=== PATIENT | male | born 1935 | race Caucasian/White ===

== ENCOUNTER 2018-01-29 12:19 | Inpatient (IN) | END 2018-02-05 19:30 | DRG 190 ==

== ENCOUNTER 2018-03-23 13:36 | Inpatient (IN) | END 2018-03-30 18:40 | DRG 190 ==

== ENCOUNTER 2018-07-13 13:35 | Inpatient (IN) | payer MEDICARE, OTHER ==
[~2018-07-13] VITALS: Ht 162.6 cm; Wt 64.9 kg
[~2018-07-13 13:35] MED LIST: ACET-2047 PO; ATOR10TA65 PO; BALS3OIN TP; BENZ-5 PO; BENZ1LOZ52 MM; BISA10SU18 RC; CARSR60 PO; DEME300T8 PO; DOCU-159 PO; ENOX40DI2 SC; FURO-110 PO; IPRA3AMP29 INHALATION; LEVA0.634 INHALATION; LOSA50TA14 PO; LUBI24CA7 PO; MAGN400O19 PO; MONT10TA24 PO; MUCO4 NEB; OLOP2.5D BOTH EYES; PANT40TA3 PO; PHEN-538 PO; POLY15DR25 BOTH EYES; POLY17PO6 PO; PRED20TA PO; SIME80TA60 PO; TAMS0.4C2 PO
[2018-07-13] MEDS ORDERED: CEFEPIME 2GM/50 ML (PMX) 50 ML IVPB STA (13:37)
[2018-07-13] MEDS ORDERED: ACETAMINOPHEN 325 MG TAB PO STA (13:37)
[2018-07-13] MEDS ORDERED: ALBUTEROL 0.083% (NEB) 2.5 MG/3 ML AMP HHN STA (13:39)
[2018-07-13] MEDS ORDERED: VANCOMYCIN 1 GM (PMX) 250 ML IVPB ONE (14:00)
[2018-07-13] MEDS ORDERED: IPRATROPIUM (NEB) 0.5 MG/2.5 ML AMP HHN ONE (14:00)
[2018-07-13] MEDS ORDERED: SODIUM CHLORIDE 0.9% 1L BAG IV* STA (14:03)
[2018-07-13] MEDS ORDERED: OSELTAMIVIR PHOSPHATE (6 MG/ML PO SYG) PO ONE (14:30)
[2018-07-13] MEDS ORDERED: ALTEPLASE (CATHFLO) 2 MG INJ CATHETER PRN (14:30)
[2018-07-13] MEDS ORDERED: ACETAMINOPHEN 650 MG SUPP PR ONE (14:30)
[2018-07-13] MEDS ORDERED: ATOR10TA65 PO (14:37)
[2018-07-13] MEDS ORDERED: POLY15DR25 BOTH EYES (14:37)
[2018-07-13] MEDS ORDERED: MAGN400O19 PO (14:42)
[2018-07-13] MEDS ORDERED: LUBI24CA7 PO (14:42)
[2018-07-13] MEDS ORDERED: MENT113G4 TP (14:42)
[2018-07-13] MEDS ORDERED: LOSA50TA14 PO (14:44)
[2018-07-13] MEDS ORDERED: LEVA0.634 INHALATION (14:45)
[2018-07-13] MEDS ORDERED: GUAI-173 PO (14:46)
[2018-07-13] MEDS ORDERED: ATRO INHALATION (14:46)
[2018-07-13] MEDS ORDERED: FURO-110 PO (14:47)
[2018-07-13] MEDS ORDERED: BISA10SU55 RC (14:47)
[2018-07-13] MEDS ORDERED: DOCU-159 PO (14:48)
[2018-07-13] MEDS ORDERED: DILT30TA30 PO (14:50)
[2018-07-13] MEDS ORDERED: DEME300T8 PO (14:51)
[2018-07-13] MEDS ORDERED: CEPASTAT MT (14:53)
[2018-07-13] MEDS ORDERED: POLY17PO6 PO (14:54)
[2018-07-13] MEDS ORDERED: MONT10TA24 PO (14:55)
[2018-07-13] MEDS ORDERED: MULTI PO (14:55)
[2018-07-13] MEDS ORDERED: ACET-2047 PO (14:56)
[2018-07-13] MEDS ORDERED: TAMS0.4C2 PO (14:56)
[2018-07-13] MEDS ORDERED: SIME80TA60 PO (14:57)
[2018-07-13] MEDS ORDERED: PROT946L PO (14:58)
[2018-07-13] MEDS ORDERED: PRED20TA PO (14:58)
[2018-07-13] MEDS ORDERED: POTA20TA15 PO (14:59)
[2018-07-13] MEDS ORDERED: PANT40TA3 PO (14:59)
[2018-07-13] MEDS ORDERED: ACETAMINOPHEN 325 MG TAB PO PRN ×2 (15:00→15:30)
[2018-07-13] MEDS ORDERED: HYDR-4011 PO (15:00)
[2018-07-13] MEDS ORDERED: OLOP2.5D BOTH EYES (15:00)
[2018-07-13] MEDS ORDERED: ONDANSETRON 4 MG INJ IV PRN ×2 (15:00→15:30)
--- NOTE | 2018-07-13 15:06 | HP ---
Date/Time of Note Date/Time of Note DATE: 07/13/18 TIME: 15:06 Assessment/Plan VTE Prophylaxis Pharmacological prophylaxis: LMWH Lines/Catheters IV [facility]from [facility]): Saline Lock Assessment/Plan Hospital Course 83-year-old male with comorbidities including essential hypertension, pulmonary hypertension, dyslipidemia, COPD, and BPH who was brought in from a [facility] because of dyspnea and hypoxia with positive influenza A swab and possible underlying pulmonary infiltrates with evidence of sepsis with febrile illness, tachycardia, and tachypnea, present on admission, who will be admitted to inpatient setting for further treatment and evaluation. 1. Sepsis with febrile illness, tachycardia, and tachypnea, present on admissi on secondary to underlying influenza A and possible healthcare associated pneumonia. -Pancultures sent. -Continue IV fluids. -Continue empiric antimicrobials. 2. Bronchitis secondary to influenza A. -Continue neuraminidase inhibitors. -Droplet precautions. 3. Suspect healthcare associated pneumonia. -Continue vancomycin and cefepime. -Continue inhaled bronchodilators. 4. COPD. -Continue inhaled bronchodilators (MADDIE). -Start tapering dose of steroids. 5. Acute respiratory failure. -Hypoxic and hypercapnic. -NIPPV as indicated. -Continue inhaled bronchodilators. -Pulmonology consult. 6. Essential hypertension. -Resume antihypertensives. 7. Pulmonary hypertension. -Continue supplemental oxygen. 8. Benign prostatic hypertrophy. -Continue tamsulosin. Plan: The patient will be admitted to inpatient telemetry floor. The patient will be started on a low cholesterol diet. The patient will be started on DVT prophylaxis and gastrointestinal prophylaxis (patient on steroids). The patient will remain a full code. Activities will be with assist. The rest of the patient's management will be based on the clinical course, inputs from consultants, and the results of diagnostic studies. Based on the patient's clinical presentation, he most probably requires at least 2 midnights' stay for further management and evaluation of his clinical presentation. The patient was seen in collaboration with Dr. Bravo. Result Diagram: 07/13/18 1349 07/13/18 1349 Results 24hrs Laboratory Tests Test 07/13/18 13:45 07/13/18 13:49 Blood Gas Specimen Source Blood arterial Arterial Blood Date Drawn 07/13/2018 2:04:34 PM Arterial Blood pH (Temp corrected) 7.302 L Arterial Blood pCO2 (Temp correct) 69.3 H Arterial Blood pO2 (Temp corrected) 87.1 Arterial Blood HCO3 33.5 H Arterial Blood Base Excess 5.0 H Arterial Blood Oxygen Saturation 95.4 Elmer Test ACCEPTAB Arterial Blood Gas Puncture Site Right Radial Arterial Blood Carboxyhemoglobin 0.1 Arterial Blood Methemoglobin 0.5 Blood Gas A-a O2 Differential 264.5 H Oxyhemoglobin Percent 94.8 Blood Gas Temperature 37.0 Blood Gas Respiration Rate 14.0 Blood Gas Actual Respiration Rate 30 Blood Gas Modality MASK - BIPAP FiO2 60.0 Blood Gas Pressure Support 10 Blood Gas IPAP/EPAP Ratio 15/5 Blood Gas Notified Whom M.D. Blood Gas Notified Time 07/13/2018 2:15:11 PM White Blood Count 9.5 # Red Blood Count 4.66 L Hemoglobin 12.9 L Hematocrit 41.6 L Mean Corpuscular Volume 89.3 Mean Corpuscular Hemoglobin 27.7 L Mean Corpuscular Hemoglobin Concent 31.0 L Red Cell Distribution Width 15.0 H Platelet Count 170 Mean Platelet Volume 10.0 Immature Granulocytes % 1.100 H Neutrophils % 89.9 H Lymphocytes % 5.7 L Monocytes % 3.2 Eosinophils % 0.0 Basophils % 0.1 Nucleated Red Blood Cells % 0.0 Immature Granulocytes # 0.100 H Neutrophils # 8.5 H Lymphocytes # 0.5 L Monocytes # 0.3 Eosinophils # 0.0 Basophils # 0.0 Nucleated Red Blood Cells # 0.0 Prothrombin Time 12.2 Prothrombin Time Ratio 1.0 INR International Normalized Ratio 0.89 Activated Partial Thromboplast Time 27.1 Sodium Level 138 Potassium Level 5.4 H Chloride Level 94 L Carbon Dioxide Level 35 H Anion Gap 9 Blood Urea Nitrogen 40 H Creatinine 0.98 Est Glomerular Filtrat Rate mL/min Glucose Level 93 Lactic Acid Level 1.5 Calcium Level 9.9 Total Bilirubin 0.2 Direct Bilirubin 0.00 Indirect Bilirubin 0.2 Aspartate Amino Transf (AST/SGOT) 38 Alanine Aminotransferase (ALT/SGPT) 21 Alkaline Phosphatase 100 Troponin I 0.051 Total Protein 6.2 Albumin 3.3 Globulin 2.90 Albumin/Globulin Ratio 1.13 HPI/ROS Admit Date/Time Admit Date/Time Hx of Present Illness This is an 83-year-old male with past medical history of hypertension, hyperlipidemia, pulmonary hypertension, COPD, and benign prostatic hypertrophy, who is a shelter resident. The patient was brought to the emergency room from the [facility] because of dyspnea and hypoxia. The patient was complaining of minimal chest pain and back pain. The patient was noticed to be hypoxic with a room air oxygen saturation the 80s. In the emergency room, the patient was noticed to be febrile with a temperature of 100.4 rectally. The patient was also noticed to be tachycardic. The patient did not have any leukocytosis. The patient was noticed to have hypoxic and hypercapnic respiratory failure. The patient was started on noninvasive positive pressure ventilation. The patient's influenza A swab was positive. The patient's chest x-ray was showing patchy bibasilar infiltrates/atelectasis with very small bilateral pleural effusions. The patient was treated with a single dose of Tamiflu, inhaled bronchodilators, along with cefepime and vancomycin in the emergency room. ROS Subjective hx not possible: pt critical status PMH/Family/Social Past Medical History 1. Hypertension. 2. Hyperlipidemia. 3. Pulmonary hypertension. 4. COPD. 5. BPH. 6. A. fib (as per SNF documentation). Medications Current Medications Vancomycin HCl 250 ml @ 125 mls/hr ONCE ONCE IVPB Last administered on 07/13/18at 14:57; Admin Dose 125 MLS/HR; Start 07/13/18 at 14:00; Stop 07/13/18 at 15:59 Alteplase, Recombinant (Cathflo (Activase)) 2 mg MAY REPEAT X1 PRN CATHETER IF CATHETER REMAINS OCCULUDED Last administered on 07/13/18at 14:28; Admin Dose 2 MG; Start 07/13/18 at 14:30 Ondansetron HCl (Zofran Inj) 4 mg ER BRIDGE PRN IV NAUSEA/VOMITING; Start 07/13/18 at 15:00; Stop 07/14/18 at 14:59 Acetaminophen (Tylenol Tab) 650 mg ER BRIDGE PRN PO .MILD PAIN 1-3 OR TEMP; Start 07/13/18 at 15:00; Stop 07/14/18 at 14:59 Coded Allergies: No Known Allergy (Unverified , 07/13/18) Past Surgical History Past Surgical Hx: no surgical history Family History Significant Family History: no pertinent family hx Social History The patient is a shelter resident. Alcohol Use: none Smoking Status: Former smoker Drug Use: none Exam/Review of Systems Vital Signs Vitals Vital Signs Date Temp Pulse Resp B/P (MAP) Pulse Ox O2 O2 Flow FiO2 Time Delivery Rate 07/13/18 100.4 128 35 108/49 99 BIPAP 14:45 (68) 07/13/18 60 14:15 Exam Exam General: Adequately build 83 year-old male lying in bed in mild to moderate respiratory distress. HEENT: Normocephalic, atraumatic. Eyes: Anicteric sclerae, conjunctivae clear. ENT: Nasal septum midline, oral mucosa moist. Neck supple. Respiratory: Bilaterally diminished breath sounds. Use of accessory muscles of respiration. Cardiovascular: S1, S2 heard. Regular rate and rhythm. Abdomen: Nontender, and distended. Genitourinary: Deferred. Extremities: No cyanosis, no edema. Peripheral pulses palpable. Neurologic: The patient is awake and alert. Moves all 4 extremities. Follows commands. Skin: Ecchymosis on the dorsal aspect of the right hand. Additional Comments CXR IMPRESSION: There are patchy bibasilar infiltrates or atelectasis with very small bilateral pleural effusions. BERTA OVALLE NP Jul 13, 2018 15:06
[2018-07-13] MEDS ORDERED: NACL 0.9% 3 ML SYG IV SCH (15:30)
[2018-07-13] MEDS ORDERED: VANCOMYCIN IV PER PHARMACY XX SCH (15:30)
[2018-07-13] MEDS ORDERED: ALBUTEROL/IPRATROPIUM (NEB) 3 ML AMP HHN PRN (15:30)
--- NOTE | 2018-07-13 16:17 | ERD ---
ER Documentation Chief Complaint Chief Complaint FROM SNF WITH C/C SOB HPI Patient is a 83-year-old male with previous COPD who presents with shortness of breath. Please note the history and physical exam is limited secondary to the patient's shortness of breath at this time. The patient was brought in by ambulance. The patient had chest pain and back pain and oxygen saturation was 80s on room air. The patient was given a breathing treatment by paramedics. He came from a facility. The patient was diagnosed with pneumonia on chest x-ray at the facility. ROS All systems reviewed and are negative except as per history of present illness. Medications Home Meds Reported Medications Hydrocodone/Acetaminophen ([place] 5-325 Tablet) 1 Each Tablet, 1 EACH PO Q6 PRN for MODERATE PAIN LEVEL 4-6, TAB 07/13/18 Olopatadine* (Pataday*) 0.2% - 2.5 Ml Drops, 1 DROP BOTH EYES BID, EA 07/13/18 Pantoprazole* (Protonix*) 40 Mg Tablet.dr, 40 MG PO DAILY, TAB 07/13/18 Potassium Chloride* (K-Dur*) 20 Meq Tab.prt.sr, 40 MEQ PO DAILY, TAB.SA 07/13/18 Prednisone* (Prednisone*) 20 Mg Tab, 20 MG PO DAILY, TAB 07/13/18 Protein Supplement (Promod) 946 Ml Liquid, 946 ML PO BID 07/13/18 Simethicone* (Mylicon*) 80 Mg Tab, 80 MG PO TID PRN for DISTENSION/GAS/BLOATING, TAB 07/13/18 Tamsulosin Hcl* (Tamsulosin Hcl*) 0.4 Mg Cap.er.24h, 0.4 MG PO HS, CAP 07/13/18 Acetaminophen* (Acetaminophen*) 650 Mg Tablet, 650 MG PO Q6H PRN for MILD PAIN LEVEL 1-3, #30 TAB AND FEVER 07/13/18 Multivitamins* (Theragran*) 1 Tab Tab, 1 TAB PO DAILY, TAB 07/13/18 Montelukast Sodium* (Montelukast Sodium*) 10 Mg Tablet, 10 MG PO QHS, #30 TAB 07/13/18 Polyethylene Glycol* (Miralax*) 17 Gm Powd.pack, 17 GM PO TID PRN for CONSTIPATION, #60 PACKET 07/13/18 Throat Lozenges* (Cepastat*) 9 Josselin Lozenge, 1 LOZENGE MT EVERY 1 HOUR PRN, LOZENGE 07/13/18 Demeclocycline Hcl* (Demeclocycline Hcl*) 300 Mg Tablet, 150 MG PO TID, #60 TAB 07/13/18 Diltiazem Hcl* (Cardizem*) 30 Mg Tablet, 30 MG PO Q8 PRN for BLOOD PRESSURE SUPPORT, #90 TAB HOLD FOR SBP <110 OR HR <60 07/13/18 Docusate Sodium* (Docusate Sodium*) 100 Mg Capsule, 100 MG PO BID, #60 CAP 07/13/18 Bisacodyl (Dulcolax) 10 Mg Supp.rect, 10 MG RC PRN PRN for CONSTIPATION, SUPP.RECT 07/13/18 Furosemide* (Lasix*) 20 Mg Tablet, 20 MG PO DAILY, TAB 07/13/18 Guaifenesin* (Tussin*) 100 Mg/5 Ml Syrup, 200 MG PO Q4 PRN for COUGH, ML 07/13/18 Ipratropium [place]* (Atrovent HFA*) 12.9 Gm Aer.w.adap, 2 PUFF INHALATION Q6 for SHORTNESS OF BREATH, #1 INHALER FOR THE NEBULIZER 07/13/18 Levalbuterol Hcl* (Levalbuterol Hcl*) 0.63 Mg/3 Ml Vial.neb, 0.63 MG INHALATION Q6H PRN for WHEEZING AND SOB, VIAL 07/13/18 Losartan Potassium* (Losartan Potassium*) 50 Mg Tablet, 50 MG PO DAILY, TAB HOLD FOR SBP <110 OR HR <60 07/13/18 Lubiprostone* (Amitiza*) 24 Mcg Capsule, 24 MCG PO BID, #60 CAP 07/13/18 Magnesium Hydroxide* (Milk Of Magnesia*) 400 Mg/5 Ml Oral.susp, 30 ML PO DAILY P RN for CONSTIPATION, ML 07/13/18 Menthol (BENGAY) 113 Gm Gel..gram., 113 GM TP TID APPLY TO POSTERIOR RIGHT SHOULDER 07/13/18 Atorvastatin Calcium (Atorvastatin Calcium) 10 Mg Tablet, 10 MG PO QHS, #30 TAB 07/13/18 Polyvinyl Alcohol (Tears Again) 15 Ml Drops, 1 DRP BOTH EYES Q2HWA, BOTTLE 07/13/18 Discontinued Reported Medications Magnesium Hydroxide* (Milk Of Magnesia*) 400 Mg/5 Ml Oral.susp, 30 ML PO DAILY, ML 05/27/18 Montelukast Sodium* (Montelukast Sodium*) 10 Mg Tablet, 10 MG PO QHS, #30 TAB 05/27/18 Olopatadine* (Pataday*) 0.2% - 2.5 Ml Drops, 1 DROP BOTH EYES TID, EA 05/27/18 Pantoprazole* (Protonix*) 40 Mg Tablet.dr, 40 MG PO DAILY, TAB 05/27/18 Phenazopyridine Hcl* (Pyridium*) 200 Mg Tab, 200 MG PO TID, TAB 05/27/18 Benzocaine/Menthol* (Cepacol* Sore Throat Lozenges) 1 Each Lozenge, 1 EACH MM q 2h PRN for SORE THROAT, LOZENGE 05/27/18 Polyethylene Glycol* (Miralax*) 17 Gm Powd.pack, 17 GM PO TID, #60 PACKET 05/27/18 Prednisone* (Prednisone*) 20 Mg Tab, 20 MG PO DAILY, TAB 05/27/18 Simethicone* (Mylicon*) 80 Mg Tab, 80 MG PO TID PRN for DISTENSION/GAS/BLOATING, TAB 05/27/18 Tamsulosin Hcl* (Tamsulosin Hcl*) 0.4 Mg Cap.er.24h, 0.4 MG PO HS, CAP 05/27/18 Lubiprostone* (Amitiza*) 24 Mcg Capsule, 24 MCG PO BID, #60 CAP 05/27/18 Losartan Potassium* (Losartan Potassium*) 50 Mg Tablet, 50 MG PO DAILY, TAB 05/27/18 Levalbuterol Hcl* (Levalbuterol Hcl*) 0.63 Mg/3 Ml Vial.neb, 0.63 MG INHALATION Q6H PRN for WHEEZING AND SOB, VIAL 05/27/18 Ipratropium-Albuterol (Ipratropium-Albuterol) 0.5-3 Mg/3 Ml Ampul.neb, 3 ML INHALATION Q6, #30 VIAL 05/27/18 Furosemide* (Lasix*) 20 Mg Tablet, 20 MG PO DAILY, TAB 05/27/18 Enoxaparin Sodium* (Enoxaparin Sodium*) 40 Mg/0.4 Ml Syringe, 40 MG SC DAILY, SYR 05/27/18 Docusate Sodium* (Docusate Sodium*) 100 Mg Capsule, 100 MG PO BID, #60 CAP 05/27/18 Acetylcysteine* (Mucomyst*) 4 Ml Soln, 2 ML NEB BID, EA 05/27/18 Acetaminophen* (Acetaminophen*) 650 Mg Tablet, 650 MG PO Q6H PRN for PAIN AND OR ELEVATED TEMP, #30 TAB 05/27/18 Polyvinyl Alcohol (Tears Again) 15 Ml Drops, 1 DRP BOTH EYES EVERY 2 HOURS PRN for DRY EYES, BOTTLE 05/27/18 Atorvastatin Calcium (Atorvastatin Calcium) 10 Mg Tablet, 10 MG PO QHS, #30 TAB 05/27/18 Balsam Germania/[place] Oil (CIRCUDERM EMOLLIENT) 3 Gm Oint.pack, 3 GM TP Q12 05/27/18 Benzonatate* (Benzonatate*) 100 Mg Capsule, 100 MG PO TID PRN for COUGH, CAP 05/27/18 Bisacodyl (Laxative Suppository) 10 Mg Supp.rect, 10 MG RC DAILY PRN for CONSTIPATION, SUPP.RECT 05/27/18 Demeclocycline Hcl* (Demeclocycline Hcl*) 300 Mg Tablet, 150 MG PO TID, #60 TAB 05/27/18 Diltiazem Hcl* (Cardizem SR*) 60 Mg Capsr, 60 MG PO Q8, #60 CAP 05/27/18 Allergies Allergies: Coded Allergies: No Known Allergy (Unverified , 07/13/18) PMhx/Soc History of Surgery: Yes Anesthesia Reaction: No Hx Neurological Disorder: No Hx Respiratory Disorders: Yes (copd) Hx Cardiac Disorders: Yes (htn, a-fib ) Hx Psychiatric Problems: No Hx Miscellaneous Medical Probl: Yes (dysphagia, uti , gerd ) Hx Alcohol Use: Yes Hx Substance Use: No Hx Tobacco Use: Yes (QUIT 12 YEARS AGO) Smoking Status: Former smoker FmHx Unable to obtain Physical Exam Vitals Vital Signs Date Temp Pulse Resp B/P (MAP) Pulse Ox O2 O2 Flow FiO2 Time Delivery Rate 07/13/18 100.4 128 35 108/49 99 BIPAP 14:45 (68) 07/13/18 100.4 14:17 07/13/18 130 95 60 14:15 07/13/18 130 33 99/51 (67) 100 BIPAP 13:59 07/13/18 98.3 129 26 102/73 88 13:41 (83) Physical Exam Const: Moderate distress Head: Atraumatic Eyes: Normal Conjunctiva ENT: Normal External Ears, Nose and Mouth. Neck: Full range of motion. No meningismus. Resp: Tachypnea with accessory muscle use Cardio: Tachycardia with regular rhythm Abd: Soft, non tender, non distended. Normal bowel sounds Skin: No petechiae or rashes Back: No midline or flank tenderness Ext: No cyanosis, or edema Neur: Awake and moves all 4 extremities Result Diagram: 07/13/18 1349 07/13/18 1349 Results 24 hrs Laboratory Tests Test 07/13/18 13:45 07/13/18 13:49 Blood Gas Specimen Source Blood arterial Arterial Blood Date Drawn 07/13/2018 2:04:34 PM Arterial Blood pH (Temp corrected) 7.302 Arterial Blood pCO2 (Temp correct) 69.3 mmhg Arterial Blood pO2 (Temp corrected) 87.1 mmHG Arterial Blood HCO3 33.5 mmol/L Arterial Blood Base Excess 5.0 mmol/L Arterial Blood Oxygen Saturation 95.4 mmHG Elmer Test ACCEPTAB Arterial Blood Gas Puncture Site Right Radial Arterial Blood Carboxyhemoglobin 0.1 % Arterial Blood Methemoglobin 0.5 % Blood Gas A-a O2 Differential 264.5 mmHg Oxyhemoglobin Percent 94.8 % Blood Gas Temperature 37.0 C Blood Gas Respiration Rate 14.0 Blood Gas Actual Respiration Rate 30 Blood Gas Modality MASK - BIPAP FiO2 60.0 % Blood Gas Pressure Support 10 Blood Gas IPAP/EPAP Ratio 15/5 Blood Gas Notified Whom Vilma Blood Gas Notified Time 07/13/2018 2:15:11 PM White Blood Count 9.5 10^3/ul Red Blood Count 4.66 10^6/ul Hemoglobin 12.9 g/dl Hematocrit 41.6 % Mean Corpuscular Volume 89.3 fl Mean Corpuscular Hemoglobin 27.7 pg Mean Corpuscular Hemoglobin Concent 31.0 g/dl Red Cell Distribution Width 15.0 % Platelet Count 170 10^3/UL Mean Platelet Volume 10.0 fl Immature Granulocytes % 1.100 % Neutrophils % 89.9 % Lymphocytes % 5.7 % Monocytes % 3.2 % Eosinophils % 0.0 % Basophils % 0.1 % Nucleated Red Blood Cells % 0.0 /100WBC Immature Granulocytes # 0.100 10^3/ul Neutrophils # 8.5 10^3/ul Lymphocytes # 0.5 10^3/ul Monocytes # 0.3 10^3/ul Eosinophils # 0.0 10^3/ul Basophils # 0.0 10^3/ul Nucleated Red Blood Cells # 0.0 10^3/ul Prothrombin Time 12.2 Sec Prothrombin Time Ratio 1.0 INR International Normalized Ratio 0.89 Activated Partial Thromboplast Time 27.1 Sec Sodium Level 138 mmol/L Potassium Level 5.4 mmol/L Chloride Level 94 mmol/L Carbon Dioxide Level 35 mmol/L Anion Gap 9 Blood Urea Nitrogen 40 mg/dl Creatinine 0.98 mg/dl Est Glomerular Filtrat Rate mL/min mL/min Glucose Level 93 mg/dl Hemoglobin A1c 5.7 % Lactic Acid Level 1.5 mmol/L Calcium Level 9.9 mg/dl Total Bilirubin 0.2 mg/dl Direct Bilirubin 0.00 mg/dl Indirect Bilirubin 0.2 mg/dl Aspartate Amino Transf (AST/SGOT) 38 IU/L Alanine Aminotransferase (ALT/SGPT) 21 IU/L Alkaline Phosphatase 100 IU/L Troponin I 0.051 ng/ml Total Protein 6.2 g/dl Albumin 3.3 g/dl Globulin 2.90 g/dl Albumin/Globulin Ratio 1.13 Current Medications Medications Dose Sig/Katya Start Time Status Last (Trade) Ordered Route PRN Stop Time Admin Dose Reason Admin 650 mg ONCE STAT 07/13/18 DC Acetaminophen PO 13:37 (Tylenol 07/13/18 13:39 Tab) Cefepime HCl 50 ml @ ONCE STAT 07/13/18 DC 07/13/18 100 mls/hr IVPB 13:37 14:16 07/13/18 14:06 Vancomycin 250 ml @ ONCE ONCE 07/13/18 DC 07/13/18 HCl 125 mls/hr IVPB 14:00 14:57 07/13/18 15:59 Albuterol 5 mg ONCE STAT 07/13/18 DC 07/13/18 (Proventil HHN 13:39 14:44 0.083% (Neb)) 07/13/18 13:40 Ipratropium 0.5 mg ONCE ONCE 07/13/18 DC 07/13/18 Reed[place] HHN 14:00 14:44 (Atrovent 07/13/18 14:01 0.02% (Neb)) Sodium 2,450 ml BOLUS OVER 2 07/13/18 DC 07/13/18 Chloride HOURS STAT 14:03 14:16 (NS) IV* 07/13/18 14:04 Alteplase, 2 mg MAY REPEAT 07/13/18 07/13/18 Recombinant X1 PRN 14:30 14:28 (Cathflo CATHETER IF (Activase)) CATHETER REMAINS OCCULUDED 650 mg ONCE ONCE 07/13/18 DC 07/13/18 Acetaminophen DC 14:30 14:17 (Tylenol 07/13/18 14:31 Supp) Oseltamivir 75 mg ONCE ONCE 07/13/18 DC 07/13/18 Phosphate PO 14:30 14:51 (Tamiflu 07/13/18 14:31 Susp) Ondansetron 4 mg ER BRIDGE 07/13/18 DC HCl (Zofran PRN IV 15:00 Inj) NAUSEA/VOMITI 07/13/18 15:36 NG 650 mg ER BRIDGE 07/13/18 DC Acetaminophen PRN PO 15:00 (Tylenol .MILD PAIN 07/13/18 15:36 Tab) 1-3 OR TEMP IV Flush 3 ml PER 07/13/18 (NS 3 ml) PROTOCOL IV 15:30 Ondansetron 4 mg Q6H PRN 07/13/18 HCl (Zofran IV 15:30 Inj) NAUSEA/VOMITI NG 650 mg Q6H PRN 07/13/18 Acetaminophen PO .PAIN 1-3 15:30 (Tylenol OR TEMP Tab) 1 tab Q6H PRN 07/13/18 Acetaminophen PO .MOD PAIN 15:30 / 4-6 Hydrocodone Bitart ([place] (5/325)) Oseltamivir 75 mg BID PO 07/13/18 Phosphate 21:00 (Tamiflu) Cefepime HCl 50 ml @ Q12 IVPB 07/13/18 100 mls/hr 21:00 Vancomycin VANCOMYCIN PER 07/13/18 HCl (Vanco PER PHARMACY PROTOCOL XX 15:30 Iv Per Pharmacy) Albuterol/ 3 ml Q4HWA RESP 07/13/18 Ipratropium THERAPY HHN 17:00 (Duoneb) Albuterol/ 3 ml Q2H RESP 07/13/18 Ipratropium THERAPY PRN 15:30 (Duoneb) HHN SHORTNESS OF BREATH 60 mg Q8 IV 07/13/18 Methylprednis 22:00 olone Sodium Succinate (Solu-Medrol) 10 mg QHS PO 07/13/18 Atorvastatin 21:00 Calcium (Lipitor) Furosemide 20 mg DAILY PO 07/14/18 (Lasix) 09:00 Losartan 50 mg DAILY PO 07/14/18 Potassium 09:00 (Cozaar) 24 mcg BID PO 07/13/18 Lubiprostone 21:00 (Amitiza) Montelukast 10 mg QHS PO 07/13/18 Sodium 21:00 (Singulair) Olopatadine 1 drop BID BOTH 07/13/18 UNV HCl EYES 21:00 (Pataday) 40 mg DAILY PO 07/14/18 Pantoprazole 09:00 (Protonix Tab) Tamsulosin 0.4 mg HS PO 07/13/18 HCl 21:00 (Flomax) Olopatadine 1 drop BID BOTH 07/13/18 HCl EYES 21:00 (Pataday) Procedures/MDM Chest x-ray read by radiology. EKG read by me: Rate/Rhythm: Sinus tachycardia at a rate of 122 Intervals: Normal Impression: Tachycardia without ischemia Sepsis Documentation: Patient's infectious symptoms have not stabilized and the patient is at risk of rapid decompensation. The patient will be admitted for careful hydration, antibiotic therapy, and infectious source control. SEVERE SEPSIS CRITERIA: Infectious source: Pneumonia and influenza End organ damage indicated by: Respiratory failure SEPSIS MANAGEMENT Time of recognition of sepsis: 1348. Time of recognition of severe sepsis: 1348. Time of recognition of septic shock: No septic shock at this time. 3 HOUR BUNDLE Blood cultures x 2 before broad-spectrum antibiotics: Yes 30 ml/kg NS bolus completed Initial lactate 1.5 Repeat lactate pending SEPTIC SHOCK ASSESSMENT: No lactic acid > 4.0 No persistent hypotension (SBP < 90 or 40 mmHg drop, MAP < 65) despite 30 mL/kg IV fluid bolus VOLUME REASSESSMENT FOR SEPTIC SHOCK: No septic shock PERSISTENT HYPOTENSION TREATMENT: Comfort care no Central line, patient has a PICC line in the right upper extremity upon arrival Vasopressor started not required I considered further perfusion assessment with CVP measurement, SCVO2, bedside ultrasound volume assessment, passive leg raise, trial of further fluid bolus. And proceeded with 30 ml/kg fluid bolus of NSS, broad spectrum antibiotics, and admission. The patient has a PICC line in the right upper extremity but at this point does not require pressors. Patient was positive for influenza and Tamiflu first dose was given. CRITICAL CARE Critical care time 35 minutes Emergent fluid management while maintaining close respiratory support. Provision of immediate and broad-spectrum antibiotic therapy. Simultaneous assessment for possible sources in order to direct targeted therapy. Consideration for invasive and chemical support to prevent cardiopulmonary collapse. Critical care time is independent of procedures performed. Departure Diagnosis: Primary Impression: Severe sepsis Additional Impressions: Influenza Pneumonia Pneumonia type: due to unspecified organism Laterality: bilateral Lung location: lower lobe of lung Qualified Codes: J18.1 - Lobar pneumonia, unspecified organism Condition: Serious JAG UP MD Jul 13, 2018 16:17
[2018-07-13] MEDS ORDERED: NA POLYST SULFON 15 GM/60 ML BTL PO ONE (18:00)
[2018-07-13] MEDS: ALBUTEROL/IPRATROPIUM (NEB) 3 ML AMP HHN SCH ×2 (18:12→20:45)
[2018-07-13 19:27] VITALS: PULSE 103
[2018-07-13 19:28] VITALS: PULSE 108
[2018-07-13 20:00] VITALS: BP 94/51; PULSE 107; PULSE 112; RESP 17; Ht 162.6 cm; Wt 64.9 kg
[2018-07-13] MEDS ORDERED: OLOPATADINE 0.2% (ONCE A DAY) OPHTH DROP 2.5 ML BOTH EYES SCH (21:00)
[2018-07-13] MEDS: LUBIPROSTONE 24 MCG CAP PO SCH (21:00)
[2018-07-13] MEDS: TAMSULOSIN (SR) 0.4 MG CAP PO SCH (22:08)
[2018-07-13] MEDS: ATORVASTATIN 10 MG TAB PO SCH (22:08)
[2018-07-13] MEDS: MONTELUKAST 10 MG TAB PO SCH (22:08)
[2018-07-13] MEDS: FAMOTIDINE 20 MG TAB PO SCH (22:08)
[2018-07-13] MEDS: METHYLPREDNISOLONE 125 MG INJ IV SCH (22:09)
[2018-07-13] MEDS: CEFEPIME 1GM/50 ML (PMX) 50 ML IVPB SCH (22:09)
[2018-07-13 22:45] VITALS: PULSE 100
[2018-07-13] MEDS: OSELTAMIVIR 75 MG CAP PO SCH (23:45)
[2018-07-13] MEDS: OLOPATADINE 0.2% (ONCE A DAY) OPHTH DROP 2.5 ML BOTH EYES SCH (23:53)
[2018-07-14] VITALS (22 sets, daily range): BP systolic 112–125; BP diastolic 56–74; PULSE 87–167; RESP 18–20
[2018-07-14] MEDS: VANCOMYCIN 750 MG (PMX) 250 ML IVPB SCH ×2 (03:23→15:06)
[2018-07-14] MEDS: METHYLPREDNISOLONE 125 MG INJ IV SCH ×3 (05:51→21:24)
[2018-07-14] MEDS: CEFEPIME 1GM/50 ML (PMX) 50 ML IVPB SCH ×2 (08:30→21:23)
[2018-07-14] MEDS: LUBIPROSTONE 24 MCG CAP PO SCH ×2 (08:33→21:23)
[2018-07-14] MEDS: OSELTAMIVIR 75 MG CAP PO SCH ×2 (08:34→21:23)
[2018-07-14] MEDS: LOSARTAN 50 MG TAB PO SCH (08:34)
[2018-07-14] MEDS: FAMOTIDINE 20 MG TAB PO SCH (08:35)
[2018-07-14] MEDS: FUROSEMIDE 20 MG TAB PO SCH (08:35)
[2018-07-14] MEDS: ENOXAPARIN 40 MG/0.4 ML SYG SC SCH (08:47)
[2018-07-14] MEDS ORDERED: PANTOPRAZOLE (EC) 40 MG TAB PO SCH (09:00)
[2018-07-14] MEDS: OLOPATADINE 0.2% (ONCE A DAY) OPHTH DROP 2.5 ML BOTH EYES SCH ×2 (09:00→21:23)
[2018-07-14] MEDS: ALBUTEROL/IPRATROPIUM (NEB) 3 ML AMP HHN SCH ×3 (10:23→19:33)
--- NOTE | 2018-07-14 11:51 | PN ---
Date/Time of Note Date/Time of Note DATE: 07/14/18 TIME: 11:47 Assessment/Plan VTE Prophylaxis Risk score (from Ns)>0 risk: 5 SCD applied (from Ns): Yes SCD contraindicated: low risk/ambulating Pharmacological prophylaxis: heparin Lines/Catheters IV Catheter Type (from Nrs): PICC Line Central line still needed: Yes Urinary Cath still in place: No Assessment/Plan Hospital Course Assessment plan 1. Sepsis, probably severe, stable continue supplemental oxygen 2. Acute influenza A, stable finish Tamiflu 3. Acute hypoxic respiratory failure, mod stable continue oxygen 4. Concern for healthcare associated pneumonia, stable finish antibiotics 5. Chronic COPD 6. Past tobacco 7. Possible bronchitis, steroids as indicated 8. Chronic hypertension 9. Chronic pulmonary hypertension 10. Chronic VICTOR HUGO? On home BiPAP? 11. Pulmonary nodule right 6 mm noted back in March. Serial imaging every 6 months 12. BPH 13. Sinus tach secondary to /2/ S: Follows commands. Has back/shoulder pain cough with white expectoration no hemoptysis. Constipated? O: Vital signs stable except sinus tachycardia, hypoxia requiring supplemental oxygen on BiPAP presently Physical exam No pallor or JVD appreciated Regular no murmur gallop Faint diminished mild tachypnea Distended? positive bs, no rigidity rebound guarding No edema Result Diagram: 07/14/18 0542 07/14/18 0542 Results 24hrs Laboratory Tests Test 07/13/18 13:45 07/13/18 13:49 07/13/18 16:29 07/13/18 19:51 Blood Gas Blood arterial Specimen Source Arterial Blood 07/13/2018 2:04:3 Date Drawn 4 PM Arterial Blood pH 7.302 L (Temp corrected) Arterial Blood 69.3 H pCO2 (Temp correct) Arterial Blood 87.1 pO2 (Temp corrected) Arterial Blood 33.5 H HCO3 Arterial Blood 5.0 H Base Excess Arterial Blood 95.4 Oxygen Saturation Elmer Test ACCEPTAB Arterial Blood Right Radial Gas Puncture Site Arterial 0.1 Blood Carboxyhemo globin Arterial Blood 0.5 Methemoglobin Blood Gas A-a O2 264.5 H Differential Oxyhemoglobin 94.8 Percent Blood Gas 37.0 Temperature Blood Gas 14.0 Respiration Rate Blood Gas Actual 30 Respiration Rate Blood Gas MASK - BIPAP Modality FiO2 60.0 Blood Gas 10 Pressure Support Blood Gas 15/5 IPAP/EPAP Ratio Blood Gas M.DKim Notified Whom Blood Gas 07/13/2018 2:15:1 Notified Time 1 PM White Blood Count 9.5 # Red Blood Count 4.66 L Hemoglobin 12.9 L Hematocrit 41.6 L Mean Corpuscular 89.3 Volume Mean Corpuscular 27.7 L Hemoglobin Mean Corpuscular 31.0 L Hemoglobin Concen t Red Cell 15.0 H Distribution Width Platelet Count 170 Mean Platelet 10.0 Volume Immature 1.100 H Granulocytes % Neutrophils % 89.9 H Lymphocytes % 5.7 L Monocytes % 3.2 Eosinophils % 0.0 Basophils % 0.1 Nucleated Red 0.0 Blood Cells % Immature 0.100 H Granulocytes # Neutrophils # 8.5 H Lymphocytes # 0.5 L Monocytes # 0.3 Eosinophils # 0.0 Basophils # 0.0 Nucleated Red 0.0 Blood Cells # Prothrombin Time 12.2 Prothrombin Time 1.0 Ratio INR International 0.89 Normalized Ratio Activated 27.1 Partial Thrombopl ast Time Sodium Level 138 Potassium Level 5.4 H Chloride Level 94 L Carbon Dioxide 35 H Level Anion Gap 9 Blood Urea 40 H Nitrogen Creatinine 0.98 Est Glomerular Filtrat Rate mL/min Glucose Level 93 Hemoglobin A1c 5.7 Lactic Acid Level 1.5 1.6 1.3 Calcium Level 9.9 Total Bilirubin 0.2 Direct Bilirubin 0.00 Indirect 0.2 Bilirubin Aspartate Amino 38 Transf (AST/SGOT) Alanine 21 Aminotransferase (ALT/SGPT) Alkaline 100 Phosphatase Troponin I 0.051 Total Protein 6.2 Albumin 3.3 Globulin 2.90 Albumin/Globulin 1.13 Ratio Thyroid 0.602 Stimulating Hormone (TSH) Free Thyroxine 1.64 Test 07/14/18 00:00 07/14/18 05:42 Urine Color STRAW Urine Clarity CLEAR Urine pH 5.0 Urine Specific 1.011 [place] Urine Ketones NEGATIVE Urine Nitrite NEGATIVE Urine Bilirubin NEGATIVE Urine NEGATIVE Urobilinogen Urine Leukocyte NEGATIVE Esterase Urine Hemoglobin NEGATIVE Urine Glucose NEGATIVE Urine Total NEGATIVE Protein White Blood Count 5.4 # Red Blood Count 4.11 L Hemoglobin 11.4 L Hematocrit 37.1 L Mean Corpuscular 90.3 Volume Mean Corpuscular 27.7 L Hemoglobin Mean Corpuscular 30.7 L Hemoglobin Concen t Red Cell 15.2 H Distribution Width Platelet Count 147 Mean Platelet 10.6 H Volume Immature 0.400 Granulocytes % Neutrophils % 93.1 H Lymphocytes % 3.9 L Monocytes % 2.6 Eosinophils % 0.0 Basophils % 0.0 Nucleated Red 0.0 Blood Cells % Immature 0.020 Granulocytes # Neutrophils # 5.0 Lymphocytes # 0.2 L Monocytes # 0.1 L Eosinophils # 0.0 Basophils # 0.0 Nucleated Red 0.0 Blood Cells # Sodium Level 140 Potassium Level 3.9 Chloride Level 98 Carbon Dioxide 34 H Level Anion Gap 8 Blood Urea 34 H Nitrogen Creatinine 0.67 Est Glomerular Filtrat Rate mL/min Glucose Level 128 Calcium Level 8.7 Phosphorus Level 4.5 Magnesium Level 2.0 Total Bilirubin 0.1 L Direct Bilirubin 0.00 Indirect 0.1 Bilirubin Aspartate Amino 30 Transf (AST/SGOT) Alanine 26 Aminotransferase (ALT/SGPT) Alkaline 76 Phosphatase Total Protein 5.4 L Albumin 2.8 L Globulin 2.60 Albumin/Globulin 1.07 Ratio Triglycerides 97 Level Cholesterol Level 124 LDL Cholesterol, 65 Calculated HDL Cholesterol 40 Cholesterol/HDL 3.1 Ratio Exam/Review of Systems Exam Vitals Vital Signs Date Temp Pulse Resp B/P (MAP) Pulse Ox O2 O2 Flow FiO2 Time Delivery Rate 07/14/18 89 98 40 11:35 07/14/18 98.0 20 121/65 11:31 (83) 07/14/18 6.0 10:10 07/14/18 BIPAP 04:00 Intake and Output 07/13/18 07/13/18 07/14/18 1515:00 23:00 07:00 IntakeIntake Total 350 ml 470 ml OutputOutput Total 750 ml BalanceBalance 350 ml -280 ml Results Results 24hrs Laboratory Tests Test 07/13/18 13:45 07/13/18 13:49 07/13/18 16:29 07/13/18 19:51 Blood Gas Blood arterial Specimen Source Arterial Blood 07/13/2018 2:04:3 Date Drawn 4 PM Arterial Blood pH 7.302 L (Temp corrected) Arterial Blood 69.3 H pCO2 (Temp correct) Arterial Blood 87.1 pO2 (Temp corrected) Arterial Blood 33.5 H HCO3 Arterial Blood 5.0 H Base Excess Arterial Blood 95.4 Oxygen Saturation Elmer Test ACCEPTAB Arterial Blood Right Radial Gas Puncture Site Arterial 0.1 Blood Carboxyhemo globin Arterial Blood 0.5 Methemoglobin Blood Gas A-a O2 264.5 H Differential Oxyhemoglobin 94.8 Percent Blood Gas 37.0 Temperature Blood Gas 14.0 Respiration Rate Blood Gas Actual 30 Respiration Rate Blood Gas MASK - BIPAP Modality FiO2 60.0 Blood Gas 10 Pressure Support Blood Gas 15/5 IPAP/EPAP Ratio Blood Gas M.D. Notified Whom Blood Gas 07/13/2018 2:15:1 Notified Time 1 PM White Blood Count 9.5 # Red Blood Count 4.66 L Hemoglobin 12.9 L Hematocrit 41.6 L Mean Corpuscular 89.3 Volume Mean Corpuscular 27.7 L Hemoglobin Mean Corpuscular 31.0 L Hemoglobin Concen t Red Cell 15.0 H Distribution Width Platelet Count 170 Mean Platelet 10.0 Volume Immature 1.100 H Granulocytes % Neutrophils % 89.9 H Lymphocytes % 5.7 L Monocytes % 3.2 Eosinophils % 0.0 Basophils % 0.1 Nucleated Red 0.0 Blood Cells % Immature 0.100 H Granulocytes # Neutrophils # 8.5 H Lymphocytes # 0.5 L Monocytes # 0.3 Eosinophils # 0.0 Basophils # 0.0 Nucleated Red 0.0 Blood Cells # Prothrombin Time 12.2 Prothrombin Time 1.0 Ratio INR International 0.89 Normalized Ratio Activated 27.1 Partial Thrombopl ast Time Sodium Level 138 Potassium Level 5.4 H Chloride Level 94 L Carbon Dioxide 35 H Level Anion Gap 9 Blood Urea 40 H Nitrogen Creatinine 0.98 Est Glomerular Filtrat Rate mL/min Glucose Level 93 Hemoglobin A1c 5.7 Lactic Acid Level 1.5 1.6 1.3 Calcium Level 9.9 Total Bilirubin 0.2 Direct Bilirubin 0.00 Indirect 0.2 Bilirubin Aspartate Amino 38 Transf (AST/SGOT) Alanine 21 Aminotransferase (ALT/SGPT) Alkaline 100 Phosphatase Troponin I 0.051 Total Protein 6.2 Albumin 3.3 Globulin 2.90 Albumin/Globulin 1.13 Ratio Thyroid 0.602 Stimulating Hormone (TSH) Free Thyroxine 1.64 Test 07/14/18 00:00 07/14/18 05:42 Urine Color STRAW Urine Clarity CLEAR Urine pH 5.0 Urine Specific 1.011 [place] Urine Ketones NEGATIVE Urine Nitrite NEGATIVE Urine Bilirubin NEGATIVE Urine NEGATIVE Urobilinogen Urine Leukocyte NEGATIVE Esterase Urine Hemoglobin NEGATIVE Urine Glucose NEGATIVE Urine Total NEGATIVE Protein White Blood Count 5.4 # Red Blood Count 4.11 L Hemoglobin 11.4 L Hematocrit 37.1 L Mean Corpuscular 90.3 Volume Mean Corpuscular 27.7 L Hemoglobin Mean Corpuscular 30.7 L Hemoglobin Concen t Red Cell 15.2 H Distribution Width Platelet Count 147 Mean Platelet 10.6 H Volume Immature 0.400 Granulocytes % Neutrophils % 93.1 H Lymphocytes % 3.9 L Monocytes % 2.6 Eosinophils % 0.0 Basophils % 0.0 Nucleated Red 0.0 Blood Cells % Immature 0.020 Granulocytes # Neutrophils # 5.0 Lymphocytes # 0.2 L Monocytes # 0.1 L Eosinophils # 0.0 Basophils # 0.0 Nucleated Red 0.0 Blood Cells # Sodium Level 140 Potassium Level 3.9 Chloride Level 98 Carbon Dioxide 34 H Level Anion Gap 8 Blood Urea 34 H Nitrogen Creatinine 0.67 Est Glomerular Filtrat Rate mL/min Glucose Level 128 Calcium Level 8.7 Phosphorus Level 4.5 Magnesium Level 2.0 Total Bilirubin 0.1 L Direct Bilirubin 0.00 Indirect 0.1 Bilirubin Aspartate Amino 30 Transf (AST/SGOT) Alanine 26 Aminotransferase (ALT/SGPT) Alkaline 76 Phosphatase Total Protein 5.4 L Albumin 2.8 L Globulin 2.60 Albumin/Globulin 1.07 Ratio Triglycerides 97 Level Cholesterol Level 124 LDL Cholesterol, 65 Calculated HDL Cholesterol 40 Cholesterol/HDL 3.1 Ratio Medications Medication Current Medications Alteplase, Recombinant (Cathflo (Activase)) 2 mg MAY REPEAT X1 PRN CATHETER IF CATHETER REMAINS OCCULUDED Last administered on 07/13/18at 14:28; Admin Dose 2 M G; Start 07/13/18 at 14:30 IV Flush (NS 3 ml) 3 ml PER PROTOCOL IV ; Start 07/13/18 at 15:30 Ondansetron HCl (Zofran Inj) 4 mg Q6H PRN IV NAUSEA/VOMITING; Start 07/13/18 at 15:30 Acetaminophen (Tylenol Tab) 650 mg Q6H PRN PO .PAIN 1-3 OR TEMP; Start 07/13/18 at 15:30 Acetaminophen/ Hydrocodone Bitart ([place] (5/325)) 1 tab Q6H PRN PO .MOD PAIN 4- 6; Start 07/13/18 at 15:30 Oseltamivir Phosphate (Tamiflu) 75 mg BID PO Last administered on 07/14/18at 08:34; Admin Dose 75 MG; Start 07/13/18 at 21:00 Cefepime HCl 50 ml @ 100 mls/hr Q12 IVPB Last administered on 07/14/18 08:30; Admin Dose 100 MLS/HR; Start 07/13/18 at 21:00 Vancomycin HCl (Vanco Iv Per Pharmacy) VANCOMYCIN PER PHARMACY PER PROTOCOL XX ; Start 07/13/18 at 15:30 Albuterol/ Ipratropium (Duoneb) 3 ml Q4HWA RESP THERAPY HHN Last administered on 07/14/18 10:23; Admin Dose 3 ML; Start 07/13/18 at 17:00 Albuterol/ Ipratropium (Duoneb) 3 ml Q2H RESP THERAPY PRN HHN SHORTNESS OF BREATH; Start 07/13/18 at 15:30 Methylprednisolone Sodium Succinate (Solu-Medrol) 60 mg Q8 IV Last administered on 07/14/18 05:51; Admin Dose 60 MG; Start 07/13/18 at 22:00 Atorvastatin Calcium (Lipitor) 10 mg QHS PO Last administered on 07/13/18 22:08; Admin Dose 10 MG; Start 07/13/18 at 21:00 Furosemide (Lasix) 20 mg DAILY PO Last administered on 07/14/18 08:35; Admin Dose 20 MG; Start 07/14/18 at 09:00 Losartan Potassium (Cozaar) 50 mg DAILY PO Last administered on 07/14/18 08:34; Admin Dose 50 MG; Start 07/14/18 at 09:00 Lubiprostone (Amitiza) 24 mcg BID PO Last administered on 07/14/18 08:33; Admin Dose 24 MCG; Start 07/13/18 at 21:00 Montelukast Sodium (Singulair) 10 mg QHS PO Last administered on 07/13/18 22:08; Admin Dose 10 MG; Start 07/13/18 at 21:00 Pantoprazole (Protonix Tab) 40 mg DAILY PO Last administered on 07/14/18 08:35; Admin Dose 40 MG; Start 07/14/18 at 09:00 Tamsulosin HCl (Flomax) 0.4 mg HS PO Last administered on 07/13/18 22:08; Admin Dose 0.4 MG; Start 07/13/18 at 21:00 Olopatadine HCl (Pataday) 1 drop BID BOTH EYES Last administered on 3/25/19at 09:00; Admin Dose 1 DROP; Start 07/13/18 at 21:00 Enoxaparin Sodium (Lovenox) 40 mg DAILY SC Last administered on 07/14/18at 08:47; Admin Dose 40 MG; Start 07/14/18 at 09:00 Famotidine (Pepcid) 20 mg BID PO Last administered on 07/14/18at 08:35; Admin Dose 20 MG; Start 07/13/18 at 21:00 Vancomycin/Sodium Chloride 250 ml @ 125 mls/hr Q12H IVPB Last administered on 07/14/18at 03:23; Admin Dose 125 MLS/HR; Start 07/14/18 at 03:00 Senna/Docusate Sodium (Senokot-S) 2 tab HS PO ; Start 07/14/18 at 21:00 Lactobacillus Acidophilus/ Rhamnosus (Culturelle) 1 cap BID PO ; Start 07/14/18 at 21:00 KAMILLE FRASER MD Jul 14, 2018 11:51
[2018-07-14] MEDS ORDERED: BISACODYL (EC) 5 MG TAB PO PRN (12:00)
[2018-07-14] MEDS ORDERED: BISACODYL 10 MG SUPP PR PRN (12:00)
[2018-07-14] MEDS: SENNA/DOCUSATE NA (8.6MG/50MG) TAB PO SCH (12:33)
--- NOTE | 2018-07-14 13:25 | CONS ---
DATE OF ADMISSION: 07/13/2018 DATE OF CONSULTATION: 07/14/2018 REASON FOR CONSULTATION: Shortness of breath. Thank you, Dr. Flynn, for this consultation. HISTORY OF PRESENT ILLNESS: This is an 83-year-old gentleman with history of hypertension, COPD, hyp erlipidemia, came in from assisted facility for increasing respiratory distress and positive i nfluenza A swab. Chest x-ray showed right lower lobe infiltrate. In addition, he had increased work of breathing with worsening hypoxemia. PAST MEDICAL HISTORY: COPD, chronic hypercapnia, BPH. MEDICATIONS: Per chart. ALLERGIES: NONE. SOCIAL HISTORY: He is an ex-smoker, no alcohol, no history of drug use. FAMILY HISTORY: Noncontributory. SYSTEMS REVIEW: A 12-point review of systems was negative other than that mentioned above. PHYSICAL EXAMINATION: GENERAL: Well-nourished, well-developed gentleman, comfortable at rest, no acute distress, on bileve l ventilation. VITAL SIGNS: Currently afebrile, pulse is 110, blood pressure 118/60, O2 saturation 96% on FIO2 of 4 0%. NECK: Supple. No JVD or lymphadenopathy. CARDIAC: S1, S2, no added sounds or murmurs. CHEST: Diminished air entry bilaterally. ABDOMEN: Soft, nontender. No guarding or rebound. EXTREMITIES: No cyanosis, clubbing, or edema. NEUROLOGIC: Generalized weakness. No focal deficits. LABORATORIES: White count 5.4, hemoglobin 11.4, platelets within normal limits. Chemistry within no rmal limits. Lactic acid 1.3. Arterial blood gas pH 7.3, pCO2 of 69, pO2 of 87 with an INR 0.89. U rinalysis unremarkable. Chest x-ray as stated right lower lobe infiltrate versus atelectasis. Influ elizabeth was positive for influenza A. IMPRESSION AND PLAN: Likely acute hypoxemic respiratory failure with acute influenza infection. The patient will require antibiotics, bronchodilators, continue Tamiflu, supplemental O2, nocturnal stephanie nvasive positive pressure ventilation and possible outpatient PFTs and sleep study. Dictated By: ALEXI ALLISON MD SV/NTS Conf#: [id number] DID#: [id number] CC: JAMES THOMAS MD;*EndCC*
[2018-07-14] MEDS ORDERED: SENNA/DOCUSATE NA (8.6MG/50MG) TAB PO SCH (21:00)
[2018-07-14] MEDS: LACTOBACILLUS RHAMNOSUS CAP PO SCH (21:23)
[2018-07-14] MEDS: ATORVASTATIN 10 MG TAB PO SCH (21:23)
[2018-07-14] MEDS: MONTELUKAST 10 MG TAB PO SCH (21:23)
[2018-07-14] MEDS: TAMSULOSIN (SR) 0.4 MG CAP PO SCH (21:23)
[2018-07-15] VITALS (33 sets, daily range): BP systolic 95–124; BP diastolic 46–74; PULSE 71–182; RESP 17–33
[2018-07-15] MEDS: ALBUTEROL/IPRATROPIUM (NEB) 3 ML AMP HHN SCH ×4 (02:40→19:45)
[2018-07-15] MEDS: VANCOMYCIN 750 MG (PMX) 250 ML IVPB SCH ×2 (03:49→16:14)
[2018-07-15] MEDS: METHYLPREDNISOLONE 125 MG INJ IV SCH ×3 (05:09→21:21)
[2018-07-15] MEDS: OLOPATADINE 0.2% (ONCE A DAY) OPHTH DROP 2.5 ML BOTH EYES SCH ×2 (08:51→21:00)
[2018-07-15] MEDS: FAMOTIDINE 20 MG TAB PO SCH (08:53)
[2018-07-15] MEDS: LUBIPROSTONE 24 MCG CAP PO SCH ×2 (08:53→21:21)
[2018-07-15] MEDS: OSELTAMIVIR 75 MG CAP PO SCH ×2 (08:53→21:22)
[2018-07-15] MEDS: LACTOBACILLUS RHAMNOSUS CAP PO SCH ×2 (08:53→21:22)
[2018-07-15] MEDS: LOSARTAN 50 MG TAB PO SCH (08:53)
[2018-07-15] MEDS: SENNA/DOCUSATE NA (8.6MG/50MG) TAB PO SCH (08:54)
[2018-07-15] MEDS: FUROSEMIDE 20 MG TAB PO SCH (08:54)
[2018-07-15] MEDS: CEFEPIME 1GM/50 ML (PMX) 50 ML IVPB SCH ×2 (09:01→21:21)
[2018-07-15] MEDS: ENOXAPARIN 40 MG/0.4 ML SYG SC SCH (09:07)
--- NOTE | 2018-07-15 11:16 | CONS ---
Consult Date/Type/Reason Admit Date/Time Jul 13, 2018 at 14:44 Initial Consult Date Type of Consult Pulmonary Date/Time of Note DATE: 07/15/18 TIME: 11:14 Subjective Remains BiPAP dependent with increased work of breathing. Objective Vital Signs Date Temp Pulse Resp B/P (MAP) Pulse Ox O2 O2 Flow FiO2 Time Delivery Rate 07/15/18 118 16 99 09:00 07/15/18 40 08:07 07/15/18 98.6 106/56 07:38 (73) 07/14/18 6.0 10:10 07/14/18 BIPAP 04:00 Intake and Output 07/14/18 07/14/18 07/15/18 1515:00 23:00 07:00 IntakeIntake Total 50 ml 700 ml 250 ml BalanceBalance 50 ml 700 ml 250 ml Exam PHYSICAL EXAMINATION: GENERAL: Well-nourished, well-developed gentleman, comfortable at rest, no acute distress, on bilevel ventilation. VITAL SIGNS: NECK: Supple. No JVD or lymphadenopathy. CARDIAC: S1, S2, no added sounds or murmurs. CHEST: Diminished air entry bilaterally. ABDOMEN: Soft, nontender. No guarding or rebound. EXTREMITIES: No cyanosis, clubbing, or edema. NEUROLOGIC: Generalized weakness. No focal deficits. Vent Setting Fraction of Inspired Oxygen pe: 35 Results/Medications Result Diagram: 07/15/18 0500 07/15/18 0500 Results 24 hrs Laboratory Tests Test 07/14/18 16:09 07/15/18 02:45 07/15/18 05:00 07/15/18 05:01 Blood Gas Blood arterial Specimen Source Arterial Blood 07/14/2018 5:15:0 Date Drawn 0 PM Arterial Blood pH 7.341 L (Temp corrected) Arterial Blood 63.6 H pCO2 (Temp correct) Arterial Blood 70.3 L pO2 (Temp corrected) Arterial Blood 33.6 H HCO3 Arterial Blood 6.1 H Base Excess Arterial Blood 92.8 L Oxygen Saturation Elmer Test ACCEPTAB Arterial Blood Right Radial Gas Puncture Site Arterial 0 Blood Carboxyhemo globin Arterial Blood 0.4 Methemoglobin Blood Gas A-a O2 141.8 H Differential Oxyhemoglobin 92.4 L Percent Blood Gas 37.0 Temperature Blood Gas 14.0 Respiration Rate Blood Gas Actual 16 Respiration Rate Blood Gas BIPAP - S/T Modality FiO2 40.0 Blood Gas 10 Pressure Support Blood Gas 15/5 IPAP/EPAP Ratio Blood Gas AB Notified Whom Blood Gas 07/14/2018 5:35:0 Notified Time 0 PM Vancomycin Level 13.5 Trough White Blood Count 7.1 # Red Blood Count 3.82 L Hemoglobin 10.5 L Hematocrit 34.1 L Mean Corpuscular 89.3 Volume Mean Corpuscular 27.5 L Hemoglobin Mean Corpuscular 30.8 L Hemoglobin Concen t Red Cell 14.9 H Distribution Width Platelet Count 152 Mean Platelet 11.0 H Volume Immature 0.700 H Granulocytes % Neutrophils % 92.3 H Lymphocytes % 3.2 L Monocytes % 3.8 Eosinophils % 0.0 Basophils % 0.0 Nucleated Red 0.0 Blood Cells % Immature 0.050 H Granulocytes # Neutrophils # 6.5 Lymphocytes # 0.2 L Monocytes # 0.3 Eosinophils # 0.0 Basophils # 0.0 Nucleated Red 0.0 Blood Cells # Sodium Level 141 Potassium Level 3.3 L Chloride Level 96 L Carbon Dioxide 38 H Level Anion Gap 7 Blood Urea 34 H Nitrogen Creatinine 0.61 Est Glomerular Filtrat Rate mL/min Glucose Level 140 Calcium Level 8.6 Total Bilirubin 0.1 L Direct Bilirubin 0.00 Indirect 0.1 Bilirubin Aspartate Amino 29 Transf (AST/SGOT) Alanine 31 Aminotransferase (ALT/SGPT) Alkaline 84 Phosphatase Total Protein 5.3 L Albumin 2.7 L Globulin 2.60 Albumin/Globulin 1.03 Ratio Thyroid 0.128 L Stimulating Hormone (TSH) Phosphorus Level 3.1 Magnesium Level 2.0 Test 07/15/18 07:00 Blood Gas Blood arterial Specimen Source Arterial Blood 07/15/2018 8:00:4 Date Drawn 2 AM Arterial Blood pH 7.378 (Temp corrected) Arterial Blood 64.9 H pCO2 (Temp correct) Arterial Blood 63.0 L pO2 (Temp corrected) Arterial Blood 37.4 H HCO3 Arterial Blood 10.1 H Base Excess Arterial Blood 90.6 L Oxygen Saturation Elmer Test ACCEPTAB Arterial Blood Right Radial Gas Puncture Site Arterial 0.3 Blood Carboxyhemo globin Arterial Blood 0.3 Methemoglobin Blood Gas A-a O2 147.6 H Differential Oxyhemoglobin 90.1 L Percent Blood Gas 37.0 Temperature Blood Gas 14.0 Respiration Rate Blood Gas Actual 17 Respiration Rate Blood Gas MASK - BIPAP Modality FiO2 40.0 Blood Gas 10 Pressure Support Blood Gas TM Notified Whom Blood Gas 07/15/2018 8:09:3 Notified Time 8 AM Medications Current Medications Alteplase, Recombinant (Cathflo (Activase)) 2 mg MAY REPEAT X1 PRN CATHETER IF CATHETER REMAINS OCCULUDED Last administered on 07/13/18 14:28; Admin Dose 2 MG; Start 07/13/18 at 14:30 IV Flush (NS 3 ml) 3 ml PER PROTOCOL IV ; Start 07/13/18 at 15:30 Ondansetron HCl (Zofran Inj) 4 mg Q6H PRN IV NAUSEA/VOMITING; Start 07/13/18 at 15:30 Acetaminophen (Tylenol Tab) 650 mg Q6H PRN PO .PAIN 1-3 OR TEMP; Start 07/13/18 at 15:30 Acetaminophen/ Hydrocodone Bitart ([place] (5/325)) 1 tab Q6H PRN PO .MOD PAIN 4- 6; Start 07/13/18 at 15:30 Oseltamivir Phosphate (Tamiflu) 75 mg BID PO Last administered on 07/15/18 08:53; Admin Dose 75 MG; Start 07/13/18 at 21:00 Cefepime HCl 50 ml @ 100 mls/hr Q12 IVPB Last administered on 07/15/18 09:01; Admin Dose 100 MLS/HR; Start 07/13/18 at 21:00 Vancomycin HCl (Vanco Iv Per Pharmacy) VANCOMYCIN PER PHARMACY PER PROTOCOL XX ; Start 07/13/18 at 15:30 Albuterol/ Ipratropium (Duoneb) 3 ml Q2H RESP THERAPY PRN HHN SHORTNESS OF BREATH; Start 07/13/18 at 15:30 Methylprednisolone Sodium Succinate (Solu-Medrol) 60 mg Q8 IV Last administered on 07/15/18 05:09; Admin Dose 60 MG; Start 07/13/18 at 22:00 Atorvastatin Calcium (Lipitor) 10 mg QHS PO Last administered on 07/14/18 21:23; Admin Dose 10 MG; Start 07/13/18 at 21:00 Furosemide (Lasix) 20 mg DAILY PO Last administered on 07/15/18 08:54; Admin Dose 20 MG; Start 07/14/18 at 09:00 Losartan Potassium (Cozaar) 50 mg DAILY PO Last administered on 07/15/18 08:53; Admin Dose 50 MG; Start 07/14/18 at 09:00 Lubiprostone (Amitiza) 24 mcg BID PO Last administered on 07/15/18 08:53; Admin Dose 24 MCG; Start 07/13/18 at 21:00 Montelukast Sodium (Singulair) 10 mg QHS PO Last administered on 07/14/18 21:23; Admin Dose 10 MG; Start 07/13/18 at 21:00 Tamsulosin HCl (Flomax) 0.4 mg HS PO Last administered on 07/14/18 21:23; A dmin Dose 0.4 MG; Start 07/13/18 at 21:00 Olopatadine HCl (Pataday) 1 drop BID BOTH EYES Last administered on 07/15/18 08:51; Admin Dose 1 DROP; Start 07/13/18 at 21:00 Enoxaparin Sodium (Lovenox) 40 mg DAILY SC Last administered on 07/15/18 09:07; Admin Dose 40 MG; Start 07/14/18 at 09:00 Vancomycin/Sodium Chloride 250 ml @ 125 mls/hr Q12H IVPB Last administered on 07/15/18 03:49; Admin Dose 125 MLS/HR; Start 07/14/18 at 03:00 Lactobacillus Acidophilus/ Rhamnosus (Culturelle) 1 cap BID PO Last administered on 07/15/18 08:53; Admin Dose 1 CAP; Start 07/14/18 at 21:00 Senna/Docusate Sodium (Senokot-S) 2 tab AM PO Last administered on 07/15/18 08:54; Admin Dose 2 TAB; Start 07/14/18 at 12:00 Bisacodyl (Dulcolax) 10 mg DAILY PRN PO CONSTIPATION; Start 07/14/18 at 12:00 Bisacodyl (Dulcolax Supp) 10 mg DAILY PRN [place] CONSTIPATION; Start 07/14/18 at 12:00 Albuterol/ Ipratropium (Duoneb) 3 ml Q6H RESP THERAPY HHN Last administered on 07/15/18 08:58; Admin Dose 3 ML; Start 07/14/18 at 14:00 Famotidine (Pepcid) 20 mg DAILY PO Last administered on 3/26/19at 08:53; Admin Dose 20 MG; Start 07/15/18 at 09:00 Assessment/Plan Hospital Course (Demo Recall) Assessment 1. Acute hypoxemic and hypercapnic respiratory failure. Likely secondary to influenza infection. 2. Hypokalemia Plan 1. Continue noninvasive positive pressure ventilation 2. Transfer to ICU for further monitoring 3. Continue Tamiflu and antibacterials 4. Aspiration precautions Prognosis is guarded critical care time 40 minute Family discussion re goals of care. ALEXI ALLISON MD, [facility] Jul 15, 2018 11:16
[2018-07-15] MEDS ORDERED: BISACODYL (EC) 5 MG TAB PO ONE (11:30)
[2018-07-15] MEDS: TAMSULOSIN (SR) 0.4 MG CAP PO SCH (21:22)
[2018-07-15] MEDS: MONTELUKAST 10 MG TAB PO SCH (21:22)
[2018-07-15] MEDS: ATORVASTATIN 10 MG TAB PO SCH (21:22)
[2018-07-16] VITALS (29 sets, daily range): BP systolic 90–138; BP diastolic 48–111; PULSE 77–117; RESP 14–31
[2018-07-16] MEDS: HYDROCODONE/APAP (5/325) TAB PO PRN ×3 (00:48→21:41)
[2018-07-16] MEDS: ALBUTEROL/IPRATROPIUM (NEB) 3 ML AMP HHN SCH ×4 (01:18→20:07)
[2018-07-16] MEDS: VANCOMYCIN 750 MG (PMX) 250 ML IVPB SCH ×2 (02:36→15:16)
[2018-07-16] MEDS: METHYLPREDNISOLONE 125 MG INJ IV SCH ×3 (05:48→21:40)
[2018-07-16] MEDS: OLOPATADINE 0.2% (ONCE A DAY) OPHTH DROP 2.5 ML BOTH EYES SCH ×2 (09:00→21:00)
[2018-07-16] MEDS: LACTOBACILLUS RHAMNOSUS CAP PO SCH ×2 (09:00→22:20)
[2018-07-16] MEDS: POTASSIUM CHLORIDE 100 ML IVPB SCH ×2 (10:38→12:56)
[2018-07-16] MEDS: CEFEPIME 1GM/50 ML (PMX) 50 ML IVPB SCH ×2 (10:39→21:40)
[2018-07-16] MEDS: LUBIPROSTONE 24 MCG CAP PO SCH ×2 (10:40→21:41)
[2018-07-16] MEDS: FUROSEMIDE 20 MG TAB PO SCH (10:40)
[2018-07-16] MEDS: LOSARTAN 50 MG TAB PO SCH (10:40)
[2018-07-16] MEDS: SENNA/DOCUSATE NA (8.6MG/50MG) TAB PO SCH (10:40)
[2018-07-16] MEDS: FAMOTIDINE 20 MG TAB PO SCH (10:40)
[2018-07-16] MEDS: OSELTAMIVIR 75 MG CAP PO SCH (10:40)
[2018-07-16] MEDS: ENOXAPARIN 40 MG/0.4 ML SYG SC SCH (11:14)
--- NOTE | 2018-07-16 11:17 | CONS ---
Consult Date/Type/Reason Admit Date/Time Jul 13, 2018 at 14:44 Initial Consult Date Type of Consult Pulmonary Date/Time of Note DATE: 07/16/18 TIME: 11:16 Subjective Still remains mostly dependent on bilevel ventilation. Awake alert refused chest x-ray this morning. Objective Vital Signs Date Temp Pulse Resp B/P (MAP) Pulse Ox O2 O2 Flow FiO2 Time Delivery Rate 07/16/18 102 14 120/83 95 BIPAP 09:00 (95) 07/16/18 97.6 08:00 07/16/18 50 05:47 07/14/18 6.0 10:10 Intake and Output 07/15/18 07/15/18 07/16/18 1515:00 23:00 07:00 IntakeIntake Total 300 ml 650 ml 300 ml OutputOutput Total 340 ml 500 ml 435 ml BalanceBalance -40 ml 150 ml -135 ml Exam PHYSICAL EXAMINATION: GENERAL: Well-nourished, well-developed gentleman, comfortable at rest, no acute distress, on bilevel ventilation. VITAL SIGNS: NECK: Supple. No JVD or lymphadenopathy. CARDIAC: S1, S2, no added sounds or murmurs. CHEST: Diminished air entry bilaterally. ABDOMEN: Soft, nontender. No guarding or rebound. EXTREMITIES: No cyanosis, clubbing, or edema. NEUROLOGIC: Generalized weakness. No focal deficits. Vent Setting Fraction of Inspired Oxygen pe: 35 Results/Medications Result Diagram: 07/16/18 0505 07/16/18 0505 Results 24 hrs Laboratory Tests Test 07/16/18 05:05 White Blood Count 6.9 Red Blood Count 3.68 L Hemoglobin 10.1 L Hematocrit 32.8 L Mean Corpuscular Volume 89.1 Mean Corpuscular Hemoglobin 27.4 L Mean Corpuscular Hemoglobin Concent 30.8 L Red Cell Distribution Width 14.6 H Platelet Count 156 Mean Platelet Volume 10.5 H Immature Granulocytes % 0.700 H Neutrophils % 92.6 H Lymphocytes % 3.9 L Monocytes % 2.7 Eosinophils % 0.0 Basophils % 0.1 Nucleated Red Blood Cells % 0.0 Immature Granulocytes # 0.050 H Neutrophils # 6.4 Lymphocytes # 0.3 L Monocytes # 0.2 L Eosinophils # 0.0 Basophils # 0.0 Nucleated Red Blood Cells # 0.0 Sodium Level 140 Potassium Level 3.1 L Chloride Level 96 L Carbon Dioxide Level 38 H Anion Gap 6 Blood Urea Nitrogen 31 H Creatinine 0.61 Est Glomerular Filtrat Rate mL/min Glucose Level 139 Calcium Level 8.5 Magnesium Level 2.1 Troponin I 0.097 Medications Current Medications Alteplase, Recombinant (Cathflo (Activase)) 2 mg MAY REPEAT X1 PRN CATHETER IF C ATHETER REMAINS OCCULUDED Last administered on 07/13/18at 14:28; Admin Dose 2 MG; Start 07/13/18 at 14:30 IV Flush (NS 3 ml) 3 ml PER PROTOCOL IV ; Start 07/13/18 at 15:30 Ondansetron HCl (Zofran Inj) 4 mg Q6H PRN IV NAUSEA/VOMITING; Start 07/13/18 at 15:30 Acetaminophen (Tylenol Tab) 650 mg Q6H PRN PO .PAIN 1-3 OR TEMP; Start 07/13/18 at 15:30 Acetaminophen/ Hydrocodone Bitart ([place] (5/325)) 1 tab Q6H PRN PO .MOD PAIN 4- 6 Last administered on 07/16/18at 00:48; Admin Dose 1 TAB; Start 07/13/18 at 15:30 Oseltamivir Phosphate (Tamiflu) 75 mg BID PO Last administered on 07/16/18at 10:40; Admin Dose 75 MG; Start 07/13/18 at 21:00 Cefepime HCl 50 ml @ 100 mls/hr Q12 IVPB Last administered on 07/16/18at 10:39; Admin Dose 100 MLS/HR; Start 07/13/18 at 21:00 Vancomycin HCl (Vanco Iv Per Pharmacy) VANCOMYCIN PER PHARMACY PER PROTOCOL XX ; Start 07/13/18 at 15:30 Albuterol/ Ipratropium (Duoneb) 3 ml Q2H RESP THERAPY PRN HHN SHORTNESS OF BREATH; Start 07/13/18 at 15:30 Methylprednisolone Sodium Succinate (Solu-Medrol) 60 mg Q8 IV Last administered on 07/16/18at 05:48; Admin Dose 60 MG; Start 07/13/18 at 22:00 Atorvastatin Calcium (Lipitor) 10 mg QHS PO Last administered on 07/15/18at 21:2 2; Admin Dose 10 MG; Start 07/13/18 at 21:00 Furosemide (Lasix) 20 mg DAILY PO Last administered on 07/16/18 10:40; Admin Dose 20 MG; Start 07/14/18 at 09:00 Losartan Potassium (Cozaar) 50 mg DAILY PO Last administered on 07/16/18 10:40; Admin Dose 50 MG; Start 07/14/18 at 09:00 Lubiprostone (Amitiza) 24 mcg BID PO Last administered on 07/16/18 10:40; Admin Dose 24 MCG; Start 07/13/18 at 21:00 Montelukast Sodium (Singulair) 10 mg QHS PO Last administered on 07/15/18 21:22; Admin Dose 10 MG; Start 07/13/18 at 21:00 Tamsulosin HCl (Flomax) 0.4 mg HS PO Last administered on 07/15/18 21:22; Admin Dose 0.4 MG; Start 07/13/18 at 21:00 Olopatadine HCl (Pataday) 1 drop BID BOTH EYES Last administered on 07/15/18 08:51; Admin Dose 1 DROP; Start 07/13/18 at 21:00 Enoxaparin Sodium (Lovenox) 40 mg DAILY SC Last administered on 07/16/18 11:14; Admin Dose 40 MG; Start 07/14/18 at 09:00 Vancomycin/Sodium Chloride 250 ml @ 125 mls/hr Q12H IVPB Last administered on 07/16/18 02:36; Admin Dose 125 MLS/HR; Start 07/14/18 at 03:00 Lactobacillus Acidophilus/ Rhamnosus (Culturelle) 1 cap BID PO Last administered on 07/15/18 21:22; Admin Dose 1 CAP; Start 07/14/18 at 21:00 Senna/Docusate Sodium (Senokot-S) 2 tab AM PO Last administered on 07/16/18 10:40; Admin Dose 2 TAB; Start 07/14/18 at 12:00 Bisacodyl (Dulcolax) 10 mg DAILY PRN PO CONSTIPATION; Start 07/14/18 at 12:00 Bisacodyl (Dulcolax Supp) 10 mg DAILY PRN [place] CONSTIPATION; Start 07/14/18 at 12:00 Albuterol/ Ipratropium (Duoneb) 3 ml Q6H RESP THERAPY HHN Last administered on 3/27/19at 01:18; Admin Dose 3 ML; Start 07/14/18 at 14:00 Famotidine (Pepcid) 20 mg DAILY PO Last administered on 07/16/18at 10:40; Admin Dose 20 MG; Start 07/15/18 at 09:00 Potassium Chloride 100 ml @ 50 mls/hr Q2H IVPB Last administered on 07/16/18at 10:38; Admin Dose 50 MLS/HR; Start 07/16/18 at 10:00; Stop 07/16/18 at 13:59 Potassium Chloride 50 ml @ 50 mls/hr K PROTOCOL PRN IVPB PENDING LAB VALUE; Start 07/16/18 at 09:30 Assessment/Plan Hospital Course (Demo Recall) Assessment 1. Acute hypoxemic and hypercapnic respiratory failure. Likely secondary to influenza infection. 2. Hypokalemia 3. Possible COPD exacerbation in addition. Plan 1. Continue noninvasive positive pressure ventilation, trial of high flow O2. 2. Transfer to ICU for further monitoring 3. Continue Tamiflu and antibacterials 4. Aspiration precautions 5. Steroid taper. Prognosis is guarded critical care time 40 minute Family discussion re goals of care. ALEXI ALLISON MD, [facility] Jul 16, 2018 11:17
--- NOTE | 2018-07-16 13:53 | PN ---
Date/Time of Note Date/Time of Note DATE: 07/16/18 TIME: 13:51 Assessment/Plan VTE Prophylaxis Risk score (from Ns)>0 risk: 8 SCD applied (from [facility] [place]): No SCD contraindicated: low risk/ambulating Pharmacological prophylaxis: LMWH Lines/Catheters IV C[facility]ter Type (from [facility]): PICC Line Central line still needed: Yes Urinary Cath still in place: Yes Reason Cath still needed: other (indicate) Assessment/Plan Hospital Course Assessment plan 1. Sepsis, severe, mod stable continue supplemental oxygen 2. Acute influenza A, stable finish Tamiflu 3. Acute hypoxic respiratory failure, mod stable continue oxygen 4. Concern for healthcare associated pneumonia, stable finish antibiotics 5. Chronic COPD 6. Past tobacco 7. Possible bronchitis, steroids as indicated 8. Chronic hypertension 9. Chronic pulmonary hypertension 10. Chronic VICTOR HUGO? On home BiPAP? 11. Pulmonary nodule right 6 mm noted back in March. Serial imaging every 6 months 12. BPH 13. Sinus tach secondary to 14. Chest abdominal pain, watch for ACS. Treat bowel issues. S: 06/17 follows commands. Has back/shoulder pain cough with white expectoration no hemoptysis. Constipated? 07/16 chest abdominal discomfort. No known aggravating or relieving factors. Minimal cough. O: Tachycardic, hypoxia Physical exam No pallor or JVD appreciated Regular no m/r/g Faint diminished mild tachypnea Distended? positive bs, no rigidity rebound guarding No edema Result Diagram: 07/16/18 0505 07/16/18 0505 Results 24hrs Laboratory Tests Test 07/16/18 05:05 White Blood Count 6.9 Red Blood Count 3.68 L Hemoglobin 10.1 L Hematocrit 32.8 L Mean Corpuscular Volume 89.1 Mean Corpuscular Hemoglobin 27.4 L Mean Corpuscular Hemoglobin Concent 30.8 L Red Cell Distribution Width 14.6 H Platelet Count 156 Mean Platelet Volume 10.5 H Immature Granulocytes % 0.700 H Neutrophils % 92.6 H Lymphocytes % 3.9 L Monocytes % 2.7 Eosinophils % 0.0 Basophils % 0.1 Nucleated Red Blood Cells % 0.0 Immature Granulocytes # 0.050 H Neutrophils # 6.4 Lymphocytes # 0.3 L Monocytes # 0.2 L Eosinophils # 0.0 Basophils # 0.0 Nucleated Red Blood Cells # 0.0 Sodium Level 140 Potassium Level 3.1 L Chloride Level 96 L Carbon Dioxide Level 38 H Anion Gap 6 Blood Urea Nitrogen 31 H Creatinine 0.61 Est Glomerular Filtrat Rate mL/min Glucose Level 139 Calcium Level 8.5 Magnesium Level 2.1 Troponin I 0.097 Exam/Review of Systems Exam Vitals Vital Signs Date Temp Pulse Resp B/P (MAP) Pulse Ox O2 O2 Flow FiO2 Time Delivery Rate 07/16/18 107 25 125/111 100 High Flow 13:00 (116) 07/16/18 98.4 12:00 07/16/18 50 05:47 07/14/18 6.0 10:10 Intake and Output 07/15/18 07/15/18 07/16/18 1515:00 23:00 07:00 IntakeIntake Total 300 ml 650 ml 300 ml OutputOutput Total 340 ml 500 ml 435 ml BalanceBalance -40 ml 150 ml -135 ml Results Results 24hrs Laboratory Tests Test 07/16/18 05:05 White Blood Count 6.9 Red Blood Count 3.68 L Hemoglobin 10.1 L Hematocrit 32.8 L Mean Corpuscular Volume 89.1 Mean Corpuscular Hemoglobin 27.4 L Mean Corpuscular Hemoglobin Concent 30.8 L Red Cell Distribution Width 14.6 H Platelet Count 156 Mean Platelet Volume 10.5 H Immature Granulocytes % 0.700 H Neutrophils % 92.6 H Lymphocytes % 3.9 L Monocytes % 2.7 Eosinophils % 0.0 Basophils % 0.1 Nucleated Red Blood Cells % 0.0 Immature Granulocytes # 0.050 H Neutrophils # 6.4 Lymphocytes # 0.3 L Monocytes # 0.2 L Eosinophils # 0.0 Basophils # 0.0 Nucleated Red Blood Cells # 0.0 Sodium Level 140 Potassium Level 3.1 L Chloride Level 96 L Carbon Dioxide Level 38 H Anion Gap 6 Blood Urea Nitrogen 31 H Creatinine 0.61 Est Glomerular Filtrat Rate mL/min Glucose Level 139 Calcium Level 8.5 Magnesium Level 2.1 Troponin I 0.097 Medications Medication Current Medications Alteplase, Recombinant (Cathflo (Activase)) 2 mg MAY REPEAT X1 PRN CATHETER IF CATHETER REMAINS OCCULUDED Last administered on 07/13/18at 14:28; Admin Dose 2 MG; Start 07/13/18 at 14:30 IV Flush (NS 3 ml) 3 ml PER PROTOCOL IV ; Start 07/13/18 at 15:30 Ondansetron HCl (Zofran Inj) 4 mg Q6H PRN IV NAUSEA/VOMITING; Start 07/13/18 at 15:30 Acetaminophen (Tylenol Tab) 650 mg Q6H PRN PO .PAIN 1-3 OR TEMP; Start 07/13/18 at 15:30 Acetaminophen/ Hydrocodone Bitart ([place] (5/325)) 1 tab Q6H PRN PO .MOD PAIN 4- 6 Last administered on 07/16/18 12:56; Admin Dose 1 TAB; Start 07/13/18 at 15:30 Oseltamivir Phosphate (Tamiflu) 75 mg BID PO Last administered on 07/16/18 10:40; Admin Dose 75 MG; Start 07/13/18 at 21:00 Cefepime HCl 50 ml @ 100 mls/hr Q12 IVPB Last administered on 07/16/18 10:39; Admin Dose 100 MLS/HR; Start 07/13/18 at 21:00 Vancomycin HCl (Vanco Iv Per Pharmacy) VANCOMYCIN PER PHARMACY PER PROTOCOL XX ; Start 07/13/18 at 15:30 Albuterol/ Ipratropium (Duoneb) 3 ml Q2H RESP THERAPY PRN HHN SHORTNESS OF BREATH; Start 07/13/18 at 15:30 Methylprednisolone Sodium Succinate (Solu-Medrol) 60 mg Q8 IV Last administered on 07/16/18 05:48; Admin Dose 60 MG; Start 07/13/18 at 22:00 Atorvastatin Calcium (Lipitor) 10 mg QHS PO Last administered on 07/15/18 21:22; Admin Dose 10 MG; Start 07/13/18 at 21:00 Furosemide (Lasix) 20 mg DAILY PO Last administered on 07/16/18 10:40; Admin Dose 20 MG; Start 07/14/18 at 09:00 Losartan Potassium (Cozaar) 50 mg DAILY PO Last administered on 07/16/18 10:40; Admin Dose 50 MG; Start 07/14/18 at 09:00 Lubiprostone (Amitiza) 24 mcg BID PO Last administered on 07/16/18 10:40; Admin Dose 24 MCG; Start 07/13/18 at 21:00 Montelukast Sodium (Singulair) 10 mg QHS PO Last administered on 07/15/18 21:22; Admin Dose 10 MG; Start 07/13/18 at 21:00 Tamsulosin HCl (Flomax) 0.4 mg HS PO Last administered on 07/15/18 21:22; Admin Dose 0.4 MG; Start 07/13/18 at 21:00 Olopatadine HCl (Pataday) 1 drop BID BOTH EYES Last administered on 07/15/18 08:51; Admin Dose 1 DROP; Start 07/13/18 at 21:00 Enoxaparin Sodium (Lovenox) 40 mg DAILY SC Last administered on 07/16/18 11:14; Admin Dose 40 MG; Start 07/14/18 at 09:00 Vancomycin/Sodium Chloride 250 ml @ 125 mls/hr Q12H IVPB Last administered on 07/16/18 02:36; Admin Dose 125 MLS/HR; Start 07/14/18 at 03:00 Lactobacillus Acidophilus/ Rhamnosus (Culturelle) 1 cap BID PO Last administered on 07/15/18 21:22; Admin Dose 1 CAP; Start 07/14/18 at 21:00 Senna/Docusate Sodium (Senokot-S) 2 tab AM PO Last administered on 07/16/18 10:40; Admin Dose 2 TAB; Start 07/14/18 at 12:00 Bisacodyl (Dulcolax Supp) 10 mg DAILY PRN [place] CONSTIPATION; Start 07/14/18 at 1 2:00 Albuterol/ Ipratropium (Duoneb) 3 ml Q6H RESP THERAPY HHN Last administered on 07/16/18 01:18; Admin Dose 3 ML; Start 07/14/18 at 14:00 Famotidine (Pepcid) 20 mg DAILY PO Last administered on 07/16/18 10:40; Admin Dose 20 MG; Start 07/15/18 at 09:00 Potassium Chloride 100 ml @ 50 mls/hr Q2H IVPB Last administered on 07/16/18 12:56; Admin Dose 50 MLS/HR; Start 07/16/18 at 10:00; Stop 07/16/18 at 13:59 Potassium Chloride 50 ml @ 50 mls/hr K PROTOCOL PRN IVPB PENDING LAB VALUE; Start 07/16/18 at 09:30 Bisacodyl (Dulcolax) 10 mg DAILY PO ; Start 07/17/18 at 09:00; Status UNV Magnesium Hydroxide (Milk Of Mag) 30 ml BID PO ; Start 07/16/18 at 13:30; Status UNV KAMILLE FRASER MD Jul 16, 2018 13:53
--- NOTE | 2018-07-16 14:33 | CONS ---
Consultation Date/Type/Reason Admit Date/Time Jul 13, 2018 at 14:44 Date/Time of Note DATE: 07/16/18 TIME: 14:33 Hx of Present Illness This is a very ill 83-year-old gentleman who is in the intensive care unit [facility] who was brought in with sepsis syndrome tachycardia tachypnea diagnosed with influenza A . Patient diagnosed with sepsis syndrome on top of healthcare acquired pneumonia according to medical records he has a history of chronic obstructive pulmonary disease also. Other comorbid medical problems include history of hypertension essential and pulmonary dyslipidemia COPD BPH patient is a resident of the nursing home unit at this time unknown reasons. There are no family members at the bedside at this time. Patient is still requiring high flow O2 80% he is a full code. Past Medical History Home Meds Reported Medications Hydrocodone/Acetaminophen ([place] 5-325 Tablet) 1 Each Tablet, 1 EACH PO Q6 PRN for MODERATE PAIN LEVEL 4-6, TAB 07/13/18 Olopatadine* (Pataday*) 0.2% - 2.5 Ml Drops, 1 DROP BOTH EYES BID, EA 07/13/18 Pantoprazole* (Protonix*) 40 Mg Tablet.dr, 40 MG PO DAILY, TAB 07/13/18 Potassium Chloride* (K-Dur*) 20 Meq Tab.prt.sr, 40 MEQ PO DAILY, TAB.SA 07/13/18 Prednisone* (Prednisone*) 20 Mg Tab, 20 MG PO DAILY, TAB 07/13/18 Protein Supplement (Promod) 946 Ml Liquid, 946 ML PO BID 07/13/18 Simethicone* (Mylicon*) 80 Mg Tab, 80 MG PO TID PRN for DISTENSION/GAS/BLOATING, TAB 07/13/18 Tamsulosin Hcl* (Tamsulosin Hcl*) 0.4 Mg Cap.er.24h, 0.4 MG PO HS, CAP 07/13/18 Acetaminophen* (Acetaminophen*) 650 Mg Tablet, 650 MG PO Q6H PRN for MILD PAIN LEVEL 1-3, #30 TAB AND FEVER 07/13/18 Multivitamins* (Theragran*) 1 Tab Tab, 1 TAB PO DAILY, TAB 07/13/18 Montelukast Sodium* (Montelukast Sodium*) 10 Mg Tablet, 10 MG PO QHS, #30 TAB 07/13/18 Polyethylene Glycol* (Miralax*) 17 Gm Powd.pack, 17 GM PO TID PRN for CONSTIPATION, #60 PACKET 07/13/18 Throat Lozenges* (Cepastat*) 9 Josselin Lozenge, 1 LOZENGE MT EVERY 1 HOUR PRN, LOZENGE 07/13/18 Demeclocycline Hcl* (Demeclocycline Hcl*) 300 Mg Tablet, 150 MG PO TID, #60 TAB 07/13/18 Diltiazem Hcl* (Cardizem*) 30 Mg Tablet, 30 MG PO Q8 PRN for BLOOD PRESSURE SUPPORT, #90 TAB HOLD FOR SBP <110 OR HR <60 07/13/18 Docusate Sodium* (Docusate Sodium*) 100 Mg Capsule, 100 MG PO BID, #60 CAP 07/13/18 Bisacodyl (Dulcolax) 10 Mg Supp.rect, 10 MG RC PRN PRN for CONSTIPATION, SUPP.RECT 07/13/18 Furosemide* (Lasix*) 20 Mg Tablet, 20 MG PO DAILY, TAB 07/13/18 Guaifenesin* (Tussin*) 100 Mg/5 Ml Syrup, 200 MG PO Q4 PRN for COUGH, ML 07/13/18 Ipratropium [place]* (Atrovent HFA*) 12.9 Gm Aer.w.adap, 2 PUFF INHALATION Q6 for SHORTNESS OF BREATH, #1 INHALER FOR THE NEBULIZER 07/13/18 Levalbuterol Hcl* (Levalbuterol Hcl*) 0.63 Mg/3 Ml Vial.neb, 0.63 MG INHALATION Q6H PRN for WHEEZING AND SOB, VIAL 07/13/18 Losartan Potassium* (Losartan Potassium*) 50 Mg Tablet, 50 MG PO DAILY, TAB HOLD FOR SBP <110 OR HR <60 07/13/18 Lubiprostone* (Amitiza*) 24 Mcg Capsule, 24 MCG PO BID, #60 CAP 07/13/18 Magnesium Hydroxide* (Milk Of Magnesia*) 400 Mg/5 Ml Oral.susp, 30 ML PO DAILY PRN for CONSTIPATION, ML 07/13/18 Menthol (BENGAY) 113 Gm Gel..gram., 113 GM TP TID APPLY TO POSTERIOR RIGHT SHOULDER 07/13/18 Atorvastatin Calcium (Atorvastatin Calcium) 10 Mg Tablet, 10 MG PO QHS, #30 TAB 07/13/18 Polyvinyl Alcohol (Tears Again) 15 Ml Drops, 1 DRP BOTH EYES Q2HWA, BOTTLE 07/13/18 Discontinued Reported Medications Magnesium Hydroxide* (Milk Of Magnesia*) 400 Mg/5 Ml Oral.susp, 30 ML PO DAILY, ML 05/27/18 Montelukast Sodium* (Montelukast Sodium*) 10 Mg Tablet, 10 MG PO QHS, #30 TAB 05/27/18 Olopatadine* (Pataday*) 0.2% - 2.5 Ml Drops, 1 DROP BOTH EYES TID, EA 05/27/18 Pantoprazole* (Protonix*) 40 Mg Tablet.dr, 40 MG PO DAILY, TAB 05/27/18 Phenazopyridine Hcl* (Pyridium*) 200 Mg Tab, 200 MG PO TID, TAB 05/27/18 Benzocaine/Menthol* (Cepacol* Sore Throat Lozenges) 1 Each Lozenge, 1 EACH MM q2h PRN for SORE THROAT, LOZENGE 05/27/18 Polyethylene Glycol* (Miralax*) 17 Gm Powd.pack, 17 GM PO TID, #60 PACKET 05/27/18 Prednisone* (Prednisone*) 20 Mg Tab, 20 MG PO DAILY, TAB 05/27/18 Simethicone* (Mylicon*) 80 Mg Tab, 80 MG PO TID PRN for DISTENSION/GAS/BLOATING, TAB 05/27/18 Tamsulosin Hcl* (Tamsulosin Hcl*) 0.4 Mg Cap.er.24h, 0.4 MG PO HS, CAP 05/27/18 Lubiprostone* (Amitiza*) 24 Mcg Capsule, 24 MCG PO BID, #60 CAP 05/27/18 Losartan Potassium* (Losartan Potassium*) 50 Mg Tablet, 50 MG PO DAILY, TAB 05/27/18 Levalbuterol Hcl* (Levalbuterol Hcl*) 0.63 Mg/3 Ml Vial.neb, 0.63 MG INHALATION Q6H PRN for WHEEZING AND SOB, VIAL 05/27/18 Ipratropium-Albuterol (Ipratropium-Albuterol) 0.5-3 Mg/3 Ml Ampul.neb, 3 ML INHALATION Q6, #30 VIAL 05/27/18 Furosemide* (Lasix*) 20 Mg Tablet, 20 MG PO DAILY, TAB 05/27/18 Enoxaparin Sodium* (Enoxaparin Sodium*) 40 Mg/0.4 Ml Syringe, 40 MG SC DAILY, SYR 05/27/18 Docusate Sodium* (Docusate Sodium*) 100 Mg Capsule, 100 MG PO BID, #60 CAP 05/27/18 Acetylcysteine* (Mucomyst*) 4 Ml Soln, 2 ML NEB BID, EA 05/27/18 Acetaminophen* (Acetaminophen*) 650 Mg Tablet, 650 MG PO Q6H PRN for PAIN AND OR ELEVATED TEMP, #30 TAB 05/27/18 Polyvinyl Alcohol (Tears Again) 15 Ml Drops, 1 DRP BOTH EYES EVERY 2 HOURS PRN for DRY EYES, BOTTLE 05/27/18 Atorvastatin Calcium (Atorvastatin Calcium) 10 Mg Tablet, 10 MG PO QHS, #30 TAB 05/27/18 Balsam Germania/[place] Oil (CIRCUDERM EMOLLIENT) 3 Gm Oint.pack, 3 GM TP Q12 05/27/18 Benzonatate* (Benzonatate*) 100 Mg Capsule, 100 MG PO TID PRN for COUGH, CAP 05/27/18 Bisacodyl (Laxative Suppository) 10 Mg Supp.rect, 10 MG RC DAILY PRN for CONSTIPATION, SUPP.RECT 05/27/18 Demeclocycline Hcl* (Demeclocycline Hcl*) 300 Mg Tablet, 150 MG PO TID, #60 TAB 05/27/18 Diltiazem Hcl* (Cardizem SR*) 60 Mg Capsr, 60 MG PO Q8, #60 CAP 05/27/18 Medications Current Medications Alteplase, Recombinant (Cathflo (Activase)) 2 mg MAY REPEAT X1 PRN CATHETER IF CATHETER REMAINS OCCULUDED Last administered on 07/13/18at 14:28; Admin Dose 2 MG; Start 07/13/18 at 14:30 IV Flush (NS 3 ml) 3 ml PER PROTOCOL IV ; Start 07/13/18 at 15:30 Ondansetron HCl (Zofran Inj) 4 mg Q6H PRN IV NAUSEA/VOMITING; Start 07/13/18 at 15:30 Acetaminophen (Tylenol Tab) 650 mg Q6H PRN PO .PAIN 1-3 OR TEMP; Start 07/13/18 at 15:30 Acetaminophen/ Hydrocodone Bitart ([place] (5/325)) 1 tab Q6H PRN PO .MOD PAIN 4- 6 Last administered on 07/16/18 12:56; Admin Dose 1 TAB; Start 07/13/18 at 15:30 Oseltamivir Phosphate (Tamiflu) 75 mg BID PO Last administered on 07/16/18 10:40; Admin Dose 75 MG; Start 07/13/18 at 21:00 Cefepime HCl 50 ml @ 100 mls/hr Q12 IVPB Last administered on 07/16/18 10:39; Admin Dose 100 MLS/HR; Start 07/13/18 at 21:00 Vancomycin HCl (Vanco Iv Per Pharmacy) VANCOMYCIN PER PHARMACY PER PROTOCOL XX ; Start 07/13/18 at 15:30 Albuterol/ Ipratropium (Duoneb) 3 ml Q2H RESP THERAPY PRN HHN SHORTNESS OF BREATH; Start 07/13/18 at 15:30 Methylprednisolone Sodium Succinate (Solu-Medrol) 60 mg Q8 IV Last administered on 07/16/18 05:48; Admin Dose 60 MG; Start 07/13/18 at 22:00 Atorvastatin Calcium (Lipitor) 10 mg QHS PO Last administered on 07/15/18 21:22; Admin Dose 10 MG; Start 07/13/18 at 21:00 Furosemide (Lasix) 20 mg DAILY PO Last administered on 07/16/18 10:40; Admin Dose 20 MG; Start 07/14/18 at 09:00 Losartan Potassium (Cozaar) 50 mg DAILY PO Last administered on 07/16/18 10:40; Admin Dose 50 MG; Start 07/14/18 at 09:00 Lubiprostone (Amitiza) 24 mcg BID PO Last administered on 07/16/18 10:40; Admin Dose 24 MCG; Start 07/13/18 at 21:00 Montelukast Sodium (Singulair) 10 mg QHS PO Last administered on 07/15/18 21:22; Admin Dose 10 MG; Start 07/13/18 at 21:00 Tamsulosin HCl (Flomax) 0.4 mg HS PO Last administered on 07/15/18 21:22; Admin Dose 0.4 MG; Start 07/13/18 at 21:00 Olopatadine HCl (Pataday) 1 drop BID BOTH EYES Last administered on 07/15/18 08:51; Admin Dose 1 DROP; Start 07/13/18 at 21:00 Enoxaparin Sodium (Lovenox) 40 mg DAILY SC Last administered on 07/16/18at 11:14; Admin Dose 40 MG; Start 07/14/18 at 09:00 Vancomycin/Sodium Chloride 250 ml @ 125 mls/hr Q12H IVPB Last administered on 07/16/18at 02:36; Admin Dose 125 MLS/HR; Start 07/14/18 at 03:00 Lactobacillus Acidophilus/ Rhamnosus (Culturelle) 1 cap BID PO Last administered on 07/15/18 21:22; Admin Dose 1 CAP; Start 07/14/18 at 21:00 Senna/Docusate Sodium (Senokot-S) 2 tab AM PO Last administered on 07/16/18 10:40; Admin Dose 2 TAB; Start 07/14/18 at 12:00 Bisacodyl (Dulcolax Supp) 10 mg DAILY PRN [place] CONSTIPATION; Start 07/14/18 at 12:00 Albuterol/ Ipratropium (Duoneb) 3 ml Q6H RESP THERAPY HHN Last administered on 07/16/18at 01:18; Admin Dose 3 ML; Start 07/14/18 at 14:00 Famotidine (Pepcid) 20 mg DAILY PO Last administered on 07/16/18at 10:40; Admin Dose 20 MG; Start 07/15/18 at 09:00 Potassium Chloride 50 ml @ 50 mls/hr K PROTOCOL PRN IVPB PENDING LAB VALUE; Start 07/16/18 at 09:30 Bisacodyl (Dulcolax) 10 mg DAILY PO ; Start 07/17/18 at 09:00 Magnesium Hydroxide (Milk Of Mag) 30 ml BID PO ; Start 07/16/18 at 13:30 Allergies: Coded Allergies: No Known Allergy (Unverified , 07/13/18) Past Surgical History Past Surgical Hx: no surgical history Social History Alcohol Use: none Smoking Status: Former smoker Drug Use: none Exam/Review of Systems Exam Vitals Vital Signs Date Temp Pulse Resp B/P (MAP) Pulse Ox O2 O2 Flow FiO2 Time Delivery Rate 07/16/18 107 25 125/111 100 High Flow 13:00 (116) 07/16/18 98.4 12:00 07/16/18 50 05:47 07/14/18 6.0 10:10 Intake and Output 07/15/18 07/15/18 07/16/18 1515:00 23:00 07:00 IntakeIntake Total 300 ml 650 ml 300 ml OutputOutput Total 340 ml 500 ml 435 ml BalanceBalance -40 ml 150 ml -135 ml Results Result Diagram: 07/16/18 0505 07/16/18 0505 Results 24hrs Laboratory Tests Test 07/16/18 05:05 White Blood Count 6.9 Red Blood Count 3.68 L Hemoglobin 10.1 L Hematocrit 32.8 L Mean Corpuscular Volume 89.1 Mean Corpuscular Hemoglobin 27.4 L Mean Corpuscular Hemoglobin Concent 30.8 L Red Cell Distribution Width 14.6 H Platelet Count 156 Mean Platelet Volume 10.5 H Immature Granulocytes % 0.700 H Neutrophils % 92.6 H Lymphocytes % 3.9 L Monocytes % 2.7 Eosinophils % 0.0 Basophils % 0.1 Nucleated Red Blood Cells % 0.0 Immature Granulocytes # 0.050 H Neutrophils # 6.4 Lymphocytes # 0.3 L Monocytes # 0.2 L Eosinophils # 0.0 Basophils # 0.0 Nucleated Red Blood Cells # 0.0 Sodium Level 140 Potassium Level 3.1 L Chloride Level 96 L Carbon Dioxide Level 38 H Anion Gap 6 Blood Urea Nitrogen 31 H Creatinine 0.61 Est Glomerular Filtrat Rate mL/min Glucose Level 139 Calcium Level 8.5 Magnesium Level 2.1 Troponin I 0.097 Medications Medication Current Medications Alteplase, Recombinant (Cathflo (Activase)) 2 mg MAY REPEAT X1 PRN CATHETER IF CATHETER REMAINS OCCULUDED Last administered on 07/13/18at 14:28; Admin Dose 2 MG; Start 07/13/18 at 14:30 IV Flush (NS 3 ml) 3 ml PER PROTOCOL IV ; Start 07/13/18 at 15:30 Ondansetron HCl (Zofran Inj) 4 mg Q6H PRN IV NAUSEA/VOMITING; Start 07/13/18 at 15:30 Acetaminophen (Tylenol Tab) 650 mg Q6H PRN PO .PAIN 1-3 OR TEMP; Start 07/13/18 at 15:30 Acetaminophen/ Hydrocodone Bitart ([place] (5/325)) 1 tab Q6H PRN PO .MOD PAIN 4- 6 Last administered on 07/16/18 12:56; Admin Dose 1 TAB; Start 07/13/18 at 1 5:30 Oseltamivir Phosphate (Tamiflu) 75 mg BID PO Last administered on 07/16/18 10:40; Admin Dose 75 MG; Start 07/13/18 at 21:00 Cefepime HCl 50 ml @ 100 mls/hr Q12 IVPB Last administered on 07/16/18 10:39; Admin Dose 100 MLS/HR; Start 07/13/18 at 21:00 Vancomycin HCl (Vanco Iv Per Pharmacy) VANCOMYCIN PER PHARMACY PER PROTOCOL XX ; Start 07/13/18 at 15:30 Albuterol/ Ipratropium (Duoneb) 3 ml Q2H RESP THERAPY PRN HHN SHORTNESS OF BREATH; Start 07/13/18 at 15:30 Methylprednisolone Sodium Succinate (Solu-Medrol) 60 mg Q8 IV Last administered on 07/16/18 05:48; Admin Dose 60 MG; Start 07/13/18 at 22:00 Atorvastatin Calcium (Lipitor) 10 mg QHS PO Last administered on 07/15/18 21:22; Admin Dose 10 MG; Start 07/13/18 at 21:00 Furosemide (Lasix) 20 mg DAILY PO Last administered on 07/16/18 10:40; Admin Dose 20 MG; Start 07/14/18 at 09:00 Losartan Potassium (Cozaar) 50 mg DAILY PO Last administered on 07/16/18 10:40; Admin Dose 50 MG; Start 07/14/18 at 09:00 Lubiprostone (Amitiza) 24 mcg BID PO Last administered on 07/16/18 10:40; Admin Dose 24 MCG; Start 07/13/18 at 21:00 Montelukast Sodium (Singulair) 10 mg QHS PO Last administered on 07/15/18 21:22; Admin Dose 10 MG; Start 07/13/18 at 21:00 Tamsulosin HCl (Flomax) 0.4 mg HS PO Last administered on 07/15/18 21:22; A dmin Dose 0.4 MG; Start 07/13/18 at 21:00 Olopatadine HCl (Pataday) 1 drop BID BOTH EYES Last administered on 07/15/18 08:51; Admin Dose 1 DROP; Start 07/13/18 at 21:00 Enoxaparin Sodium (Lovenox) 40 mg DAILY SC Last administered on 07/16/18at 11:14; Admin Dose 40 MG; Start 07/14/18 at 09:00 Vancomycin/Sodium Chloride 250 ml @ 125 mls/hr Q12H IVPB Last administered on 07/16/18 02:36; Admin Dose 125 MLS/HR; Start 07/14/18 at 03:00 Lactobacillus Acidophilus/ Rhamnosus (Culturelle) 1 cap BID PO Last administered on 07/15/18 21:22; Admin Dose 1 CAP; Start 07/14/18 at 21:00 Senna/Docusate Sodium (Senokot-S) 2 tab AM PO Last administered on 07/16/18 10:40; Admin Dose 2 TAB; Start 07/14/18 at 12:00 Bisacodyl (Dulcolax Supp) 10 mg DAILY PRN [place] CONSTIPATION; Start 07/14/18 at 12:00 Albuterol/ Ipratropium (Duoneb) 3 ml Q6H RESP THERAPY HHN Last administered on 07/16/18at 01:18; Admin Dose 3 ML; Start 07/14/18 at 14:00 Famotidine (Pepcid) 20 mg DAILY PO Last administered on 07/16/18at 10:40; Admin Dose 20 MG; Start 07/15/18 at 09:00 Potassium Chloride 50 ml @ 50 mls/hr K PROTOCOL PRN IVPB PENDING LAB VALUE; Start 07/16/18 at 09:30 Bisacodyl (Dulcolax) 10 mg DAILY PO ; Start 07/17/18 at 09:00 Magnesium Hydroxide (Milk Of Mag) 30 ml BID PO ; Start 07/16/18 at 13:30 EMILY MCDANIEL Jul 16, 2018 14:33
--- NOTE | 2018-07-16 14:41 | CONS ---
Assessment/Plan Assessment/Plan Assessment/Plan (Daily) Influenza A pneumonitis Healthcare associated pneumonitis COPD Altered mental status Incomplete database patient resident of intermediate facility Fluid and electrolyte abnormalities Renal insufficiency Respiratory failure on 80% FiO2 high flow Patient has a guarded prognosis is still requiring high FiO2, there is some cognitive impairment and major comorbid medical problems primarily COPD in the setting of pneumonia. He is 83 years old and a full code although he does not appear to be in major respiratory distress at this time will introduce myself to family members and discuss current condition. I will not discuss level of care or changing his code Consultation Date/Type/Reason Admit Date/Time Jul 13, 2018 at 14:44 Date/Time of Note DATE: 07/16/18 TIME: 14:37 Past Medical History Medical History: coronary artery disease, high cholesterol, hypertension, renal disease Home Meds Reported Medications Hydrocodone/Acetaminophen ([place] 5-325 Tablet) 1 Each Tablet, 1 EACH PO Q6 PRN for MODERATE PAIN LEVEL 4-6, TAB 07/13/18 Olopatadine* (Pataday*) 0.2% - 2.5 Ml Drops, 1 DROP BOTH EYES BID, EA 07/13/18 Pantoprazole* (Protonix*) 40 Mg Tablet.dr, 40 MG PO DAILY, TAB 07/13/18 Potassium Chloride* (K-Dur*) 20 Meq Tab.prt.sr, 40 MEQ PO DAILY, TAB.SA 07/13/18 Prednisone* (Prednisone*) 20 Mg Tab, 20 MG PO DAILY, TAB 07/13/18 Protein Supplement (Promod) 946 Ml Liquid, 946 ML PO BID 07/13/18 Simethicone* (Mylicon*) 80 Mg Tab, 80 MG PO TID PRN for DISTENSION/GAS/BLOATING, TAB 07/13/18 Tamsulosin Hcl* (Tamsulosin Hcl*) 0.4 Mg Cap.er.24h, 0.4 MG PO HS, CAP 07/13/18 Acetaminophen* (Acetaminophen*) 650 Mg Tablet, 650 MG PO Q6H PRN for MILD PAIN LEVEL 1-3, #30 TAB AND FEVER 07/13/18 Multivitamins* (Theragran*) 1 Tab Tab, 1 TAB PO DAILY, TAB 07/13/18 Montelukast Sodium* (Montelukast Sodium*) 10 Mg Tablet, 10 MG PO QHS, #30 TAB 3/24/19 Polyethylene Glycol* (Miralax*) 17 Gm Powd.pack, 17 GM PO TID PRN for CONSTIPATION, #60 PACKET 07/13/18 Throat Lozenges* (Cepastat*) 9 Josselin Lozenge, 1 LOZENGE MT EVERY 1 HOUR PRN, LOZENGE 07/13/18 Demeclocycline Hcl* (Demeclocycline Hcl*) 300 Mg Tablet, 150 MG PO TID, #60 TAB 07/13/18 Diltiazem Hcl* (Cardizem*) 30 Mg Tablet, 30 MG PO Q8 PRN for BLOOD PRESSURE SUPPORT, #90 TAB HOLD FOR SBP <110 OR HR <60 07/13/18 Docusate Sodium* (Docusate Sodium*) 100 Mg Capsule, 100 MG PO BID, #60 CAP 07/13/18 Bisacodyl (Dulcolax) 10 Mg Supp.rect, 10 MG RC PRN PRN for CONSTIPATION, SUPP.RECT 07/13/18 Furosemide* (Lasix*) 20 Mg Tablet, 20 MG PO DAILY, TAB 07/13/18 Guaifenesin* (Tussin*) 100 Mg/5 Ml Syrup, 200 MG PO Q4 PRN for COUGH, ML 07/13/18 Ipratropium [place]* (Atrovent HFA*) 12.9 Gm Aer.w.adap, 2 PUFF INHALATION Q6 for SHORTNESS OF BREATH, #1 INHALER FOR THE NEBULIZER 07/13/18 Levalbuterol Hcl* (Levalbuterol Hcl*) 0.63 Mg/3 Ml Vial.neb, 0.63 MG INHALATION Q6H PRN for WHEEZING AND SOB, VIAL 07/13/18 Losartan Potassium* (Losartan Potassium*) 50 Mg Tablet, 50 MG PO DAILY, TAB HOLD FOR SBP <110 OR HR <60 07/13/18 Lubiprostone* (Amitiza*) 24 Mcg Capsule, 24 MCG PO BID, #60 CAP 07/13/18 Magnesium Hydroxide* (Milk Of Magnesia*) 400 Mg/5 Ml Oral.susp, 30 ML PO DAILY PRN for CONSTIPATION, ML 07/13/18 Menthol (BENGAY) 113 Gm Gel..gram., 113 GM TP TID APPLY TO POSTERIOR RIGHT SHOULDER 07/13/18 Atorvastatin Calcium (Atorvastatin Calcium) 10 Mg Tablet, 10 MG PO QHS, #30 TAB 07/13/18 Polyvinyl Alcohol (Tears Again) 15 Ml Drops, 1 DRP BOTH EYES Q2HWA, BOTTLE 07/13/18 Discontinued Reported Medications Magnesium Hydroxide* (Milk Of Magnesia*) 400 Mg/5 Ml Oral.susp, 30 ML PO DAILY, ML 05/27/18 Montelukast Sodium* (Montelukast Sodium*) 10 Mg Tablet, 10 MG PO QHS, #30 TAB 05/27/18 Olopatadine* (Pataday*) 0.2% - 2.5 Ml Drops, 1 DROP BOTH EYES TID, EA 05/27/18 Pantoprazole* (Protonix*) 40 Mg Tablet.dr, 40 MG PO DAILY, TAB 05/27/18 Phenazopyridine Hcl* (Pyridium*) 200 Mg Tab, 200 MG PO TID, TAB 05/27/18 Benzocaine/Menthol* (Cepacol* Sore Throat Lozenges) 1 Each Lozenge, 1 EACH MM q2h PRN for SORE THROAT, LOZENGE 05/27/18 Polyethylene Glycol* (Miralax*) 17 Gm Powd.pack, 17 GM PO TID, #60 PACKET 05/27/18 Prednisone* (Prednisone*) 20 Mg Tab, 20 MG PO DAILY, TAB 05/27/18 Simethicone* (Mylicon*) 80 Mg Tab, 80 MG PO TID PRN for DISTENSION/GAS/BLOATING, TAB 05/27/18 Tamsulosin Hcl* (Tamsulosin Hcl*) 0.4 Mg Cap.er.24h, 0.4 MG PO HS, CAP 05/27/18 Lubiprostone* (Amitiza*) 24 Mcg Capsule, 24 MCG PO BID, #60 CAP 05/27/18 Losartan Potassium* (Losartan Potassium*) 50 Mg Tablet, 50 MG PO DAILY, TAB 05/27/18 Levalbuterol Hcl* (Levalbuterol Hcl*) 0.63 Mg/3 Ml Vial.neb, 0.63 MG INHALATION Q6H PRN for WHEEZING AND SOB, VIAL 05/27/18 Ipratropium-Albuterol (Ipratropium-Albuterol) 0.5-3 Mg/3 Ml Ampul.neb, 3 ML I NHALATION Q6, #30 VIAL 05/27/18 Furosemide* (Lasix*) 20 Mg Tablet, 20 MG PO DAILY, TAB 05/27/18 Enoxaparin Sodium* (Enoxaparin Sodium*) 40 Mg/0.4 Ml Syringe, 40 MG SC DAILY, SYR 05/27/18 Docusate Sodium* (Docusate Sodium*) 100 Mg Capsule, 100 MG PO BID, #60 CAP 05/27/18 Acetylcysteine* (Mucomyst*) 4 Ml Soln, 2 ML NEB BID, EA 05/27/18 Acetaminophen* (Acetaminophen*) 650 Mg Tablet, 650 MG PO Q6H PRN for PAIN AND OR ELEVATED TEMP, #30 TAB 05/27/18 Polyvinyl Alcohol (Tears Again) 15 Ml Drops, 1 DRP BOTH EYES EVERY 2 HOURS PRN for DRY EYES, BOTTLE 05/27/18 Atorvastatin Calcium (Atorvastatin Calcium) 10 Mg Tablet, 10 MG PO QHS, #30 TAB 05/27/18 Balsam Germania/Edison Oil (CIRCUDERM EMOLLIENT) 3 Gm Oint.pack, 3 GM TP Q12 05/27/18 Benzonatate* (Benzonatate*) 100 Mg Capsule, 100 MG PO TID PRN for COUGH, CAP 05/27/18 Bisacodyl (Laxative Suppository) 10 Mg Supp.rect, 10 MG RC DAILY PRN for CONSTIPATION, SUPP.RECT 05/27/18 Demeclocycline Hcl* (Demeclocycline Hcl*) 300 Mg Tablet, 150 MG PO TID, #60 TAB 05/27/18 Diltiazem Hcl* (Cardizem SR*) 60 Mg Capsr, 60 MG PO Q8, #60 CAP 05/27/18 Medications Current Medications Alteplase, Recombinant (Cathflo (Activase)) 2 mg MAY REPEAT X1 PRN CATHETER IF CATHETER REMAINS OCCULUDED Last administered on 07/13/18at 14:28; Admin Dose 2 MG; Start 07/13/18 at 14:30 IV Flush (NS 3 ml) 3 ml PER PROTOCOL IV ; Start 07/13/18 at 15:30 Ondansetron HCl (Zofran Inj) 4 mg Q6H PRN IV NAUSEA/VOMITING; Start 07/13/18 at 15:30 Acetaminophen (Tylenol Tab) 650 mg Q6H PRN PO .PAIN 1-3 OR TEMP; Start 07/13/18 at 15:30 Acetaminophen/ Hydrocodone Bitart ([place] (5/325)) 1 tab Q6H PRN PO .MOD PAIN 4- 6 Last administered on 07/16/18 12:56; Admin Dose 1 TAB; Start 07/13/18 at 15:30 Oseltamivir Phosphate (Tamiflu) 75 mg BID PO Last administered on 07/16/18 10:40; Admin Dose 75 MG; Start 07/13/18 at 21:00 Cefepime HCl 50 ml @ 100 mls/hr Q12 IVPB Last administered on 07/16/18 10:39; Admin Dose 100 MLS/HR; Start 07/13/18 at 21:00 Vancomycin HCl (Vanco Iv Per Pharmacy) VANCOMYCIN PER PHARMACY PER PROTOCOL XX ; Start 07/13/18 at 15:30 Albuterol/ Ipratropium (Duoneb) 3 ml Q2H RESP THERAPY PRN HHN SHORTNESS OF BREATH; Start 07/13/18 at 15:30 Methylprednisolone Sodium Succinate (Solu-Medrol) 60 mg Q8 IV Last administered on 07/16/18 05:48; Admin Dose 60 MG; Start 07/13/18 at 22:00 Atorvastatin Calcium (Lipitor) 10 mg QHS PO Last administered on 07/15/18 21:22; Admin Dose 10 MG; Start 07/13/18 at 21:00 Furosemide (Lasix) 20 mg DAILY PO Last administered on 07/16/18 10:40; Admin Dose 20 MG; Start 07/14/18 at 09:00 Losartan Potassium (Cozaar) 50 mg DAILY PO Last administered on 07/16/18 10:40; Admin Dose 50 MG; Start 07/14/18 at 09:00 Lubiprostone (Amitiza) 24 mcg BID PO Last administered on 07/16/18 10:40; Admin Dose 24 MCG; Start 07/13/18 at 21:00 Montelukast Sodium (Singulair) 10 mg QHS PO Last administered on 07/15/18 21:22; Admin Dose 10 MG; Start 07/13/18 at 21:00 Tamsulosin HCl (Flomax) 0.4 mg HS PO Last administered on 07/15/18 21:22; Admin Dose 0.4 MG; Start 07/13/18 at 21:00 Olopatadine HCl (Pataday) 1 drop BID BOTH EYES Last administered on 07/15/18 08:51; Admin Dose 1 DROP; Start 07/13/18 at 21:00 Enoxaparin Sodium (Lovenox) 40 mg DAILY SC Last administered on 07/16/18 11:14; Admin Dose 40 MG; Start 07/14/18 at 09:00 Vancomycin/Sodium Chloride 250 ml @ 125 mls/hr Q12H IVPB Last administered on 07/16/18 02:36; Admin Dose 125 MLS/HR; Start 07/14/18 at 03:00 Lactobacillus Acidophilus/ Rhamnosus (Culturelle) 1 cap BID PO Last administer ed on 07/15/18 21:22; Admin Dose 1 CAP; Start 07/14/18 at 21:00 Senna/Docusate Sodium (Senokot-S) 2 tab AM PO Last administered on 07/16/18 10:40; Admin Dose 2 TAB; Start 07/14/18 at 12:00 Bisacodyl (Dulcolax Supp) 10 mg DAILY PRN IN CONSTIPATION; Start 07/14/18 at 12:00 Albuterol/ Ipratropium (Duoneb) 3 ml Q6H RESP THERAPY HHN Last administered on 07/16/18 01:18; Admin Dose 3 ML; Start 07/14/18 at 14:00 Famotidine (Pepcid) 20 mg DAILY PO Last administered on 07/16/18 10:40; Admin Dose 20 MG; Start 07/15/18 at 09:00 Potassium Chloride 50 ml @ 50 mls/hr K PROTOCOL PRN IVPB PENDING LAB VALUE; Start 07/16/18 at 09:30 Bisacodyl (Dulcolax) 10 mg DAILY PO ; Start 07/17/18 at 09:00 Magnesium Hydroxide (Milk Of Mag) 30 ml BID PO ; Start 07/16/18 at 13:30 Allergies: Coded Allergies: No Known Allergy (Unverified , 07/13/18) Past Surgical History Past Surgical Hx: no surgical history Social History Alcohol Use: none Smoking Status: Former smoker Drug Use: none Exam/Review of Systems Exam Vitals Vital Signs Date Temp Pulse Resp B/P (MAP) Pulse Ox O2 O2 Flow FiO2 Time Delivery Rate 07/16/18 107 25 125/111 100 High Flow 13:00 (116) 07/16/18 98.4 12:00 07/16/18 50 05:47 07/14/18 6.0 10:10 Intake and Output 07/15/18 07/15/18 07/16/18 1515:00 23:00 07:00 IntakeIntake Total 300 ml 650 ml 300 ml OutputOutput Total 340 ml 500 ml 435 ml BalanceBalance -40 ml 150 ml -135 ml Constitutional: non-verbal, frail Psych: anxiety Eyes: nl conjunctiva, EOMI, nl lids, nl sclera, PERRL; No icteric, No fundi, disc, No other ENMT: nl external ears & nose, nl lips & teeth, nl nasal mucosa & septum; No mucosa pink and moist, No intubated, No tympanic membranes, No other Neck: supple, non-tender; No jvd, No bruits, No masses, No thyromegaly, No nuchal rigidity, No other Respiratory: congested cough, crackles/rales, diminished breath sounds, intercostal retraction, labored breathing Cardiovascular: regular rate and rhythm, nl pulses; No bruits, No diastolic murmur, No edema, No gallop, No irregular rhythm, No jugular venous distention (JVD), No murmurs/extra sounds, No rub, No systolic murmur, No S3, No S4, No other Neurological: lethargic, other (Oriented x0 cannot assess cranial nerves opens his eyes to simple commands moving all extremities non-purposefully) Results Result Diagram: 07/16/18 0505 07/16/18 0505 Results 24hrs Laboratory Tests Test 07/16/18 05:05 White Blood Count 6.9 Red Blood Count 3.68 L Hemoglobin 10.1 L Hematocrit 32.8 L Mean Corpuscular Volume 89.1 Mean Corpuscular Hemoglobin 27.4 L Mean Corpuscular Hemoglobin Concent 30.8 L Red Cell Distribution Width 14.6 H Platelet Count 156 Mean Platelet Volume 10.5 H Immature Granulocytes % 0.700 H Neutrophils % 92.6 H Lymphocytes % 3.9 L Monocytes % 2.7 Eosinophils % 0.0 Basophils % 0.1 Nucleated Red Blood Cells % 0.0 Immature Granulocytes # 0.050 H Neutrophils # 6.4 Lymphocytes # 0.3 L Monocytes # 0.2 L Eosinophils # 0.0 Basophils # 0.0 Nucleated Red Blood Cells # 0.0 Sodium Level 140 Potassium Level 3.1 L Chloride Level 96 L Carbon Dioxide Level 38 H Anion Gap 6 Blood Urea Nitrogen 31 H Creatinine 0.61 Est Glomerular Filtrat Rate mL/min Glucose Level 139 Calcium Level 8.5 Magnesium Level 2.1 Troponin I 0.097 Medications Medication Current Medications Alteplase, Recombinant (Cathflo (Activase)) 2 mg MAY REPEAT X1 PRN CATHETER IF CATHETER REMAINS OCCULUDED Last administered on 07/13/18at 14:28; Admin Dose 2 MG; Start 07/13/18 at 14:30 IV Flush (NS 3 ml) 3 ml PER PROTOCOL IV ; Start 07/13/18 at 15:30 Ondansetron HCl (Zofran Inj) 4 mg Q6H PRN IV NAUSEA/VOMITING; Start 07/13/18 at 15:30 Acetaminophen (Tylenol Tab) 650 mg Q6H PRN PO .PAIN 1-3 OR TEMP; Start 07/13/18 at 15:30 Acetaminophen/ Hydrocodone Bitart ([place] (5/325)) 1 tab Q6H PRN PO .MOD PAIN 4- 6 Last administered on 07/16/18at 12:56; Admin Dose 1 TAB; Start 07/13/18 at 15:30 Oseltamivir Phosphate (Tamiflu) 75 mg BID PO Last administered on 07/16/18at 10:40; Admin Dose 75 MG; Start 07/13/18 at 21:00 Cefepime HCl 50 ml @ 100 mls/hr Q12 IVPB Last administered on 07/16/18at 10:39; Admin Dose 100 MLS/HR; Start 07/13/18 at 21:00 Vancomycin HCl (Vanco Iv Per Pharmacy) VANCOMYCIN PER PHARMACY PER PROTOCOL XX ; Start 07/13/18 at 15:30 Albuterol/ Ipratropium (Duoneb) 3 ml Q2H RESP THERAPY PRN HHN SHORTNESS OF BREATH; Start 07/13/18 at 15:30 Methylprednisolone Sodium Succinate (Solu-Medrol) 60 mg Q8 IV Last administered on 07/16/18at 05:48; Admin Dose 60 MG; Start 07/13/18 at 22:00 Atorvastatin Calcium (Lipitor) 10 mg QHS PO Last administered on 07/15/18 21:22; Admin Dose 10 MG; Start 07/13/18 at 21:00 Furosemide (Lasix) 20 mg DAILY PO Last administered on 07/16/18 10:40; Admin Dose 20 MG; Start 07/14/18 at 09:00 Losartan Potassium (Cozaar) 50 mg DAILY PO Last administered on 07/16/18 10:40; Admin Dose 50 MG; Start 07/14/18 at 09:00 Lubiprostone (Amitiza) 24 mcg BID PO Last administered on 07/16/18 10:40; Admin Dose 24 MCG; Start 07/13/18 at 21:00 Montelukast Sodium (Singulair) 10 mg QHS PO Last administered on 07/15/18 21: 22; Admin Dose 10 MG; Start 07/13/18 at 21:00 Tamsulosin HCl (Flomax) 0.4 mg HS PO Last administered on 07/15/18 21:22; Admin Dose 0.4 MG; Start 07/13/18 at 21:00 Olopatadine HCl (Pataday) 1 drop BID BOTH EYES Last administered on 07/15/18 08:51; Admin Dose 1 DROP; Start 07/13/18 at 21:00 Enoxaparin Sodium (Lovenox) 40 mg DAILY SC Last administered on 07/16/18 11:14; Admin Dose 40 MG; Start 07/14/18 at 09:00 Vancomycin/Sodium Chloride 250 ml @ 125 mls/hr Q12H IVPB Last administered on 07/16/18 02:36; Admin Dose 125 MLS/HR; Start 07/14/18 at 03:00 Lactobacillus Acidophilus/ Rhamnosus (Culturelle) 1 cap BID PO Last administered on 07/15/18 21:22; Admin Dose 1 CAP; Start 07/14/18 at 21:00 Senna/Docusate Sodium (Senokot-S) 2 tab AM PO Last administered on 07/16/18 10:40; Admin Dose 2 TAB; Start 07/14/18 at 12:00 Bisacodyl (Dulcolax Supp) 10 mg DAILY PRN IN CONSTIPATION; Start 07/14/18 at 12:00 Albuterol/ Ipratropium (Duoneb) 3 ml Q6H RESP THERAPY HHN Last administered on 07/16/18at 01:18; Admin Dose 3 ML; Start 07/14/18 at 14:00 Famotidine (Pepcid) 20 mg DAILY PO Last administered on 07/16/18at 10:40; Admin Dose 20 MG; Start 07/15/18 at 09:00 Potassium Chloride 50 ml @ 50 mls/hr K PROTOCOL PRN IVPB PENDING LAB VALUE; Start 07/16/18 at 09:30 Bisacodyl (Dulcolax) 10 mg DAILY PO ; Start 07/17/18 at 09:00 Magnesium Hydroxide (Milk Of Mag) 30 ml BID PO ; Start 07/16/18 at 13:30 EMILY MCDANIEL Jul 16, 2018 14:41
[2018-07-16] MEDS: MAGNESIUM HYDROXIDE 30ML CUP PO SCH ×2 (14:48→21:40)
[2018-07-16] MEDS: TAMSULOSIN (SR) 0.4 MG CAP PO SCH (21:41)
[2018-07-16] MEDS: MONTELUKAST 10 MG TAB PO SCH (21:41)
[2018-07-16] MEDS: ATORVASTATIN 10 MG TAB PO SCH (21:41)
[2018-07-16] MEDS: OSELTAMIVIR PO SCH (22:20)
[2018-07-16] MEDS: OSELTAMIVIR 30 MG CAP PO SCH (22:21)
[2018-07-17] VITALS (25 sets, daily range): BP systolic 95–137; BP diastolic 55–81; PULSE 88–116; RESP 17–29
[2018-07-17] MEDS: ALBUTEROL/IPRATROPIUM (NEB) 3 ML AMP HHN SCH ×4 (01:48→20:08)
[2018-07-17] MEDS: VANCOMYCIN 750 MG (PMX) 250 ML IVPB SCH ×2 (03:22→16:55)
[2018-07-17] MEDS: METHYLPREDNISOLONE 125 MG INJ IV SCH ×3 (06:05→22:16)
[2018-07-17] MEDS: CEFEPIME 1GM/50 ML (PMX) 50 ML IVPB SCH ×2 (09:03→21:02)
[2018-07-17] MEDS: LUBIPROSTONE 24 MCG CAP PO SCH ×2 (09:04→21:02)
[2018-07-17] MEDS: LACTOBACILLUS RHAMNOSUS CAP PO SCH ×2 (09:05→21:03)
[2018-07-17] MEDS: FUROSEMIDE 20 MG TAB PO SCH (09:05)
[2018-07-17] MEDS: FAMOTIDINE 20 MG TAB PO SCH (09:05)
[2018-07-17] MEDS: LOSARTAN 50 MG TAB PO SCH (09:05)
[2018-07-17] MEDS: OSELTAMIVIR 30 MG CAP PO SCH ×2 (09:05→21:02)
[2018-07-17] MEDS: OSELTAMIVIR PO SCH (09:06)
[2018-07-17] MEDS: BISACODYL (EC) 5 MG TAB PO SCH (09:10)
[2018-07-17] MEDS: SENNA/DOCUSATE NA (8.6MG/50MG) TAB PO SCH (09:10)
[2018-07-17] MEDS: MAGNESIUM HYDROXIDE 30ML CUP PO SCH ×2 (09:10→21:02)
[2018-07-17] MEDS: ENOXAPARIN 40 MG/0.4 ML SYG SC SCH (09:19)
[2018-07-17] MEDS: POTASSIUM CHLORIDE 50 ML IVPB PRN ×3 (09:26→13:11)
--- NOTE | 2018-07-17 10:09 | CONS ---
Consult Date/Type/Reason Admit Date/Time Jul 13, 2018 at 14:44 Initial Consult Date Type of Consult Pulmonary Date/Time of Note DATE: 07/17/18 TIME: 10:08 Subjective Patient slowly improving. FiO2 requirements decreasing. Still requiring high flow O2. Objective Vital Signs Date Temp Pulse Resp B/P (MAP) Pulse Ox O2 O2 Flow FiO2 Time Delivery Rate 07/17/18 102 08:00 07/17/18 23 124/81 99 High Flow 06:00 (95) 07/17/18 60 04:55 07/17/18 98.9 04:00 07/14/18 6.0 10:10 Intake and Output 07/16/18 07/16/18 07/17/18 1515:00 23:00 07:00 IntakeIntake Total 500 ml 320 ml 50 ml OutputOutput Total 400 ml 645 ml 500 ml BalanceBalance 100 ml -325 ml -450 ml Exam PHYSICAL EXAMINATION: GENERAL: Well-nourished, well-developed gentleman, comfortable at rest, no acute distress, on bilevel ventilation. VITAL SIGNS: NECK: Supple. No JVD or lymphadenopathy. CARDIAC: S1, S2, no added sounds or murmurs. CHEST: Diminished air entry bilaterally. ABDOMEN: Soft, nontender. No guarding or rebound. EXTREMITIES: No cyanosis, clubbing, or edema. NEUROLOGIC: Generalized weakness. No focal deficits. Vent Setting Fraction of Inspired Oxygen pe: 60 Results/Medications Result Diagram: 07/17/18 0458 07/17/18 0458 Results 24 hrs Laboratory Tests Test 07/17/18 04:58 07/17/18 07:00 White Blood Count 5.8 Red Blood Count 3.75 L Hemoglobin 10.3 L Hematocrit 33.4 L Mean Corpuscular Volume 89.1 Mean Corpuscular Hemoglobin 27.5 L Mean Corpuscular Hemoglobin Concent 30.8 L Red Cell Distribution Width 14.3 Platelet Count 156 Mean Platelet Volume 10.8 H Immature Granulocytes % 0.700 H Neutrophils % 90.7 H Lymphocytes % 4.2 L Monocytes % 4.2 Eosinophils % 0.0 Basophils % 0.2 Nucleated Red Blood Cells % 0.0 Immature Granulocytes # 0.040 H Neutrophils # 5.2 Lymphocytes # 0.2 L Monocytes # 0.2 L Eosinophils # 0.0 Basophils # 0.0 Nucleated Red Blood Cells # 0.0 Sodium Level 140 Potassium Level 3.2 L Chloride Level 92 L Carbon Dioxide Level 40 H Anion Gap 8 Blood Urea Nitrogen 29 H Creatinine 0.58 L Est Glomerular Filtrat Rate mL/min Glucose Level 127 Calcium Level 8.2 L Phosphorus Level 3.3 Magnesium Level 2.0 Blood Gas Specimen Source Blood arterial Arterial Blood Date Drawn 07/17/2018 7:05:47 AM Arterial Blood pH (Temp corrected) 7.423 Arterial Blood pCO2 (Temp correct) 65.4 H Arterial Blood pO2 (Temp corrected) 95.1 H Arterial Blood HCO3 41.8 *H Arterial Blood Base Excess 14.6 H Arterial Blood Oxygen Saturation 97.0 Elmer Test ACCEPTAB Arterial Blood Gas Puncture Site Right Radial Arterial Blood Carboxyhemoglobin 0.2 Arterial Blood Methemoglobin 0.3 Blood Gas A-a O2 Differential 260.8 H Oxyhemoglobin Percent 96.5 Blood Gas Temperature 37.0 Blood Gas Modality HFNC FiO2 60.0 Blood Gas Critical Value Read Back MNGO RN Blood Gas Notified Whom TM Blood Gas Notified Time 07/17/2018 7:41:18 AM Medications Current Medications Alteplase, Recombinant (Cathflo (Activase)) 2 mg MAY REPEAT X1 PRN CATHETER IF CATHETER REMAINS OCCULUDED Last administered on 07/13/18at 14:28; Admin Dose 2 MG; Start 07/13/18 at 14:30 IV Flush (NS 3 ml) 3 ml PER PROTOCOL IV ; Start 07/13/18 at 15:30 Ondansetron HCl (Zofran Inj) 4 mg Q6H PRN IV NAUSEA/VOMITING; Start 07/13/18 at 15:30 Acetaminophen (Tylenol Tab) 650 mg Q6H PRN PO .PAIN 1-3 OR TEMP; Start 07/13/18 at 15:30 Acetaminophen/ Hydrocodone Bitart ([place] (5/325)) 1 tab Q6H PRN PO .MOD PAIN 4- 6 Last administered on 07/16/18at 21:41; Admin Dose 1 TAB; Start 07/13/18 at 15:30 Cefepime HCl 50 ml @ 100 mls/hr Q12 IVPB Last administered on 07/17/18at 09:03; Admin Dose 100 MLS/HR; Start 07/13/18 at 21:00 Vancomycin HCl (Vanco Iv Per Pharmacy) VANCOMYCIN PER PHARMACY PER PROTOCOL XX ; Start 07/13/18 at 15:30 Albuterol/ Ipratropium (Duoneb) 3 ml Q2H RESP THERAPY PRN HHN SHORTNESS OF BREATH; Start 07/13/18 at 15:30 Methylprednisolone Sodium Succinate (Solu-Medrol) 60 mg Q8 IV Last administered on 07/17/18 06:05; Admin Dose 60 MG; Start 07/13/18 at 22:00 Atorvastatin Calcium (Lipitor) 10 mg QHS PO Last administered on 07/16/18 21:41; Admin Dose 10 MG; Start 07/13/18 at 21:00 Furosemide (Lasix) 20 mg DAILY PO Last administered on 07/17/18 09:05; Admin Dose 20 MG; Start 07/14/18 at 09:00 Losartan Potassium (Cozaar) 50 mg DAILY PO Last administered on 07/17/18 09:05; Admin Dose 50 MG; Start 07/14/18 at 09:00 Lubiprostone (Amitiza) 24 mcg BID PO Last administered on 07/17/18 09:04; Admin Dose 24 MCG; Start 07/13/18 at 21:00 Montelukast Sodium (Singulair) 10 mg QHS PO Last administered on 07/16/18 21:41; Admin Dose 10 MG; Start 07/13/18 at 21:00 Tamsulosin HCl (Flomax) 0.4 mg HS PO Last administered on 07/16/18 21:41; Admin Dose 0.4 MG; Start 07/13/18 at 21:00 Olopatadine HCl (Pataday) 1 drop BID BOTH EYES Last administered on 07/15/18 08:51; Admin Dose 1 DROP; Start 07/13/18 at 21:00 Enoxaparin Sodium (Lovenox) 40 mg DAILY SC Last administered on 07/17/18 09: 19; Admin Dose 40 MG; Start 07/14/18 at 09:00 Vancomycin/Sodium Chloride 250 ml @ 125 mls/hr Q12H IVPB Last administered on 07/17/18 03:22; Admin Dose 125 MLS/HR; Start 07/14/18 at 03:00 Lactobacillus Acidophilus/ Rhamnosus (Culturelle) 1 cap BID PO Last administered on 07/17/18 09:05; Admin Dose 1 CAP; Start 07/14/18 at 21:00 Senna/Docusate Sodium (Senokot-S) 2 tab AM PO Last administered on 07/17/18 09:10; Admin Dose 2 TAB; Start 07/14/18 at 12:00 Bisacodyl (Dulcolax Supp) 10 mg DAILY PRN [place] CONSTIPATION; Start 07/14/18 at 12:00 Albuterol/ Ipratropium (Duoneb) 3 ml Q6H RESP THERAPY HHN Last administered on 07/17/18 01:48; Admin Dose 3 ML; Start 07/14/18 at 14:00 Famotidine (Pepcid) 20 mg DAILY PO Last administered on 07/17/18 09:05; Admin Dose 20 MG; Start 07/15/18 at 09:00 Potassium Chloride 50 ml @ 50 mls/hr K PROTOCOL PRN IVPB PENDING LAB VALUE Last administered on 07/17/18 09:26; Admin Dose 50 MLS/HR; Start 07/16/18 at 09:30 Bisacodyl (Dulcolax) 10 mg DAILY PO Last administered on 07/17/18 09:10; Admin Dose 10 MG; Start 07/17/18 at 09:00 Magnesium Hydroxide (Milk Of Mag) 30 ml BID PO Last administered on 07/17/18 09:10; Admin Dose 30 ML; Start 07/16/18 at 13:30 Oseltamivir Phosphate (Tamiflu) 30 mg BID PO Last administered on 07/17/18 09:05; Admin Dose 30 MG; Start 07/16/18 at 22:00 Non-Formulary Medication 1 ea BID PO Last administered on 07/17/18 09:06; Admin Dose 1 EA; Start 07/16/18 at 22:00 Assessment/Plan Hospital Course (Demo Recall) Assessment 1. Acute hypoxemic and hypercapnic respiratory failure. Likely secondary to influenza infection. 2. Hypokalemia 3. Possible COPD exacerbation in addition. Plan 1. Continue noninvasive positive pressure ventilation, trial of high flow O2, if tolerated. 2. Transfer to ICU for further monitoring 3. Continue Tamiflu and antibacterials 4. Aspiration precautions 5. Steroid taper. Prognosis is guarded critical care time 40 minute Agree with Key evaluation. Stable for transfer today if bed available. ALEXI ALLISON MD, [facility] Jul 17, 2018 10:09
[2018-07-17] MEDS: OLOPATADINE 0.2% (ONCE A DAY) OPHTH DROP 2.5 ML BOTH EYES SCH ×2 (13:11→21:15)
--- NOTE | 2018-07-17 14:05 | PN ---
Date/Time of Note Date/Time of Note DATE: 07/17/18 TIME: 14:03 Assessment/Plan VTE Prophylaxis Risk score (from Ns)>0 risk: 6 SCD applied (from Ns): Yes SCD contraindicated: low risk/ambulating Pharmacological prophylaxis: LMWH Lines/Catheters IV Catheter Type (from Nrsg): PICC Line Central line still needed: Yes Urinary Cath still in place: No Assessment/Plan Hospital Course Assessment plan 1. Sepsis, severe, mod stable cont supplemental oxygen 2. Acute influenza A, stable finish Tamiflu 3. Acute hypoxic respiratory failure, mod stable continue oxygen transfer to telemetry versus directly to [facility] soon. 4. Concern for healthcare associated pneumonia, stable finish antibiotics 5. Chronic COPD 6. Past tobacco 7. Possible bronchitis, steroids as indicated 8. Chronic hypertension 9. Chronic pulmonary hypertension 10. Chronic VICTOR HUGO? On home BiPAP? 11. Pulmonary nodule right 6 mm noted back in March. Serial imaging every 6 months 12. BPH 13. Sinus tach secondary to 14. Chest abdominal pain, watch for ACS. Treat bowel issues. S: 06/17 follows commands. Has back/shoulder pain cough with white expectoration no hemoptysis. Constipated? 07/16 chest abdominal discomfort. No known aggravating or relieving factors. Minimal cough. 07/17: Events noted ongoing requirement for supplemental oxygen O: Tachycardic, hypoxia Physical exam No pallor/ JVD appreciated Regular no m/r/g Faint dimin mild tachypnea positive bs, no rigidity rebound guarding No edema Result Diagram: 07/17/18 0458 07/17/18 0458 Results 24hrs Laboratory Tests Test 07/17/18 04:58 07/17/18 07:00 White Blood Count 5.8 Red Blood Count 3.75 L Hemoglobin 10.3 L Hematocrit 33.4 L Mean Corpuscular Volume 89.1 Mean Corpuscular Hemoglobin 27.5 L Mean Corpuscular Hemoglobin Concent 30.8 L Red Cell Distribution Width 14.3 Platelet Count 156 Mean Platelet Volume 10.8 H Immature Granulocytes % 0.700 H Neutrophils % 90.7 H Lymphocytes % 4.2 L Monocytes % 4.2 Eosinophils % 0.0 Basophils % 0.2 Nucleated Red Blood Cells % 0.0 Immature Granulocytes # 0.040 H Neutrophils # 5.2 Lymphocytes # 0.2 L Monocytes # 0.2 L Eosinophils # 0.0 Basophils # 0.0 Nucleated Red Blood Cells # 0.0 Sodium Level 140 Potassium Level 3.2 L Chloride Level 92 L Carbon Dioxide Level 40 H Anion Gap 8 Blood Urea Nitrogen 29 H Creatinine 0.58 L Est Glomerular Filtrat Rate mL/min Glucose Level 127 Calcium Level 8.2 L Phosphorus Level 3.3 Magnesium Level 2.0 Blood Gas Specimen Source Blood arterial Arterial Blood Date Drawn 07/17/2018 7:05:47 AM Arterial Blood pH (Temp corrected) 7.423 Arterial Blood pCO2 (Temp correct) 65.4 H Arterial Blood pO2 (Temp corrected) 95.1 H Arterial Blood HCO3 41.8 *H Arterial Blood Base Excess 14.6 H Arterial Blood Oxygen Saturation 97.0 Elmer Test ACCEPTAB Arterial Blood Gas Puncture Site Right Radial Arterial Blood Carboxyhemoglobin 0.2 Arterial Blood Methemoglobin 0.3 Blood Gas A-a O2 Differential 260.8 H Oxyhemoglobin Percent 96.5 Blood Gas Temperature 37.0 Blood Gas Modality HFNC FiO2 60.0 Blood Gas Critical Value Read Back MNGO RN Blood Gas Notified Whom TM Blood Gas Notified Time 07/17/2018 7:41:18 AM Exam/Review of Systems Exam Vitals Vital Signs Date Temp Pulse Resp B/P (MAP) Pulse Ox O2 O2 Flow FiO2 Time Delivery Rate 07/17/18 103 12:00 07/17/18 20 119/55 100 High Flow 11:00 (76) 07/17/18 60 10:10 07/17/18 98.4 08:00 07/14/18 6.0 10:10 Intake and Output 07/16/18 07/16/18 07/17/18 1515:00 23:00 07:00 IntakeIntake Total 500 ml 320 ml 50 ml OutputOutput Total 400 ml 645 ml 575 ml BalanceBalance 100 ml -325 ml -525 ml Results Results 24hrs Laboratory Tests Test 07/17/18 04:58 07/17/18 07:00 White Blood Count 5.8 Red Blood Count 3.75 L Hemoglobin 10.3 L Hematocrit 33.4 L Mean Corpuscular Volume 89.1 Mean Corpuscular Hemoglobin 27.5 L Mean Corpuscular Hemoglobin Concent 30.8 L Red Cell Distribution Width 14.3 Platelet Count 156 Mean Platelet Volume 10.8 H Immature Granulocytes % 0.700 H Neutrophils % 90.7 H Lymphocytes % 4.2 L Monocytes % 4.2 Eosinophils % 0.0 Basophils % 0.2 Nucleated Red Blood Cells % 0.0 Immature Granulocytes # 0.040 H Neutrophils # 5.2 Lymphocytes # 0.2 L Monocytes # 0.2 L Eosinophils # 0.0 Basophils # 0.0 Nucleated Red Blood Cells # 0.0 Sodium Level 140 Potassium Level 3.2 L Chloride Level 92 L Carbon Dioxide Level 40 H Anion Gap 8 Blood Urea Nitrogen 29 H Creatinine 0.58 L Est Glomerular Filtrat Rate mL/min Glucose Level 127 Calcium Level 8.2 L Phosphorus Level 3.3 Magnesium Level 2.0 Blood Gas Specimen Source Blood arterial Arterial Blood Date Drawn 07/17/2018 7:05:47 AM Arterial Blood pH (Temp corrected) 7.423 Arterial Blood pCO2 (Temp correct) 65.4 H Arterial Blood pO2 (Temp corrected) 95.1 H Arterial Blood HCO3 41.8 *H Arterial Blood Base Excess 14.6 H Arterial Blood Oxygen Saturation 97.0 Elmer Test ACCEPTAB Arterial Blood Gas Puncture Site Right Radial Arterial Blood Carboxyhemoglobin 0.2 Arterial Blood Methemoglobin 0.3 Blood Gas A-a O2 Differential 260.8 H Oxyhemoglobin Percent 96.5 Blood Gas Temperature 37.0 Blood Gas Modality HFNC FiO2 60.0 Blood Gas Critical Value Read Back MNGO RN Blood Gas Notified Whom TM Blood Gas Notified Time 07/17/2018 7:41:18 AM Medications Medication Current Medications Alteplase, Recombinant (Cathflo (Activase)) 2 mg MAY REPEAT X1 PRN CATHETER IF CATHETER REMAINS OCCULUDED Last administered on 07/13/18at 14:28; Admin Dose 2 MG; Start 07/13/18 at 14:30 IV Flush (NS 3 ml) 3 ml PER PROTOCOL IV ; Start 07/13/18 at 15:30 Ondansetron HCl (Zofran Inj) 4 mg Q6H PRN IV NAUSEA/VOMITING; Start 07/13/18 at 15:30 Acetaminophen (Tylenol Tab) 650 mg Q6H PRN PO .PAIN 1-3 OR TEMP; Start 07/13/18 at 15:30 Acetaminophen/ Hydrocodone Bitart ([place] (5/325)) 1 tab Q6H PRN PO .MOD PAIN 4- 6 Last administered on 07/16/18at 21:41; Admin Dose 1 TAB; Start 07/13/18 at 1 5:30 Cefepime HCl 50 ml @ 100 mls/hr Q12 IVPB Last administered on 07/17/18 09:03; Admin Dose 100 MLS/HR; Start 07/13/18 at 21:00 Vancomycin HCl (Vanco Iv Per Pharmacy) VANCOMYCIN PER PHARMACY PER PROTOCOL XX ; Start 07/13/18 at 15:30 Albuterol/ Ipratropium (Duoneb) 3 ml Q2H RESP THERAPY PRN HHN SHORTNESS OF BREATH; Start 07/13/18 at 15:30 Methylprednisolone Sodium Succinate (Solu-Medrol) 60 mg Q8 IV Last administered on 07/17/18 13:11; Admin Dose 60 MG; Start 07/13/18 at 22:00 Atorvastatin Calcium (Lipitor) 10 mg QHS PO Last administered on 07/16/18 21:41; Admin Dose 10 MG; Start 07/13/18 at 21:00 Furosemide (Lasix) 20 mg DAILY PO Last administered on 07/17/18 09:05; Admin Dose 20 MG; Start 07/14/18 at 09:00 Losartan Potassium (Cozaar) 50 mg DAILY PO Last administered on 07/17/18 09:05; Admin Dose 50 MG; Start 07/14/18 at 09:00 Lubiprostone (Amitiza) 24 mcg BID PO Last administered on 07/17/18 09:04; Admin Dose 24 MCG; Start 07/13/18 at 21:00 Montelukast Sodium (Singulair) 10 mg QHS PO Last administered on 07/16/18 21:41; Admin Dose 10 MG; Start 07/13/18 at 21:00 Tamsulosin HCl (Flomax) 0.4 mg HS PO Last administered on 07/16/18 21:41; Admin Dose 0.4 MG; Start 07/13/18 at 21:00 Olopatadine HCl (Pataday) 1 drop BID BOTH EYES Last administered on 07/17/18 13:11; Admin Dose 1 DROP; Start 07/13/18 at 21:00 Enoxaparin Sodium (Lovenox) 40 mg DAILY SC Last administered on 07/17/18 09:19; Admin Dose 40 MG; Start 07/14/18 at 09:00 Vancomycin/Sodium Chloride 250 ml @ 125 mls/hr Q12H IVPB Last administered on 07/17/18 03:22; Admin Dose 125 MLS/HR; Start 07/14/18 at 03:00 Lactobacillus Acidophilus/ Rhamnosus (Culturelle) 1 cap BID PO Last administered on 07/17/18 09:05; Admin Dose 1 CAP; Start 07/14/18 at 21:00 Senna/Docusate Sodium (Senokot-S) 2 tab AM PO Last administered on 07/17/18 09:10; Admin Dose 2 TAB; Start 07/14/18 at 12:00 Bisacodyl (Dulcolax Supp) 10 mg DAILY PRN AR CONSTIPATION; Start 07/14/18 at 12:00 Albuterol/ Ipratropium (Duoneb) 3 ml Q6H RESP THERAPY HHN Last administered on 07/17/18 10:10; Admin Dose 3 ML; Start 07/14/18 at 14:00 Famotidine (Pepcid) 20 mg DAILY PO Last administered on 07/17/18 09:05; Admin Dose 20 MG; Start 07/15/18 at 09:00 Potassium Chloride 50 ml @ 50 mls/hr K PROTOCOL PRN IVPB PENDING LAB VALUE Last administered on 07/17/18 13:11; Admin Dose 50 MLS/HR; Start 07/16/18 at 09:30 Bisacodyl (Dulcolax) 10 mg DAILY PO Last administered on 07/17/18 09:10; Admin Dose 10 MG; Start 07/17/18 at 09:00 Magnesium Hydroxide (Milk Of Mag) 30 ml BID PO Last administered on 07/17/18 09:10; Admin Dose 30 ML; Start 07/16/18 at 13:30 Oseltamivir Phosphate (Tamiflu) 30 mg BID PO Last administered on 07/17/18 09:05; Admin Dose 30 MG; Start 07/16/18 at 22:00 Non-Formulary Medication 1 ea BID PO Last administered on 07/17/18 09:06; Admin Dose 1 EA; Start 07/16/18 at 22:00 KAMILLE FRASER MD Jul 17, 2018 14:05
--- NOTE | 2018-07-17 16:35 | DS ---
Date/Time of Note Date/Time of Note DATE: 07/17/18 TIME: 16:34 Discharge Summary Admission/Discharge Info Admit Date/Time Jul 13, 2018 at 14:44 Discharge Date/Time Patient Condition: Fair Procedures KUB Air is identified within the small bowel and throughout the colon. There is moderate amount of retained stool throughout the colon. There is no bowel obstruction. No suspicious calcific density is identified within the limitations of this exam. Bibasilar opacities may represent atelectasis or airspace disease. Degenerative changes are seen in the spine. IMPRESSION: 1. Nonobstructive bowel gas pattern. 2. Moderate amount of retained stool throughout the colon. Hx of Present Illness dyspnea Hospital Course Hospitalist Coverage/ Course/ Assessment plan 1. Sepsis, severe, mod stable cont supplemental oxygen: DC to [facility] 2. Acute influenza A, stable finish Tamiflu 3. Acute hypoxic respiratory failure, mod stable continue oxygen; transfer to [facility] soon. 4. Concern for healthcare associated pneumonia, stable finish antibiotics 5. Chronic COPD 6. Past tobacco 7. Possible bronchitis, steroids as indicated 8. Chronic hypertension 9. Chronic pulmonary hypertension 10. Chronic VICTOR HUGO? On home BiPAP? 11. Pulmonary nodule right 6 mm noted back in March. Serial imaging every 6 months 12. BPH 13. Sinus tach secondary to 14. Chest abdominal pain, watch for ACS. Treat bowel issues. 15. Constipation; no BM all week S: 06/17 follows commands. Has back/shoulder pain cough with white expectoration no hemoptysis. Constipated? 07/16 chest abdominal discomfort. No known aggravating or relieving factors. Minimal cough. 07/17: Events noted ongoing requirement for supplemental oxygen O: Tachycardic, hypoxia Physical exam No pallor/ JVD appreciated Regular no m/r/g Faint dimin mild tachypnea positive bs, no rigidity rebound guarding No edema Home Meds Reported Medications Hydrocodone/Acetaminophen ([place] 5-325 Tablet) 1 Each Tablet, 1 EACH PO Q6 PRN for MODERATE PAIN LEVEL 4-6, TAB 07/13/18 Olopatadine* (Pataday*) 0.2% - 2.5 Ml Drops, 1 DROP BOTH EYES BID, EA 07/13/18 Pantoprazole* (Protonix*) 40 Mg Tablet.dr, 40 MG PO DAILY, TAB 07/13/18 Potassium Chloride* (K-Dur*) 20 Meq Tab.prt.sr, 40 MEQ PO DAILY, TAB.SA 07/13/18 Prednisone* (Prednisone*) 20 Mg Tab, 20 MG PO DAILY, TAB 07/13/18 Protein Supplement (Promod) 946 Ml Liquid, 946 ML PO BID 07/13/18 Simethicone* (Mylicon*) 80 Mg Tab, 80 MG PO TID PRN for DISTENSION/GAS/BLOATING, TAB 07/13/18 Tamsulosin Hcl* (Tamsulosin Hcl*) 0.4 Mg Cap.er.24h, 0.4 MG PO HS, CAP 07/13/18 Acetaminophen* (Acetaminophen*) 650 Mg Tablet, 650 MG PO Q6H PRN for MILD PAIN LEVEL 1-3, #30 TAB AND FEVER 07/13/18 Multivitamins* (Theragran*) 1 Tab Tab, 1 TAB PO DAILY, TAB 07/13/18 Montelukast Sodium* (Montelukast Sodium*) 10 Mg Tablet, 10 MG PO QHS, #30 TAB 07/13/18 Polyethylene Glycol* (Miralax*) 17 Gm Powd.pack, 17 GM PO TID PRN for CONSTIPATION, #60 PACKET 07/13/18 Throat Lozenges* (Cepastat*) 9 Josselin Lozenge, 1 LOZENGE MT EVERY 1 HOUR PRN, LOZENGE 07/13/18 Demeclocycline Hcl* (Demeclocycline Hcl*) 300 Mg Tablet, 150 MG PO TID, #60 TAB 07/13/18 Diltiazem Hcl* (Cardizem*) 30 Mg Tablet, 30 MG PO Q8 PRN for BLOOD PRESSURE SUPPORT, #90 TAB HOLD FOR SBP <110 OR HR <60 07/13/18 Docusate Sodium* (Docusate Sodium*) 100 Mg Capsule, 100 MG PO BID, #60 CAP 07/13/18 Bisacodyl (Dulcolax) 10 Mg Supp.rect, 10 MG RC PRN PRN for CONSTIPATION, SUPP.RECT 07/13/18 Furosemide* (Lasix*) 20 Mg Tablet, 20 MG PO DAILY, TAB 07/13/18 Guaifenesin* (Tussin*) 100 Mg/5 Ml Syrup, 200 MG PO Q4 PRN for COUGH, ML 07/13/18 Ipratropium [place]* (Atrovent HFA*) 12.9 Gm Aer.w.adap, 2 PUFF INHALATION Q6 for SHORTNESS OF BREATH, #1 INHALER FOR THE NEBULIZER 07/13/18 Levalbuterol Hcl* (Levalbuterol Hcl*) 0.63 Mg/3 Ml Vial.neb, 0.63 MG INHALATION Q6H PRN for WHEEZING AND SOB, VIAL 07/13/18 Losartan Potassium* (Losartan Potassium*) 50 Mg Tablet, 50 MG PO DAILY, TAB HOLD FOR SBP <110 OR HR <60 07/13/18 Lubiprostone* (Amitiza*) 24 Mcg Capsule, 24 MCG PO BID, #60 CAP 07/13/18 Magnesium Hydroxide* (Milk Of Magnesia*) 400 Mg/5 Ml Oral.susp, 30 ML PO DAILY PRN for CONSTIPATION, ML 07/13/18 Menthol (BENGAY) 113 Gm Gel..gram., 113 GM TP TID APPLY TO POSTERIOR RIGHT SHOULDER 07/13/18 Atorvastatin Calcium (Atorvastatin Calcium) 10 Mg Tablet, 10 MG PO QHS, #30 TAB 07/13/18 Polyvinyl Alcohol (Tears Again) 15 Ml Drops, 1 DRP BOTH EYES Q2HWA, BOTTLE 07/13/18 Discontinued Reported Medications Magnesium Hydroxide* (Milk Of Magnesia*) 400 Mg/5 Ml Oral.susp, 30 ML PO DAILY, ML 05/27/18 Montelukast Sodium* (Montelukast Sodium*) 10 Mg Tablet, 10 MG PO QHS, #30 TAB 05/27/18 Olopatadine* (Pataday*) 0.2% - 2.5 Ml Drops, 1 DROP BOTH EYES TID, EA 05/27/18 Pantoprazole* (Protonix*) 40 Mg Tablet.dr, 40 MG PO DAILY, TAB 05/27/18 Phenazopyridine Hcl* (Pyridium*) 200 Mg Tab, 200 MG PO TID, TAB 05/27/18 Benzocaine/Menthol* (Cepacol* Sore Throat Lozenges) 1 Each Lozenge, 1 EACH MM q2h PRN for SORE THROAT, LOZENGE 05/27/18 Polyethylene Glycol* (Miralax*) 17 Gm Powd.pack, 17 GM PO TID, #60 PACKET 05/27/18 Prednisone* (Prednisone*) 20 Mg Tab, 20 MG PO DAILY, TAB 05/27/18 Simethicone* (Mylicon*) 80 Mg Tab, 80 MG PO TID PRN for DISTENSION/GAS/BLOATING, TAB 05/27/18 Tamsulosin Hcl* (Tamsulosin Hcl*) 0.4 Mg Cap.er.24h, 0.4 MG PO HS, CAP 05/27/18 Lubiprostone* (Amitiza*) 24 Mcg Capsule, 24 MCG PO BID, #60 CAP 05/27/18 Losartan Potassium* (Losartan Potassium*) 50 Mg Tablet, 50 MG PO DAILY, TAB 05/27/18 Levalbuterol Hcl* (Levalbuterol Hcl*) 0.63 Mg/3 Ml Vial.neb, 0.63 MG INHALATION Q6H PRN for WHEEZING AND SOB, VIAL 05/27/18 Ipratropium-Albuterol (Ipratropium-Albuterol) 0.5-3 Mg/3 Ml Ampul.neb, 3 ML INHALATION Q6, #30 VIAL 05/27/18 Furosemide* (Lasix*) 20 Mg Tablet, 20 MG PO DAILY, TAB 05/27/18 Enoxaparin Sodium* (Enoxaparin Sodium*) 40 Mg/0.4 Ml Syringe, 40 MG SC DAILY, SYR 05/27/18 Docusate Sodium* (Docusate Sodium*) 100 Mg Capsule, 100 MG PO BID, #60 CAP 05/27/18 Acetylcysteine* (Mucomyst*) 4 Ml Soln, 2 ML NEB BID, EA 05/27/18 Acetaminophen* (Acetaminophen*) 650 Mg Tablet, 650 MG PO Q6H PRN for PAIN AND OR ELEVATED TEMP, #30 TAB 05/27/18 Polyvinyl Alcohol (Tears Again) 15 Ml Drops, 1 DRP BOTH EYES EVERY 2 HOURS PRN for DRY EYES, BOTTLE 05/27/18 Atorvastatin Calcium (Atorvastatin Calcium) 10 Mg Tablet, 10 MG PO QHS, #30 TAB 05/27/18 Balsam [place] Oil (CIRCUDERM EMOLLIENT) 3 Gm Oint.pack, 3 GM TP Q12 05/27/18 Benzonatate* (Benzonatate*) 100 Mg Capsule, 100 MG PO TID PRN for COUGH, CAP 05/27/18 Bisacodyl (Laxative Suppository) 10 Mg Supp.rect, 10 MG RC DAILY PRN for CONSTIPATION, SUPP.RECT 05/27/18 Demeclocycline Hcl* (Demeclocycline Hcl*) 300 Mg Tablet, 150 MG PO TID, #60 TAB 05/27/18 Diltiazem Hcl* (Cardizem SR*) 60 Mg Capsr, 60 MG PO Q8, #60 CAP 05/27/18 Primary Care Provider Edwin Garcia MD Time spent on discharge: < 30 minutes Pending Labs Laboratory Tests Test 07/17/18 04:58 07/17/18 07:00 White Blood Count 5.8 10^3/ul (4.8-10.8) Red Blood Count 3.75 10^6/ul (4.70-6.10) Hemoglobin 10.3 g/dl (14.0-18.0) Hematocrit 33.4 % (42.0-52.0) Mean Corpuscular Volume 89.1 fl (82.0-101.0) Mean Corpuscular Hemoglobin 27.5 pg (29.0-33.0) Mean Corpuscular 30.8 g/dl (32.0-37.0) Hemoglobin Concent Red Cell Distribution Width 14.3 % (11.5-14.5) Platelet Count 156 10^3/UL (140-415) Mean Platelet Volume 10.8 fl (7.4-10.4) Immature Granulocytes % 0.700 % (0.001-0.429) Neutrophils % 90.7 % (39.0-77.0) Lymphocytes % 4.2 % (15.0-51.0) Monocytes % 4.2 % (0.0-11.0) Eosinophils % 0.0 % (0.0-7.0) Basophils % 0.2 % (0.0-2.0) Nucleated Red Blood Cells % 0.0 /100WBC (0.0-0.0) Immature Granulocytes # 0.040 10^3/ul (0.0-0.031) Neutrophils # 5.2 10^3/ul (1.6-7.5) Lymphocytes # 0.2 10^3/ul (0.8-2.9) Monocytes # 0.2 10^3/ul (0.3-0.9) Eosinophils # 0.0 10^3/ul (0.0-0.5) Basophils # 0.0 10^3/ul (0.0-0.1) Nucleated Red Blood Cells # 0.0 10^3/ul (0.0-0.0) Sodium Level 140 mmol/L (135-144) Potassium Level 3.2 mmol/L (3.5-5.1) Chloride Level 92 mmol/L (97-110) Carbon Dioxide Level 40 mmol/L (21-31) Anion Gap 8 (5-13) Blood Urea Nitrogen 29 mg/dl (7-20) Creatinine 0.58 mg/dl (0.61-1.24) Est Glomerular Filtrat mL/min (>60) Rate mL/min Glucose Level 127 mg/dl (70-220) Calcium Level 8.2 mg/dl (8.4-10.2) Phosphorus Level 3.3 mg/dl (2.5-4.9) Magnesium Level 2.0 mg/dl (1.7-2.5) Blood Gas Specimen Source Blood arterial Arterial Blood Date Drawn 07/17/2018 7:05:47 AM Arterial Blood pH 7.423 (7.350-7.450) (Temp corrected) Arterial Blood pCO2 65.4 mmhg (35-45) (Temp correct) Arterial Blood pO2 95.1 mmHG (80-90.0) (Temp corrected) Arterial Blood HCO3 41.8 mmol/L (22.0-26.0) Arterial Blood Base Excess 14.6 mmol/L (-3.0-3) Arterial Blood 97.0 mmHG (95.0-100.0) Oxygen Saturation Elmer Test ACCEPTAB Arterial Blood Gas Right Radial Puncture Site Arterial 0.2 % (0.0-3.0) Blood Carboxyhemoglobin Arterial Blood 0.3 % (0.0-1.5) Methemoglobin Blood Gas A-a O2 260.8 mmHg (7.0-24.0) Differential Oxyhemoglobin Percent 96.5 % (93.0-99.0) Blood Gas Temperature 37.0 C Blood Gas Modality HFNC FiO2 60.0 % Blood Gas Critical Value MNGO RN Read Back Blood Gas Notified Whom TM Blood Gas Notified Time 07/17/2018 7:41:18 AM KAMILLE FRASER MD Jul 17, 2018 16:35
[2018-07-17] MEDS ORDERED: MINERAL OIL 133 ML ENEMA PR PRN (17:00)
[2018-07-17] MEDS ORDERED: NA PHOSPHATE/BIPHOS 133 ML ENEMA PR PRN (17:00)
[2018-07-17] MEDS: ATORVASTATIN 10 MG TAB PO SCH (21:02)
[2018-07-17] MEDS: MONTELUKAST 10 MG TAB PO SCH (21:03)
[2018-07-17] MEDS: TAMSULOSIN (SR) 0.4 MG CAP PO SCH (21:03)
[2018-07-17] MEDS: OSELTAMIVIR 75 MG CAP PO SCH (22:16)
[2018-07-18] VITALS (8 sets, daily range): BP systolic 116–145; BP diastolic 68–76; PULSE 89–121; RESP 18–22
[2018-07-18] MEDS: ALBUTEROL/IPRATROPIUM (NEB) 3 ML AMP HHN SCH ×3 (02:18→14:56)
[2018-07-18] MEDS: VANCOMYCIN 750 MG (PMX) 250 ML IVPB SCH (04:06)
[2018-07-18] MEDS: METHYLPREDNISOLONE 125 MG INJ IV SCH ×2 (06:49→14:09)
[2018-07-18] MEDS: LACTOBACILLUS RHAMNOSUS CAP PO SCH (09:37)
[2018-07-18] MEDS: OSELTAMIVIR 75 MG CAP PO SCH (09:37)
[2018-07-18] MEDS: MAGNESIUM HYDROXIDE 30ML CUP PO SCH (09:37)
[2018-07-18] MEDS: CEFEPIME 1GM/50 ML (PMX) 50 ML IVPB SCH (09:37)
[2018-07-18] MEDS: SENNA/DOCUSATE NA (8.6MG/50MG) TAB PO SCH (09:37)
[2018-07-18] MEDS: BISACODYL (EC) 5 MG TAB PO SCH (09:38)
[2018-07-18] MEDS: FAMOTIDINE 20 MG TAB PO SCH (09:38)
[2018-07-18] MEDS: LOSARTAN 50 MG TAB PO SCH (09:38)
[2018-07-18] MEDS: LUBIPROSTONE 24 MCG CAP PO SCH (09:38)
[2018-07-18] MEDS: ENOXAPARIN 40 MG/0.4 ML SYG SC SCH (09:40)
[2018-07-18] MEDS: FUROSEMIDE 20 MG TAB PO SCH (09:53)
[2018-07-18] MEDS: HYDROCODONE/APAP (5/325) TAB PO PRN (11:47)
--- NOTE | 2018-07-18 11:58 | PN ---
Date/Time of Note Date/Time of Note DATE: 07/18/18 TIME: 11:56 Assessment/Plan VTE Prophylaxis Risk score (from Ns)>0 risk: 9 SCD applied (from Ns): Yes SCD contraindicated: low risk/ambulating Pharmacological prophylaxis: LMWH Lines/Catheters IV Catheter Type (from Nrs): PICC Line Central line still needed: Yes Urinary Cath still in place: No Assessment/Plan Hospital Course Hospitalist Coverage/ Course/ Assessment plan -Admitted for severe sepsis due to influenza A. Hypoxic remained and therefore went to the ICU. Presently off BiPAP CPAP and remains on high flow nasal cannula. Finally had a BM yesterday. Due to deconditioning considering rehab for both pulmonary and ADLs 1. Sepsis, severe, mod stable cont supplemental oxygen: DC to [facility] 2. Acute influenza A, stable finish Tamiflu 3. Acute hypoxic respiratory failure, mod stable continue oxygen; transfer to [facility] soon. 4. Concern for healthcare associated pneumonia, stable finish antibiotics 5. Chronic COPD 6. Past tobacco 7. Possible bronchitis, steroids as indicated 8. Chronic hypertension 9. Chronic pulmonary hypertension 10. Chronic VICTOR HUGO? On home BiPAP? 11. Pulmonary nodule right 6 mm noted back in March. Serial imaging every 6 months 12. BPH 13. Sinus tach secondary to 14. Chest abdominal pain, watch for ACS. Treat bowel issues. 15. Constipation; no BM all week, finally had one yesterday 16. Failure to thrive, PT when appropriate/less hypoxic S: 06/17 follows commands. Has back/shoulder pain cough with white expectoration no hemoptysis. Constipated? 07/16 chest abdominal discomfort. No known aggravating or relieving factors. Minimal cough. 07/17: Events noted ongoing requirement for supplemental oxygen 07/18: Follows commands mild distress tachypnea O: Sinus rhythm hypoxia Physical exam No pallor/ JVD appreciated Regular no m/r/g Faint dimin mild tachypnea positive bs, no rigidity rebound guarding No edema Result Diagram: 07/18/18 1005 07/18/18 1005 Results 24hrs Laboratory Tests Test 07/18/18 10:04 07/18/18 10:05 Phosphorus Level 2.2 #L Magnesium Level 2.1 White Blood Count 8.9 # Red Blood Count 4.14 L Hemoglobin 11.3 L Hematocrit 36.8 L Mean Corpuscular Volume 88.9 Mean Corpuscular Hemoglobin 27.3 L Mean Corpuscular Hemoglobin Concent 30.7 L Red Cell Distribution Width 14.3 Platelet Count 174 Mean Platelet Volume 10.3 Immature Granulocytes % 1.700 H Neutrophils % 92.2 H Lymphocytes % 3.1 L Monocytes % 2.9 Eosinophils % 0.0 Basophils % 0.1 Nucleated Red Blood Cells % 0.0 Immature Granulocytes # 0.150 H Neutrophils # 8.2 H Lymphocytes # 0.3 L Monocytes # 0.3 Eosinophils # 0.0 Basophils # 0.0 Nucleated Red Blood Cells # 0.0 Sodium Level 141 Potassium Level 3.8 Chloride Level 91 L Carbon Dioxide Level 43 *H Anion Gap 7 Blood Urea Nitrogen 25 H Creatinine 0.53 L Est Glomerular Filtrat Rate mL/min Glucose Level 101 Calcium Level 8.5 Exam/Review of Systems Exam Vitals Vital Signs Date Temp Pulse Resp B/P (MAP) Pulse Ox O2 O2 Flow FiO2 Time Delivery Rate 07/18/18 98.6 102 18 128/76 96 11:46 (93) 07/18/18 45 11:01 07/18/18 Vapotherm 07:55 07/18/18 25.0 07:53 Intake and Output 07/17/18 07/17/18 07/18/18 1515:00 23:00 07:00 IntakeIntake Total 440 ml 490 ml 30 ml OutputOutput Total 625 ml 330 ml 500 ml BalanceBalance -185 ml 160 ml -470 ml Results Results 24hrs Laboratory Tests Test 07/18/18 10:04 07/18/18 10:05 Phosphorus Level 2.2 #L Magnesium Level 2.1 White Blood Count 8.9 # Red Blood Count 4.14 L Hemoglobin 11.3 L Hematocrit 36.8 L Mean Corpuscular Volume 88.9 Mean Corpuscular Hemoglobin 27.3 L Mean Corpuscular Hemoglobin Concent 30.7 L Red Cell Distribution Width 14.3 Platelet Count 174 Mean Platelet Volume 10.3 Immature Granulocytes % 1.700 H Neutrophils % 92.2 H Lymphocytes % 3.1 L Monocytes % 2.9 Eosinophils % 0.0 Basophils % 0.1 Nucleated Red Blood Cells % 0.0 Immature Granulocytes # 0.150 H Neutrophils # 8.2 H Lymphocytes # 0.3 L Monocytes # 0.3 Eosinophils # 0.0 Basophils # 0.0 Nucleated Red Blood Cells # 0.0 Sodium Level 141 Potassium Level 3.8 Chloride Level 91 L Carbon Dioxide Level 43 *H Anion Gap 7 Blood Urea Nitrogen 25 H Creatinine 0.53 L Est Glomerular Filtrat Rate mL/min Glucose Level 101 Calcium Level 8.5 Medications Medication Current Medications Alteplase, Recombinant (Cathflo (Activase)) 2 mg MAY REPEAT X1 PRN CATHETER IF CATHETER REMAINS OCCULUDED Last administered on 07/13/18 14:28; Admin Dose 2 MG; Start 07/13/18 at 14:30 IV Flush (NS 3 ml) 3 ml PER PROTOCOL IV ; Start 07/13/18 at 15:30 Ondansetron HCl (Zofran Inj) 4 mg Q6H PRN IV NAUSEA/VOMITING; Start 07/13/18 at 15:30 Acetaminophen (Tylenol Tab) 650 mg Q6H PRN PO .PAIN 1-3 OR TEMP; Start 07/13/18 at 15:30 Acetaminophen/ Hydrocodone Bitart ([place] (5/325)) 1 tab Q6H PRN PO .MOD PAIN 4- 6 Last administered on 07/18/18at 11:47; Admin Dose 1 TAB; Start 07/13/18 at 15:30 Cefepime HCl 50 ml @ 100 mls/hr Q12 IVPB Last administered on 07/18/18at 09:37; Admin Dose 100 MLS/HR; Start 07/13/18 at 21:00 Vancomycin HCl (Vanco Iv Per Pharmacy) VANCOMYCIN PER PHARMACY PER PROTOCOL XX ; Start 07/13/18 at 15:30 Albuterol/ Ipratropium (Duoneb) 3 ml Q2H RESP THERAPY PRN HHN SHORTNESS OF BREATH; Start 07/13/18 at 15:30 Methylprednisolone Sodium Succinate (Solu-Medrol) 60 mg Q8 IV Last administered on 07/18/18at 06:49; Admin Dose 60 MG; Start 07/13/18 at 22:00 Atorvastatin Calcium (Lipitor) 10 mg QHS PO Last administered on 07/17/18at 21:02; Admin Dose 10 MG; Start 07/13/18 at 21:00 Furosemide (Lasix) 20 mg DAILY PO Last administered on 07/18/18at 09:53; Admin Dose 20 MG; Start 07/14/18 at 09:00 Losartan Potassium (Cozaar) 50 mg DAILY PO Last administered on 07/18/18 09:38; Admin Dose 50 MG; Start 07/14/18 at 09:00 Lubiprostone (Amitiza) 24 mcg BID PO Last administered on 07/18/18 09:38; Admin Dose 24 MCG; Start 07/13/18 at 21:00 Montelukast Sodium (Singulair) 10 mg QHS PO Last administered on 07/17/18 21:03; Admin Dose 10 MG; Start 07/13/18 at 21:00 Tamsulosin HCl (Flomax) 0.4 mg HS PO Last administered on 07/17/18 21:03; Admin Dose 0.4 MG; Start 07/13/18 at 21:00 Olopatadine HCl (Pataday) 1 drop BID BOTH EYES Last administered on 07/17/18 21:15; Admin Dose 1 DROP; Start 07/13/18 at 21:00 Enoxaparin Sodium (Lovenox) 40 mg DAILY SC Last administered on 07/18/18 09:40; Admin Dose 40 MG; Start 07/14/18 at 09:00 Vancomycin/Sodium Chloride 250 ml @ 125 mls/hr Q12H IVPB Last administered on 07/18/18 04:06; Admin Dose 125 MLS/HR; Start 07/14/18 at 03:00 Lactobacillus Acidophilus/ Rhamnosus (Culturelle) 1 cap BID PO Last administered on 07/18/18 09:37; Admin Dose 1 CAP; Start 07/14/18 at 21:00 Senna/Docusate Sodium (Senokot-S) 2 tab AM PO Last administered on 07/18/18 09:37; Admin Dose 2 TAB; Start 07/14/18 at 12:00 Bisacodyl (Dulcolax Supp) 10 mg DAILY PRN AR CONSTIPATION; Start 07/14/18 at 12:00 Albuterol/ Ipratropium (Duoneb) 3 ml Q6H RESP THERAPY HHN Last administered on 07/18/18 07:52; Admin Dose 3 ML; Start 07/14/18 at 14:00 Famotidine (Pepcid) 20 mg DAILY PO Last administered on 07/18/18 09:38; Admin Dose 20 MG; Start 07/15/18 at 09:00 Potassium Chloride 50 ml @ 50 mls/hr K PROTOCOL PRN IVPB PENDING LAB VALUE Last administered on 07/17/18at 13:11; Admin Dose 50 MLS/HR; Start 07/16/18 at 09:30 Bisacodyl (Dulcolax) 10 mg DAILY PO Last administered on 07/18/18at 09:38; Admin Dose 10 MG; Start 07/17/18 at 09:00 Magnesium Hydroxide (Milk Of Mag) 30 ml BID PO Last administered on 07/18/18at 09:37; Admin Dose 30 ML; Start 07/16/18 at 13:30 Sodium Biphosphate/ Sodium Phosphate (Fleet Enema) 133 ml DAILY PRN AR CONSTIPATION; Start 07/17/18 at 17:00 Mineral Oil (Fleet Mineral Oil Enema) 133 ml NOW PRN AR CONSTIPATION; Start 07/17/18 at 17:00; Stop 07/18/18 at 16:59 Oseltamivir Phosphate (Tamiflu) 75 mg BID PO Last administered on 07/18/18at 09:37; Admin Dose 75 MG; Start 07/17/18 at 21:14 KAMILLE FRASER MD Jul 18, 2018 11:58
[2018-07-18] MEDS ORDERED: LACTULOSE 30ML CUP PO ONE (12:00)
--- NOTE | 2018-07-18 12:40 | PDOCDIS ---
Discharge Instructions CONDITION [id number] Patient Condition: [id number] Stable HOME CARE INSTRUCTIONS: [id number] Diet Instructions: [id number] Low Fat /Cholesterol ACTIVITY: [id number] Activity Restrictions: [id number] Slowly Increase Activity Rest between Activity Do not Drive KAMILLE FRASER MD Jul 18, 2018 12:40
[2018-07-18] MEDS ORDERED: METH125V IV (12:47)
[2018-07-18] MEDS ORDERED: FAMO20TA18 PO (12:47)
[2018-07-18] MEDS ORDERED: SENOKOTS PO (12:47)
[2018-07-18] MEDS ORDERED: LACT1CAP28 PO (12:47)
[2018-07-18] MEDS ORDERED: IPRA3AMP29 HHN (12:47)
[2018-07-18] MEDS ORDERED: ENOX40DI2 SC (12:47)
--- NOTE | 2018-07-18 13:56 | CONS ---
Consult Date/Type/Reason Admit Date/Time Jul 13, 2018 at 14:44 Initial Consult Date Type of Consult Pulmonary Date/Time of Note DATE: 07/18/18 TIME: 13:55 Subjective Appears comfortable no respiratory distress Objective Vital Signs Date Temp Pulse Resp B/P (MAP) Pulse Ox O2 O2 Flow FiO2 Time Delivery Rate 07/18/18 95 45 13:18 07/18/18 109 12:13 07/18/18 98.6 18 128/76 11:46 (93) 07/18/18 Vapotherm 07:55 07/18/18 25.0 07:53 Intake and Output 07/17/18 07/17/18 07/18/18 1515:00 23:00 07:00 IntakeIntake Total 440 ml 490 ml 30 ml OutputOutput Total 625 ml 330 ml 500 ml BalanceBalance -185 ml 160 ml -470 ml Exam PHYSICAL EXAMINATION: GENERAL: Well-nourished, well-developed gentleman, comfortable at rest, no acute distress, on high flow O2 VITAL SIGNS: NECK: Supple. No JVD or lymphadenopathy. CARDIAC: S1, S2, no added sounds or murmurs. CHEST: Diminished air entry bilaterally. ABDOMEN: Soft, nontender. No guarding or rebound. EXTREMITIES: No cyanosis, clubbing, or edema. NEUROLOGIC: Generalized weakness. No focal deficits. Vent Setting Fraction of Inspired Oxygen pe: 45 Results/Medications Result Diagram: 07/18/18 1005 07/18/18 1005 Results 24 hrs Laboratory Tests Test 07/18/18 10:04 07/18/18 10:05 Phosphorus Level 2.2 #L Magnesium Level 2.1 White Blood Count 8.9 # Red Blood Count 4.14 L Hemoglobin 11.3 L Hematocrit 36.8 L Mean Corpuscular Volume 88.9 Mean Corpuscular Hemoglobin 27.3 L Mean Corpuscular Hemoglobin Concent 30.7 L Red Cell Distribution Width 14.3 Platelet Count 174 Mean Platelet Volume 10.3 Immature Granulocytes % 1.700 H Neutrophils % 92.2 H Lymphocytes % 3.1 L Monocytes % 2.9 Eosinophils % 0.0 Basophils % 0.1 Nucleated Red Blood Cells % 0.0 Immature Granulocytes # 0.150 H Neutrophils # 8.2 H Lymphocytes # 0.3 L Monocytes # 0.3 Eosinophils # 0.0 Basophils # 0.0 Nucleated Red Blood Cells # 0.0 Sodium Level 141 Potassium Level 3.8 Chloride Level 91 L Carbon Dioxide Level 43 *H Anion Gap 7 Blood Urea Nitrogen 25 H Creatinine 0.53 L Est Glomerular Filtrat Rate mL/min Glucose Level 101 Calcium Level 8.5 Medications Current Medications Alteplase, Recombinant (Cathflo (Activase)) 2 mg MAY REPEAT X1 PRN CATHETER IF CATHETER REMAINS OCCULUDED Last administered on 07/13/18 14:28; Admin Dose 2 MG ; Start 07/13/18 at 14:30 IV Flush (NS 3 ml) 3 ml PER PROTOCOL IV ; Start 07/13/18 at 15:30 Ondansetron HCl (Zofran Inj) 4 mg Q6H PRN IV NAUSEA/VOMITING; Start 07/13/18 at 15:30 Acetaminophen (Tylenol Tab) 650 mg Q6H PRN PO .PAIN 1-3 OR TEMP; Start 07/13/18 at 15:30 Acetaminophen/ Hydrocodone Bitart ([place] (5/325)) 1 tab Q6H PRN PO .MOD PAIN 4- 6 Last administered on 07/18/18at 11:47; Admin Dose 1 TAB; Start 07/13/18 at 15:30 Cefepime HCl 50 ml @ 100 mls/hr Q12 IVPB Last administered on 07/18/18 09:37; Admin Dose 100 MLS/HR; Start 07/13/18 at 21:00; Stop 07/20/18 at 23:00 Vancomycin HCl (Vanco Iv Per Pharmacy) VANCOMYCIN PER PHARMACY PER PROTOCOL XX ; Start 07/13/18 at 15:30; Stop 07/20/18 at 23:00 Albuterol/ Ipratropium (Duoneb) 3 ml Q2H RESP THERAPY PRN HHN SHORTNESS OF BREATH; Start 07/13/18 at 15:30 Methylprednisolone Sodium Succinate (Solu-Medrol) 60 mg Q8 IV Last administered on 07/18/18 06:49; Admin Dose 60 MG; Start 07/13/18 at 22:00 Atorvastatin Calcium (Lipitor) 10 mg QHS PO Last administered on 07/17/18 21:02; Admin Dose 10 MG; Start 07/13/18 at 21:00 Furosemide (Lasix) 20 mg DAILY PO Last administered on 07/18/18 09:53; Admin Dose 20 MG; Start 07/14/18 at 09:00 Losartan Potassium (Cozaar) 50 mg DAILY PO Last administered on 07/18/18 09:38; Admin Dose 50 MG; Start 07/14/18 at 09:00 Lubiprostone (Amitiza) 24 mcg BID PO Last administered on 07/18/18 09:38; Admin Dose 24 MCG; Start 07/13/18 at 21:00 Montelukast Sodium (Singulair) 10 mg QHS PO Last administered on 07/17/18 21:03; Admin Dose 10 MG; Start 07/13/18 at 21:00 Tamsulosin HCl (Flomax) 0.4 mg HS PO Last administered on 07/17/18 21:03; Admin Dose 0.4 MG; Start 07/13/18 at 21:00 Olopatadine HCl (Pataday) 1 drop BID BOTH EYES Last administered on 07/17/18 21:15; Admin Dose 1 DROP; Start 07/13/18 at 21:00 Enoxaparin Sodium (Lovenox) 40 mg DAILY SC Last administered on 07/18/18 09:40; Admin Dose 40 MG; Start 07/14/18 at 09:00 Vancomycin/Sodium Chloride 250 ml @ 125 mls/hr Q12H IVPB Last administered on 07/18/18 04:06; Admin Dose 125 MLS/HR; Start 07/14/18 at 03:00; Stop 07/20/18 at 23:00 Lactobacillus Acidophilus/ Rhamnosus (Culturelle) 1 cap BID PO Last administered on 07/18/18 09:37; Admin Dose 1 CAP; Start 07/14/18 at 21:00 Senna/Docusate Sodium (Senokot-S) 2 tab AM PO Last administered on 07/18/18 09:37; Admin Dose 2 TAB; Start 07/14/18 at 12:00 Bisacodyl (Dulcolax Supp) 10 mg DAILY PRN [place] CONSTIPATION; Start 07/14/18 at 12:00 Albuterol/ Ipratropium (Duoneb) 3 ml Q6H RESP THERAPY HHN Last administered on 07/18/18 07:52; Admin Dose 3 ML; Start 07/14/18 at 14:00 Famotidine (Pepcid) 20 mg DAILY PO Last administered on 07/18/18 09:38; Admin Dose 20 MG; Start 07/15/18 at 09:00 Potassium Chloride 50 ml @ 50 mls/hr K PROTOCOL PRN IVPB PENDING LAB VALUE Last administered on 07/17/18at 13:11; Admin Dose 50 MLS/HR; Start 07/16/18 at 09:30 Bisacodyl (Dulcolax) 10 mg DAILY PO Last administered on 07/18/18at 09:38; Admin Dose 10 MG; Start 07/17/18 at 09:00 Magnesium Hydroxide (Milk Of Mag) 30 ml BID PO Last administered on 07/18/18at 09:37; Admin Dose 30 ML; Start 07/16/18 at 13:30; Stop 07/18/18 at 23:00 Sodium Biphosphate/ Sodium Phosphate (Fleet Enema) 133 ml DAILY PRN AL CONSTIPATION; Start 07/17/18 at 17:00 Mineral Oil (Fleet Mineral Oil Enema) 133 ml NOW PRN AL CONSTIPATION; Start 07/17/18 at 17:00; Stop 07/18/18 at 16:59 Oseltamivir Phosphate (Tamiflu) 75 mg BID PO Last administered on 07/18/18at 09:37; Admin Dose 75 MG; Start 07/17/18 at 21:14; Stop 07/18/18 at 23:00 Assessment/Plan Hospital Course (Demo Recall) Assessment 1. Acute hypoxemic and hypercapnic respiratory failure. Likely secondary to influenza infection. 2. Hypokalemia 3. Possible COPD exacerbation in addition. Plan 1. Continue high flow O2 2. Transfer to [place] 3. Continue Tamiflu and antibacterials 4. Aspiration precautions 5. Steroid taper. ALEXI ALLISON MD, [facility] Jul 18, 2018 13:56
[2018-07-18] MEDS: OLOPATADINE 0.2% (ONCE A DAY) OPHTH DROP 2.5 ML BOTH EYES SCH (14:16)
== END 2018-07-18 16:50 | DRG 871 ==
LOC: E/R 13:35 → 6WM 14:44 → ICU 07-15 12:25 → 6WM 07-17 23:03
PROVIDERS: ADMIT Internal Medicine; ATTEND Internal Medicine
PROC: 5A09457 Assistance with Respiratory Ventilation, 24-96 Consecutive Hours, Continuous Positive Airway Pressure (ICD-10-PCS; principal; 2018-07-13)
PROC: 4A133R1 Monitoring of Arterial Saturation, Peripheral, Percutaneous Approach (ICD-10-PCS; 2018-07-14)
DX: A41.89 Other specified sepsis (principal); J96.01 Acute respiratory failure with hypoxia; J10.00 Influenza due to other identified influenza virus with unspecified type of pneumonia; J96.02 Acute respiratory failure with hypercapnia; J44.1 Chronic obstructive pulmonary disease with (acute) exacerbation; J44.0 Chronic obstructive pulmonary disease with (acute) lower respiratory infection; J10.1 Influenza due to other identified influenza virus with other respiratory manifestations; R65.20 Severe sepsis without septic shock; E78.5 Hyperlipidemia, unspecified; E87.6 Hypokalemia; I48.91 Unspecified atrial fibrillation; I10 Essential (primary) hypertension; I27.20 Pulmonary hypertension, unspecified; J20.8 Acute bronchitis due to other specified organisms; K59.00 Constipation, unspecified; N40.0 Benign prostatic hyperplasia without lower urinary tract symptoms; N28.9 Disorder of kidney and ureter, unspecified; R10.9 Unspecified abdominal pain; R62.7 Adult failure to thrive; Z68.24 Body mass index [BMI] 24.0-24.9, adult; Z87.891 Personal history of nicotine dependence
CPT/HCPCS: 36415; 36600; 71045; 74018; 80048; 80053; 80061; 80202; 81003; 82803; 83036; 83605; 83735; 84100; 84439; 84443; 84484; 85025; 85610; 85730; 87040; 87081; 87086; 87400; 93005; 93970; 94640; 94660; 94664; 96365; J0692; J1650; J2930; J2997; J3370; J3480; J7030

== ENCOUNTER 2018-08-08 11:30 | Inpatient (IN) | payer MEDICARE, OTHER ==
[~2018-08-08] VITALS: Ht 154.9 cm; Wt 60.6 kg
[2018-08-08] VITALS (49 sets, daily range): BP systolic 75–126; BP diastolic 37–86; PULSE 67–120; RESP 11–34
[~2018-08-08 11:30] MED LIST changes: +ATRO INHALATION; -BALS3OIN TP; -BENZ-5 PO; -BENZ1LOZ52 MM; -BISA10SU18 RC; +BISA10SU55 RC; -CARSR60 PO; +CEPASTAT MT; -DEME300T8 PO; +DILT30TA30 PO; +FAMO20TA18 PO; +GUAI-173 PO; +HYDR-4011 PO; +IPRA3AMP29 HHN; -IPRA3AMP29 INHALATION; +LACT1CAP28 PO; -LEVA0.634 INHALATION; +MENT113G4 TP; +METH125V IV; -MUCO4 NEB; +MULTI PO; -PANT40TA3 PO; -PHEN-538 PO; -PRED20TA PO; +PROT946L PO; +SENOKOTS PO
[2018-08-08] MEDS ORDERED: FUROSEMIDE 40 MG INJ ONE (11:55)
[2018-08-08] MEDS ORDERED: DOCUSATE SODIUM 100 MG CAP PO PRN (12:00)
[2018-08-08] MEDS ORDERED: ACETAMINOPHEN 325 MG TAB PO PRN (12:00)
[2018-08-08] MEDS ORDERED: POLYETHYLENE GLYCOL 17 GM PACKET PO PRN (12:00)
[2018-08-08] MEDS ORDERED: MAGNESIUM HYDROXIDE 30ML CUP PO PRN (12:00)
[2018-08-08] MEDS ORDERED: ONDANSETRON 4 MG INJ IV PRN (12:00)
[2018-08-08] MEDS ORDERED: IPRATROPIUM (HFA) 12.9 GM INHALER INH PRN (12:00)
--- NOTE | 2018-08-08 12:07 | HP ---
Date/Time of Note Date/Time of Note DATE: 08/08/18 TIME: 12:07 Assessment/Plan VTE Prophylaxis SCD applied (from Nsg): Yes Pharmacological prophylaxis: LMWH Assessment/Plan Assessment/Plan 1. Acute hypoxic respiratory failure - Pulmonology on board and appreciate recommendations - Continue on BIPAP and wean to high flow/NC as tolerated - Per family, okay for intubation but no CPR - Continue nebs, steroids and IV antibiotics - monitor for improvement 2. RLL PNA - seen on CXR - ?Aspiration vs HCAP - IV antibiotics on board and will deescalate based on clinical progress - nebs and PRN on board 3. COPD exacerbation - nebs, steroids, antibiotics 4. h/o Afib and SVT - Cardiology on board and appreciate recommendations. Continue Diltiazem for rate control 5. ?CHF - responded to lasix but EF 65% on last ECHO and does not appear overloaded - will continue monitoring I/O and daily weights 6. hyperglycemia - most likely secondary to steroids - A1c from 06/2018 was 5 - if persists, will add coverage to be given with steroids 7. DVT ppx - LMWH 8. Code status - DNR but okay for intubation 9. Disposition - Admit to ICU for close monitoring of respiratory status given high risk for intubation HPI/ROS Admit Date/Time Admit Date/Time Aug 08, 2018 at 11:30 Hx of Present Illness 83 yo M with PMH severe COPD, atrial fibrillation, HTN and HLD was transferred from [place] this am with worsening shortness of breath and impending intubation. Patient was recently admitted to [facility] with respiratory failure secondary to Influenza A and transitioned to [place] since was unable to be weaned off high flow during hospital stay. Patient was transferred to ICU and was placed on BIPAP mask. He was complaining of shortness of breath and cough, but also requesting for BIPAP to be removed due to discomfort. Patient denies any chest pain, palpitations, wheezing, dizziness, or urinary issues. Does admit to some abdominal discomfort. Patient currently is stable with saturations in 90% on 35% FIO2. Discussion was held with family at bedside who said patient has mentioned in the past not wanting to be intubated but would like to readdress with him. When discussed code status with family members, they requested intubation if needed emergently if unable to clarify with patient prior. ROS All 12 systems reviewed and pertinent positives as per HPI. All others negative. Constitutional: No chills, No fatigue, No nausea Eyes: No discharge ENT: No congestion Respiratory: cough, shortness of breath; No sputum, No wheezing Cardiovascular: No chest pain, No lightheadedness, No palpitations Gastrointestinal: pain; No constipation, No diarrhea, No nausea, No vomiting Genitourinary: no complaints Musculoskeletal: no complaints Skin: No laceration, No rash Neurologic: No confusion, No focal-weakness, No syncope Endocrine: no complaints Lymphatic: no complaints Psychological: nl mood/affect Immunologic: no complaints PMH/Family/Social Past Medical History Medical History: high cholesterol, hypertension, other (COPD, afib) Coded Allergies: No Known Allergy (Unverified , 07/13/18) Past Surgical History Past Surgical Hx: no surgical history Family History Significant Family History: no pertinent family hx Social History Alcohol Use: none Smoking Status: Former smoker Drug Use: none Exam/Review of Systems Vital Signs Vitals Vital Signs Date Temp Pulse Resp B/P (MAP) Pulse Ox O2 O2 Flow FiO2 Time Delivery Rate 08/08/18 120 91 35 11:38 Exam Exam General: Patient appears uncomfortable given BIPAP mask but in no acute respiratory distress. HEENT: Atraumatic, normocephalic. The pupils are equal, round and reactive. Extraocular motor are intact. Neck: Supple with full range of motion. No rigidity or meningismus Lungs: Diminished at bases, diffuse coarse breath sounds, no wheezing jocelyn reciated Heart: Normal S1-S2, Regular rhythm and rate. no murmurs appreciated Abdomen: Soft , mildly tender, protuberant, bowel sounds are present. No guarding no rebound tenderness , No masses or organomegaly. No costovertebral temporal angle mass Extremities: Normal to inspection, no edema no cyanosis Skin: no lesions or rashes noted. Additional Comments Medications noted PROCEDURE: XR Chest. CLINICAL INDICATION: shortness of breath TECHNIQUE: Single view chest x-ray. COMPARISON: CHEST 08/01/2018; CHEST 07/26/2018; [facility] CHEST 04/19/2018; FINDINGS: Distal tip of a right PIC line projects over the right axilla, unchanged. The cardiomediastinal silhouette is normal in size and contour. Faint calcifications of the aortic arch. Mildly increased right lower lung field opacification, similar in size small right pleural effusion. No pneumothorax. Osseous structures appear unchanged. IMPRESSION: 1. Mildly increased right basilar opacification, similar in size small right pleural effusion. 2. Right PIC line distal tip projects over the right axilla, unchanged. RPTAT: GG Ja Nicole, Physician Date Time Electronically viewed and signed by Ja Nicole, Physician on 08/08/2018 13:09 CHASIDY VILLEGAS MD Aug 08, 2018 12:07
[2018-08-08] MEDS ORDERED: FUROSEMIDE 40 MG INJ IV ONE (13:30)
--- NOTE | 2018-08-08 13:43 | CONS ---
Assessment/Plan Assessment/Plan Hospital Course (Demo Recall) 1. Acute hypoxemic hypercapnic respiratory failure 2. COPD exacerbation 3. Possible pneumonia 4. Questionable congestive heart failure: Patient clinically has responded to the IV Lasix but does not appear to be in fluid overloaded and has had normal ejection fraction 5. History of hypertension: Currently under good control 6. History of proximal atrial fibrillation and SVT most likely worsening by his respiratory failure 7. History of dyslipidemia Recommendations: Aspirin will be initiated I will start the patient back on Cardizem and Multaq to try to maintain sinus rhythm I will stop the losartan to avoid hypotensive episode Oxygen supplement BiPAP as needed will be deferred to the pulmonary recommendations Closely monitor for possible need for intubation Electrolyte we will be checking imaging adjust as needed Echocardiogram was done in April DVT prophylaxis and GI prophylaxis as per internal medicine Continue with ICU care More than 38 minutes of medical care time was for management treatment is critically ill patient, excluding any procedures Thank you for his referral. Continue follow along with you HAYLEE PINZON MD [facility] Consultation Date/Type/Reason Admit Date/Time Aug 08, 2018 at 11:30 Date of Consultation: Aug 08, 2018 Type of Consult Cardiology Reason for Consultation pafib. resp failure. CHF Requesting Provider: ALEXI ALLISON MD, [facility] Date/Time of Note DATE: 08/08/18 TIME: 13:43 Hx of Present Illness Interventional cardiology consultation note Chief complaint: RESP FAILURE Reason for consult: PAFIB. R/O CHF resp failure History of present illness: Thank you for this referral. History was obtained mostly from extensive review of the old chart discussion multiple physicians and staff. Patient also is very well-known to me from previous admission to the hospital. Patient is a respiratory distress and providing minimal information. This is a pleasant 83-year-old gentleman well-known to me with history of severe COPD who was transferred from [facility] to our ICU because of increasing worsening respiratory failure. The patient has a history of severe underlying COPD. He was embolic was getting respiratory care. Over the past few days he has been getting progressively worse. He has been intermittently on BiPAP. He has had multiple arrhythmias including paroxysmal SVTs and atrial fibrillation. However arrhythmia has subsided after initiation of Cardizem and Multaq. He denies any chest pain or pressure to me but does complain of cough and shortness of breath unable to breathe deeply. Allergies: No known drug allergies Medications were reviewed as per medical reconciliation sheet Family history: No reported history of medical disease Social history: Has smoked for many years. Quit about 10 years ago. Past medical history: Severe COPD, hypertension, history of paroxysmal atrial fibrillation in the past and SVT worsened usually during his respiratory failure Review of system: Patient denies all others except for above-mentioned Past Medical History Home Meds Active Scripts Methylprednisolone Sodium Succinate PF (Solu-Medrol PF) 125 Mg/2 Ml Vial, 60 MG IV Q8 for 7 Days, VIAL Prov:KAMILLE FRASER MD 07/18/18 Sennosides/Docusate Sodium (Dok Plus Tablet) 1 Each Tablet, 2 TAB PO AM for 10 Days, TAB Prov:KAMILLE FRASER MD 07/18/18 Famotidine* (Famotidine*) 20 Mg Tablet, 20 MG PO DAILY for 10 Days, TAB Prov:KAMILLE FARSER MD 07/18/18 Lactobacillus Rhamnosus GG (Culturelle) 1 Each Capsule, 1 CAP PO BID for 10 Days, CAP Prov:KAMILLE FRASER MD 07/18/18 Enoxaparin Sodium* (Enoxaparin Sodium*) 40 Mg/0.4 Ml Syringe, 40 MG SC DAILY for 10 Days, #10 Prov:KAMILLE FRASER MD 07/18/18 Ipratropium-Albuterol (Ipratropium-Albuterol) 0.5-3 Mg/3 Ml Ampul.neb, 3 ML HHN Q6H RESP THERAPY for 14 Days Prov:KAMILLE FRASER MD 07/18/18 Reported Medications Hydrocodone/Acetaminophen ([place] 5-325 Tablet) 1 Each Tablet, 1 EACH PO Q6 PRN for MODERATE PAIN LEVEL 4-6, TAB 07/13/18 Olopatadine* (Pataday*) 0.2% - 2.5 Ml Drops, 1 DROP BOTH EYES BID, EA 07/13/18 Protein Supplement (Promod) 946 Ml Liquid, 946 ML PO BID 07/13/18 Simethicone* (Mylicon*) 80 Mg Tab, 80 MG PO TID PRN for DISTENSION/GAS/BLOATING, TAB 07/13/18 Tamsulosin Hcl* (Tamsulosin Hcl*) 0.4 Mg Cap.er.24h, 0.4 MG PO HS, CAP 07/13/18 Acetaminophen* (Acetaminophen*) 650 Mg Tablet, 650 MG PO Q6H PRN for MILD PAIN LEVEL 1-3, #30 TAB AND FEVER 07/13/18 Multivitamins* (Theragran*) 1 Tab Tab, 1 TAB PO DAILY, TAB 07/13/18 Montelukast Sodium* (Montelukast Sodium*) 10 Mg Tablet, 10 MG PO QHS, #30 TAB 07/13/18 Polyethylene Glycol* (Miralax*) 17 Gm Powd.pack, 17 GM PO TID PRN for CONSTIPATION, #60 PACKET 07/13/18 Throat Lozenges* (Cepastat*) 9 Josselin Lozenge, 1 LOZENGE MT EVERY 1 HOUR PRN, LOZENGE 07/13/18 Diltiazem Hcl* (Cardizem*) 30 Mg Tablet, 30 MG PO Q8 PRN for BLOOD PRESSURE SUPPORT, #90 TAB HOLD FOR SBP <110 OR HR <60 07/13/18 Docusate Sodium* (Docusate Sodium*) 100 Mg Capsule, 100 MG PO BID, #60 CAP 07/13/18 Bisacodyl (Dulcolax) 10 Mg Supp.rect, 10 MG RC PRN PRN for CONSTIPATION, SUPP.RECT 07/13/18 Furosemide* (Lasix*) 20 Mg Tablet, 20 MG PO DAILY, TAB 07/13/18 Guaifenesin* (Tussin*) 100 Mg/5 Ml Syrup, 200 MG PO Q4 PRN for COUGH, ML 07/13/18 Ipratropium [place]* (Atrovent HFA*) 12.9 Gm Aer.w.adap, 2 PUFF INHALATION Q6 for SHORTNESS OF BREATH, #1 INHALER FOR THE NEBULIZER 07/13/18 Losartan Potassium* (Losartan Potassium*) 50 Mg Tablet, 50 MG PO DAILY, TAB HOLD FOR SBP <110 OR HR <60 07/13/18 Lubiprostone* (Amitiza*) 24 Mcg Capsule, 24 MCG PO BID, #60 CAP 07/13/18 Magnesium Hydroxide* (Milk Of Magnesia*) 400 Mg/5 Ml Oral.susp, 30 ML PO DAILY PRN for CONSTIPATION, ML 3/24/19 Menthol (BENGAY) 113 Gm Gel..gram., 113 GM TP TID APPLY TO POSTERIOR RIGHT SHOULDER 07/13/18 Atorvastatin Calcium (Atorvastatin Calcium) 10 Mg Tablet, 10 MG PO QHS, #30 TAB 07/13/18 Polyvinyl Alcohol (Tears Again) 15 Ml Drops, 1 DRP BOTH EYES Q2HWA, BOTTLE 07/13/18 Medications Current Medications Acetaminophen (Tylenol Tab) 650 mg Q6H PRN PO MILD PAIN LEVEL 1-3; Start 08/08/18 at 12:00 Atorvastatin Calcium (Lipitor) 10 mg QHS PO ; Start 08/08/18 at 21:00 Docusate Sodium (Colace) 100 mg BID PRN PO constipation; Start 08/08/18 at 12:00 Enoxaparin Sodium (Lovenox) 40 mg DAILY SC ; Start 08/09/18 at 09:00 Famotidine (Pepcid) 20 mg DAILY PO ; Start 08/09/18 at 09:00 Ipratropium [place] (Atrovent Hfa) 2 puff Q4 PRN INH shortness of breath; Start 08/08/18 at 12:00; Status UNV Albuterol/ Ipratropium (Duoneb) 3 ml Q6H RESP THERAPY HHN ; Start 08/08/18 at 14:00 Losartan Potassium (Cozaar) 50 mg DAILY PO ; Start 08/09/18 at 09:00 Lubiprostone (Amitiza) 24 mcg BID PO ; Start 08/08/18 at 21:00 Magnesium Hydroxide (Milk Of Mag) 30 ml DAILY PRN PO CONSTIPATION; Start 08/08/18 at 12:00 Methylprednisolone Sodium Succinate (Solu-Medrol) 60 mg Q8 IV ; Start 08/08/18 at 14:00 Montelukast Sodium (Singulair) 10 mg QHS PO ; Start 08/08/18 at 21:00 Multivitamins Therapeutic (Theragran) 1 tab DAILY PO ; Start 08/09/18 at 09:00 Olopatadine HCl (Pataday) 1 drop BID BOTH EYES ; Start 08/08/18 at 21:00 Polyethylene Glycol (Miralax) 17 gm TID PRN PO CONSTIPATION; Start 08/08/18 at 12:00 Senna/Docusate Sodium (Senokot-S) 2 tab AM PO ; Start 08/09/18 at 09:00 Simethicone (Mylicon) 80 mg TID PRN PO DISTENSION/GAS/BLOATING; Start 08/08/18 at 12:00 Tamsulosin HCl (Flomax) 0.4 mg HS PO ; Start 08/08/18 at 21:00 Ondansetron HCl (Zofran Inj) 4 mg Q6H PRN IV NAUSEA AND/OR VOMITING; Start 08/08/18 at 12:00 Piperacillin Sod/ Tazobactam Sod 100 ml @ 200 mls/hr Q8 IVPB ; Start 08/08/18 at 14:00 Allergies: Coded Allergies: No Known Allergy (Unverified , 07/13/18) Past Surgical History Past Surgical Hx: no surgical history Exam/Review of Systems Vital Signs Vitals Vital Signs Date Temp Pulse Resp B/P (MAP) Pulse Ox O2 O2 Flow FiO2 Time Delivery Rate 08/08/18 120 90 35 12:52 Exam Exam General: Elderly gentleman in respiratory distress on BiPAP. HEENT: NC/AT. pupils are equal. round. NECK: . no stridor. CV: RRR. systolic murmur; no gallop or rubs. PULM: + Diffuse rhonchi. GI: SOFT, NT, ND, no rebound or guarding Extremity: Trivial B/L LE edema. no clubbing. neuro: awake and alert, OX3. Psych: calm and pleasant rectal: deferred : normal Chest x-ray done 08/08/2018 which was also personally reviewed shows: 1. Mildly increased right basilar opacification, similar in size small right pleural effusion. 2. Right PIC line distal tip projects over the right axilla, unchanged. Review of the old chart showed echocardiogram was in April 2018 personally reviewed and showed Normal left ventricular systolic function. Normal left ventricular cavity size. Normal left ventricular wall thickness. Ejection fraction is visually estimated at 65 %. Normal appearance and function of the mitral valve with trace physiologic regurgitation. No significant aortic stenosis or insufficiency. Aortic valve not well visualized. Aortic cusps appear mildly calcified. Normal appearance of the tricuspid valve. Unable to obtain RVSP due to minimal presence of tricuspid regurgitation. Labs Result Diagram: 08/08/18 1220 08/08/18 1220 Results 24hrs Laboratory Tests Test 08/08/18 12:20 White Blood Count 14.4 #H Red Blood Count 4.08 L Hemoglobin 11.1 L Hematocrit 35.0 L Mean Corpuscular Volume 85.8 Mean Corpuscular Hemoglobin 27.2 L Mean Corpuscular Hemoglobin Concent 31.7 L Red Cell Distribution Width 16.6 H Platelet Count 148 # Mean Platelet Volume 10.8 H Immature Granulocytes % 0.800 H Neutrophils % 94.7 H Lymphocytes % 0.8 L Monocytes % 3.6 Eosinophils % 0.0 Basophils % 0.1 Nucleated Red Blood Cells % 0.0 Immature Granulocytes # 0.120 H Neutrophils # 13.6 H Lymphocytes # 0.1 L Monocytes # 0.5 Eosinophils # 0.0 Basophils # 0.0 Nucleated Red Blood Cells # 0.0 Sodium Level 131 L Potassium Level 4.7 Chloride Level 87 L Carbon Dioxide Level 37 H Anion Gap 7 Blood Urea Nitrogen 37 H Creatinine 0.59 L Est Glomerular Filtrat Rate mL/min Glucose Level 263 #H Calcium Level 8.8 Magnesium Level 2.0 Total Bilirubin 0.6 Direct Bilirubin 0.00 Indirect Bilirubin 0.6 Aspartate Amino Transf (AST/SGOT) 39 Alanine Aminotransferase (ALT/SGPT) 105 H Alkaline Phosphatase 124 H Total Protein 5.6 L Albumin 3.1 L Globulin 2.50 Albumin/Globulin Ratio 1.24 Medications Medications Current Medications Acetaminophen (Tylenol Tab) 650 mg Q6H PRN PO MILD PAIN LEVEL 1-3; Start 07/21 01/08 at 12:00 Atorvastatin Calcium (Lipitor) 10 mg QHS PO ; Start 08/08/18 at 21:00 Docusate Sodium (Colace) 100 mg BID PRN PO constipation; Start 08/08/18 at 12:00 Enoxaparin Sodium (Lovenox) 40 mg DAILY SC ; Start 08/09/18 at 09:00 Famotidine (Pepcid) 20 mg DAILY PO ; Start 08/09/18 at 09:00 Ipratropium [place] (Atrovent Hfa) 2 puff Q4 PRN INH shortness of breath; Start 08/08/18 at 12:00; Status UNV Albuterol/ Ipratropium (Duoneb) 3 ml Q6H RESP THERAPY HHN ; Start 08/08/18 at 14:00 Losartan Potassium (Cozaar) 50 mg DAILY PO ; Start 08/09/18 at 09:00 Lubiprostone (Amitiza) 24 mcg BID PO ; Start 08/08/18 at 21:00 Magnesium Hydroxide (Milk Of Mag) 30 ml DAILY PRN PO CONSTIPATION; Start 08/08/18 at 12:00 Methylprednisolone Sodium Succinate (Solu-Medrol) 60 mg Q8 IV ; Start 08/08/18 at 14:00 Montelukast Sodium (Singulair) 10 mg QHS PO ; Start 08/08/18 at 21:00 Multivitamins Therapeutic (Theragran) 1 tab DAILY PO ; Start 08/09/18 at 09:00 Olopatadine HCl (Pataday) 1 drop BID BOTH EYES ; Start 08/08/18 at 21:00 Polyethylene Glycol (Miralax) 17 gm TID PRN PO CONSTIPATION; Start 08/08/18 at 12:00 Senna/Docusate Sodium (Senokot-S) 2 tab AM PO ; Start 08/09/18 at 09:00 Simethicone (Mylicon) 80 mg TID PRN PO DISTENSION/GAS/BLOATING; Start 08/08/18 at 12:00 Tamsulosin HCl (Flomax) 0.4 mg HS PO ; Start 08/08/18 at 21:00 Ondansetron HCl (Zofran Inj) 4 mg Q6H PRN IV NAUSEA AND/OR VOMITING; Start 08/08/18 at 12:00 Piperacillin Sod/ Tazobactam Sod 100 ml @ 200 mls/hr Q8 IVPB ; Start 08/08/18 at 14:00 HAYLEE PINZON MD Aug 08, 2018 13:43
[2018-08-08] MEDS: ALBUTEROL/IPRATROPIUM (NEB) 3 ML AMP HHN SCH ×2 (14:00→19:43)
[2018-08-08] MEDS: PIPER-TAZO 3.375 GM IV (PMX) 100 ML IVPB SCH ×2 (14:09→21:20)
[2018-08-08] MEDS: METHYLPREDNISOLONE 125 MG INJ IV SCH ×2 (14:10→21:21)
[2018-08-08] MEDS ORDERED: DILTIAZEM 25 MG INJ IV PRN (14:30)
[2018-08-08] MEDS: OLOPATADINE 0.2% (ONCE A DAY) OPHTH DROP 2.5 ML BOTH EYES SCH (14:30)
--- NOTE | 2018-08-08 14:57 | CONS ---
DATE OF ADMISSION: 08/08/2018 DATE OF CONSULTATION: TYPE OF CONSULTATION: Pulmonary. REASON FOR CONSULTATION: Shortness of breath. Thank you, Dr. Pan, for this consultation. HISTORY OF PRESENT ILLNESS: This is an 83-year-old gentleman with multiple medical problems, recentl y discharged to [facility] for hypoxemic respiratory failure, was apparently stable over there for quite some time and had increasing respiratory distress this morning, requiring transf er back to [facility] ICU. The patient's course was previously complicated by acute influenza A, acute on c hronic hypercapnic respiratory failure with pulmonary hypertension and possible underlying obstructiv e sleep apnea. Apparently, the patient was noted to be stable at . PAST MEDICAL HISTORY: As above. MEDICATIONS: Per chart. ALLERGIES: NONE. SOCIAL HISTORY: Ex-smoker, no alcohol, no history of drug use. FAMILY HISTORY: Noncontributory. SYSTEMS REVIEW: A 12-point review of systems was negative other than what was mentioned above. PHYSICAL EXAMINATION: GENERAL: Elderly-appearing gentleman, comfortable at rest, in no acute distress. VITAL SIGNS: Currently afebrile, pulse is 80, blood pressure 109/57, O2 saturation 96% on FiO2 of 35 %. NECK: Supple. No JVD. No lymphadenopathy. CARDIAC: S1, S2. No added sounds or murmurs. CHEST: Diminished air entry bilaterally. ABDOMEN: Soft, nontender. No guarding or rebound. Obese. EXTREMITIES: No cyanosis, clubbing, edema. NEUROLOGIC: Generalized weakness. LABORATORY DATA: White count 14.1, hemoglobin 11.1, platelets of 148. Chemistry: BUN 37, creatinin e 0.59. INR 0.89. ABG is pending at time of this dictation. DIAGNOSTIC DATA: Chest x-ray shows chronic right lower lobe infiltrate. IMPRESSION AND PLAN: Acute hypoxemic respiratory failure, likely secondary to combination of congest cheri cardiac failure, possible healthcare-associated pneumonia. The patient will require: 1. Antibiotics. 2. Steroids. 3. Noninvasive positive pressure ventilation. 4. Diuretics. 5. DVT and GI prophylaxis. Dictated By: ALEXI ALLISON MD SV/NTS Conf#: [id number] DID#: [id number] CC: JAMES THOMAS MD;*EndCC*
[2018-08-08] MEDS: DILTIAZEM 30 MG TAB PO SCH ×2 (16:00→22:58)
[2018-08-08] MEDS: DRONEDARONE HYDROCHLORIDE 400 MG TAB PO SCH (17:29)
[2018-08-08] MEDS: MONTELUKAST 10 MG TAB PO SCH (20:28)
[2018-08-08] MEDS: ATORVASTATIN 10 MG TAB PO SCH (20:28)
[2018-08-08] MEDS: TAMSULOSIN (SR) 0.4 MG CAP PO SCH (20:28)
[2018-08-08] MEDS ORDERED: ALBUMIN HUMAN 25% 100 ML IV ONE (20:30)
[2018-08-08] MEDS ORDERED: OLOPATADINE 0.2% (ONCE A DAY) OPHTH DROP 2.5 ML BOTH EYES SCH (21:00)
[2018-08-08] MEDS: LUBIPROSTONE 24 MCG CAP PO SCH (21:11)
[2018-08-09] VITALS (53 sets, daily range): BP systolic 84–146; BP diastolic 38–109; PULSE 65–96; RESP 12–34
[2018-08-09] MEDS ORDERED: ALBUMIN HUMAN 25% 100 ML IV ONE (00:30)
[2018-08-09] MEDS: ALBUTEROL/IPRATROPIUM (NEB) 3 ML AMP HHN SCH ×4 (01:36→20:54)
[2018-08-09] MEDS: METHYLPREDNISOLONE 125 MG INJ IV SCH ×3 (05:34→22:18)
[2018-08-09] MEDS: PIPER-TAZO 3.375 GM IV (PMX) 100 ML IVPB SCH ×3 (05:34→22:18)
[2018-08-09] MEDS: LUBIPROSTONE 24 MCG CAP PO SCH ×2 (08:54→20:42)
[2018-08-09] MEDS: MULTIVITAMINS THERAPEUTIC TAB PO SCH (08:54)
[2018-08-09] MEDS: FAMOTIDINE 20 MG TAB PO SCH (08:54)
[2018-08-09] MEDS: DRONEDARONE HYDROCHLORIDE 400 MG TAB PO SCH ×2 (08:54→18:12)
[2018-08-09] MEDS: OLOPATADINE 0.2% (ONCE A DAY) OPHTH DROP 2.5 ML BOTH EYES SCH (08:54)
[2018-08-09] MEDS: DILTIAZEM 30 MG TAB PO SCH ×3 (08:55→20:46)
[2018-08-09] MEDS: SENNA/DOCUSATE NA (8.6MG/50MG) TAB PO SCH (08:56)
[2018-08-09] MEDS: ENOXAPARIN 40 MG/0.4 ML SYG SC SCH (08:57)
[2018-08-09] MEDS ORDERED: LOSARTAN 50 MG TAB PO SCH (09:00)
--- NOTE | 2018-08-09 09:25 | PN ---
Date/Time of Note Date/Time of Note DATE: 08/09/18 TIME: 09:21 Assessment/Plan VTE Prophylaxis Risk score (from Ns)>0 risk: 8 SCD applied (from Ns): Yes Pharmacological prophylaxis: LMWH Lines/Catheters IV Catheter Type (from Nrsg): Mid Line Urinary Cath still in place: Yes Reason Cath still needed: urinary retention Assessment/Plan Assessment/Plan 1. Acute hypoxic respiratory failure- resolved - patient tolerating NC this am and okay for transfer back to [facility] - Pulmonology on board and appreciate recommendations - Continue on BIPAP PRN - Continue nebs, steroids and IV antibiotics - monitor for improvement 2. RLL PNA - seen on CXR - ?Aspiration vs HCAP - IV antibiotics on board - nebs and PRN on board 3. COPD exacerbation - nebs, steroids, antibiotics 4. h/o Afib and SVT - Cardiology on board and appreciate recommendations. Continue Diltiazem for rate control 5. ?CHF - responded to lasix but EF 65% on last ECHO and does not appear overloaded - will continue monitoring I/O and daily weights 6. hyperglycemia- resolved - most likely secondary to steroids - A1c from 06/2018 was 5 7. Disposition - Stable for transfer back to [facility]. If not accepted can downgrade to Telemetry >30 minutes of critical care time spent with patient Result Diagram: 08/09/18 0438 08/09/18 0438 Results 24hrs Laboratory Tests Test 08/08/18 12:20 08/08/18 14:01 08/08/18 22:00 08/09/18 04:38 White Blood 14.4 #H 5.9 # Count Red Blood Count 4.08 L 3.12 #L Hemoglobin 11.1 L 8.6 #L Hematocrit 35.0 L 26.8 #L Mean 85.8 85.9 Corpuscular Volume Mean 27.2 L 27.6 L Corpuscular Hemoglobin Mean 31.7 L 32.1 Corpuscular Hemoglobin Conc ent Red Cell 16.6 H 16.8 H Distribution Width Platelet Count 148 # 101 #L Mean Platelet 10.8 H 10.5 H Volume Immature 0.800 H 1.400 H Granulocytes % Neutrophils % 94.7 H 93.9 H Lymphocytes % 0.8 L 2.5 L Monocytes % 3.6 2.0 Eosinophils % 0.0 0.0 Basophils % 0.1 0.2 Nucleated Red 0.0 0.0 Blood Cells % Immature 0.120 H 0.080 H Granulocytes # Neutrophils # 13.6 H 5.6 Lymphocytes # 0.1 L 0.2 L Monocytes # 0.5 0.1 L Eosinophils # 0.0 0.0 Basophils # 0.0 0.0 Nucleated Red 0.0 0.0 Blood Cells # Sodium Level 131 L 134 L Potassium Level 4.7 3.7 Chloride Level 87 L 91 L Carbon Dioxide 37 H 38 H Level Anion Gap 7 5 Blood Urea 37 H 37 H Nitrogen Creatinine 0.59 L 0.58 L Est Glomerular Filtrat Rate mL/min Glucose Level 263 #H 116 # Calcium Level 8.8 8.8 Magnesium Level 2.0 2.2 Total Bilirubin 0.6 Direct 0.00 Bilirubin Indirect 0.6 Bilirubin Aspartate Amino 39 Transf (AST/SGO T) Alanine 105 H Aminotransferas e (ALT/SGPT) Alkaline 124 H Phosphatase Total Protein 5.6 L Albumin 3.1 L Globulin 2.50 Albumin/Globuli 1.24 n Ratio Blood Gas Blood arterial Blood Specimen arterial Source Arterial Blood 08/08/2018 1:55: 08/08/2018 1:55 Date Drawn 00 PM :00 PM Arterial Blood 7.409 7.409 pH (Temp corrected ) Arterial Blood 55.2 H 55.2 H pCO2 (Temp correct) Arterial Blood 75.5 L 75.5 L pO2 (Temp corrected ) Arterial Blood 34.1 H 34.1 H HCO3 Arterial Blood 8.0 H 8.0 H Base Excess Arterial Blood 94.0 L 94.0 L Oxygen Saturati on Elmer Test ACCEPTAB ACCEPTAB Arterial Blood Right Radial Right Radial Gas Puncture Site Arterial 0.3 0.3 Blood Carboxyhe moglobin Arterial Blood 0.1 0.1 Methemoglobin Blood Gas A-a 109.9 H 109.9 H O2 Differential Oxyhemoglobin 93.6 93.6 Percent Blood Gas 37.0 37.0 Temperature Blood Gas 14.0 14.0 Respiration Rate Blood Gas 22 22 Actual Respiration Rat e Blood Gas MASK - BIPAP MASK - BIPAP Modality FiO2 35.0 35.0 Blood Gas 15 15 Pressure Support Blood Gas 20/5 20/5 IPAP/EPAP Ratio Blood Gas TM TM Notified Whom Blood Gas 08/08/2018 2:03: 08/08/2018 2:03 Notified Time 00 PM :00 PM Phosphorus 4.3 Level Test 08/09/18 07:00 Blood Gas Blood arterial Specimen Source Arterial Blood 08/09/2018 8:15: Date Drawn 57 AM Arterial Blood 7.512 H pH (Temp corrected ) Arterial Blood 47.3 H pCO2 (Temp correct) Arterial Blood 87.2 pO2 (Temp corrected ) Arterial Blood 37.1 H HCO3 Arterial Blood 12.7 H Base Excess Arterial Blood 96.5 Oxygen Saturati on [place]mer Test ACCEPTAB Arterial Blood Right Radial Gas Puncture Site Arterial 0.2 Blood Carboxyhe moglobin Arterial Blood 0 Methemoglobin Blood Gas A-a 71.1 H O2 Differential Oxyhemoglobin 96.3 Percent Blood Gas 37.0 Temperature Blood Gas 14.0 Respiration Rate Blood Gas 18 Actual Respiration Rat e Blood Gas MASK - BIPAP Modality FiO2 30.0 Blood Gas 20/5 IPAP/EPAP Ratio Blood Gas DT Notified Whom Blood Gas 08/09/2018 8:30: Notified Time 34 AM Subjective 24 Hr Interval Summary Free Text/Dictation Patient is currently doing well on nasal cannula. Complaining about chest physiotherapy. No acute overnight events. Exam/Review of Systems Exam Vitals Vital Signs Date Temp Pulse Resp B/P (MAP) Pulse Ox O2 O2 Flow FiO2 Time Delivery Rate 08/09/18 73 27 104/52 99 08:30 (69) 08/09/18 35 08:02 08/09/18 97.6 BIPAP 08:00 08/09/18 4.0 04:45 Intake and Output 08/08/18 08/08/18 08/09/18 1515:00 23:00 07:00 IntakeIntake Total 100 ml 360 ml 100 ml OutputOutput Total 475 ml 300 ml 210 ml BalanceBalance -375 ml 60 ml -110 ml Exam General: no acute distress. no respiratory issues at this time Neck: Supple with full range of motion. Lungs: Diminished at bases, no wheezing appreciated Heart: Normal S1-S2, Regular rhythm and rate. no murmurs appreciated Abdomen: Soft , nontender, protuberant, bowel sounds are present. No guarding no rebound tenderness Extremities: Normal to inspection, no edema no cyanosis Skin: no lesions or rashes noted. Results Results 24hrs Laboratory Tests Test 08/08/18 12:20 08/08/18 14:01 08/08/18 22:00 08/09/18 04:38 White Blood 14.4 #H 5.9 # Count Red Blood Count 4.08 L 3.12 #L Hemoglobin 11.1 L 8.6 #L Hematocrit 35.0 L 26.8 #L Mean 85.8 85.9 Corpuscular Volume Mean 27.2 L 27.6 L Corpuscular Hemoglobin Mean 31.7 L 32.1 Corpuscular Hemoglobin Conc ent Red Cell 16.6 H 16.8 H Distribution Width Platelet Count 148 # 101 #L Mean Platelet 10.8 H 10.5 H Volume Immature 0.800 H 1.400 H Granulocytes % Neutrophils % 94.7 H 93.9 H Lymphocytes % 0.8 L 2.5 L Monocytes % 3.6 2.0 Eosinophils % 0.0 0.0 Basophils % 0.1 0.2 Nucleated Red 0.0 0.0 Blood Cells % Immature 0.120 H 0.080 H Granulocytes # Neutrophils # 13.6 H 5.6 Lymphocytes # 0.1 L 0.2 L Monocytes # 0.5 0.1 L Eosinophils # 0.0 0.0 Basophils # 0.0 0.0 Nucleated Red 0.0 0.0 Blood Cells # Sodium Level 131 L 134 L Potassium Level 4.7 3.7 Chloride Level 87 L 91 L Carbon Dioxide 37 H 38 H Level Anion Gap 7 5 Blood Urea 37 H 37 H Nitrogen Creatinine 0.59 L 0.58 L Est Glomerular Filtrat Rate mL/min Glucose Level 263 #H 116 # Calcium Level 8.8 8.8 Magnesium Level 2.0 2.2 Total Bilirubin 0.6 Direct 0.00 Bilirubin Indirect 0.6 Bilirubin Aspartate Amino 39 Transf (AST/SGO T) Alanine 105 H Aminotransferas e (ALT/SGPT) Alkaline 124 H Phosphatase Total Protein 5.6 L Albumin 3.1 L Globulin 2.50 Albumin/Globuli 1.24 n Ratio Blood Gas Blood arterial Blood Specimen arterial Source Arterial Blood 08/08/2018 1:55: 08/08/2018 1:55 Date Drawn 00 PM :00 PM Arterial Blood 7.409 7.409 pH (Temp corrected ) Arterial Blood 55.2 H 55.2 H pCO2 (Temp correct) Arterial Blood 75.5 L 75.5 L pO2 (Temp corrected ) Arterial Blood 34.1 H 34.1 H HCO3 Arterial Blood 8.0 H 8.0 H Base Excess Arterial Blood 94.0 L 94.0 L Oxygen Saturati on [place] Test ACCEPTAB ACCEPTAB Arterial Blood Right Radial Right Radial Gas Puncture Site Arterial 0.3 0.3 Blood Carboxyhe moglobin Arterial Blood 0.1 0.1 Methemoglobin Blood Gas A-a 109.9 H 109.9 H O2 Differential Oxyhemoglobin 93.6 93.6 Percent Blood Gas 37.0 37.0 Temperature Blood Gas 14.0 14.0 Respiration Rate Blood Gas 22 22 Actual Respiration Rat e Blood Gas MASK - BIPAP MASK - BIPAP Modality FiO2 35.0 35.0 Blood Gas 15 15 Pressure Support Blood Gas 08/09 08/09 IPAP/EPAP Ratio Blood Gas TM TM Notified Whom Blood Gas 08/08/2018 2:03: 08/08/2018 2:03 Notified Time 00 PM :00 PM Phosphorus 4.3 Level Test 08/09/18 07:00 Blood Gas Blood arterial Specimen Source Arterial Blood 08/09/2018 8:15: Date Drawn 57 AM Arterial Blood 7.512 H pH (Temp corrected ) Arterial Blood 47.3 H pCO2 (Temp correct) Arterial Blood 87.2 pO2 (Temp corrected ) Arterial Blood 37.1 H HCO3 Arterial Blood 12.7 H Base Excess Arterial Blood 96.5 Oxygen Saturati on [place] Test ACCEPTAB Arterial Blood Right Radial Gas Puncture Site Arterial 0.2 Blood Carboxyhe moglobin Arterial Blood 0 Methemoglobin Blood Gas A-a 71.1 H O2 Differential Oxyhemoglobin 96.3 Percent Blood Gas 37.0 Temperature Blood Gas 14.0 Respiration Rate Blood Gas 18 Actual Respiration Rat e Blood Gas MASK - BIPAP Modality FiO2 30.0 Blood Gas 08/09 IPAP/EPAP Ratio Blood Gas DT Notified Whom Blood Gas 08/09/2018 8:30: Notified Time 34 AM Medications Medication Current Medications Acetaminophen (Tylenol Tab) 650 mg Q6H PRN PO MILD PAIN LEVEL 1-3; Start 08/08/18 at 12:00 Atorvastatin Calcium (Lipitor) 10 mg QHS PO Last administered on 08/08/18at 20:28; Admin Dose 10 MG; Start 08/08/18 at 21:00 Docusate Sodium (Colace) 100 mg BID PRN PO constipation; Start 08/08/18 at 12:00 Enoxaparin Sodium (Lovenox) 40 mg DAILY SC Last administered on 08/09/18 08:57; Admin Dose 40 MG; Start 08/09/18 at 09:00 Famotidine (Pepcid) 20 mg DAILY PO Last administered on 08/09/18 08:54; Admin Dose 20 MG; Start 08/09/18 at 09:00 Ipratropium [place] (Atrovent Hfa) 2 puff Q4 PRN INH shortness of breath; Start 08/08/18 at 12:00 Albuterol/ Ipratropium (Duoneb) 3 ml Q6H RESP THERAPY HHN Last administered on 08/09/18 08:02; Admin Dose 3 ML; Start 08/08/18 at 14:00 Lubiprostone (Amitiza) 24 mcg BID PO Last administered on 08/09/18 08:54; Admi n Dose 24 MCG; Start 08/08/18 at 21:00 Magnesium Hydroxide (Milk Of Mag) 30 ml DAILY PRN PO CONSTIPATION; Start 08/08/18 at 12:00 Methylprednisolone Sodium Succinate (Solu-Medrol) 60 mg Q8 IV Last administered on 08/09/18 05:34; Admin Dose 60 MG; Start 08/08/18 at 14:00 Montelukast Sodium (Singulair) 10 mg QHS PO Last administered on 08/08/18 20:28; Admin Dose 10 MG; Start 08/08/18 at 21:00 Multivitamins Therapeutic (Theragran) 1 tab DAILY PO Last administered on 08/09/18 08:54; Admin Dose 1 TAB; Start 08/09/18 at 09:00 Polyethylene Glycol (Miralax) 17 gm TID PRN PO CONSTIPATION; Start 08/08/18 at 12:00 Senna/Docusate Sodium (Senokot-S) 2 tab AM PO Last administered on 08/09/18 08:56; Admin Dose 2 TAB; Start 08/09/18 at 09:00 Simethicone (Mylicon) 80 mg TID PRN PO DISTENSION/GAS/BLOATING; Start 08/08/18 at 12:00 Tamsulosin HCl (Flomax) 0.4 mg HS PO Last administered on 08/08/18 20:28; Admin Dose 0.4 MG; Start 08/08/18 at 21:00 Ondansetron HCl (Zofran Inj) 4 mg Q6H PRN IV NAUSEA AND/OR VOMITING; Start 08/08/18 at 12:00 Piperacillin Sod/ Tazobactam Sod 100 ml @ 200 mls/hr Q8 IVPB Last administered on 08/09/18 05:34; Admin Dose 200 MLS/HR; Start 08/08/18 at 14:00 Olopatadine HCl (Pataday) 1 drop DAILY BOTH EYES Last administered on 08/09/18 08:54; Admin Dose 1 DROP; Start 08/08/18 at 14:30 Diltiazem HCl (Cardizem) 30 mg TID PO Last administered on 08/09/18 08:55; Admin Dose 30 MG; Start 08/08/18 at 16:00 Dronedarone (Multaq) 400 mg BID WITH MEALS PO Last administered on 08/09/18 08:54; Admin Dose 400 MG; Start 08/08/18 at 17:35 Diltiazem HCl (Cardizem Iv) 5 mg Q1H PRN IV afib with HR > 120; Start 08/08/18 at 14:30 Aspirin (Halfprin) 81 mg DAILY PO ; Start 08/09/18 at 09:00 CHASIDY VILLEGAS MD Aug 09, 2018 09:25
[2018-08-09] MEDS ORDERED: DILT30TA30 PO (09:32)
[2018-08-09] MEDS ORDERED: DRON400T2 PO (09:32)
--- NOTE | 2018-08-09 09:33 | PDOCDIS ---
Discharge Instructions DIAGNOSIS Discharge Diagnosis 1. Acute hypoxic respiratory failure secondary to RLL PNA- resolving 2. RLL PNA 3. COPD exacerbation 4. h/o Afib and SVT 5. ?CHF 6. DNR but okay for intubation CONDITION [id number] Patient Condition: [id number] Stable HOME CARE INSTRUCTIONS: [id number] Diet Instructions: [id number] Low Fat /Cholesterol FOLLOW UP/APPOINTMENTS Follow-up Plan 1. Continue care in [facility] CHASIDY VILLEGAS MD Aug 09, 2018 09:33
[2018-08-09] MEDS: ASPIRIN (EC) 81 MG TAB PO SCH (09:46)
--- NOTE | 2018-08-09 10:12 | CONS ---
Consult Date/Type/Reason Admit Date/Time Aug 08, 2018 at 11:30 Initial Consult Date 08/08/18 Type of Consult Pulmonary Requesting Provider: ALEXI ALLISON MD, [facility] Date/Time of Note DATE: 08/09/18 TIME: 10:11 Subjective Patient appears comfortable this morning no respiratory distress. We will BiPAP overnight now on nasal cannula. Objective Vital Signs Date Temp Pulse Resp B/P (MAP) Pulse Ox O2 O2 Flow FiO2 Time Delivery Rate 08/09/18 77 25 108/53 97 Nasal 10:00 (71) Cannula 08/09/18 35 08:02 08/09/18 97.6 08:00 08/09/18 4.0 04:45 Intake and Output 08/08/18 08/08/18 08/09/18 1414:59 22:59 06:59 IntakeIntake Total 0 ml 460 ml 100 ml OutputOutput Total 400 ml 345 ml 240 ml BalanceBalance -400 ml 115 ml -140 ml Exam PHYSICAL EXAMINATION: GENERAL: Elderly-appearing gentleman, comfortable at rest, in no acute distress. VITAL SIGNS: NECK: Supple. No JVD. No lymphadenopathy. CARDIAC: S1, S2. No added sounds or murmurs. CHEST: Diminished air entry bilaterally. ABDOMEN: Soft, nontender. No guarding or rebound. Obese. EXTREMITIES: No cyanosis, clubbing, edema. NEUROLOGIC: Generalized weakness. Vent Setting Fraction of Inspired Oxygen pe: 33 Results/Medications Result Diagram: 08/09/18 0438 08/09/18 0438 Results 24 hrs Laboratory Tests Test 08/08/18 12:20 08/08/18 14:01 08/08/18 22:00 08/09/18 04:38 White Blood 14.4 #H 5.9 # Count Red Blood Count 4.08 L 3.12 #L Hemoglobin 11.1 L 8.6 #L Hematocrit 35.0 L 26.8 #L Mean 85.8 85.9 Corpuscular Volume Mean 27.2 L 27.6 L Corpuscular Hemoglobin Mean 31.7 L 32.1 Corpuscular Hemoglobin Conc ent Red Cell 16.6 H 16.8 H Distribution Width Platelet Count 148 # 101 #L Mean Platelet 10.8 H 10.5 H Volume Immature 0.800 H 1.400 H Granulocytes % Neutrophils % 94.7 H 93.9 H Lymphocytes % 0.8 L 2.5 L Monocytes % 3.6 2.0 Eosinophils % 0.0 0.0 Basophils % 0.1 0.2 Nucleated Red 0.0 0.0 Blood Cells % Immature 0.120 H 0.080 H Granulocytes # Neutrophils # 13.6 H 5.6 Lymphocytes # 0.1 L 0.2 L Monocytes # 0.5 0.1 L Eosinophils # 0.0 0.0 Basophils # 0.0 0.0 Nucleated Red 0.0 0.0 Blood Cells # Sodium Level 131 L 134 L Potassium Level 4.7 3.7 Chloride Level 87 L 91 L Carbon Dioxide 37 H 38 H Level Anion Gap 7 5 Blood Urea 37 H 37 H Nitrogen Creatinine 0.59 L 0.58 L Est Glomerular Filtrat Rate mL/min Glucose Level 263 #H 116 # Calcium Level 8.8 8.8 Magnesium Level 2.0 2.2 Total Bilirubin 0.6 Direct 0.00 Bilirubin Indirect 0.6 Bilirubin Aspartate Amino 39 Transf (AST/SGO T) Alanine 105 H Aminotransferas e (ALT/SGPT) Alkaline 124 H Phosphatase Total Protein 5.6 L Albumin 3.1 L Globulin 2.50 Albumin/Globuli 1.24 n Ratio Blood Gas Blood arterial Blood Specimen arterial Source Arterial Blood 08/08/2018 1:55: 08/08/2018 1:55 Date Drawn 00 PM :00 PM Arterial Blood 7.409 7.409 pH (Temp corrected ) Arterial Blood 55.2 H 55.2 H pCO2 (Temp correct) Arterial Blood 75.5 L 75.5 L pO2 (Temp corrected ) Arterial Blood 34.1 H 34.1 H HCO3 Arterial Blood 8.0 H 8.0 H Base Excess Arterial Blood 94.0 L 94.0 L Oxygen Saturati on [place] Test ACCEPTAB ACCEPTAB Arterial Blood Right Radial Right Radial Gas Puncture Site Arterial 0.3 0.3 Blood Carboxyhe moglobin Arterial Blood 0.1 0.1 Methemoglobin Blood Gas A-a 109.9 H 109.9 H O2 Differential Oxyhemoglobin 93.6 93.6 Percent Blood Gas 37.0 37.0 Temperature Blood Gas 14.0 14.0 Respiration Rate Blood Gas 22 22 Actual Respiration Rat e Blood Gas MASK - BIPAP MASK - BIPAP Modality FiO2 35.0 35.0 Blood Gas 15 15 Pressure Support Blood Gas 20/5 20/5 IPAP/EPAP Ratio Blood Gas TM TM Notified Whom Blood Gas 08/08/2018 2:03: 08/08/2018 2:03 Notified Time 00 PM :00 PM Phosphorus 4.3 Level Test 08/09/18 07:00 Blood Gas Blood arterial Specimen Source Arterial Blood 08/09/2018 8:15: Date Drawn 57 AM Arterial Blood 7.512 H pH (Temp corrected ) Arterial Blood 47.3 H pCO2 (Temp correct) Arterial Blood 87.2 pO2 (Temp corrected ) Arterial Blood 37.1 H HCO3 Arterial Blood 12.7 H Base Excess Arterial Blood 96.5 Oxygen Saturati on [place]mer Test ACCEPTAB Arterial Blood Right Radial Gas Puncture Site Arterial 0.2 Blood Carboxyhe moglobin Arterial Blood 0 Methemoglobin Blood Gas A-a 71.1 H O2 Differential Oxyhemoglobin 96.3 Percent Blood Gas 37.0 Temperature Blood Gas 14.0 Respiration Rate Blood Gas 18 Actual Respiration Rat e Blood Gas MASK - BIPAP Modality FiO2 30.0 Blood Gas 08/09 IPAP/EPAP Ratio Blood Gas DT Notified Whom Blood Gas 08/09/2018 8:30: Notified Time 34 AM Medications Current Medications Acetaminophen (Tylenol Tab) 650 mg Q6H PRN PO MILD PAIN LEVEL 1-3; Start 08/08/18 at 12:00 Atorvastatin Calcium (Lipitor) 10 mg QHS PO Last administered on 08/08/18at 20:28; Admin Dose 10 MG; Start 08/08/18 at 21:00 Docusate Sodium (Colace) 100 mg BID PRN PO constipation; Start 08/08/18 at 12:00 Enoxaparin Sodium (Lovenox) 40 mg DAILY SC Last administered on 08/09/18at 08:57; Admin Dose 40 MG; Start 08/09/18 at 09:00 Famotidine (Pepcid) 20 mg DAILY PO Last administered on 08/09/18at 08:54; Admin Dose 20 MG; Start 08/09/18 at 09:00 Ipratropium [place] (Atrovent Hfa) 2 puff Q4 PRN INH shortness of breath; Start 08/08/18 at 12:00 Albuterol/ Ipratropium (Duoneb) 3 ml Q6H RESP THERAPY HHN Last administered on 08/09/18at 08:02; Admin Dose 3 ML; Start 08/08/18 at 14:00 Lubiprostone (Amitiza) 24 mcg BID PO Last administered on 08/09/18 08:54; Admin Dose 24 MCG; Start 08/08/18 at 21:00 Magnesium Hydroxide (Milk Of Mag) 30 ml DAILY PRN PO CONSTIPATION; Start 08/08/18 at 12:00 Methylprednisolone Sodium Succinate (Solu-Medrol) 60 mg Q8 IV Last administered on 08/09/18 05:34; Admin Dose 60 MG; Start 08/08/18 at 14:00 Montelukast Sodium (Singulair) 10 mg QHS PO Last administered on 08/08/18 20:28; Admin Dose 10 MG; Start 08/08/18 at 21:00 Multivitamins Therapeutic (Theragran) 1 tab DAILY PO Last administered on 08/09/18 08:54; Admin Dose 1 TAB; Start 08/09/18 at 09:00 Polyethylene Glycol (Miralax) 17 gm TID PRN PO CONSTIPATION; Start 08/08/18 at 12:00 Senna/Docusate Sodium (Senokot-S) 2 tab AM PO Last administered on 08/09/18 08:56; Admin Dose 2 TAB; Start 08/09/18 at 09:00 Simethicone (Mylicon) 80 mg TID PRN PO DISTENSION/GAS/BLOATING; Start 08/08/18 at 12:00 Tamsulosin HCl (Flomax) 0.4 mg HS PO Last administered on 08/08/18 20:28; Admin Dose 0.4 MG; Start 08/08/18 at 21:00 Ondansetron HCl (Zofran Inj) 4 mg Q6H PRN IV NAUSEA AND/OR VOMITING; Start 08/08/18 at 12:00 Piperacillin Sod/ Tazobactam Sod 100 ml @ 200 mls/hr Q8 IVPB Last administered on 08/09/18 05:34; Admin Dose 200 MLS/HR; Start 08/08/18 at 14:00 Olopatadine HCl (Pataday) 1 drop DAILY BOTH EYES Last administered on 08/09/18 08:54; Admin Dose 1 DROP; Start 08/08/18 at 14:30 Diltiazem HCl (Cardizem) 30 mg TID PO Last administered on 4/20/19at 08:55; Admin Dose 30 MG; Start 08/08/18 at 16:00 Dronedarone (Multaq) 400 mg BID WITH MEALS PO Last administered on 08/09/18at 08:54; Admin Dose 400 MG; Start 08/08/18 at 17:35 Diltiazem HCl (Cardizem Iv) 5 mg Q1H PRN IV afib with HR > 120; Start 08/08/18 at 14:30 Aspirin (Halfprin) 81 mg DAILY PO Last administered on 08/09/18at 09:46; Admin Dose 81 MG; Start 08/09/18 at 09:00 Assessment/Plan Hospital Course (Demo Recall) Assessment 1. Acute on chronic hypoxemic respiratory failure likely secondary to combinati on of diastolic dysfunction and severe COPD. 2. Likely significant anxiety component. Plan 1. PRN nocturnal noninvasive positive pressure ventilation 2. Continue supplemental O2 3. Bronchodilators as needed 4. Cardiac recommendations Agree with transfer to telemetry and possibly back to [facility]. ALEXI ALLISON MD, [facility] Aug 09, 2018 10:12
[2018-08-09] MEDS: MUPIROCIN 2% 22 GM OINT TOP SCH (20:41)
[2018-08-09] MEDS: ATORVASTATIN 10 MG TAB PO SCH (20:42)
[2018-08-09] MEDS: MONTELUKAST 10 MG TAB PO SCH (20:42)
[2018-08-09] MEDS: TAMSULOSIN (SR) 0.4 MG CAP PO SCH (20:42)
[2018-08-10] VITALS (51 sets, daily range): BP systolic 84–133; BP diastolic 34–101; PULSE 61–139; RESP 14–37; Ht 154.9 cm; Wt 60.6 kg
[2018-08-10] MEDS: ALBUTEROL/IPRATROPIUM (NEB) 3 ML AMP HHN SCH ×4 (02:40→20:07)
[2018-08-10] MEDS: PIPER-TAZO 3.375 GM IV (PMX) 100 ML IVPB SCH ×3 (05:17→22:00)
[2018-08-10] MEDS: METHYLPREDNISOLONE 125 MG INJ IV SCH ×3 (05:17→22:00)
--- NOTE | 2018-08-10 09:28 | PN ---
Date/Time of Note Date/Time of Note DATE: 08/10/18 TIME: 09:23 Assessment/Plan VTE Prophylaxis Risk score (from Nsg)>0 risk: 7 SCD applied (from Nsg): Yes Pharmacological prophylaxis: LMWH Lines/Catheters IV Catheter Type (from Nrsg): Mid Line Urinary Cath still in place: Yes Reason Cath still needed: terminal illness/intractable pain Assessment/Plan Assessment/Plan 1. Acute hypoxic respiratory failure- improving - Patient still requiring intermittent BIPAP given tachypneic and tachycardic when on NC for extended periods of time - Pulmonology on board and appreciate recommendations - Continue nebs, steroids and IV antibiotics - monitor for improvement 2. RLL PNA - seen on CXR - ?Aspiration vs HCAP - IV antibiotics on board - nebs and PRN on board 3. COPD exacerbation - nebs, steroids, antibiotics 4. h/o Afib and SVT - Cardiology on board and appreciate recommendations. Continue current medications 5. ?CHF - responded to lasix but EF 65% on last ECHO and does not appear overloaded - will continue monitoring I/O and daily weights 6. hyperglycemia- resolved - most likely secondary to steroids - A1c from 06/2018 was 5 7. Disposition - Stable for transfer to Telemetry, pending reevaluation for [place] admission. Patient still requiring BIPAP throughout the day and would benefit from more pulmonary rehabilitation. Result Diagram: 08/09/18 0438 08/09/18 0438 Subjective 24 Hr Interval Summary Free Text/Dictation Patient currently on BIPAP and denies any acute respiratory issues. Complaining of increase in phlegm production. no acute overnight events. Exam/Review of Systems Exam Vitals Vital Signs Date Temp Pulse Resp B/P (MAP) Pulse Ox O2 O2 Flow FiO2 Time Delivery Rate 08/10/18 78 08:00 08/10/18 97.6 32 133/101 92 Nasal 08:00 (112) Cannula 08/10/18 35 03:20 08/09/18 3.0 19:00 Intake and Output 08/09/18 08/09/18 08/10/18 1515:00 23:00 07:00 IntakeIntake Total 700 ml 340 ml 220 ml OutputOutput Total 355 ml 90 ml 300 ml BalanceBalance 345 ml 250 ml -80 ml Exam General: no acute distress. on BIPAP mask. no respiratory issues Neck: Supple with full range of motion. Lungs: Diminished at bases, no wheezing appreciated Heart: Normal S1-S2, Regular rhythm and rate. no murmurs appreciated Abdomen: Soft , nontender, protuberant, bowel sounds are present. No guarding no rebound tenderness Extremities: Normal to inspection, no edema no cyanosis Skin: no lesions or rashes noted. Medications Medication Current Medications Acetaminophen (Tylenol Tab) 650 mg Q6H PRN PO MILD PAIN LEVEL 1-3; Start 08/08/18 at 12:00 Atorvastatin Calcium (Lipitor) 10 mg QHS PO Last administered on 08/09/18 20:42; Admin Dose 10 MG; Start 08/08/18 at 21:00 Docusate Sodium (Colace) 100 mg BID PRN PO constipation; Start 08/08/18 at 12:00 Enoxaparin Sodium (Lovenox) 40 mg DAILY SC Last administered on 08/09/18 08:57; Admin Dose 40 MG; Start 08/09/18 at 09:00 Famotidine (Pepcid) 20 mg DAILY PO Last administered on 08/09/18 08:54; Admin Dose 20 MG; Start 08/09/18 at 09:00 Ipratropium [place] (Atrovent Hfa) 2 puff Q4 PRN INH shortness of breath; Start 08/08/18 at 12:00 Albuterol/ Ipratropium (Duoneb) 3 ml Q6H RESP THERAPY HHN Last administered on 08/10/18at 02:40; Admin Dose 3 ML; Start 08/08/18 at 14:00 Lubiprostone (Amitiza) 24 mcg BID PO Last administered on 08/09/18 20:42; Admin Dose 24 MCG; Start 08/08/18 at 21:00 Magnesium Hydroxide (Milk Of Mag) 30 ml DAILY PRN PO CONSTIPATION; Start 08/08/18 at 12:00 Methylprednisolone Sodium Succinate (Solu-Medrol) 60 mg Q8 IV Last administered on 08/10/18at 05:17; Admin Dose 60 MG; Start 08/08/18 at 14:00 Montelukast Sodium (Singulair) 10 mg QHS PO Last administered on 08/09/18at 20:4 2; Admin Dose 10 MG; Start 08/08/18 at 21:00 Multivitamins Therapeutic (Theragran) 1 tab DAILY PO Last administered on 08/09/18 08:54; Admin Dose 1 TAB; Start 08/09/18 at 09:00 Polyethylene Glycol (Miralax) 17 gm TID PRN PO CONSTIPATION; Start 08/08/18 at 12:00 Senna/Docusate Sodium (Senokot-S) 2 tab AM PO Last administered on 08/09/18 08:56; Admin Dose 2 TAB; Start 08/09/18 at 09:00 Simethicone (Mylicon) 80 mg TID PRN PO DISTENSION/GAS/BLOATING; Start 08/08/18 at 12:00 Tamsulosin HCl (Flomax) 0.4 mg HS PO Last administered on 08/09/18 20:42; Admin Dose 0.4 MG; Start 08/08/18 at 21:00 Ondansetron HCl (Zofran Inj) 4 mg Q6H PRN IV NAUSEA AND/OR VOMITING; Start 08/08/18 at 12:00 Piperacillin Sod/ Tazobactam Sod 100 ml @ 200 mls/hr Q8 IVPB Last administered on 08/10/18 05:17; Admin Dose 200 MLS/HR; Start 08/08/18 at 14:00 Olopatadine HCl (Pataday) 1 drop DAILY BOTH EYES Last administered on 08/09/18 08:54; Admin Dose 1 DROP; Start 08/08/18 at 14:30 Diltiazem HCl (Cardizem) 30 mg TID PO Last administered on 08/09/18 20:46; Admin Dose 30 MG; Start 08/08/18 at 16:00 Dronedarone (Multaq) 400 mg BID WITH MEALS PO Last administered on 08/09/18 18:12; Admin Dose 400 MG; Start 08/08/18 at 17:35 Diltiazem HCl (Cardizem Iv) 5 mg Q1H PRN IV afib with HR > 120; Start 08/08/18 at 14:30 Aspirin (Halfprin) 81 mg DAILY PO Last administered on 08/09/18 09:46; Admin Dose 81 MG; Start 08/09/18 at 09:00 Mupirocin (Bactroban) 1 applic BID TOP Last administered on 08/09/18 20:41; Admin Dose 1 APPLIC; Start 08/09/18 at 21:00 CHASIDY VILLEGAS MD Aug 10, 2018 09:28
--- NOTE | 2018-08-10 09:36 | CONS ---
Consult Date/Type/Reason Admit Date/Time Aug 08, 2018 at 11:30 Initial Consult Date 08/08/18 Type of Consult Pulmonary Requesting Provider: ALEXI ALLISON MD, [facility] Date/Time of Note DATE: 08/10/18 TIME: 09:35 Subjective Patient continues bilevel ventilation intermittently. Comfortable off BiPAP. Significant anxiety component. Objective Vital Signs Date Temp Pulse Resp B/P (MAP) Pulse Ox O2 O2 Flow FiO2 Time Delivery Rate 08/10/18 78 08:00 08/10/18 97.6 32 133/101 92 Nasal 08:00 (112) Cannula 08/10/18 35 03:20 08/09/18 3.0 19:00 Intake and Output 08/09/18 08/09/18 08/10/18 1515:00 23:00 07:00 IntakeIntake Total 700 ml 340 ml 220 ml OutputOutput Total 355 ml 90 ml 300 ml BalanceBalance 345 ml 250 ml -80 ml Exam GENERAL: Elderly gentleman comfortable at rest no acute distress VITAL SIGNS: per chart NECK: Supple. No JVD or lymphadenopathy. CARDIAC EXAM: S1, S2. No added sounds or murmurs. CHEST: Diminished air entry bilaterally ABDOMEN: Soft, nontender. No guarding or rebound. EXTREMITIES: No cyanosis, clubbing or edema. NEUROLOGIC: Generalized weakness. No focal deficits. Vent Setting Fraction of Inspired Oxygen pe: 33 Results/Medications Result Diagram: 08/09/188 08/09/18 0438 Medications Current Medications Acetaminophen (Tylenol Tab) 650 mg Q6H PRN PO MILD PAIN LEVEL 1-3; Start 08/08/18 at 12:00 Atorvastatin Calcium (Lipitor) 10 mg QHS PO Last administered on 08/09/18at 20:42; Admin Dose 10 MG; Start 08/08/18 at 21:00 Docusate Sodium (Colace) 100 mg BID PRN PO constipation; Start 08/08/18 at 1 2:00 Enoxaparin Sodium (Lovenox) 40 mg DAILY SC Last administered on 08/09/18at 08:57; Admin Dose 40 MG; Start 08/09/18 at 09:00 Famotidine (Pepcid) 20 mg DAILY PO Last administered on 08/09/18at 08:54; Admin Dose 20 MG; Start 08/09/18 at 09:00 Ipratropium [place] (Atrovent Hfa) 2 puff Q4 PRN INH shortness of breath; Start 08/08/18 at 12:00 Albuterol/ Ipratropium (Duoneb) 3 ml Q6H RESP THERAPY HHN Last administered on 08/10/18 02:40; Admin Dose 3 ML; Start 08/08/18 at 14:00 Lubiprostone (Amitiza) 24 mcg BID PO Last administered on 08/09/18 20:42; Admin Dose 24 MCG; Start 08/08/18 at 21:00 Magnesium Hydroxide (Milk Of Mag) 30 ml DAILY PRN PO CONSTIPATION; Start 08/08/18 at 12:00 Methylprednisolone Sodium Succinate (Solu-Medrol) 60 mg Q8 IV Last administered on 08/10/18 05:17; Admin Dose 60 MG; Start 08/08/18 at 14:00 Montelukast Sodium (Singulair) 10 mg QHS PO Last administered on 08/09/18 20:42; Admin Dose 10 MG; Start 08/08/18 at 21:00 Multivitamins Therapeutic (Theragran) 1 tab DAILY PO Last administered on 08/09/18 08:54; Admin Dose 1 TAB; Start 08/09/18 at 09:00 Polyethylene Glycol (Miralax) 17 gm TID PRN PO CONSTIPATION; Start 08/08/18 at 12:00 Senna/Docusate Sodium (Senokot-S) 2 tab AM PO Last administered on 08/09/18 08:56; Admin Dose 2 TAB; Start 08/09/18 at 09:00 Simethicone (Mylicon) 80 mg TID PRN PO DISTENSION/GAS/BLOATING; Start 08/08/18 at 12:00 Tamsulosin HCl (Flomax) 0.4 mg HS PO Last administered on 08/09/18 20:42; Admin Dose 0.4 MG; Start 08/08/18 at 21:00 Ondansetron HCl (Zofran Inj) 4 mg Q6H PRN IV NAUSEA AND/OR VOMITING; Start 08/08/18 at 12:00 Piperacillin Sod/ Tazobactam Sod 100 ml @ 200 mls/hr Q8 IVPB Last administered on 08/10/18 05:17; Admin Dose 200 MLS/HR; Start 08/08/18 at 14:00 Olopatadine HCl (Pataday) 1 drop DAILY BOTH EYES Last administered on 08/09/18 08:54; Admin Dose 1 DROP; Start 08/08/18 at 14:30 Diltiazem HCl (Cardizem) 30 mg TID PO Last administered on 08/09/18 20:46; Admin Dose 30 MG; Start 08/08/18 at 16:00 Dronedarone (Multaq) 400 mg BID WITH MEALS PO Last administered on 08/09/18 18:12; Admin Dose 400 MG; Start 08/08/18 at 17:35 Diltiazem HCl (Cardizem Iv) 5 mg Q1H PRN IV afib with HR > 120; Start 08/08/18 at 14:30 Aspirin (Halfprin) 81 mg DAILY PO Last administered on 08/09/18 09:46; Admin Dose 81 MG; Start 08/09/18 at 09:00 Mupirocin (Bactroban) 1 applic BID TOP Last administered on 08/09/18 20:41; Admin Dose 1 APPLIC; Start 08/09/18 at 21:00 Guaifenesin (Mucinex) 600 mg BID PO ; Start 08/10/18 at 09:30; Status UNV Assessment/Plan Hospital Course (Demo Recall) Assessment 1. Acute on chronic hypoxemic respiratory failure likely secondary to combination of diastolic dysfunction and severe COPD.Right lower lobe infiltrate possible aspiration pneumonia 2. Likely significant anxiety component. Plan 1. PRN nocturnal noninvasive positive pressure ventilation 2. Continue supplemental O2 3. Bronchodilators as needed 4. Cardiac recommendations Agree with transfer to telemetry and possibly back to [facility]. Palliative care consult regarding goals of care. ALEXI ALLISON MD, [facility] Aug 10, 2018 09:36
[2018-08-10] MEDS: SENNA/DOCUSATE NA (8.6MG/50MG) TAB PO SCH (09:39)
[2018-08-10] MEDS: ASPIRIN (EC) 81 MG TAB PO SCH (09:40)
[2018-08-10] MEDS: MULTIVITAMINS THERAPEUTIC TAB PO SCH (09:40)
[2018-08-10] MEDS: DILTIAZEM 30 MG TAB PO SCH ×3 (09:40→20:48)
[2018-08-10] MEDS: FAMOTIDINE 20 MG TAB PO SCH (09:40)
[2018-08-10] MEDS: MUPIROCIN 2% 22 GM OINT TOP SCH ×2 (09:41→20:48)
[2018-08-10] MEDS: DRONEDARONE HYDROCHLORIDE 400 MG TAB PO SCH ×2 (09:41→17:26)
[2018-08-10] MEDS: OLOPATADINE 0.2% (ONCE A DAY) OPHTH DROP 2.5 ML BOTH EYES SCH (09:57)
[2018-08-10] MEDS: LUBIPROSTONE 24 MCG CAP PO SCH ×2 (09:57→20:47)
[2018-08-10] MEDS: ENOXAPARIN 40 MG/0.4 ML SYG SC SCH (10:00)
[2018-08-10] MEDS: GUAIFENESIN LA 600 MG TABSR PO SCH ×2 (14:13→20:47)
[2018-08-10] MEDS: MONTELUKAST 10 MG TAB PO SCH (20:47)
[2018-08-10] MEDS: ATORVASTATIN 10 MG TAB PO SCH (20:47)
[2018-08-10] MEDS: PHENAZOPYRIDINE 100 MG TAB PO SCH (20:47)
[2018-08-10] MEDS: TAMSULOSIN (SR) 0.4 MG CAP PO SCH (20:47)
[2018-08-11] VITALS (20 sets, daily range): BP systolic 101–125; BP diastolic 55–62; PULSE 60–126; RESP 18–20
[2018-08-11] MEDS: ALBUTEROL/IPRATROPIUM (NEB) 3 ML AMP HHN SCH ×4 (02:12→19:46)
[2018-08-11] MEDS: PIPER-TAZO 3.375 GM IV (PMX) 100 ML IVPB SCH ×3 (06:04→21:52)
[2018-08-11] MEDS: METHYLPREDNISOLONE 125 MG INJ IV SCH ×3 (06:05→21:52)
[2018-08-11] MEDS: LUBIPROSTONE 24 MCG CAP PO SCH ×2 (09:13→20:07)
[2018-08-11] MEDS: MULTIVITAMINS THERAPEUTIC TAB PO SCH (09:13)
[2018-08-11] MEDS: ASPIRIN (EC) 81 MG TAB PO SCH (09:13)
[2018-08-11] MEDS: GUAIFENESIN LA 600 MG TABSR PO SCH ×2 (09:13→20:11)
[2018-08-11] MEDS: SENNA/DOCUSATE NA (8.6MG/50MG) TAB PO SCH (09:13)
[2018-08-11] MEDS: FAMOTIDINE 20 MG TAB PO SCH (09:13)
[2018-08-11] MEDS: DRONEDARONE HYDROCHLORIDE 400 MG TAB PO SCH ×2 (09:13→17:18)
[2018-08-11] MEDS: MUPIROCIN 2% 22 GM OINT TOP SCH ×2 (09:14→20:07)
[2018-08-11] MEDS: DILTIAZEM 30 MG TAB PO SCH ×3 (09:14→20:09)
[2018-08-11] MEDS: PHENAZOPYRIDINE 100 MG TAB PO SCH ×3 (09:25→20:08)
[2018-08-11] MEDS: ENOXAPARIN 40 MG/0.4 ML SYG SC SCH (09:36)
[2018-08-11] MEDS: OLOPATADINE 0.2% (ONCE A DAY) OPHTH DROP 2.5 ML BOTH EYES SCH (09:37)
[2018-08-11] MEDS ORDERED: POTASSIUM CHLORIDE (SR) 20 MEQ TAB PO STA (09:50)
--- NOTE | 2018-08-11 10:07 | PN ---
Date/Time of Note Date/Time of Note DATE: 08/11/18 TIME: 10:07 Objective Vitals Vital Signs Date Temp Pulse Resp B/P (MAP) Pulse Ox O2 O2 Flow FiO2 Time Delivery Rate 08/11/18 95 4.0 08:00 08/11/18 98.0 85 20 125/62 Mechanical 07:50 (83) Ventilator 08/11/18 40 05:11 Intake and Output 08/10/18 08/10/18 08/11/18 1515:00 23:00 07:00 IntakeIntake Total 600 ml 360 ml OutputOutput Total 235 ml 90 ml 400 ml BalanceBalance 365 ml 270 ml -400 ml Results Result Diagram: 08/11/18 0550 08/11/18 0550 Medications Medications Current Medications Acetaminophen (Tylenol Tab) 650 mg Q6H PRN PO MILD PAIN LEVEL 1-3; Start 08/08/18 at 12:00 Atorvastatin Calcium (Lipitor) 10 mg QHS PO Last administered on 08/10/18at 20:47; Admin Dose 10 MG; Start 08/08/18 at 21:00 Docusate Sodium (Colace) 100 mg BID PRN PO constipation; Start 08/08/18 at 12:00 Enoxaparin Sodium (Lovenox) 40 mg DAILY SC Last administered on 08/11/18at 09:36; Admin Dose 40 MG; Start 08/09/18 at 09:00 Famotidine (Pepcid) 20 mg DAILY PO Last administered on 08/11/18 09:13; Admin Dose 20 MG; Start 08/09/18 at 09:00 Ipratropium [place] (Atrovent Hfa) 2 puff Q4 PRN INH shortness of breath; Start 08/08/18 at 12:00 Albuterol/ Ipratropium (Duoneb) 3 ml Q6H RESP THERAPY HHN Last administered on 08/11/18 09:48; Admin Dose 3 ML; Start 08/08/18 at 14:00 Lubiprostone (Amitiza) 24 mcg BID PO Last administered on 08/11/18 09:13; Ad min Dose 24 MCG; Start 08/08/18 at 21:00 Magnesium Hydroxide (Milk Of Mag) 30 ml DAILY PRN PO CONSTIPATION; Start 08/08/18 at 12:00 Methylprednisolone Sodium Succinate (Solu-Medrol) 60 mg Q8 IV Last administered on 08/11/18 06:05; Admin Dose 60 MG; Start 08/08/18 at 14:00 Montelukast Sodium (Singulair) 10 mg QHS PO Last administered on 08/10/18 20:47; Admin Dose 10 MG; Start 08/08/18 at 21:00 Multivitamins Therapeutic (Theragran) 1 tab DAILY PO Last administered on 08/11/18 09:13; Admin Dose 1 TAB; Start 08/09/18 at 09:00 Polyethylene Glycol (Miralax) 17 gm TID PRN PO CONSTIPATION; Start 08/08/18 at 12:00 Senna/Docusate Sodium (Senokot-S) 2 tab AM PO Last administered on 08/11/18 0 9:13; Admin Dose 2 TAB; Start 08/09/18 at 09:00 Simethicone (Mylicon) 80 mg TID PRN PO DISTENSION/GAS/BLOATING; Start 08/08/18 at 12:00 Tamsulosin HCl (Flomax) 0.4 mg HS PO Last administered on 08/10/18 20:47; Admin Dose 0.4 MG; Start 08/08/18 at 21:00 Ondansetron HCl (Zofran Inj) 4 mg Q6H PRN IV NAUSEA AND/OR VOMITING; Start 08/08/18 at 12:00 Piperacillin Sod/ Tazobactam Sod 100 ml @ 200 mls/hr Q8 IVPB Last administered on 08/11/18 06:04; Admin Dose 200 MLS/HR; Start 08/08/18 at 14:00 Olopatadine HCl (Pataday) 1 drop DAILY BOTH EYES Last administered on 08/11/18 09:37; Admin Dose 1 DROP; Start 08/08/18 at 14:30 Diltiazem HCl (Cardizem) 30 mg TID PO Last administered on 08/11/18 09:14; Admin Dose 30 MG; Start 08/08/18 at 16:00 Dronedarone (Multaq) 400 mg BID WITH MEALS PO Last administered on 08/11/18 09:13; Admin Dose 400 MG; Start 08/08/18 at 17:35 Diltiazem HCl (Cardizem Iv) 5 mg Q1H PRN IV afib with HR > 120; Start 08/08/18 at 14:30 Aspirin (Halfprin) 81 mg DAILY PO Last administered on 08/11/18at 09:13; Admin Dose 81 MG; Start 08/09/18 at 09:00 Mupirocin (Bactroban) 1 applic BID TOP Last administered on 08/11/18at 09:14; Admin Dose 1 APPLIC; Start 08/09/18 at 21:00 Guaifenesin (Mucinex) 600 mg BID PO Last administered on 08/11/18at 09:13; Admin Dose 600 MG; Start 08/10/18 at 10:00 Phenazopyridine HCl (Pyridium) 100 mg TID PO Last administered on 08/11/18at 0 9:25; Admin Dose 100 MG; Start 08/10/18 at 21:00 VTE Prophylaxis Risk score (from [facility])>0 risk: 6 SCD applied (from [facility]): Yes Lines/Catheters IV Catheter Type: [place] in Place: No Assessment/Plan Hospital Course Subjective Patient not doing too well on nasal cannula, was put back on BiPAP, now comfortable, patient denies any new pain, denies any new issues with his urinary or bowels. Objective Physical exam General: Patient is laying in bed and answers questions by nodding his head, on BiPAP Mentation: Patient is alert and oriented Head: Normocephalic atraumatic Eyes: EOMI, pupils reactive to light Neck: Supple, nontender, midline Respiratory: Coarse to auscultation bilaterally Cardiovascular: regular rate, no obvious murmurs Gastrointestinal: non-tender to palpation, bowel sounds heard. Neurological: Moves all extremities spontaneously Skin: No new skin lesions Assessment/Plan 1. Acute hypoxic respiratory failure- improving - Patient still requiring intermittent BIPAP given tachypneic and tachycardic when on NC for extended periods of time - Pulmonology on board and appreciate recommendations - Continue nebs, steroids and IV antibiotics - monitor for improvement 2. RLL PNA - seen on CXR - ?Aspiration vs HCAP - IV antibiotics on board - nebs and PRN on board 3. COPD exacerbation - nebs, steroids, antibiotics 4. h/o Afib and SVT - Cardiology on board and appreciate recommendations. Continue current medications and adjust as needed 5. ?CHF - responded to lasix but EF 65% on last ECHO and does not appear overloaded - will continue monitoring I/O and daily weights 6. hyperglycemia- resolved - most likely secondary to steroids - A1c from 06/2018 was 5 7. Disposition -Monitor on telemetry, Yesi barajas. WILMER SANTIAGO Aug 11, 2018 10:07
--- NOTE | 2018-08-11 12:59 | CONS ---
Consult Date/Type/Reason Admit Date/Time Aug 08, 2018 at 11:30 Initial Consult Date 08/08/18 Type of Consult Pulmonary Requesting Provider: ALEXI ALLISON MD, [facility] Date/Time of Note DATE: 08/11/18 TIME: 12:58 Subjective Patient comfortable no respiratory distress. Objective Vital Signs Date Temp Pulse Resp B/P (MAP) Pulse Ox O2 O2 Flow FiO2 Time Delivery Rate 08/11/18 98.6 77 20 113/59 98 12:03 (77) 08/11/18 50 11:27 08/11/18 4.0 08:00 08/11/18 Mechanical 07:50 Ventilator Intake and Output 08/10/18 08/10/18 08/11/18 1515:00 23:00 07:00 IntakeIntake Total 600 ml 360 ml OutputOutput Total 235 ml 90 ml 400 ml BalanceBalance 365 ml 270 ml -400 ml Exam GENERAL: Elderly gentleman comfortable at rest no acute distress VITAL SIGNS: per chart NECK: Supple. No JVD or lymphadenopathy. CARDIAC EXAM: S1, S2. No added sounds or murmurs. CHEST: Diminished air entry bilaterally ABDOMEN: Soft, nontender. No guarding or rebound. EXTREMITIES: No cyanosis, clubbing or edema. NEUROLOGIC: Generalized weakness. No focal deficits. Vent Setting Fraction of Inspired Oxygen pe: 50 Results/Medications Result Diagram: 08/11/18 0550 08/11/18 0550 Results 24 hrs Laboratory Tests Test 08/10/18 22:00 08/11/18 05:50 Urine Color OTIS Urine Clarity CLOUDY A Urine pH 5.0 Urine Specific [place] 1.032 H Urine Ketones NEGATIVE Urine Nitrite NEGATIVE Urine Bilirubin NEGATIVE Urine Urobilinogen 1+ H Urine Leukocyte Esterase NEGATIVE Urine Microscopic RBC > 182 H Urine Microscopic WBC 49 H Urine Uric Acid Crystals MANY A Urine Hemoglobin 3+ H Urine Glucose NEGATIVE Urine Total Protein 2+ H White Blood Count 6.6 Red Blood Count 3.36 L Hemoglobin 9.2 L Hematocrit 28.8 L Mean Corpuscular Volume 85.7 Mean Corpuscular Hemoglobin 27.4 L Mean Corpuscular Hemoglobin Concent 31.9 L Red Cell Distribution Width 17.2 H Platelet Count 135 #L Mean Platelet Volume 11.0 H Immature Granulocytes % 2.700 H Neutrophils % 92.9 H Lymphocytes % 1.5 L Monocytes % 2.9 Eosinophils % 0.0 Basophils % 0.0 Nucleated Red Blood Cells % 0.0 Immature Granulocytes # 0.180 H Neutrophils # 6.1 Lymphocytes # 0.1 L Monocytes # 0.2 L Eosinophils # 0.0 Basophils # 0.0 Nucleated Red Blood Cells # 0.0 Sodium Level 136 Potassium Level 3.3 L Chloride Level 93 L Carbon Dioxide Level 38 H Anion Gap 5 Blood Urea Nitrogen 34 H Creatinine 0.49 L Glucose Level 109 Calcium Level 8.3 L Phosphorus Level 3.5 Magnesium Level 2.3 Albumin 2.7 L Medications Current Medications Acetaminophen (Tylenol Tab) 650 mg Q6H PRN PO MILD PAIN LEVEL 1-3; Start 08/08/18 at 12:00 Atorvastatin Calcium (Lipitor) 10 mg QHS PO Last administered on 08/10/18 20:47; Admin Dose 10 MG; Start 08/08/18 at 21:00 Docusate Sodium (Colace) 100 mg BID PRN PO constipation; Start 08/08/18 at 12:00 Enoxaparin Sodium (Lovenox) 40 mg DAILY SC Last administered on 08/11/18 09:36; Admin Dose 40 MG; Start 08/09/18 at 09:00 Famotidine (Pepcid) 20 mg DAILY PO Last administered on 08/11/18 09:13; Admin Dose 20 MG; Start 08/09/18 at 09:00 Ipratropium [place] (Atrovent Hfa) 2 puff Q4 PRN INH shortness of breath; Start 08/08/18 at 12:00 Albuterol/ Ipratropium (Duoneb) 3 ml Q6H RESP THERAPY HHN Last administered on 08/11/18 09:48; Admin Dose 3 ML; Start 08/08/18 at 14:00 Lubiprostone (Amitiza) 24 mcg BID PO Last administered on 08/11/18 09:13; Admin Dose 24 MCG; Start 08/08/18 at 21:00 Magnesium Hydroxide (Milk Of Mag) 30 ml DAILY PRN PO CONSTIPATION; Start 08/08/18 at 12:00 Methylprednisolone Sodium Succinate (Solu-Medrol) 60 mg Q8 IV Last administered on 08/11/18 06:05; Admin Dose 60 MG; Start 08/08/18 at 14:00 Montelukast Sodium (Singulair) 10 mg QHS PO Last administered on 08/10/18 20:47; Admin Dose 10 MG; Start 08/08/18 at 21:00 Multivitamins Therapeutic (Theragran) 1 tab DAILY PO Last administered on 08/11/18 09:13; Admin Dose 1 TAB; Start 08/09/18 at 09:00 Polyethylene Glycol (Miralax) 17 gm TID PRN PO CONSTIPATION; Start 08/08/18 at 12:00 Senna/Docusate Sodium (Senokot-S) 2 tab AM PO Last administered on 08/11/18 09:13; Admin Dose 2 TAB; Start 08/09/18 at 09:00 Simethicone (Mylicon) 80 mg TID PRN PO DISTENSION/GAS/BLOATING; Start 08/08/18 at 12:00 Tamsulosin HCl (Flomax) 0.4 mg HS PO Last administered on 08/10/18 20:47; Admin Dose 0.4 MG; Start 08/08/18 at 21:00 Ondansetron HCl (Zofran Inj) 4 mg Q6H PRN IV NAUSEA AND/OR VOMITING; Start 08/08/18 at 12:00 Piperacillin Sod/ Tazobactam Sod 100 ml @ 200 mls/hr Q8 IVPB Last administered on 08/11/18 06:04; Admin Dose 200 MLS/HR; Start 08/08/18 at 14:00 Olopatadine HCl (Pataday) 1 drop DAILY BOTH EYES Last administered on 08/11/18 09:37; Admin Dose 1 DROP; Start 08/08/18 at 14:30 Diltiazem HCl (Cardizem) 30 mg TID PO Last administered on 08/11/18 12:16; Admin Dose 30 MG; Start 08/08/18 at 16:00 Dronedarone (Multaq) 400 mg BID WITH MEALS PO Last administered on 08/11/18 09:13; Admin Dose 400 MG; Start 08/08/18 at 17:35 Diltiazem HCl (Cardizem Iv) 5 mg Q1H PRN IV afib with HR > 120; Start 08/08/18 at 14:30 Aspirin (Halfprin) 81 mg DAILY PO Last administered on 08/11/18 09:13; Admin Dose 81 MG; Start 08/09/18 at 09:00 Mupirocin (Bactroban) 1 applic BID TOP Last administered on 08/11/18at 09:14; Admin Dose 1 APPLIC; Start 08/09/18 at 21:00 Guaifenesin (Mucinex) 600 mg BID PO Last administered on 08/11/18at 09:13; Admin Dose 600 MG; Start 08/10/18 at 10:00 Phenazopyridine HCl (Pyridium) 100 mg TID PO Last administered on 08/11/18at 12:15; Admin Dose 100 MG; Start 08/10/18 at 21:00 Assessment/Plan Hospital Course (Demo Recall) Assessment 1. Acute on chronic hypoxemic respiratory failure likely secondary to combination of diastolic dysfunction and severe COPD.Right lower lobe infiltrate possible aspiration pneumonia 2. Likely significant anxiety component. Plan 1. PRN nocturnal noninvasive positive pressure ventilation 2. Continue supplemental O2 3. Bronchodilators as needed 4. Cardiac recommendations Transfer back to ALEXI Ribeiro MD, [facility] Aug 11, 2018 12:59
--- NOTE | 2018-08-11 15:25 | CONS ---
Consult Date/Type/Reason Admit Date/Time Aug 08, 2018 at 11:30 Initial Consult Date 08/08/18 Requesting Provider: ALEXI ALLISON MD, [facility] Date/Time of Note DATE: 08/11/18 TIME: 15:22 Subjective cardiology follow up note S; D/W staff and telemetry was reviewed patient remains sinus rhythm has an episode of SVTs severe respiratory distress Patient continued to be in respiratory distress on BiPAP currently no chest pain or pressure to He denies any palpitation to me but has shortness of breath Objective: General: Elderly gentleman in respiratory distress on BiPAP. HEENT: NC/AT. pupils are equal. round. NECK: . no stridor. CV: RRR. systolic murmur; no gallop or rubs. PULM: + rhonchi. GI: SOFT, NT, ND, no rebound or guarding Extremity: Trivial B/L LE edema. no clubbing. neuro: awake and alert, OX3. Psych: calm and pleasant rectal: deferred : normal Chest x-ray done 08/08/2018 which was also personally reviewed shows: 1. Mildly increased right basilar opacification, similar in size small right pleural effusion. 2. Right PIC line distal tip projects over the right axilla, unchanged. Review of the old chart showed echocardiogram was in April 2018 personally reviewed and showed Normal left ventricular systolic function. Normal left ventricular cavity size. Normal left ventricular wall thickness. Ejection fraction is visually es timated at 65 %. Normal appearance and function of the mitral valve with trace physiologic regurgitation. No significant aortic stenosis or insufficiency. Aortic valve not well visualized. Aortic cusps appear mildly calcified. Normal appearance of the tricuspid valve. Unable to obtain RVSP due to minimal presence of tricuspid regurgitation. Objective Vitals Vital Signs Date Temp Pulse Resp B/P (MAP) Pulse Ox O2 O2 Flow FiO2 Time Delivery Rate 08/11/18 97.4 60 20 107/55 99 15:16 (72) 08/11/18 50 15:07 08/11/18 4.0 08:00 08/11/18 Mechanical 07:50 Ventilator Intake and Output 08/10/18 08/10/18 08/11/18 1414:59 22:59 06:59 IntakeIntake Total 500 ml 460 ml OutputOutput Total 230 ml 120 ml 400 ml BalanceBalance 270 ml 340 ml -400 ml Results/Medications Result Diagram: 08/11/18 0550 08/11/18 0550 Results 24 hrs Laboratory Tests Test 08/10/18 22:00 08/11/18 05:50 Urine Color OTIS Urine Clarity CLOUDY A Urine pH 5.0 Urine Specific [place] 1.032 H Urine Ketones NEGATIVE Urine Nitrite NEGATIVE Urine Bilirubin NEGATIVE Urine Urobilinogen 1+ H Urine Leukocyte Esterase NEGATIVE Urine Microscopic RBC > 182 H Urine Microscopic WBC 49 H Urine Uric Acid Crystals MANY A Urine Hemoglobin 3+ H Urine Glucose NEGATIVE Urine Total Protein 2+ H White Blood Count 6.6 Red Blood Count 3.36 L Hemoglobin 9.2 L Hematocrit 28.8 L Mean Corpuscular Volume 85.7 Mean Corpuscular Hemoglobin 27.4 L Mean Corpuscular Hemoglobin Concent 31.9 L Red Cell Distribution Width 17.2 H Platelet Count 135 #L Mean Platelet Volume 11.0 H Immature Granulocytes % 2.700 H Neutrophils % 92.9 H Lymphocytes % 1.5 L Monocytes % 2.9 Eosinophils % 0.0 Basophils % 0.0 Nucleated Red Blood Cells % 0.0 Immature Granulocytes # 0.180 H Neutrophils # 6.1 Lymphocytes # 0.1 L Monocytes # 0.2 L Eosinophils # 0.0 Basophils # 0.0 Nucleated Red Blood Cells # 0.0 Sodium Level 136 Potassium Level 3.3 L Chloride Level 93 L Carbon Dioxide Level 38 H Anion Gap 5 Blood Urea Nitrogen 34 H Creatinine 0.49 L Glucose Level 109 Calcium Level 8.3 L Phosphorus Level 3.5 Magnesium Level 2.3 Albumin 2.7 L Home Meds Active Scripts Methylprednisolone Sodium Succinate PF (Solu-Medrol PF) 125 Mg/2 Ml Vial, 60 MG IV Q8 for 7 Days, VIAL Prov:KAMILLE FRASER MD 07/18/18 Sennosides/Docusate Sodium (Dok Plus Tablet) 1 Each Tablet, 2 TAB PO AM for 10 Days, TAB Prov:KAMILLE FRASER MD 07/18/18 Famotidine* (Famotidine*) 20 Mg Tablet, 20 MG PO DAILY for 10 Days, TAB Prov:KAMILLE FRASER MD 07/18/18 Lactobacillus Rhamnosus GG (Culturelle) 1 Each Capsule, 1 CAP PO BID for 10 Days, CAP Prov:KAMILLE FRASER MD 07/18/18 Enoxaparin Sodium* (Enoxaparin Sodium*) 40 Mg/0.4 Ml Syringe, 40 MG SC DAILY for 10 Days, #10 Prov:KAMILLE FRASER MD 07/18/18 Ipratropium-Albuterol (Ipratropium-Albuterol) 0.5-3 Mg/3 Ml Ampul.neb, 3 ML HHN Q6H RESP THERAPY for 14 Days Prov:KAMILLE FRASER MD 07/18/18 Reported Medications Hydrocodone/Acetaminophen ([place] 5-325 Tablet) 1 Each Tablet, 1 EACH PO Q6 PRN for MODERATE PAIN LEVEL 4-6, TAB 07/13/18 Olopatadine* (Pataday*) 0.2% - 2.5 Ml Drops, 1 DROP BOTH EYES BID, EA 07/13/18 Protein Supplement (Promod) 946 Ml Liquid, 946 ML PO BID 07/13/18 Simethicone* (Mylicon*) 80 Mg Tab, 80 MG PO TID PRN for DISTENSION/GAS/BLOATING, TAB 07/13/18 Tamsulosin Hcl* (Tamsulosin Hcl*) 0.4 Mg Cap.er.24h, 0.4 MG PO HS, CAP 07/13/18 Acetaminophen* (Acetaminophen*) 650 Mg Tablet, 650 MG PO Q6H PRN for MILD PAIN LEVEL 1-3, #30 TAB AND FEVER 07/13/18 Multivitamins* (Theragran*) 1 Tab Tab, 1 TAB PO DAILY, TAB 07/13/18 Montelukast Sodium* (Montelukast Sodium*) 10 Mg Tablet, 10 MG PO QHS, #30 TAB 07/13/18 Polyethylene Glycol* (Miralax*) 17 Gm Powd.pack, 17 GM PO TID PRN for CONSTIPATI ON, #60 PACKET 07/13/18 Throat Lozenges* (Cepastat*) 9 Josselin Lozenge, 1 LOZENGE MT EVERY 1 HOUR PRN, LOZENGE 07/13/18 Diltiazem Hcl* (Cardizem*) 30 Mg Tablet, 30 MG PO Q8 PRN for BLOOD PRESSURE SUPPORT, #90 TAB HOLD FOR SBP <110 OR HR <60 07/13/18 Docusate Sodium* (Docusate Sodium*) 100 Mg Capsule, 100 MG PO BID, #60 CAP 07/13/18 Bisacodyl (Dulcolax) 10 Mg Supp.rect, 10 MG RC PRN PRN for CONSTIPATION, SUPP.RECT 07/13/18 Furosemide* (Lasix*) 20 Mg Tablet, 20 MG PO DAILY, TAB 07/13/18 Guaifenesin* (Tussin*) 100 Mg/5 Ml Syrup, 200 MG PO Q4 PRN for COUGH, ML 07/13/18 Ipratropium [place]* (Atrovent HFA*) 12.9 Gm Aer.w.adap, 2 PUFF INHALATION Q6 for SHORTNESS OF BREATH, #1 INHALER FOR THE NEBULIZER 07/13/18 Losartan Potassium* (Losartan Potassium*) 50 Mg Tablet, 50 MG PO DAILY, TAB HOLD FOR SBP <110 OR HR <60 07/13/18 Lubiprostone* (Amitiza*) 24 Mcg Capsule, 24 MCG PO BID, #60 CAP 07/13/18 Magnesium Hydroxide* (Milk Of Magnesia*) 400 Mg/5 Ml Oral.susp, 30 ML PO DAILY PRN for CONSTIPATION, ML 07/13/18 Menthol (BENGAY) 113 Gm Gel..gram., 113 GM TP TID APPLY TO POSTERIOR RIGHT SHOULDER 07/13/18 Atorvastatin Calcium (Atorvastatin Calcium) 10 Mg Tablet, 10 MG PO QHS, #30 TAB 07/13/18 Polyvinyl Alcohol (Tears Again) 15 Ml Drops, 1 DRP BOTH EYES Q2HWA, BOTTLE 07/13/18 Medications Current Medications Acetaminophen (Tylenol Tab) 650 mg Q6H PRN PO MILD PAIN LEVEL 1-3; Start 08/08/18 at 12:00 Atorvastatin Calcium (Lipitor) 10 mg QHS PO Last administered on 08/10/18at 20:47; Admin Dose 10 MG; Start 08/08/18 at 21:00 Docusate Sodium (Colace) 100 mg BID PRN PO constipation; Start 08/08/18 at 12:00 Enoxaparin Sodium (Lovenox) 40 mg DAILY SC Last administered on 08/11/18at 09:36; Admin Dose 40 MG; Start 08/09/18 at 09:00 Famotidine (Pepcid) 20 mg DAILY PO Last administered on 08/11/18at 09:13; Admin Dose 20 MG; Start 08/09/18 at 09:00 Ipratropium [place] (Atrovent Hfa) 2 puff Q4 PRN INH shortness of breath; Start 08/08/18 at 12:00 Albuterol/ Ipratropium (Duoneb) 3 ml Q6H RESP THERAPY HHN Last administered on 08/11/18 15:05; Admin Dose 3 ML; Start 08/08/18 at 14:00 Lubiprostone (Amitiza) 24 mcg BID PO Last administered on 08/11/18 09:13; Admin Dose 24 MCG; Start 08/08/18 at 21:00 Magnesium Hydroxide (Milk Of Mag) 30 ml DAILY PRN PO CONSTIPATION; Start 07/21 01/08 at 12:00 Methylprednisolone Sodium Succinate (Solu-Medrol) 60 mg Q8 IV Last administered on 08/11/18 14:40; Admin Dose 60 MG; Start 08/08/18 at 14:00 Montelukast Sodium (Singulair) 10 mg QHS PO Last administered on 08/10/18 20:47; Admin Dose 10 MG; Start 08/08/18 at 21:00 Multivitamins Therapeutic (Theragran) 1 tab DAILY PO Last administered on 08/11/18 09:13; Admin Dose 1 TAB; Start 08/09/18 at 09:00 Polyethylene Glycol (Miralax) 17 gm TID PRN PO CONSTIPATION; Start 08/08/18 at 12:00 Senna/Docusate Sodium (Senokot-S) 2 tab AM PO Last administered on 08/11/18 09:13; Admin Dose 2 TAB; Start 08/09/18 at 09:00 Simethicone (Mylicon) 80 mg TID PRN PO DISTENSION/GAS/BLOATING; Start 08/08/18 at 12:00 Tamsulosin HCl (Flomax) 0.4 mg HS PO Last administered on 08/10/18 20:47; Admin Dose 0.4 MG; Start 08/08/18 at 21:00 Ondansetron HCl (Zofran Inj) 4 mg Q6H PRN IV NAUSEA AND/OR VOMITING; Start 08/08/18 at 12:00 Piperacillin Sod/ Tazobactam Sod 100 ml @ 200 mls/hr Q8 IVPB Last administered on 08/11/18 14:40; Admin Dose 200 MLS/HR; Start 08/08/18 at 14:00 Olopatadine HCl (Pataday) 1 drop DAILY BOTH EYES Last administered on 08/11/18 09:37; Admin Dose 1 DROP; Start 08/08/18 at 14:30 Diltiazem HCl (Cardizem) 30 mg TID PO Last administered on 08/11/18 12:16; Admin Dose 30 MG; Start 08/08/18 at 16:00 Dronedarone (Multaq) 400 mg BID WITH MEALS PO Last administered on 08/11/18 09:13; Admin Dose 400 MG; Start 08/08/18 at 17:35 Diltiazem HCl (Cardizem Iv) 5 mg Q1H PRN IV afib with HR > 120; Start 08/08/18 at 14:30 Aspirin (Halfprin) 81 mg DAILY PO Last administered on 08/11/18 09:13; Admin Dose 81 MG; Start 08/09/18 at 09:00 Mupirocin (Bactroban) 1 applic BID TOP Last administered on 08/11/18 09:14; Admin Dose 1 APPLIC; Start 08/09/18 at 21:00 Guaifenesin (Mucinex) 600 mg BID PO Last administered on 08/11/18 09:13; Admin Dose 600 MG; Start 08/10/18 at 10:00 Phenazopyridine HCl (Pyridium) 100 mg TID PO Last administered on 08/11/18 12:15; Admin Dose 100 MG; Start 08/10/18 at 21:00 Assessment/Plan Hospital Course (Demo Recall) 1. Acute hypoxemic hypercapnic respiratory failure 2. COPD exacerbation 3. Possible pneumonia 4. Questionable congestive heart failure: Patient clinically has responded to the IV Lasix but does not appear to be in fluid overloaded and has had normal ejection fraction 5. History of hypertension: Currently under good control 6. History of proximal atrial fibrillation and SVT most likely worsening by his respiratory failure 7. History of dyslipidemia Recommendations: Aspirin will be initiated I will start the patient back on Cardizem and Multaq to try to maintain sinus rhythm I will stop the losartan to avoid hypotensive episode Oxygen supplement BiPAP as needed will be deferred to the pulmonary recommendations Closely monitor for possible need for intubation Electrolyte we will be checking imaging adjust as needed Echocardiogram was done in April DVT prophylaxis and GI prophylaxis as per internal medicine Thank you for his referral. Continue follow along with you HAYLEE PINZON MD [facility] HAYLEE PINZON MD Aug 11, 2018 15:25
[2018-08-11] MEDS: MONTELUKAST 10 MG TAB PO SCH (20:08)
[2018-08-11] MEDS: TAMSULOSIN (SR) 0.4 MG CAP PO SCH (20:08)
[2018-08-11] MEDS: ATORVASTATIN 10 MG TAB PO SCH (20:08)
[2018-08-12] VITALS (24 sets, daily range): BP systolic 106–143; BP diastolic 55–66; PULSE 68–100; RESP 18–20
[2018-08-12] MEDS: ALBUTEROL/IPRATROPIUM (NEB) 3 ML AMP HHN SCH ×2 (01:58→08:07)
[2018-08-12] MEDS: METHYLPREDNISOLONE 125 MG INJ IV SCH ×3 (05:40→21:18)
[2018-08-12] MEDS: PIPER-TAZO 3.375 GM IV (PMX) 100 ML IVPB SCH ×3 (05:40→21:18)
[2018-08-12] MEDS: OLOPATADINE 0.2% (ONCE A DAY) OPHTH DROP 2.5 ML BOTH EYES SCH (09:00)
[2018-08-12] MEDS: PHENAZOPYRIDINE 100 MG TAB PO SCH ×3 (09:00→21:05)
[2018-08-12] MEDS: SENNA/DOCUSATE NA (8.6MG/50MG) TAB PO SCH (09:40)
[2018-08-12] MEDS: GUAIFENESIN LA 600 MG TABSR PO SCH ×2 (09:40→21:04)
[2018-08-12] MEDS: LUBIPROSTONE 24 MCG CAP PO SCH ×2 (09:40→21:00)
[2018-08-12] MEDS: DILTIAZEM 30 MG TAB PO SCH ×3 (09:41→21:04)
[2018-08-12] MEDS: MULTIVITAMINS THERAPEUTIC TAB PO SCH (09:41)
[2018-08-12] MEDS: ASPIRIN (EC) 81 MG TAB PO SCH (09:41)
[2018-08-12] MEDS: MUPIROCIN 2% 22 GM OINT TOP SCH ×2 (09:41→21:05)
[2018-08-12] MEDS: DRONEDARONE HYDROCHLORIDE 400 MG TAB PO SCH ×2 (09:41→18:35)
[2018-08-12] MEDS: FAMOTIDINE 20 MG TAB PO SCH (09:41)
[2018-08-12] MEDS: ENOXAPARIN 40 MG/0.4 ML SYG SC SCH (09:52)
--- NOTE | 2018-08-12 11:25 | PN ---
Date/Time of Note Date/Time of Note DATE: 08/12/18 TIME: 11:24 Objective Vitals Vital Signs Date Temp Pulse Resp B/P (MAP) Pulse Ox O2 O2 Flow FiO2 Time Delivery Rate 08/12/18 98.0 68 20 106/57 100 11:16 (73) 08/12/18 50 05:42 08/11/18 Nasal 4.0 19:48 Cannula Intake and Output 08/11/18 08/11/18 08/12/18 1414:59 22:59 06:59 IntakeIntake Total 550 ml 100 ml OutputOutput Total 300 ml 400 ml BalanceBalance 250 ml -300 ml Results Result Diagram: 08/12/1853008/12/18530 Medications Medications Current Medications Acetaminophen (Tylenol Tab) 650 mg Q6H PRN PO MILD PAIN LEVEL 1-3; Start 08/08/18 at 12:00 Atorvastatin Calcium (Lipitor) 10 mg QHS PO Last administered on 08/11/18at 20:08; Admin Dose 10 MG; Start 08/08/18 at 21:00 Docusate Sodium (Colace) 100 mg BID PRN PO constipation; Start 08/08/18 at 12:00 Enoxaparin Sodium (Lovenox) 40 mg DAILY SC Last administered on 08/12/18 09:52; Admin Dose 40 MG; Start 08/09/18 at 09:00 Famotidine (Pepcid) 20 mg DAILY PO Last administered on 08/12/18at 09:41; Admin Dose 20 MG; Start 08/09/18 at 09:00 Ipratropium [place] (Atrovent Hfa) 2 puff Q4 PRN INH shortness of breath; Start 08/08/18 at 12:00 Albuterol/ Ipratropium (Duoneb) 3 ml Q6H RESP THERAPY HHN Last administered on 08/12/18at 08:07; Admin Dose 3 ML; Start 08/08/18 at 14:00 Lubiprostone (Amitiza) 24 mcg BID PO Last administered on 08/12/18 09:40; Admin Dose 24 MCG; Start 08/08/18 at 21:00 Magnesium Hydroxide (Milk Of Mag) 30 ml DAILY PRN PO CONSTIPATION; Start at 12:00 Methylprednisolone Sodium Succinate (Solu-Medrol) 60 mg Q8 IV Last administered on 08/12/18 05:40; Admin Dose 60 MG; Start 08/08/18 at 14:00 Montelukast Sodium (Singulair) 10 mg QHS PO Last administered on 08/11/18 20:08; Admin Dose 10 MG; Start 08/08/18 at 21:00 Multivitamins Therapeutic (Theragran) 1 tab DAILY PO Last administered on 08/12/18 09:41; Admin Dose 1 TAB; Start 08/09/18 at 09:00 Polyethylene Glycol (Miralax) 17 gm TID PRN PO CONSTIPATION; Start 08/08/18 at 12:00 Senna/Docusate Sodium (Senokot-S) 2 tab AM PO Last administered on 08/12/18 09:40; Admin Dose 2 TAB; Start 08/09/18 at 09:00 Simethicone (Mylicon) 80 mg TID PRN PO DISTENSION/GAS/BLOATING; Start 08/08/18 at 12:00 Tamsulosin HCl (Flomax) 0.4 mg HS PO Last administered on 08/11/18 20:08; Admin Dose 0.4 MG; Start 08/08/18 at 21:00 Ondansetron HCl (Zofran Inj) 4 mg Q6H PRN IV NAUSEA AND/OR VOMITING; Start 08/08/18 at 12:00 Piperacillin Sod/ Tazobactam Sod 100 ml @ 200 mls/hr Q8 IVPB Last administered on 08/12/18 05:40; Admin Dose 200 MLS/HR; Start 08/08/18 at 14:00 Olopatadine HCl (Pataday) 1 drop DAILY BOTH EYES Last administered on 08/11/18 09:37; Admin Dose 1 DROP; Start 08/08/18 at 14:30 Diltiazem HCl (Cardizem) 30 mg TID PO Last administered on 08/12/18 09:41; Admin Dose 30 MG; Start 08/08/18 at 16:00 Dronedarone (Multaq) 400 mg BID WITH MEALS PO Last administered on 08/12/18 09:41; Admin Dose 400 MG; Start 08/08/18 at 17:35 Diltiazem HCl (Cardizem Iv) 5 mg Q1H PRN IV afib with HR > 120; Start 08/08/18 at 14:30 Aspirin (Halfprin) 81 mg DAILY PO Last administered on 08/12/18 09:41; Admin Dose 81 MG; Start 08/09/18 at 09:00 Mupirocin (Bactroban) 1 applic BID TOP Last administered on 08/12/18 09:41; Admin Dose 1 APPLIC; Start 08/09/18 at 21:00 Guaifenesin (Mucinex) 600 mg BID PO Last administered on 08/12/18 09:40; Admin Dose 600 MG; Start 08/10/18 at 10:00 Phenazopyridine HCl (Pyridium) 100 mg TID PO Last administered on 08/11/18 20:08; Admin Dose 100 MG; Start 08/10/18 at 21:00 VTE Prophylaxis Risk score (from [facility])>0 risk: 8 SCD applied (from [facility]): Yes Lines/Catheters IV Catheter Type: [place] in Place: No Assessment/Plan Hospital Course Subjective Patient persistently on BiPAP as he enjoys it more the nasal cannula, however still having multiple rounds of SVT and PVCs. Objective Physical exam General: Patient is laying in bed and answers questions by nodding his head, on BiPAP Mentation: Patient is alert and oriented Head: Normocephalic atraumatic Eyes: EOMI, pupils reactive to light Neck: Supple, nontender, midline Respiratory: Coarse to auscultation bilaterally Cardiovascular: regular rate, no obvious murmurs Gastrointestinal: non-tender to palpation, bowel sounds heard. Neurological: Moves all extremities spontaneously Skin: No new skin lesions Assessment/Plan 1. Acute hypoxic respiratory failure-slow improvement - Patient still requiring intermittent BIPAP given tachypneic and tachycardic when on NC for extended periods of time - Pulmonology on board and appreciate recommendations - Continue nebs, steroids and IV antibiotics - monitor for improvement 2. RLL PNA - seen on CXR - ?Aspiration vs HCAP - IV antibiotics on board - nebs and PRN on board 3. COPD exacerbation - nebs, steroids, antibiotics 4. h/o Afib and SVT - Cardiology on board and appreciate recommendations. Continue current medications and adjust as needed -Had SVT with breathing treatment, will try to adjust 5. ?CHF - responded to lasix but EF 65% on last ECHO and does not appear overloaded - will continue monitoring I/O and daily weights 6. hyperglycemia- resolved - most likely secondary to steroids - A1c from 06/2018 was 5 7. Disposition -Cardiology recommendations appreciated for recurrent SVT and PVCs WILMER SANTIAGO Aug 12, 2018 11:25
[2018-08-12] MEDS ORDERED: LEVALBUTEROL (NEB) 1.25 MG/0.5 ML AMP HHN PRN (11:30)
[2018-08-12] MEDS: LEVALBUTEROL (NEB) 1.25 MG/0.5 ML AMP HHN SCH ×2 (14:46→20:16)
[2018-08-12] MEDS: IPRATROPIUM (NEB) 0.5 MG/2.5 ML AMP HHN SCH ×2 (14:46→20:16)
--- NOTE | 2018-08-12 15:04 | CONS ---
Consult Date/Type/Reason Admit Date/Time Aug 08, 2018 at 11:30 Initial Consult Date 08/08/18 Requesting Provider: ALEXI ALLISON MD, [facility] Date/Time of Note DATE: 08/12/18 TIME: 15:01 Subjective cardiology follow up note S; D/W staff and telemetry was reviewed patient remains sinus rhythm but has had episodes of SVT d/w family Patient continued to be in respiratory distress and intermittently on BiPAP. no chest pain or pressure to He denies any palpitation to me but has shortness of breath Objective: General: Elderly gentleman in respiratory distress on BiPAP. HEENT: NC/AT. pupils are equal. round. NECK: . no stridor. CV: RRR. systolic murmur; no gallop or rubs. PULM: + rhonchi. GI: SOFT, NT, ND, no rebound or guarding Extremity: Trivial B/L LE edema. no clubbing. neuro: awake and alert, OX3. Psych: calm and pleasant rectal: deferred : normal Chest x-ray done 08/08/2018 which was also personally reviewed shows: 1. Mildly increased right basilar opacification, similar in size small right pleural effusion. 2. Right PIC line distal tip projects over the right axilla, unchanged. Review of the old chart showed echocardiogram was in April 2018 personally reviewed and showed Normal left ventricular systolic function. Normal left ventricular cavity size. Normal left ventricular wall thickness. Ejection fraction is visually estimated at 65 %. Normal appearance and function of the mitral valve with trace physiologic regurgitation. No significant aortic stenosis or insufficiency. Aortic valve not well visualized. Aortic cusps appear mildly calcified. Normal appearance of the tricuspid valve. Unable to obtain RVSP due to minimal presence of tricuspid regurgitation. Objective Vitals Vital Signs Date Temp Pulse Resp B/P (MAP) Pulse Ox O2 O2 Flow FiO2 Time Delivery Rate 08/12/18 96 12:00 08/12/18 97.6 20 115/55 96 11:30 (75) 08/12/18 50 05:42 08/11/18 Nasal 4.0 19:48 Cannula Intake and Output 08/11/18 08/11/18 08/12/18 1414:59 22:59 06:59 IntakeIntake Total 550 ml 100 ml OutputOutput Total 300 ml 400 ml BalanceBalance 250 ml -300 ml Exam cardiology follow up note S; D/W staff and telemetry was reviewed patient remains sinus rhythm . but has episodes of SVT Patient continued to be in respiratory distress intermittently on BiPAP. Discussed with family at the bedside. No report of chest pain or pressure. He denies any palpitation to me but has shortness of breath Objective: General: Elderly gentleman in respiratory distress on oxygen HEENT: NC/AT. pupils are equal. round. NECK: . no stridor. CV: RRR. systolic murmur; no gallop or rubs. PULM: + rhonchi. + Wheezing GI: SOFT, NT, ND, no rebound or guarding Extremity: Trivial B/L LE edema. no clubbing. neuro: awake and alert, OX3. Psych: calm and pleasant rectal: deferred : normal Chest x-ray done 08/08/2018 which was also personally reviewed shows: 1. Mildly increased right basilar opacification, similar in size small right pleural effusion. 2. Right PIC line distal tip projects over the right axilla, unchanged. Review of the old chart showed echocardiogram was in April 2018 personally rev iewed and showed Normal left ventricular systolic function. Normal left ventricular cavity size. Normal left ventricular wall thickness. Ejection fraction is visually estimated at 65 %. Normal appearance and function of the mitral valve with trace physiologic regurgitation. No significant aortic stenosis or insufficiency. Aortic valve not well visualized. Aortic cusps appear mildly calcified. Normal appearance of the tricuspid valve. Unable to obtain RVSP due to minimal presence of tricuspid regurgitation. Results/Medications Result Diagram: 08/12/18 0531 08/12/18 0531 Results 24 hrs Laboratory Tests Test 08/12/18 05:31 White Blood Count 6.1 Red Blood Count 3.38 L Hemoglobin 9.3 L Hematocrit 29.0 L Mean Corpuscular Volume 85.8 Mean Corpuscular Hemoglobin 27.5 L Mean Corpuscular Hemoglobin Concent 32.1 Red Cell Distribution Width 17.1 H Platelet Count 122 L Mean Platelet Volume 10.5 H Immature Granulocytes % 1.500 H Neutrophils % 94.9 H Lymphocytes % 1.0 L Monocytes % 2.6 Eosinophils % 0.0 Basophils % 0.0 Nucleated Red Blood Cells % 0.0 Immature Granulocytes # 0.090 H Neutrophils # 5.8 Lymphocytes # 0.1 L Monocytes # 0.2 L Eosinophils # 0.0 Basophils # 0.0 Nucleated Red Blood Cells # 0.0 Sodium Level 138 Potassium Level 3.7 Chloride Level 97 Carbon Dioxide Level 37 H Anion Gap 4 L Blood Urea Nitrogen 30 H Creatinine 0.56 L Est Glomerular Filtrat Rate mL/min Glucose Level 130 Calcium Level 8.7 Phosphorus Level 2.9 Magnesium Level 2.3 Home Meds Active Scripts Methylprednisolone Sodium Succinate PF (Solu-Medrol PF) 125 Mg/2 Ml Vial, 60 MG IV Q8 for 7 Days, VIAL Prov:KAMILLE FRASER MD 07/18/18 Sennosides/Docusate Sodium (Dok Plus Tablet) 1 Each Tablet, 2 TAB PO AM for 10 Days, TAB Prov:KAMILLE FRASER MD 07/18/18 Famotidine* (Famotidine*) 20 Mg Tablet, 20 MG PO DAILY for 10 Days, TAB Prov:KAMILLE FRASER MD 07/18/18 Lactobacillus Rhamnosus GG (Culturelle) 1 Each Capsule, 1 CAP PO BID for 10 Days, CAP Prov:KAMILLE FRASER MD 07/18/18 Enoxaparin Sodium* (Enoxaparin Sodium*) 40 Mg/0.4 Ml Syringe, 40 MG SC DAILY for 10 Days, #10 Prov:KAMILLE FRASER MD 07/18/18 Ipratropium-Albuterol (Ipratropium-Albuterol) 0.5-3 Mg/3 Ml Ampul.neb, 3 ML HHN Q6H RESP THERAPY for 14 Days Prov:KAMILLE FRASER MD 07/18/18 Reported Medications Hydrocodone/Acetaminophen ([place] 5-325 Tablet) 1 Each Tablet, 1 EACH PO Q6 PRN for MODERATE PAIN LEVEL 4-6, TAB 07/13/18 Olopatadine* (Pataday*) 0.2% - 2.5 Ml Drops, 1 DROP BOTH EYES BID, EA 07/13/18 Protein Supplement (Promod) 946 Ml Liquid, 946 ML PO BID 07/13/18 Simethicone* (Mylicon*) 80 Mg Tab, 80 MG PO TID PRN for DISTENSION/GAS/BLOATING, TAB 07/13/18 Tamsulosin Hcl* (Tamsulosin Hcl*) 0.4 Mg Cap.er.24h, 0.4 MG PO HS, CAP 07/13/18 Acetaminophen* (Acetaminophen*) 650 Mg Tablet, 650 MG PO Q6H PRN for MILD PAIN LEVEL 1-3, #30 TAB AND FEVER 07/13/18 Multivitamins* (Theragran*) 1 Tab Tab, 1 TAB PO DAILY, TAB 07/13/18 Montelukast Sodium* (Montelukast Sodium*) 10 Mg Tablet, 10 MG PO QHS, #30 TAB 07/13/18 Polyethylene Glycol* (Miralax*) 17 Gm Powd.pack, 17 GM PO TID PRN for CONST IPATION, #60 PACKET 07/13/18 Throat Lozenges* (Cepastat*) 9 Josselin Lozenge, 1 LOZENGE MT EVERY 1 HOUR PRN, LOZENGE 07/13/18 Diltiazem Hcl* (Cardizem*) 30 Mg Tablet, 30 MG PO Q8 PRN for BLOOD PRESSURE SUPPORT, #90 TAB HOLD FOR SBP <110 OR HR <60 07/13/18 Docusate Sodium* (Docusate Sodium*) 100 Mg Capsule, 100 MG PO BID, #60 CAP 07/13/18 Bisacodyl (Dulcolax) 10 Mg Supp.rect, 10 MG RC PRN PRN for CONSTIPATION, SUPP.RE CT 07/13/18 Furosemide* (Lasix*) 20 Mg Tablet, 20 MG PO DAILY, TAB 07/13/18 Guaifenesin* (Tussin*) 100 Mg/5 Ml Syrup, 200 MG PO Q4 PRN for COUGH, ML 07/13/18 Ipratropium [place]* (Atrovent HFA*) 12.9 Gm Aer.w.adap, 2 PUFF INHALATION Q6 f or SHORTNESS OF BREATH, #1 INHALER FOR THE NEBULIZER 07/13/18 Losartan Potassium* (Losartan Potassium*) 50 Mg Tablet, 50 MG PO DAILY, TAB HOLD FOR SBP <110 OR HR <60 07/13/18 Lubiprostone* (Amitiza*) 24 Mcg Capsule, 24 MCG PO BID, #60 CAP 07/13/18 Magnesium Hydroxide* (Milk Of Magnesia*) 400 Mg/5 Ml Oral.susp, 30 ML PO DAILY PRN for CONSTIPATION, ML 07/13/18 Menthol (BENGAY) 113 Gm Gel..gram., 113 GM TP TID APPLY TO POSTERIOR RIGHT SHOULDER 07/13/18 Atorvastatin Calcium (Atorvastatin Calcium) 10 Mg Tablet, 10 MG PO QHS, #30 TAB 07/13/18 Polyvinyl Alcohol (Tears Again) 15 Ml Drops, 1 DRP BOTH EYES Q2HWA, BOTTLE 07/13/18 Medications Current Medications Acetaminophen (Tylenol Tab) 650 mg Q6H PRN PO MILD PAIN LEVEL 1-3; Start 08/08/18 at 12:00 Atorvastatin Calcium (Lipitor) 10 mg QHS PO Last administered on 08/11/18at 2 0:08; Admin Dose 10 MG; Start 08/08/18 at 21:00 Docusate Sodium (Colace) 100 mg BID PRN PO constipation; Start 08/08/18 at 12:00 Enoxaparin Sodium (Lovenox) 40 mg DAILY SC Last administered on 08/12/18 09:52; Admin Dose 40 MG; Start 08/09/18 at 09:00 Famotidine (Pepcid) 20 mg DAILY PO Last administered on 08/12/18 09:41; Admin Dose 20 MG; Start 08/09/18 at 09:00 Lubiprostone (Amitiza) 24 mcg BID PO Last administered on 08/12/18 09:40; Admin Dose 24 MCG; Start 08/08/18 at 21:00 Magnesium Hydroxide (Milk Of Mag) 30 ml DAILY PRN PO CONSTIPATION; Start 08/08/18 at 12:00 Methylprednisolone Sodium Succinate (Solu-Medrol) 60 mg Q8 IV Last administered on 08/12/18at 14:14; Admin Dose 60 MG; Start 08/08/18 at 14:00 Montelukast Sodium (Singulair) 10 mg QHS PO Last administered on 08/11/18 20:08; Admin Dose 10 MG; Start 08/08/18 at 21:00 Multivitamins Therapeutic (Theragran) 1 tab DAILY PO Last administered on 08/12/18 09:41; Admin Dose 1 TAB; Start 08/09/18 at 09:00 Polyethylene Glycol (Miralax) 17 gm TID PRN PO CONSTIPATION; Start 08/08/18 at 12:00 Senna/Docusate Sodium (Senokot-S) 2 tab AM PO Last administered on 08/12/18 09:40; Admin Dose 2 TAB; Start 08/09/18 at 09:00 Simethicone (Mylicon) 80 mg TID PRN PO DISTENSION/GAS/BLOATING; Start 08/08/18 at 12:00 Tamsulosin HCl (Flomax) 0.4 mg HS PO Last administered on 08/11/18 20:08; Admin Dose 0.4 MG; Start 08/08/18 at 21:00 Ondansetron HCl (Zofran Inj) 4 mg Q6H PRN IV NAUSEA AND/OR VOMITING; Start 08/08/18 at 12:00 Piperacillin Sod/ Tazobactam Sod 100 ml @ 200 mls/hr Q8 IVPB Last administered on 08/12/18 14:15; Admin Dose 200 MLS/HR; Start 08/08/18 at 14:00 Olopatadine HCl (Pataday) 1 drop DAILY BOTH EYES Last administered on 08/11/18 09:37; Admin Dose 1 DROP; Start 08/08/18 at 14:30 Diltiazem HCl (Cardizem) 30 mg TID PO Last administered on 08/12/18 14:16; Admin Dose 30 MG; Start 08/08/18 at 16:00 Dronedarone (Multaq) 400 mg BID WITH MEALS PO Last administered on 08/12/18 09:41; Admin Dose 400 MG; Start 08/08/18 at 17:35 Diltiazem HCl (Cardizem Iv) 5 mg Q1H PRN IV afib with HR > 120; Start 08/08/18 at 14:30 Aspirin (Halfprin) 81 mg DAILY PO Last administered on 08/12/18 09:41; Admin Dose 81 MG; Start 08/09/18 at 09:00 Mupirocin (Bactroban) 1 applic BID TOP Last administered on 08/12/18 09:41; Admin Dose 1 APPLIC; Start 08/09/18 at 21:00 Guaifenesin (Mucinex) 600 mg BID PO Last administered on 08/12/18 09:40; Admin Dose 600 MG; Start 08/10/18 at 10:00 Phenazopyridine HCl (Pyridium) 100 mg TID PO Last administered on 08/12/18 14:14; Admin Dose 100 MG; Start 08/10/18 at 21:00 Levalbuterol (Xopenex Neb) 1.25 mg Q6H RESP THERAPY HHN Last administered on 08/12/18 14:46; Admin Dose 1.25 MG; Start 08/12/18 at 14:00 Levalbuterol (Xopenex Neb) 1.25 mg Q6H RESP THERAPY PRN HHN shortness of breath; Start 08/12/18 at 11:30 Ipratropium [place] (Atrovent 0.02% (Neb)) 0.5 mg Q6HWA RESP THERAPY HHN Last administered on 08/12/18 14:46; Admin Dose 0.5 MG; Start 08/12/18 at 14:00 Ipratropium [place] (Atrovent 0.02% (Neb)) 0.5 mg Q4H RESP THERAPY PRN HHN SHORTNESS OF BREATH; Start 08/12/18 at 11:30 Budesonide (Pulmicort (Neb)) 0.5 mg BID RESP THERAPY HHN ; Start 08/12/18 at 20 :00 Assessment/Plan Hospital Course (Demo Recall) 1. Acute hypoxemic hypercapnic respiratory failure 2. COPD exacerbation 3. Possible pneumonia 4. Questionable congestive heart failure: Patient clinically has responded to the IV Lasix but does not appear to be in fluid overloaded and has had normal ejection fraction 5. History of hypertension: Currently under good control 6. History of proximal atrial fibrillation and SVT most likely worsening by his respiratory failure 7. History of dyslipidemia Recommendations: Continue with aspirin Continue with Cardizem and Multaq to try to maintain sinus rhythm Oxygen supplement BiPAP as needed will be deferred to the pulmonary recommendations Closely monitor for possible need for intubation Electrolyte we will be checking imaging adjust as needed Echocardiogram was done in April DVT prophylaxis and GI prophylaxis as per internal medicine Thank you for his referral. Continue follow along with you HAYLEE PINZON MD [facility] HAYLEE PINZON MD Aug 12, 2018 15:04
--- NOTE | 2018-08-12 15:08 | CONS ---
Consult Date/Type/Reason Admit Date/Time Aug 08, 2018 at 11:30 Initial Consult Date 08/08/18 Type of Consult Pulmonary Requesting Provider: ALEXI ALLISON MD, [facility] Date/Time of Note DATE: 08/12/18 TIME: 15:07 Subjective Patient stable this morning. No respiratory distress SVTs noted overnight. Objective Vital Signs Date Temp Pulse Resp B/P (MAP) Pulse Ox O2 O2 Flow FiO2 Time Delivery Rate 08/12/18 96 12:00 08/12/18 97.6 20 115/55 96 11:30 (75) 08/12/18 50 05:42 08/11/18 Nasal 4.0 19:48 Cannula Intake and Output 08/11/18 08/11/18 08/12/18 1515:00 23:00 07:00 IntakeIntake Total 550 ml 100 ml OutputOutput Total 300 ml 400 ml BalanceBalance 250 ml -300 ml Exam GENERAL: Elderly gentleman comfortable at rest no acute distress VITAL SIGNS: per chart NECK: Supple. No JVD or lymphadenopathy. CARDIAC EXAM: S1, S2. No added sounds or murmurs. CHEST: Diminished air entry bilaterally ABDOMEN: Soft, nontender. No guarding or rebound. EXTREMITIES: No cyanosis, clubbing or edema. NEUROLOGIC: Generalized weakness. No focal deficits. Vent Setting Fraction of Inspired Oxygen pe: 36 Results/Medications Result Diagram: 08/12/1831 08/12/18 0531 Results 24 hrs Laboratory Tests Test 08/12/18 05:31 White Blood Count 6.1 Red Blood Count 3.38 L Hemoglobin 9.3 L Hematocrit 29.0 L Mean Corpuscular Volume 85.8 Mean Corpuscular Hemoglobin 27.5 L Mean Corpuscular Hemoglobin Concent 32.1 Red Cell Distribution Width 17.1 H Platelet Count 122 L Mean Platelet Volume 10.5 H Immature Granulocytes % 1.500 H Neutrophils % 94.9 H Lymphocytes % 1.0 L Monocytes % 2.6 Eosinophils % 0.0 Basophils % 0.0 Nucleated Red Blood Cells % 0.0 Immature Granulocytes # 0.090 H Neutrophils # 5.8 Lymphocytes # 0.1 L Monocytes # 0.2 L Eosinophils # 0.0 Basophils # 0.0 Nucleated Red Blood Cells # 0.0 Sodium Level 138 Potassium Level 3.7 Chloride Level 97 Carbon Dioxide Level 37 H Anion Gap 4 L Blood Urea Nitrogen 30 H Creatinine 0.56 L Est Glomerular Filtrat Rate mL/min Glucose Level 130 Calcium Level 8.7 Phosphorus Level 2.9 Magnesium Level 2.3 Medications Current Medications Acetaminophen (Tylenol Tab) 650 mg Q6H PRN PO MILD PAIN LEVEL 1-3; Start 08/08/18 at 12:00 Atorvastatin Calcium (Lipitor) 10 mg QHS PO Last administered on 08/11/18 20:08; Admin Dose 10 MG; Start 08/08/18 at 21:00 Docusate Sodium (Colace) 100 mg BID PRN PO constipation; Start 08/08/18 at 12:00 Enoxaparin Sodium (Lovenox) 40 mg DAILY SC Last administered on 08/12/18 09:52; Admin Dose 40 MG; Start 08/09/18 at 09:00 Famotidine (Pepcid) 20 mg DAILY PO Last administered on 08/12/18 09:41; Admin Dose 20 MG; Start 08/09/18 at 09:00 Lubiprostone (Amitiza) 24 mcg BID PO Last administered on 08/12/18 09:40; Admin Dose 24 MCG; Start 08/08/18 at 21:00 Magnesium Hydroxide (Milk Of Mag) 30 ml DAILY PRN PO CONSTIPATION; Start 08/08/18 at 12:00 Methylprednisolone Sodium Succinate (Solu-Medrol) 60 mg Q8 IV Last administered on 08/12/18 14:14; Admin Dose 60 MG; Start 08/08/18 at 14:00 Montelukast Sodium (Singulair) 10 mg QHS PO Last administered on 08/11/18 20:08; Admin Dose 10 MG; Start 08/08/18 at 21:00 Multivitamins Therapeutic (Theragran) 1 tab DAILY PO Last administered on 08/12/18 09:41; Admin Dose 1 TAB; Start 08/09/18 at 09:00 Polyethylene Glycol (Miralax) 17 gm TID PRN PO CONSTIPATION; Start 08/08/18 at 12:00 Senna/Docusate Sodium (Senokot-S) 2 tab AM PO Last administered on 08/12/18 09:40; Admin Dose 2 TAB; Start 08/09/18 at 09:00 Simethicone (Mylicon) 80 mg TID PRN PO DISTENSION/GAS/BLOATING; Start 08/08/18 at 12:00 Tamsulosin HCl (Flomax) 0.4 mg HS PO Last administered on 08/11/18 20:08; Admin Dose 0.4 MG; Start 08/08/18 at 21:00 Ondansetron HCl (Zofran Inj) 4 mg Q6H PRN IV NAUSEA AND/OR VOMITING; Start 08/08/18 at 12:00 Piperacillin Sod/ Tazobactam Sod 100 ml @ 200 mls/hr Q8 IVPB Last administered on 08/12/18 14:15; Admin Dose 200 MLS/HR; Start 08/08/18 at 14:00 Olopatadine HCl (Pataday) 1 drop DAILY BOTH EYES Last administered on 08/11/18 09:37; Admin Dose 1 DROP; Start 08/08/18 at 14:30 Diltiazem HCl (Cardizem) 30 mg TID PO Last administered on 08/12/18 14:16; Admin Dose 30 MG; Start 08/08/18 at 16:00 Dronedarone (Multaq) 400 mg BID WITH MEALS PO Last administered on 08/12/18 09:41; Admin Dose 400 MG; Start 08/08/18 at 17:35 Diltiazem HCl (Cardizem Iv) 5 mg Q1H PRN IV afib with HR > 120; Start 08/08/18 at 14:30 Aspirin (Halfprin) 81 mg DAILY PO Last administered on 08/12/18 09:41; Admin Dose 81 MG; Start 08/09/18 at 09:00 Mupirocin (Bactroban) 1 applic BID TOP Last administered on 08/12/18 09:41; Admin Dose 1 APPLIC; Start 08/09/18 at 21:00 Guaifenesin (Mucinex) 600 mg BID PO Last administered on 08/12/18 09:40; Admin Dose 600 MG; Start 08/10/18 at 10:00 Phenazopyridine HCl (Pyridium) 100 mg TID PO Last administered on 08/12/18 14:14; Admin Dose 100 MG; Start 08/10/18 at 21:00 Levalbuterol (Xopenex Neb) 1.25 mg Q6H RESP THERAPY HHN Last administered on 4/23/19at 14:46; Admin Dose 1.25 MG; Start 08/12/18 at 14:00 Levalbuterol (Xopenex Neb) 1.25 mg Q6H RESP THERAPY PRN HHN shortness of breath; Start 08/12/18 at 11:30 Ipratropium [place] (Atrovent 0.02% (Neb)) 0.5 mg Q6HWA RESP THERAPY HHN Last administered on 08/12/18at 14:46; Admin Dose 0.5 MG; Start 08/12/18 at 14:00 Ipratropium [place] (Atrovent 0.02% (Neb)) 0.5 mg Q4H RESP THERAPY PRN HHN SHORTNESS OF BREATH; Start 08/12/18 at 11:30 Budesonide (Pulmicort (Neb)) 0.5 mg BID RESP THERAPY HHN ; Start 08/12/18 at 20:00 Assessment/Plan Hospital Course (Demo Recall) Assessment 1. Acute on chronic hypoxemic respiratory failure likely secondary to combination of diastolic dysfunction and severe COPD.Right lower lobe infiltrate possible aspiration pneumonia 2. Likely significant anxiety component. 3. SVT Plan 1. PRN nocturnal noninvasive positive pressure ventilation 2. Continue supplemental O2 3. Bronchodilators as needed 4. Cardiac recommendations, DC beta agonist. Consider beta-nataliya. ALEXI ALLISON MD, [facility] Aug 12, 2018 15:08
[2018-08-12] MEDS: BUDESONIDE (NEB) 0.5MG/2ML AMP HHN SCH (20:16)
[2018-08-12] MEDS: ATORVASTATIN 10 MG TAB PO SCH (21:04)
[2018-08-12] MEDS: TAMSULOSIN (SR) 0.4 MG CAP PO SCH (21:04)
[2018-08-12] MEDS: MONTELUKAST 10 MG TAB PO SCH (21:05)
[2018-08-13] VITALS (25 sets, daily range): BP systolic 111–170; BP diastolic 55–89; PULSE 58–115; RESP 19–20
[2018-08-13] MEDS: LEVALBUTEROL (NEB) 1.25 MG/0.5 ML AMP HHN SCH ×4 (01:40→19:47)
[2018-08-13] MEDS: IPRATROPIUM (NEB) 0.5 MG/2.5 ML AMP HHN PRN (01:40)
[2018-08-13] MEDS: METHYLPREDNISOLONE 125 MG INJ IV SCH ×3 (05:41→20:18)
[2018-08-13] MEDS: PIPER-TAZO 3.375 GM IV (PMX) 100 ML IVPB SCH ×3 (05:41→20:18)
--- NOTE | 2018-08-13 08:07 | CONS ---
Consult Date/Type/Reason Admit Date/Time Aug 08, 2018 at 11:30 Initial Consult Date 08/08/18 Requesting Provider: ALEXI ALLISON MD, [facility] Date/Time of Note DATE: 08/13/18 TIME: 08:03 Subjective cardiology follow up note S; D/W staff and telemetry was reviewed patient remains sinus rhythm with frequent PAC and PVC Patient continued to be in respiratory distress and intermittently on BiPAP. no chest pain or pressure to He denies any palpitation to me but has shortness of breath Objective: General: Elderly gentleman in respiratory distress on BiPAP. HEENT: NC/AT. pupils are equal. round. NECK: . no stridor. CV: RRR. systolic murmur; no gallop or rubs. PULM: + rhonchi. GI: SOFT, NT, ND, no rebound or guarding Extremity: Trivial B/L LE edema. no clubbing. neuro: awake and alert, OX3. Psych: calm and pleasant rectal: deferred : normal Chest x-ray done 08/08/2018 which was also personally reviewed shows: 1. Mildly increased right basilar opacification, similar in size small right pleural effusion. 2. Right PIC line distal tip projects over the right axilla, unchanged. Review of the old chart showed echocardiogram was in April 2018 personally reviewed and showed Normal left ventricular systolic function. Normal left ventricular cavity size. Normal left ventricular wall thickness. Ejection fraction is visually estimated at 65 %. Normal appearance and function of the mitral valve with trace physiologic regurgitation. No significant aortic stenosis or insufficiency. Aortic valve not well visualized. Aortic cusps appear mildly calcified. Normal appearance of the tricuspid valve. Unable to obtain RVSP due to minimal presence of tricuspid regurgitation. Objective Vitals Vital Signs Date Temp Pulse Resp B/P (MAP) Pulse Ox O2 O2 Flow FiO2 Time Delivery Rate 08/13/18 97.3 78 20 138/66 96 07:05 (90) 08/13/18 40 05:53 08/11/18 Nasal 4.0 19:48 Cannula Intake and Output 08/12/18 08/12/18 08/13/18 1515:00 23:00 07:00 IntakeIntake Total 100 ml 600 ml 800 ml OutputOutput Total 400 ml 200 ml BalanceBalance 100 ml 200 ml 600 ml Results/Medications Result Diagram: 08/13/18 0547 08/13/18 0547 Results 24 hrs Laboratory Tests Test 08/13/18 05:47 White Blood Count 6.3 Red Blood Count 3.28 L Hemoglobin 9.2 L Hematocrit 28.7 L Mean Corpuscular Volume 87.5 Mean Corpuscular Hemoglobin 28.0 L Mean Corpuscular Hemoglobin Concent 32.1 Red Cell Distribution Width 17.1 H Platelet Count 215 # Mean Platelet Volume 11.9 H Immature Granulocytes % 1.100 H Neutrophils % 95.6 H Lymphocytes % 1.1 L Monocytes % 2.2 Eosinophils % 0.0 Basophils % 0.0 Nucleated Red Blood Cells % 0.0 Immature Granulocytes # 0.070 H Neutrophils # 6.0 Lymphocytes # 0.1 L Monocytes # 0.1 L Eosinophils # 0.0 Basophils # 0.0 Nucleated Red Blood Cells # 0.0 Sodium Level 138 Potassium Level 3.9 Chloride Level 97 Carbon Dioxide Level 36 H Anion Gap 5 Blood Urea Nitrogen 26 H Creatinine 0.43 L Est Glomerular Filtrat Rate mL/min Glucose Level 120 Calcium Level 8.3 L Phosphorus Level 2.9 Magnesium Level 2.2 Home Meds Active Scripts Methylprednisolone Sodium Succinate PF (Solu-Medrol PF) 125 Mg/2 Ml Vial, 60 MG IV Q8 for 7 Days, VIAL Prov:KAMILLE FRASER MD 07/18/18 Sennosides/Docusate Sodium (Dok Plus Tablet) 1 Each Tablet, 2 TAB PO AM for 10 Days, TAB Prov:KAMILLE FRASER MD 07/18/18 Famotidine* (Famotidine*) 20 Mg Tablet, 20 MG PO DAILY for 10 Days, TAB Prov:KAMILLE FRASER MD 07/18/18 Lactobacillus Rhamnosus GG (Culturelle) 1 Each Capsule, 1 CAP PO BID for 10 Days, CAP Prov:KAMILLE FRASER MD 07/18/18 Enoxaparin Sodium* (Enoxaparin Sodium*) 40 Mg/0.4 Ml Syringe, 40 MG SC DAILY for 10 Days, #10 Prov:KAMILLE FRASER MD 07/18/18 Ipratropium-Albuterol (Ipratropium-Albuterol) 0.5-3 Mg/3 Ml Ampul.neb, 3 ML HHN Q6H RESP THERAPY for 14 Days Prov:KAMILLE FRASER MD 07/18/18 Reported Medications Hydrocodone/Acetaminophen ([place] 5-325 Tablet) 1 Each Tablet, 1 EACH PO Q6 PRN for MODERATE PAIN LEVEL 4-6, TAB 07/13/18 Olopatadine* (Pataday*) 0.2% - 2.5 Ml Drops, 1 DROP BOTH EYES BID, EA 07/13/18 Protein Supplement (Promod) 946 Ml Liquid, 946 ML PO BID 07/13/18 Simethicone* (Mylicon*) 80 Mg Tab, 80 MG PO TID PRN for DISTENSION/GAS/BLOATING, TAB 07/13/18 Tamsulosin Hcl* (Tamsulosin Hcl*) 0.4 Mg Cap.er.24h, 0.4 MG PO HS, CAP 07/13/18 Acetaminophen* (Acetaminophen*) 650 Mg Tablet, 650 MG PO Q6H PRN for MILD PAIN LEVEL 1-3, #30 TAB AND FEVER 07/13/18 Multivitamins* (Theragran*) 1 Tab Tab, 1 TAB PO DAILY, TAB 07/13/18 Montelukast Sodium* (Montelukast Sodium*) 10 Mg Tablet, 10 MG PO QHS, #30 TAB 07/13/18 Polyethylene Glycol* (Miralax*) 17 Gm Powd.pack, 17 GM PO TID PRN for CONSTIPATION, #60 PACKET 07/13/18 Throat Lozenges* (Cepastat*) 9 Josselin Lozenge, 1 LOZENGE MT EVERY 1 HOUR PRN, LOZENGE 07/13/18 Diltiazem Hcl* (Cardizem*) 30 Mg Tablet, 30 MG PO Q8 PRN for BLOOD PRESSURE SUPPORT, #90 TAB HOLD FOR SBP <110 OR HR <60 07/13/18 Docusate Sodium* (Docusate Sodium*) 100 Mg Capsule, 100 MG PO BID, #60 CAP 07/13/18 Bisacodyl (Dulcolax) 10 Mg Supp.rect, 10 MG RC PRN PRN for CONSTIPATION, SUPP.RECT 07/13/18 Furosemide* (Lasix*) 20 Mg Tablet, 20 MG PO DAILY, TAB 07/13/18 Guaifenesin* (Tussin*) 100 Mg/5 Ml Syrup, 200 MG PO Q4 PRN for COUGH, ML 07/13/18 Ipratropium [place]* (Atrovent HFA*) 12.9 Gm Aer.w.adap, 2 PUFF INHALATION Q6 for SHORTNESS OF BREATH, #1 INHALER FOR THE NEBULIZER 07/13/18 Losartan Potassium* (Losartan Potassium*) 50 Mg Tablet, 50 MG PO DAILY, TAB HOLD FOR SBP <110 OR HR <60 07/13/18 Lubiprostone* (Amitiza*) 24 Mcg Capsule, 24 MCG PO BID, #60 CAP 07/13/18 Magnesium Hydroxide* (Milk Of Magnesia*) 400 Mg/5 Ml Oral.susp, 30 ML PO DAILY PRN for CONSTIPATION, ML 07/13/18 Menthol (BENGAY) 113 Gm Gel..gram., 113 GM TP TID APPLY TO POSTERIOR RIGHT SHOULDER 07/13/18 Atorvastatin Calcium (Atorvastatin Calcium) 10 Mg Tablet, 10 MG PO QHS, #30 TAB 07/13/18 Polyvinyl Alcohol (Tears Again) 15 Ml Drops, 1 DRP BOTH EYES Q2HWA, BOTTLE 07/13/18 Medications Current Medications Acetaminophen (Tylenol Tab) 650 mg Q6H PRN PO MILD PAIN LEVEL 1-3; Start 08/08/18 at 12:00 Atorvastatin Calcium (Lipitor) 10 mg QHS PO Last administered on 08/12/18at 21:04; Admin Dose 10 MG; Start 08/08/18 at 21:00 Docusate Sodium (Colace) 100 mg BID PRN PO constipation; Start 08/08/18 at 12:00 Enoxaparin Sodium (Lovenox) 40 mg DAILY SC Last administered on 08/12/18at 09:52; Admin Dose 40 MG; Start 08/09/18 at 09:00 Famotidine (Pepcid) 20 mg DAILY PO Last administered on 08/12/18at 09:41; Admin Dose 20 MG; Start 08/09/18 at 09:00 Lubiprostone (Amitiza) 24 mcg BID PO Last administered on 08/12/18at 09:40; Admin Dose 24 MCG; Start 08/08/18 at 21:00 Magnesium Hydroxide (Milk Of Mag) 30 ml DAILY PRN PO CONSTIPATION; Start 08/08/18 at 12:00 Methylprednisolone Sodium Succinate (Solu-Medrol) 60 mg Q8 IV Last administered on 08/13/18 05:41; Admin Dose 60 MG; Start 08/08/18 at 14:00 Montelukast Sodium (Singulair) 10 mg QHS PO Last administered on 08/12/18 21:05; Admin Dose 10 MG; Start 08/08/18 at 21:00 Multivitamins Therapeutic (Theragran) 1 tab DAILY PO Last administered on 08/12/18 09:41; Admin Dose 1 TAB; Start 08/09/18 at 09:00 Polyethylene Glycol (Miralax) 17 gm TID PRN PO CONSTIPATION; Start 08/08/18 at 12:00 Senna/Docusate Sodium (Senokot-S) 2 tab AM PO Last administered on 08/12/18 09:40; Admin Dose 2 TAB; Start 08/09/18 at 09:00 Simethicone (Mylicon) 80 mg TID PRN PO DISTENSION/GAS/BLOATING; Start 08/08/18 at 12:00 Tamsulosin HCl (Flomax) 0.4 mg HS PO Last administered on 08/12/18 21:04; Admin Dose 0.4 MG; Start 08/08/18 at 21:00 Ondansetron HCl (Zofran Inj) 4 mg Q6H PRN IV NAUSEA AND/OR VOMITING; Start 08/08/18 at 12:00 Piperacillin Sod/ Tazobactam Sod 100 ml @ 200 mls/hr Q8 IVPB Last administered on 08/13/18 05:41; Admin Dose 200 MLS/HR; Start 08/08/18 at 14:00 Olopatadine HCl (Pataday) 1 drop DAILY BOTH EYES Last administered on 08/11/18 09:37; Admin Dose 1 DROP; Start 08/08/18 at 14:30 Diltiazem HCl (Cardizem) 30 mg TID PO Last administered on 08/12/18 21:04; Admin Dose 30 MG; Start 08/08/18 at 16:00 Dronedarone (Multaq) 400 mg BID WITH MEALS PO Last administered on 08/12/18 18:35; Admin Dose 400 MG; Start 08/08/18 at 17:35 Diltiazem HCl (Cardizem Iv) 5 mg Q1H PRN IV afib with HR > 120; Start 08/08/18 at 14:30 Aspirin (Halfprin) 81 mg DAILY PO Last administered on 08/12/18 09:41; Admin Dose 81 MG; Start 08/09/18 at 09:00 Mupirocin (Bactroban) 1 applic BID TOP Last administered on 08/12/18 21:05; Admin Dose 1 APPLIC; Start 08/09/18 at 21:00 Guaifenesin (Mucinex) 600 mg BID PO Last administered on 08/12/18 21:04; Admin Dose 600 MG; Start 08/10/18 at 10:00 Phenazopyridine HCl (Pyridium) 100 mg TID PO Last administered on 08/12/18 21:05; Admin Dose 100 MG; Start 08/10/18 at 21:00 Levalbuterol (Xopenex Neb) 1.25 mg Q6H RESP THERAPY HHN Last administered on 08/13/18 01:40; Admin Dose 1.25 MG; Start 08/12/18 at 14:00 Levalbuterol (Xopenex Neb) 1.25 mg Q6H RESP THERAPY PRN HHN shortness of breath; Start 08/12/18 at 11:30 Ipratropium [place] (Atrovent 0.02% (Neb)) 0.5 mg Q6HWA RESP THERAPY HHN Last administered on 08/12/18 20:16; Admin Dose 0.5 MG; Start 08/12/18 at 14:00 Ipratropium [place] (Atrovent 0.02% (Neb)) 0.5 mg Q4H RESP THERAPY PRN HHN SHORTNESS OF BREATH Last administered on 08/13/18 01:40; Admin Dose 0.5 MG; Start 08/12/18 at 11:30 Budesonide (Pulmicort (Neb)) 0.5 mg BID RESP THERAPY HHN Last administered on 08/12/18 20:16; Admin Dose 0.5 MG; Start 08/12/18 at 20:00 Assessment/Plan Hospital Course (Demo Recall) 1. Acute hypoxemic hypercapnic respiratory failure 2. COPD exacerbation 3. S/P pneumonia 4. Questionable congestive heart failure: Patient clinically has responded to the IV Lasix but does not appear to be in fluid overloaded and has had normal ejection fraction 5. History of hypertension: Currently under good control 6. History of proximal atrial fibrillation and SVT most likely worsened by his respiratory failure 7. History of dyslipidemia Recommendations: Continue with aspirin Continue with Cardizem and Multaq to try to maintain sinus rhythm Oxygen supplement BiPAP as needed will be deferred to the pulmonary recommendations Closely monitor for possible need for intubation Electrolyte we will be checking imaging adjust as needed Echocardiogram was done in April DVT prophylaxis and GI prophylaxis as per internal medicine Thank you for his referral. Continue follow along with you HAYLEE PINZON MD [facility] HAYLEE PINZON MD Aug 13, 2018 08:07
[2018-08-13] MEDS: IPRATROPIUM (NEB) 0.5 MG/2.5 ML AMP HHN SCH ×3 (08:14→19:47)
[2018-08-13] MEDS: BUDESONIDE (NEB) 0.5MG/2ML AMP HHN SCH ×2 (08:14→19:47)
[2018-08-13] MEDS: LUBIPROSTONE 24 MCG CAP PO SCH ×2 (09:00→20:17)
[2018-08-13] MEDS: GUAIFENESIN LA 600 MG TABSR PO SCH ×2 (09:40→20:17)
[2018-08-13] MEDS: MUPIROCIN 2% 22 GM OINT TOP SCH ×2 (09:40→20:18)
[2018-08-13] MEDS: ASPIRIN (EC) 81 MG TAB PO SCH (09:40)
[2018-08-13] MEDS: DILTIAZEM 30 MG TAB PO SCH ×3 (09:41→20:19)
[2018-08-13] MEDS: MULTIVITAMINS THERAPEUTIC TAB PO SCH (09:41)
[2018-08-13] MEDS: FAMOTIDINE 20 MG TAB PO SCH (09:42)
[2018-08-13] MEDS: DRONEDARONE HYDROCHLORIDE 400 MG TAB PO SCH ×2 (09:42→18:06)
[2018-08-13] MEDS: OLOPATADINE 0.2% (ONCE A DAY) OPHTH DROP 2.5 ML BOTH EYES SCH (09:42)
[2018-08-13] MEDS: SENNA/DOCUSATE NA (8.6MG/50MG) TAB PO SCH (09:42)
[2018-08-13] MEDS: ENOXAPARIN 40 MG/0.4 ML SYG SC SCH (09:45)
[2018-08-13] MEDS: PHENAZOPYRIDINE 100 MG TAB PO SCH ×3 (09:50→20:17)
--- NOTE | 2018-08-13 11:29 | PN ---
Date/Time of Note Date/Time of Note DATE: 08/13/18 TIME: 11:28 Objective Vitals Vital Signs Date Temp Pulse Resp B/P (MAP) Pulse Ox O2 O2 Flow FiO2 Time Delivery Rate 08/13/18 98.0 95 20 170/89 95 11:04 (116) 08/13/18 40 08:28 08/11/18 Nasal 4.0 19:48 Cannula Intake and Output 08/12/18 08/12/18 08/13/18 1414:59 22:59 06:59 IntakeIntake Total 100 ml 600 ml 800 ml OutputOutput Total 400 ml 200 ml BalanceBalance 100 ml 200 ml 600 ml Results Result Diagram: 08/13/1854608/13/18546 Medications Medications Current Medications Acetaminophen (Tylenol Tab) 650 mg Q6H PRN PO MILD PAIN LEVEL 1-3; Start 08/08/18 at 12:00 Atorvastatin Calcium (Lipitor) 10 mg QHS PO Last administered on 08/12/18at 21:04; Admin Dose 10 MG; Start 08/08/18 at 21:00 Docusate Sodium (Colace) 100 mg BID PRN PO constipation; Start 08/08/18 at 12:00 Enoxaparin Sodium (Lovenox) 40 mg DAILY SC Last administered on 08/13/18at 09:45; Admin Dose 40 MG; Start 08/09/18 at 09:00 Famotidine (Pepcid) 20 mg DAILY PO Last administered on 08/13/18at 09:42; Admin Dose 20 MG; Start 08/09/18 at 09:00 Lubiprostone (Amitiza) 24 mcg BID PO Last administered on 08/12/18at 09:40; Admin Dose 24 MCG; Start 08/08/18 at 21:00 Magnesium Hydroxide (Milk Of Mag) 30 ml DAILY PRN PO CONSTIPATION; Start 08/08/18 at 12:00 Methylprednisolone Sodium Succinate (Solu-Medrol) 60 mg Q8 IV Last administered on 08/13/18at 05:41; Admin Dose 60 MG; Start 08/08/18 at 14:00 Montelukast Sodium (Singulair) 10 mg QHS PO Last administered on 08/12/18at 21:05; Admin Dose 10 MG; Start 08/08/18 at 21:00 Multivitamins Therapeutic (Theragran) 1 tab DAILY PO Last administered on 08/13/18 09:41; Admin Dose 1 TAB; Start 08/09/18 at 09:00 Polyethylene Glycol (Miralax) 17 gm TID PRN PO CONSTIPATION; Start 08/08/18 at 12:00 Senna/Docusate Sodium (Senokot-S) 2 tab AM PO Last administered on 08/13/18 09:42; Admin Dose 2 TAB; Start 08/09/18 at 09:00 Simethicone (Mylicon) 80 mg TID PRN PO DISTENSION/GAS/BLOATING; Start 08/08/18 at 12:00 Tamsulosin HCl (Flomax) 0.4 mg HS PO Last administered on 08/12/18 21:04; Admin Dose 0.4 MG; Start 08/08/18 at 21:00 Ondansetron HCl (Zofran Inj) 4 mg Q6H PRN IV NAUSEA AND/OR VOMITING; Start 08/08/18 at 12:00 Piperacillin Sod/ Tazobactam Sod 100 ml @ 200 mls/hr Q8 IVPB Last administered on 08/13/18 05:41; Admin Dose 200 MLS/HR; Start 08/08/18 at 14:00 Olopatadine HCl (Pataday) 1 drop DAILY BOTH EYES Last administered on 08/13/18 09:42; Admin Dose 1 DROP; Start 08/08/18 at 14:30 Diltiazem HCl (Cardizem) 30 mg TID PO Last administered on 08/13/18 09:41; Admin Dose 30 MG; Start 08/08/18 at 16:00 Dronedarone (Multaq) 400 mg BID WITH MEALS PO Last administered on 08/13/18 09:42; Admin Dose 400 MG; Start 08/08/18 at 17:35 Diltiazem HCl (Cardizem Iv) 5 mg Q1H PRN IV afib with HR > 120; Start 08/08/18 at 14:30 Aspirin (Halfprin) 81 mg DAILY PO Last administered on 08/13/18 09:40; Admin Dose 81 MG; Start 08/09/18 at 09:00 Mupirocin (Bactroban) 1 applic BID TOP Last administered on 08/13/18 09:40; Admin Dose 1 APPLIC; Start 08/09/18 at 21:00 Guaifenesin (Mucinex) 600 mg BID PO Last administered on 08/13/18 09:40; Admin Dose 600 MG; Start 08/10/18 at 10:00 Phenazopyridine HCl (Pyridium) 100 mg TID PO Last administered on 08/13/18 09:50; Admin Dose 100 MG; Start 08/10/18 at 21:00 Levalbuterol (Xopenex Neb) 1.25 mg Q6H RESP THERAPY HHN Last administered on 08/13/18 08:14; Admin Dose 1.25 MG; Start 08/12/18 at 14:00 Levalbuterol (Xopenex Neb) 1.25 mg Q6H RESP THERAPY PRN HHN shortness of breath; Start 08/12/18 at 11:30 Ipratropium [place] (Atrovent 0.02% (Neb)) 0.5 mg Q6HWA RESP THERAPY HHN Last administered on 08/13/18 08:14; Admin Dose 0.5 MG; Start 08/12/18 at 14:00 Ipratropium [place] (Atrovent 0.02% (Neb)) 0.5 mg Q4H RESP THERAPY PRN HHN SHORTNESS OF BREATH Last administered on 08/13/18 01:40; Admin Dose 0.5 MG; Start 08/12/18 at 11:30 Budesonide (Pulmicort (Neb)) 0.5 mg BID RESP THERAPY HHN Last administered on 08/13/18 08:14; Admin Dose 0.5 MG; Start 08/12/18 at 20:00 VTE Prophylaxis Risk score (from Nsg)>0 risk: 8 SCD applied (from Nsg): Yes Lines/Catheters IV Catheter Type: Alt[place] in Place: No Assessment/Plan Hospital Course Subjective Still with frequent PVCs however no more episodes of severe SVT, still on BiPAP Objective Physical exam General: Patient is laying in bed and ans, spoke with son at bedside, all questions answered wers questions by nodding his head, on BiPAP Mentation: Patient is alert and oriented Head: Normocephalic atraumatic Eyes: EOMI, pupils reactive to light Neck: Supple, nontender, midline Respiratory: Coarse to auscultation bilaterally Cardiovascular: regular rate, no obvious murmurs Gastrointestinal: non-tender to palpation, bowel sounds heard. Neurological: Moves all extremities spontaneously Skin: No new skin lesions Assessment/Plan 1. Acute hypoxic respiratory failure-slow improvement - Patient still requiring intermittent BIPAP - Pulmonology on board and appreciate recommendations - Continue nebs, steroids and IV antibiotics - monitor for improvement 2. RLL PNA - seen on CXR - ?Aspiration vs HCAP - IV antibiotics on board - nebs and PRN on board 3. COPD exacerbation - nebs, steroids, antibiotics 4. h/o Afib and SVT - Cardiology on board and appreciate recommendations. Continue current medications and adjust as needed -SVTs are stable for now, no episodes in the past 24 hours 5. ?CHF - responded to lasix but EF 65% on last ECHO and does not appear overloaded - will continue monitoring I/O and daily weights 6. hyperglycemia- resolved - most likely secondary to steroids - A1c from 06/2018 was 5 7. Disposition -We will speak to pulmonology regarding possible transfer back to [place], possible tomorrow, WILMER SANTIAGO Aug 13, 2018 11:29
[2018-08-13] MEDS: FUROSEMIDE 40 MG INJ IV SCH ×2 (14:00→18:06)
[2018-08-13] MEDS: TAMSULOSIN (SR) 0.4 MG CAP PO SCH (20:17)
[2018-08-13] MEDS: MONTELUKAST 10 MG TAB PO SCH (20:17)
[2018-08-13] MEDS: ATORVASTATIN 10 MG TAB PO SCH (20:22)
[2018-08-14] VITALS (23 sets, daily range): BP systolic 102–124; BP diastolic 53–60; PULSE 75–98; RESP 15–19
[2018-08-14] MEDS: LEVALBUTEROL (NEB) 1.25 MG/0.5 ML AMP HHN SCH ×4 (01:35→19:13)
[2018-08-14] MEDS: FUROSEMIDE 40 MG INJ IV SCH (06:00)
[2018-08-14] MEDS: METHYLPREDNISOLONE 125 MG INJ IV SCH ×3 (06:00→21:16)
[2018-08-14] MEDS: PIPER-TAZO 3.375 GM IV (PMX) 100 ML IVPB SCH ×3 (06:00→21:16)
[2018-08-14] MEDS ORDERED: POTASSIUM CHLORIDE (SR) 20 MEQ TAB PO STA (07:47)
--- NOTE | 2018-08-14 07:50 | CONS ---
Consult Date/Type/Reason Admit Date/Time Aug 08, 2018 at 11:30 Initial Consult Date 08/08/18 Requesting Provider: ALEXI ALLISON MD, [facility] Date/Time of Note DATE: 08/14/18 TIME: 07:49 Subjective cardiology follow up note S; D/W staff and telemetry was reviewed patient remains sinus rhythm with frequent PAC and PVC Patient continued to be in respiratory distress and intermittently on BiPAP. no chest pain or pressure to He denies any palpitation to me but has shortness of breath Objective: General: Elderly gentleman in respiratory distress on BiPAP. HEENT: NC/AT. pupils are equal. round. NECK: . no stridor. CV: RRR. systolic murmur; no gallop or rubs. PULM: + rhonchi. GI: SOFT, NT, ND, no rebound or guarding Extremity: Trivial B/L LE edema. no clubbing. neuro: awake and alert, OX3. Psych: calm and pleasant rectal: deferred : normal Chest x-ray done 08/08/2018 which was also personally reviewed shows: 1. Mildly increased right basilar opacification, similar in size small right pleural effusion. 2. Right PIC line distal tip projects over the right axilla, unchanged. Review of the old chart showed echocardiogram was in April 2018 personally reviewed and showed Normal left ventricular systolic function. Normal left ventricular cavity size. Normal left ventricular wall thickness. Ejection fraction is visually estimated at 65 %. Normal appearance and function of the mitral valve with trace physiologic regurgitation. No significant aortic stenosis or insufficiency. Aortic valve not well visualized. Aortic cusps appear mildly calcified. Normal appearance of the tricuspid valve. Unable to obtain RVSP due to minimal presence of tricuspid regurgitation. Objective Vitals Vital Signs Date Temp Pulse Resp B/P (MAP) Pulse Ox O2 O2 Flow FiO2 Time Delivery Rate 08/14/18 97.4 81 17 118/60 89 07:14 (79) 08/14/18 40 05:30 08/13/18 6.0 20:50 08/13/18 Nasal 19:47 Cannula Intake and Output 08/13/18 08/13/18 08/14/18 1515:00 23:00 07:00 IntakeIntake Total 500 ml 300 ml OutputOutput Total 600 ml 900 ml BalanceBalance -100 ml -600 ml Results/Medications Result Diagram: 4/25/19 0555 08/14/18 0555 Results 24 hrs Laboratory Tests Test 08/14/18 05:55 White Blood Count 9.9 # Red Blood Count 3.38 L Hemoglobin 9.3 L Hematocrit 29.3 L Mean Corpuscular Volume 86.7 Mean Corpuscular Hemoglobin 27.5 L Mean Corpuscular Hemoglobin Concent 31.7 L Red Cell Distribution Width 16.9 H Platelet Count 122 #L Mean Platelet Volume 11.2 H Immature Granulocytes % 1.100 H Neutrophils % 95.7 H Lymphocytes % 0.9 L Monocytes % 2.1 Eosinophils % 0.0 Basophils % 0.2 Nucleated Red Blood Cells % 0.0 Immature Granulocytes # 0.110 H Neutrophils # 9.5 H Lymphocytes # 0.1 L Monocytes # 0.2 L Eosinophils # 0.0 Basophils # 0.0 Nucleated Red Blood Cells # 0.0 Sodium Level 140 Potassium Level 2.1 *L Chloride Level 93 L Carbon Dioxide Level 43 *H Anion Gap 4 L Blood Urea Nitrogen 31 H Creatinine 0.52 L Est Glomerular Filtrat Rate mL/min Glucose Level 129 Calcium Level 7.8 L Phosphorus Level 3.1 Magnesium Level 2.0 Home Meds Active Scripts Methylprednisolone Sodium Succinate PF (Solu-Medrol PF) 125 Mg/2 Ml Vial, 60 MG IV Q8 for 7 Days, VIAL Prov:KAMILLE FRASER MD 07/18/18 Sennosides/Docusate Sodium (Dok Plus Tablet) 1 Each Tablet, 2 TAB PO AM for 10 Days, TAB Prov:KAMILLE FRASER MD 07/18/18 Famotidine* (Famotidine*) 20 Mg Tablet, 20 MG PO DAILY for 10 Days, TAB Prov:KAMILLE FRASER MD 07/18/18 Lactobacillus Rhamnosus GG (Culturelle) 1 Each Capsule, 1 CAP PO BID for 10 Days, CAP Prov:KAMILLE FRASER MD 07/18/18 Enoxaparin Sodium* (Enoxaparin Sodium*) 40 Mg/0.4 Ml Syringe, 40 MG SC DAILY for 10 Days, #10 Prov:KAMILLE FRASER MD 07/18/18 Ipratropium-Albuterol (Ipratropium-Albuterol) 0.5-3 Mg/3 Ml Ampul.neb, 3 ML HHN Q6H RESP THERAPY for 14 Days Prov:KAMILLE FRASER MD 07/18/18 Reported Medications Hydrocodone/Acetaminophen ([place] 5-325 Tablet) 1 Each Tablet, 1 EACH PO Q6 PRN for MODERATE PAIN LEVEL 4-6, TAB 07/13/18 Olopatadine* (Pataday*) 0.2% - 2.5 Ml Drops, 1 DROP BOTH EYES BID, EA 07/13/18 Protein Supplement (Promod) 946 Ml Liquid, 946 ML PO BID 07/13/18 Simethicone* (Mylicon*) 80 Mg Tab, 80 MG PO TID PRN for DISTENSION/GAS/BLOATING, TAB 07/13/18 Tamsulosin Hcl* (Tamsulosin Hcl*) 0.4 Mg Cap.er.24h, 0.4 MG PO HS, CAP 07/13/18 Acetaminophen* (Acetaminophen*) 650 Mg Tablet, 650 MG PO Q6H PRN for MILD PAIN LEVEL 1-3, #30 TAB AND FEVER 07/13/18 Multivitamins* (Theragran*) 1 Tab Tab, 1 TAB PO DAILY, TAB 07/13/18 Montelukast Sodium* (Montelukast Sodium*) 10 Mg Tablet, 10 MG PO QHS, #30 TAB 07/13/18 Polyethylene Glycol* (Miralax*) 17 Gm Powd.pack, 17 GM PO TID PRN for CONS TIPATION, #60 PACKET 07/13/18 Throat Lozenges* (Cepastat*) 9 Josselin Lozenge, 1 LOZENGE MT EVERY 1 HOUR PRN, LOZENGE 07/13/18 Diltiazem Hcl* (Cardizem*) 30 Mg Tablet, 30 MG PO Q8 PRN for BLOOD PRESSURE SUPPORT, #90 TAB HOLD FOR SBP <110 OR HR <60 07/13/18 Docusate Sodium* (Docusate Sodium*) 100 Mg Capsule, 100 MG PO BID, #60 CAP 07/13/18 Bisacodyl (Dulcolax) 10 Mg Supp.rect, 10 MG RC PRN PRN for CONSTIPATION, SUPP.R ECT 07/13/18 Furosemide* (Lasix*) 20 Mg Tablet, 20 MG PO DAILY, TAB 07/13/18 Guaifenesin* (Tussin*) 100 Mg/5 Ml Syrup, 200 MG PO Q4 PRN for COUGH, ML 07/13/18 Ipratropium [place]* (Atrovent HFA*) 12.9 Gm Aer.w.adap, 2 PUFF INHALATION Q6 for SHORTNESS OF BREATH, #1 INHALER FOR THE NEBULIZER 07/13/18 Losartan Potassium* (Losartan Potassium*) 50 Mg Tablet, 50 MG PO DAILY, TAB HOLD FOR SBP <110 OR HR <60 07/13/18 Lubiprostone* (Amitiza*) 24 Mcg Capsule, 24 MCG PO BID, #60 CAP 07/13/18 Magnesium Hydroxide* (Milk Of Magnesia*) 400 Mg/5 Ml Oral.susp, 30 ML PO DAILY PRN for CONSTIPATION, ML 07/13/18 Menthol (BENGAY) 113 Gm Gel..gram., 113 GM TP TID APPLY TO POSTERIOR RIGHT SHOULDER 07/13/18 Atorvastatin Calcium (Atorvastatin Calcium) 10 Mg Tablet, 10 MG PO QHS, #30 TAB 07/13/18 Polyvinyl Alcohol (Tears Again) 15 Ml Drops, 1 DRP BOTH EYES Q2HWA, BOTTLE 07/13/18 Medications Current Medications Acetaminophen (Tylenol Tab) 650 mg Q6H PRN PO MILD PAIN LEVEL 1-3; Start 08/08/18 at 12:00 Atorvastatin Calcium (Lipitor) 10 mg QHS PO Last administered on 08/13/18at 20:22; Admin Dose 10 MG; Start 08/08/18 at 21:00 Docusate Sodium (Colace) 100 mg BID PRN PO constipation; Start 08/08/18 at 12:00 Enoxaparin Sodium (Lovenox) 40 mg DAILY SC Last administered on 08/13/18at 09:45; Admin Dose 40 MG; Start 08/09/18 at 09:00 Famotidine (Pepcid) 20 mg DAILY PO Last administered on 08/13/18at 09:42; Admin Dose 20 MG; Start 08/09/18 at 09:00 Lubiprostone (Amitiza) 24 mcg BID PO Last administered on 08/13/18at 20:17; Admin Dose 24 MCG; Start 08/08/18 at 21:00 Magnesium Hydroxide (Milk Of Mag) 30 ml DAILY PRN PO CONSTIPATION; Start 08/08/18 at 12:00 Methylprednisolone Sodium Succinate (Solu-Medrol) 60 mg Q8 IV Last administered on 08/14/18 06:00; Admin Dose 60 MG; Start 08/08/18 at 14:00 Montelukast Sodium (Singulair) 10 mg QHS PO Last administered on 08/13/18 20:17; Admin Dose 10 MG; Start 08/08/18 at 21:00 Multivitamins Therapeutic (Theragran) 1 tab DAILY PO Last administered on 08/13/18 09:41; Admin Dose 1 TAB; Start 08/09/18 at 09:00 Polyethylene Glycol (Miralax) 17 gm TID PRN PO CONSTIPATION; Start 08/08/18 at 12:00 Senna/Docusate Sodium (Senokot-S) 2 tab AM PO Last administered on 08/13/18 09:42; Admin Dose 2 TAB; Start 08/09/18 at 09:00 Simethicone (Mylicon) 80 mg TID PRN PO DISTENSION/GAS/BLOATING; Start 08/08/18 at 12:00 Tamsulosin HCl (Flomax) 0.4 mg HS PO Last administered on 08/13/18 20:17; Admin Dose 0.4 MG; Start 08/08/18 at 21:00 Ondansetron HCl (Zofran Inj) 4 mg Q6H PRN IV NAUSEA AND/OR VOMITING; Start 08/08/18 at 12:00 Piperacillin Sod/ Tazobactam Sod 100 ml @ 200 mls/hr Q8 IVPB Last administered on 08/14/18 06:00; Admin Dose 200 MLS/HR; Start 08/08/18 at 14:00 Olopatadine HCl (Pataday) 1 drop DAILY BOTH EYES Last administered on 08/13/18 09:42; Admin Dose 1 DROP; Start 08/08/18 at 14:30 Diltiazem HCl (Cardizem) 30 mg TID PO Last administered on 08/13/18 20:19; Admin Dose 30 MG; Start 08/08/18 at 16:00 Dronedarone (Multaq) 400 mg BID WITH MEALS PO Last administered on 08/13/18 18:06; Admin Dose 400 MG; Start 08/08/18 at 17:35 Diltiazem HCl (Cardizem Iv) 5 mg Q1H PRN IV afib with HR > 120; Start 08/08/18 at 14:30 Aspirin (Halfprin) 81 mg DAILY PO Last administered on 08/13/18 09:40; Admin Dose 81 MG; Start 08/09/18 at 09:00 Mupirocin (Bactroban) 1 applic BID TOP Last administered on 08/13/18 20:18; Admin Dose 1 APPLIC; Start 08/09/18 at 21:00 Guaifenesin (Mucinex) 600 mg BID PO Last administered on 08/13/18 20:17; Admin Dose 600 MG; Start 08/10/18 at 10:00 Phenazopyridine HCl (Pyridium) 100 mg TID PO Last administered on 08/13/18 20:17; Admin Dose 100 MG; Start 08/10/18 at 21:00 Levalbuterol (Xopenex Neb) 1.25 mg Q6H RESP THERAPY HHN Last administered on 08/14/18 01:35; Admin Dose 1.25 MG; Start 08/12/18 at 14:00 Levalbuterol (Xopenex Neb) 1.25 mg Q6H RESP THERAPY PRN HHN shortness of breath Last administered on 08/13/18 12:26; Admin Dose 1.25 MG; Start 08/12/18 at 11:30 Ipratropium [place] (Atrovent 0.02% (Neb)) 0.5 mg Q6HWA RESP THERAPY HHN Last administered on 08/13/18 19:47; Admin Dose 0.5 MG; Start 08/12/18 at 14:00 Ipratropium [place] (Atrovent 0.02% (Neb)) 0.5 mg Q4H RESP THERAPY PRN HHN SHORTNESS OF BREATH Last administered on 08/13/18 01:40; Admin Dose 0.5 MG; Start 08/12/18 at 11:30 Budesonide (Pulmicort (Neb)) 0.5 mg BID RESP THERAPY HHN Last administered on 08/13/18 19:47; Admin Dose 0.5 MG; Start 08/12/18 at 20:00 Furosemide (Lasix) 40 mg BID DIURETICS IV Last administered on 08/14/18 06:00; Admin Dose 40 MG; Start 08/13/18 at 11:30 Potassium Chloride (Klor-Con 20) 40 meq ONCE STAT PO ; Start 08/14/18 at 07:47; Stop 08/14/18 at 07:48; Status UNV Assessment/Plan Hospital Course (Demo Recall) 1. Acute hypoxemic hypercapnic respiratory failure 2. COPD exacerbation 3. S/P pneumonia 4. Questionable congestive heart failure: Patient clinically has responded to the IV Lasix but does not appear to be in fluid overloaded and has had normal ejection fraction 5. History of hypertension: Currently under good control 6. History of proximal atrial fibrillation and SVT most likely worsened by his respiratory failure 7. History of dyslipidemia 8.hypo K Recommendations: Continue with aspirin Continue with Cardizem and Multaq to try to maintain sinus rhythm Oxygen supplement BiPAP as needed will be deferred to the pulmonary recommendations Closely monitor for possible need for intubation Electrolyte we will be checking imaging adjust as needed Echocardiogram was done in April DVT prophylaxis and GI prophylaxis as per internal medicine Kcl now and repeat labs in 3 h ours and adjsut Thank you for his referral. I will continue follow along with you HAYLEE PINZON MD [facility] HAYLEE PINZON MD Aug 14, 2018 07:50
[2018-08-14] MEDS ORDERED: POTASSIUM CHLORIDE (SR) 20 MEQ TAB PO ONE (09:00)
[2018-08-14] MEDS: PHENAZOPYRIDINE 100 MG TAB PO SCH ×3 (09:00→21:16)
[2018-08-14] MEDS: IPRATROPIUM (NEB) 0.5 MG/2.5 ML AMP HHN SCH ×3 (09:10→19:13)
[2018-08-14] MEDS: BUDESONIDE (NEB) 0.5MG/2ML AMP HHN SCH ×2 (09:11→19:13)
[2018-08-14] MEDS: OLOPATADINE 0.2% (ONCE A DAY) OPHTH DROP 2.5 ML BOTH EYES SCH (09:29)
[2018-08-14] MEDS: LUBIPROSTONE 24 MCG CAP PO SCH ×2 (09:30→21:16)
[2018-08-14] MEDS: DILTIAZEM 30 MG TAB PO SCH ×3 (09:30→21:17)
[2018-08-14] MEDS: FAMOTIDINE 20 MG TAB PO SCH (09:30)
[2018-08-14] MEDS: GUAIFENESIN LA 600 MG TABSR PO SCH ×2 (09:30→21:16)
[2018-08-14] MEDS: SENNA/DOCUSATE NA (8.6MG/50MG) TAB PO SCH (09:30)
[2018-08-14] MEDS: DRONEDARONE HYDROCHLORIDE 400 MG TAB PO SCH ×2 (09:30→18:52)
[2018-08-14] MEDS: ASPIRIN (EC) 81 MG TAB PO SCH (09:30)
[2018-08-14] MEDS: MULTIVITAMINS THERAPEUTIC TAB PO SCH (09:30)
[2018-08-14] MEDS: MUPIROCIN 2% 22 GM OINT TOP SCH ×2 (09:31→21:16)
[2018-08-14] MEDS: ENOXAPARIN 40 MG/0.4 ML SYG SC SCH (09:34)
--- NOTE | 2018-08-14 11:24 | CONS ---
Consult Date/Type/Reason Admit Date/Time Aug 08, 2018 at 11:30 Initial Consult Date 08/08/18 Type of Consult Pulmonary Requesting Provider: ALEXI ALLISON MD, [facility] Date/Time of Note DATE: 08/14/18 TIME: 11:22 Subjective Remains comfortable this morning on and off BiPAP alert with no respiratory distress Objective Vital Signs Date Temp Pulse Resp B/P (MAP) Pulse Ox O2 O2 Flow FiO2 Time Delivery Rate 08/14/18 82 96 40 11:21 08/14/18 97.5 15 106/53 11:15 (70) 08/13/18 6.0 20:50 08/13/18 Nasal 19:47 Cannula Intake and Output 08/13/18 08/13/18 08/14/18 1515:00 23:00 07:00 IntakeIntake Total 500 ml 300 ml OutputOutput Total 600 ml 900 ml BalanceBalance -100 ml -600 ml Exam GENERAL: Elderly gentleman comfortable at rest no acute distress VITAL SIGNS: per chart NECK: Supple. No JVD or lymphadenopathy. CARDIAC EXAM: S1, S2. No added sounds or murmurs. CHEST: Diminished air entry bilaterally ABDOMEN: Soft, nontender. No guarding or rebound. EXTREMITIES: No cyanosis, clubbing or edema. NEUROLOGIC: Generalized weakness. No focal deficits. Vent Setting Fraction of Inspired Oxygen pe: 40 Results/Medications Result Diagram: 08/14/18 0555 08/14/18 0555 Results 24 hrs Laboratory Tests Test 08/14/18 05:55 08/14/18 07:00 White Blood Count 9.9 # Red Blood Count 3.38 L Hemoglobin 9.3 L Hematocrit 29.3 L Mean Corpuscular Volume 86.7 Mean Corpuscular Hemoglobin 27.5 L Mean Corpuscular Hemoglobin Concent 31.7 L Red Cell Distribution Width 16.9 H Platelet Count 122 #L Mean Platelet Volume 11.2 H Immature Granulocytes % 1.100 H Neutrophils % 95.7 H Lymphocytes % 0.9 L Monocytes % 2.1 Eosinophils % 0.0 Basophils % 0.2 Nucleated Red Blood Cells % 0.0 Immature Granulocytes # 0.110 H Neutrophils # 9.5 H Lymphocytes # 0.1 L Monocytes # 0.2 L Eosinophils # 0.0 Basophils # 0.0 Nucleated Red Blood Cells # 0.0 Sodium Level 140 Potassium Level 2.1 *L Chloride Level 93 L Carbon Dioxide Level 43 *H Anion Gap 4 L Blood Urea Nitrogen 31 H Creatinine 0.52 L Est Glomerular Filtrat Rate mL/min Glucose Level 129 Calcium Level 7.8 L Phosphorus Level 3.1 Magnesium Level 2.0 Blood Gas Specimen Source Blood arterial Arterial Blood Date Drawn 08/14/2018 7:45:14 AM Arterial Blood pH (Temp corrected) 7.557 *H Arterial Blood pCO2 (Temp correct) 51.1 H Arterial Blood pO2 (Temp corrected) 75.9 L Arterial Blood HCO3 44.4 *H Arterial Blood Base Excess 19.7 H Arterial Blood Oxygen Saturation 95.2 Elmer Test ACCEPTAB Arterial Blood Gas Puncture Site Right Radial Arterial Blood Carboxyhemoglobin 0.3 Arterial Blood Methemoglobin 0.3 Blood Gas A-a O2 Differential 150.5 H Oxyhemoglobin Percent 94.6 Blood Gas Temperature 37.0 Blood Gas Respiration Rate 14.0 Blood Gas Actual Respiration Rate 18 Blood Gas Modality MASK - BIPAP FiO2 40.0 Blood Gas Pressure Support 15 Blood Gas Critical Value Read Back FERNIE GREGORY Blood Gas Notified Whom TM Blood Gas Notified Time 08/14/2018 8:06:33 AM Medications Current Medications Acetaminophen (Tylenol Tab) 650 mg Q6H PRN PO MILD PAIN LEVEL 1-3; Start 08/08/18 at 12:00 Atorvastatin Calcium (Lipitor) 10 mg QHS PO Last administered on 08/13/18at 20:22; Admin Dose 10 MG; Start 08/08/18 at 21:00 Docusate Sodium (Colace) 100 mg BID PRN PO constipation; Start 08/08/18 at 12:00 Enoxaparin Sodium (Lovenox) 40 mg DAILY SC Last administered on 08/14/18 09:34; Admin Dose 40 MG; Start 08/09/18 at 09:00 Famotidine (Pepcid) 20 mg DAILY PO Last administered on 08/14/18 09:30; Admin Dose 20 MG; Start 08/09/18 at 09:00 Lubiprostone (Amitiza) 24 mcg BID PO Last administered on 08/14/18 09:30; Admin Dose 24 MCG; Start 08/08/18 at 21:00 Magnesium Hydroxide (Milk Of Mag) 30 ml DAILY PRN PO CONSTIPATION; Start 08/08/18 at 12:00 Methylprednisolone Sodium Succinate (Solu-Medrol) 60 mg Q8 IV Last administered on 08/14/18 06:00; Admin Dose 60 MG; Start 08/08/18 at 14:00 Montelukast Sodium (Singulair) 10 mg QHS PO Last administered on 08/13/18 20:17; Admin Dose 10 MG; Start 08/08/18 at 21:00 Multivitamins Therapeutic (Theragran) 1 tab DAILY PO Last administered on 08/14/18 09:30; Admin Dose 1 TAB; Start 08/09/18 at 09:00 Polyethylene Glycol (Miralax) 17 gm TID PRN PO CONSTIPATION; Start 08/08/18 at 12:00 Senna/Docusate Sodium (Senokot-S) 2 tab AM PO Last administered on 08/14/18 09:30; Admin Dose 2 TAB; Start 08/09/18 at 09:00 Simethicone (Mylicon) 80 mg TID PRN PO DISTENSION/GAS/BLOATING; Start 08/08/18 at 12:00 Tamsulosin HCl (Flomax) 0.4 mg HS PO Last administered on 08/13/18 20:17; Admin Dose 0.4 MG; Start 08/08/18 at 21:00 Ondansetron HCl (Zofran Inj) 4 mg Q6H PRN IV NAUSEA AND/OR VOMITING; Start 08/08/18 at 12:00 Piperacillin Sod/ Tazobactam Sod 100 ml @ 200 mls/hr Q8 IVPB Last administered on 08/14/18 06:00; Admin Dose 200 MLS/HR; Start 08/08/18 at 14:00 Olopatadine HCl (Pataday) 1 drop DAILY BOTH EYES Last administered on 08/14/18 09:29; Admin Dose 1 DROP; Start 08/08/18 at 14:30 Diltiazem HCl (Cardizem) 30 mg TID PO Last administered on 08/14/18 09:30; Admin Dose 30 MG; Start 08/08/18 at 16:00 Dronedarone (Multaq) 400 mg BID WITH MEALS PO Last administered on 08/14/18 09:30; Admin Dose 400 MG; Start 08/08/18 at 17:35 Diltiazem HCl (Cardizem Iv) 5 mg Q1H PRN IV afib with HR > 120; Start 08/08/18 at 14:30 Aspirin (Halfprin) 81 mg DAILY PO Last administered on 08/14/18 09:30; Admin Dose 81 MG; Start 08/09/18 at 09:00 Mupirocin (Bactroban) 1 applic BID TOP Last administered on 08/14/18 09:31; Admin Dose 1 APPLIC; Start 08/09/18 at 21:00 Guaifenesin (Mucinex) 600 mg BID PO Last administered on 08/14/18 09:30; Admin Dose 600 MG; Start 08/10/18 at 10:00 Phenazopyridine HCl (Pyridium) 100 mg TID PO Last administered on 08/13/18 20:17; Admin Dose 100 MG; Start 08/10/18 at 21:00 Levalbuterol (Xopenex Neb) 1.25 mg Q6H RESP THERAPY HHN Last administered on 08/14/18 09:10; Admin Dose 1.25 MG; Start 08/12/18 at 14:00 Levalbuterol (Xopenex Neb) 1.25 mg Q6H RESP THERAPY PRN HHN shortness of breath Last administered on 08/13/18 12:26; Admin Dose 1.25 MG; Start 08/12/18 at 11:30 Ipratropium [place] (Atrovent 0.02% (Neb)) 0.5 mg Q6HWA RESP THERAPY HHN Last administered on 08/14/18 09:10; Admin Dose 0.5 MG; Start 08/12/18 at 14:00 Ipratropium [place] (Atrovent 0.02% (Neb)) 0.5 mg Q4H RESP THERAPY PRN HHN SHORTNESS OF BREATH Last administered on 08/13/18 01:40; Admin Dose 0.5 MG; Start 08/12/18 at 11:30 Budesonide (Pulmicort (Neb)) 0.5 mg BID RESP THERAPY HHN Last administered on 08/14/18 09:11; Admin Dose 0.5 MG; Start 08/12/18 at 20:00 Furosemide (Lasix) 40 mg BID DIURETICS IV Last administered on 08/14/18 06:00; Admin Dose 40 MG; Start 08/13/18 at 11:30; Status Hold Assessment/Plan Hospital Course (Demo Recall) Assessment 1. Acute on chronic hypoxemic respiratory failure likely secondary to combination of diastolic dysfunction and severe COPD.Right lower lobe infiltrate possible aspiration pneumonia 2. Likely significant anxiety component. 3. SVT now improved 4. Hypokalemia likely secondary to diuretics Plan 1. PRN nocturnal noninvasive positive pressure ventilation 2. Continue supplemental O2 3. Bronchodilators as needed 4. Cardiac recommendations, DC beta agonist., 5. Replace potassium Stable for transfer to [place] ALEXI ALLISON MD, [facility] Aug 14, 2018 11:24
--- NOTE | 2018-08-14 12:16 | DS ---
Date/Time of Note Date/Time of Note DATE: 08/14/18 TIME: 12:16 Discharge Summary Admission/Discharge Info Admit Date/Time Aug 08, 2018 at 11:30 Discharge Date/Time Discharge Diagnosis 1. Acute hypoxic respiratory failure secondary to RLL PNA- resolving 2. RLL PNA 3. COPD exacerbation 4. h/o Afib and SVT 5. ?CHF 6. 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 fib who presented to [facility] as a transfer from [facility] for continued hypoxic respiratory failure. Patient was seen by pulmonology as well as cardiology, medications were adjusted and patient now continues to be on high-dose steroids and in need of chronic BiPAP. Patient does have near end-stage COPD and it would likely benefit from a palliative care consult while at [facility]. Patient is also getting broad-spectrum antibiotic for his right lower lobe pneumonia and we will continue that for now. Patient's heart rate medications were adjusted per cardiology and currently cardiology is okay with transfer to [facility]. Patient's pulmonary needs were adjusted by pulmonology and pulmonology also considers patient to be stable from their perspective. Patient currently has low potassium due to Lasix administration, will continue to trend labs and supplement with IV and oral potassium. It is highly recommended that upon transfer today patient get another immediate renal panel and potassium continued to be transfused as appropriate. Acute hypoxic respiratory failure secondary to severe COPD, chronic also acute Right lower lobe pneumonia COPD exacerbation A. fib SVT, controlled Diastolic CHF Home Meds Active Scripts Dronedarone Hydrochloride* (Multaq*) 400 Mg Tablet, 400 MG PO BID WITH MEALS for 30 Days, #60 TAB Prov:CHASIDY VILLEGAS MD 08/09/18 Diltiazem Hcl* (Cardizem*) 30 Mg Tablet, 30 MG PO TID for 30 Days, #90 TAB Prov:CHASIDY VILLEGAS MD 08/09/18 Methylprednisolone Sodium Succinate PF (Solu-Medrol PF) 125 Mg/2 Ml Vial, 60 MG IV Q8 for 7 Days, VIAL Prov:KAMILLE FRASER MD 07/18/18 Sennosides/Docusate Sodium (Dok Plus Tablet) 1 Each Tablet, 2 TAB PO AM for 10 Days, TAB Prov:KAMILLE FRASER MD 07/18/18 Famotidine* (Famotidine*) 20 Mg Tablet, 20 MG PO DAILY for 10 Days, TAB Prov:KAMILLE FRASER MD 07/18/18 Lactobacillus Rhamnosus GG (Culturelle) 1 Each Capsule, 1 CAP PO BID for 10 Days, CAP Prov:KAMILLE FRASER MD 07/18/18 Enoxaparin Sodium* (Enoxaparin Sodium*) 40 Mg/0.4 Ml Syringe, 40 MG SC DAILY for 10 Days, #10 Prov:KAMILLE FRASER MD 07/18/18 Ipratropium-Albuterol (Ipratropium-Albuterol) 0.5-3 Mg/3 Ml Ampul.neb, 3 ML HHN Q6H RESP THERAPY for 14 Days Prov:KAMILLE FRASER MD 07/18/18 Reported Medications Hydrocodone/Acetaminophen ([place] 5-325 Tablet) 1 Each Tablet, 1 EACH PO Q6 PRN for MODERATE PAIN LEVEL 4-6, TAB 07/13/18 Olopatadine* (Pataday*) 0.2% - 2.5 Ml Drops, 1 DROP BOTH EYES BID, EA 07/13/18 Protein Supplement (Promod) 946 Ml Liquid, 946 ML PO BID 07/13/18 Simethicone* (Mylicon*) 80 Mg Tab, 80 MG PO TID PRN for DISTENSION/GAS/BLOATING, TAB 07/13/18 Tamsulosin Hcl* (Tamsulosin Hcl*) 0.4 Mg Cap.er.24h, 0.4 MG PO HS, CAP 07/13/18 Acetaminophen* (Acetaminophen*) 650 Mg Tablet, 650 MG PO Q6H PRN for MILD PAIN LEVEL 1-3, #30 TAB AND FEVER 07/13/18 Multivitamins* (Theragran*) 1 Tab Tab, 1 TAB PO DAILY, TAB 07/13/18 Montelukast Sodium* (Montelukast Sodium*) 10 Mg Tablet, 10 MG PO QHS, #30 TAB 07/13/18 Polyethylene Glycol* (Miralax*) 17 Gm Powd.pack, 17 GM PO TID PRN for CONSTIPATION, #60 PACKET 07/13/18 Throat Lozenges* (Cepastat*) 9 Josselin Lozenge, 1 LOZENGE MT EVERY 1 HOUR PRN, LOZENGE 07/13/18 Docusate Sodium* (Docusate Sodium*) 100 Mg Capsule, 100 MG PO BID, #60 CAP 07/13/18 Bisacodyl (Dulcolax) 10 Mg Supp.rect, 10 MG RC PRN PRN for CONSTIPATION, SUPP.RECT 07/13/18 Furosemide* (Lasix*) 20 Mg Tablet, 20 MG PO DAILY, TAB 07/13/18 Guaifenesin* (Tussin*) 100 Mg/5 Ml Syrup, 200 MG PO Q4 PRN for COUGH, ML 07/13/18 Ipratropium [place]* (Atrovent HFA*) 12.9 Gm Aer.w.adap, 2 PUFF INHALATION Q6 for SHORTNESS OF BREATH, #1 INHALER FOR THE NEBULIZER 07/13/18 Lubiprostone* (Amitiza*) 24 Mcg Capsule, 24 MCG PO BID, #60 CAP 07/13/18 Magnesium Hydroxide* (Milk Of Magnesia*) 400 Mg/5 Ml Oral.susp, 30 ML PO DAILY PRN for CONSTIPATION, ML 07/13/18 Menthol (BENGAY) 113 Gm Gel..gram., 113 GM TP TID APPLY TO POSTERIOR RIGHT SHOULDER 07/13/18 Atorvastatin Calcium (Atorvastatin Calcium) 10 Mg Tablet, 10 MG PO QHS, #30 TAB 07/13/18 Polyvinyl Alcohol (Tears Again) 15 Ml Drops, 1 DRP BOTH EYES Q2HWA, BOTTLE 07/13/18 Discontinued Reported Medications Diltiazem Hcl* (Cardizem*) 30 Mg Tablet, 30 MG PO Q8 PRN for BLOOD PRESSURE SUPPORT, #90 TAB HOLD FOR SBP <110 OR HR <60 07/13/18 Losartan Potassium* (Losartan Potassium*) 50 Mg Tablet, 50 MG PO DAILY, TAB HOLD FOR SBP <110 OR HR <60 07/13/18 Follow-up Plan 1. Continue care in [facility] Pending Labs Laboratory Tests Test 08/14/18 05:55 08/14/18 07:00 08/14/18 11:01 White Blood Count 9.9 10^3/ul (4.8-10.8) Red Blood Count 3.38 10^6/ul (4.70-6.10) Hemoglobin 9.3 g/dl (14.0-18.0) Hematocrit 29.3 % (42.0-52.0) Mean Corpuscular 86.7 Volume fl (82.0-101.0) Mean Corpuscular 27.5 pg (29.0-33.0) Hemoglobin Mean Corpuscular 31.7 Hemoglobin Concent g/dl (32.0-37.0) Red Cell 16.9 % (11.5-14.5) Distribution Width Platelet Count 122 10^3/UL (140-415) Mean Platelet 11.2 fl (7.4-10.4) Volume Immature 1.100 Granulocytes % % (0.001-0.429) Neutrophils % 95.7 % (39.0-77.0) Lymphocytes % 0.9 % (15.0-51.0) Monocytes % 2.1 % (0.0-11.0) Eosinophils % 0.0 % (0.0-7.0) Basophils % 0.2 % (0.0-2.0) Nucleated Red Blood 0.0 Cells % /100WBC (0.0-0.0) Immature 0.110 Granulocytes # 10^3/ul (0.0-0.031) Neutrophils # 9.5 10^3/ul (1.6-7.5) Lymphocytes # 0.1 10^3/ul (0.8-2.9) Monocytes # 0.2 10^3/ul (0.3-0.9) Eosinophils # 0.0 10^3/ul (0.0-0.5) Basophils # 0.0 10^3/ul (0.0-0.1) Nucleated Red Blood 0.0 Cells # 10^3/ul (0.0-0.0) Sodium Level 140 139 mmol/L (135-144) mmol/L (135-144) Potassium Level 2.1 2.0 mmol/L (3.5-5.1) mmol/L (3.5-5.1) Chloride Level 93 mmol/L (97-110) 91 mmol/L (97-110) Carbon Dioxide 43 mmol/L (21-31) 43 mmol/L (21-31) Level Anion Gap 4 (5-13) 5 (5-13) Blood Urea 31 mg/dl (7-20) 31 mg/dl (7-20) Nitrogen Creatinine 0.52 0.57 mg/dl (0.61-1.24) mg/dl (0.61-1.24) Est Glomerular mL/min (>60) mL/min (>60) Filtrat Rate mL/min Glucose Level 129 mg/dl (70-220) 218 mg/dl (70-220) Calcium Level 7.8 8.0 mg/dl (8.4-10.2) mg/dl (8.4-10.2) Phosphorus Level 3.1 mg/dl (2.5-4.9) Magnesium Level 2.0 mg/dl (1.7-2.5) Blood Gas Specimen Blood arterial Source Arterial Blood Date 08/14/2018 7:45:14 Drawn AM Arterial Blood pH 7.557 (7.350-7.450 (Temp corrected) ) Arterial Blood pCO2 51.1 mmhg (35-45) (Temp correct) Arterial Blood pO2 75.9 (Temp corrected) mmHG (80-90.0) Arterial Blood 44.4 HCO3 mmol/L (22.0-26.0) Arterial Blood Base 19.7 Excess mmol/L (-3.0-3) Arterial Blood 95.2 Oxygen Saturation mmHG (95.0-100.0) Elmer Test ACCEPTAB Arterial Blood Gas Right Radial Puncture Site Arterial 0.3 % (0.0-3.0) Blood Carboxyhemogl obin Arterial Blood 0.3 % (0.0-1.5) Methemoglobin Blood Gas A-a O2 150.5 Differential mmHg (7.0-24.0) Oxyhemoglobin 94.6 % (93.0-99.0) Percent Blood Gas 37.0 C Temperature Blood Gas 14.0 Respiration Rate Blood Gas Actual 18 Respiration Rate Blood Gas Modality MASK - BIPAP FiO2 40.0 % Blood Gas Pressure 15 Support Blood Gas Critical FERNIE RN Value Read Back Blood Gas Notified TM Whom Blood Gas Notified 08/14/2018 8:06:33 Time AM WILMER SANTIAGO Aug 14, 2018 12:16
[2018-08-14] MEDS ORDERED: POTASSIUM CHLORIDE 20 MEQ POWDER FOR ORAL SOLN PO ONE (12:30)
[2018-08-14] MEDS: POTASSIUM CHLORIDE 100 ML IVPB SCH ×2 (12:36→14:44)
[2018-08-14] MEDS: TAMSULOSIN (SR) 0.4 MG CAP PO SCH (21:16)
[2018-08-14] MEDS: MONTELUKAST 10 MG TAB PO SCH (21:16)
[2018-08-14] MEDS: ATORVASTATIN 10 MG TAB PO SCH (21:16)
[2018-08-15] VITALS (23 sets, daily range): BP systolic 102–136; BP diastolic 52–69; PULSE 70–96; RESP 16–19
[2018-08-15] MEDS: LEVALBUTEROL (NEB) 1.25 MG/0.5 ML AMP HHN SCH ×4 (01:33→19:41)
[2018-08-15] MEDS: PIPER-TAZO 3.375 GM IV (PMX) 100 ML IVPB SCH ×3 (04:26→20:35)
[2018-08-15] MEDS: METHYLPREDNISOLONE 125 MG INJ IV SCH (04:26)
[2018-08-15] MEDS: IPRATROPIUM (NEB) 0.5 MG/2.5 ML AMP HHN SCH ×3 (08:46→19:41)
[2018-08-15] MEDS: BUDESONIDE (NEB) 0.5MG/2ML AMP HHN SCH ×2 (08:48→19:41)
[2018-08-15] MEDS: SENNA/DOCUSATE NA (8.6MG/50MG) TAB PO SCH (09:49)
[2018-08-15] MEDS: DRONEDARONE HYDROCHLORIDE 400 MG TAB PO SCH ×2 (09:50→17:56)
[2018-08-15] MEDS: FAMOTIDINE 20 MG TAB PO SCH (09:50)
[2018-08-15] MEDS: ASPIRIN (EC) 81 MG TAB PO SCH (09:50)
[2018-08-15] MEDS: MULTIVITAMINS THERAPEUTIC TAB PO SCH (09:50)
[2018-08-15] MEDS: MUPIROCIN 2% 22 GM OINT TOP SCH ×2 (09:50→20:35)
[2018-08-15] MEDS: PHENAZOPYRIDINE 100 MG TAB PO SCH (09:50)
[2018-08-15] MEDS: OLOPATADINE 0.2% (ONCE A DAY) OPHTH DROP 2.5 ML BOTH EYES SCH (09:50)
[2018-08-15] MEDS: LUBIPROSTONE 24 MCG CAP PO SCH ×2 (09:50→20:34)
[2018-08-15] MEDS: GUAIFENESIN LA 600 MG TABSR PO SCH ×2 (09:50→20:34)
[2018-08-15] MEDS: DILTIAZEM 30 MG TAB PO SCH ×3 (09:53→20:40)
[2018-08-15] MEDS: ENOXAPARIN 40 MG/0.4 ML SYG SC SCH (10:05)
--- NOTE | 2018-08-15 11:42 | CONS ---
Consult Date/Type/Reason Admit Date/Time Aug 08, 2018 at 11:30 Initial Consult Date 08/08/18 Type of Consult Pulmonary Requesting Provider: ALEXI ALLISON MD, [facility] Date/Time of Note DATE: 08/15/18 TIME: 11:41 Subjective Complaining of significant shortness of breath requiring bilevel ventilation. Chest x-ray and arterial blood gas noted. Objective Vital Signs Date Temp Pulse Resp B/P (MAP) Pulse Ox O2 O2 Flow FiO2 Time Delivery Rate 08/15/18 97.9 76 18 136/63 92 09:51 (87) 08/15/18 40 08:57 08/13/18 6.0 20:50 08/13/18 Nasal 19:47 Cannula Intake and Output 08/14/18 08/14/18 08/15/18 1414:59 22:59 06:59 IntakeIntake Total 260 ml 400 ml OutputOutput Total 600 ml 500 ml BalanceBalance -340 ml -100 ml Exam GENERAL: Elderly gentleman comfortable at rest no acute distress VITAL SIGNS: per chart NECK: Supple. No JVD or lymphadenopathy. CARDIAC EXAM: S1, S2. No added sounds or murmurs. CHEST: Diminished air entry bilaterally ABDOMEN: Soft, nontender. No guarding or rebound. EXTREMITIES: No cyanosis, clubbing or edema. NEUROLOGIC: Generalized weakness. No focal deficits. Vent Setting Fraction of Inspired Oxygen pe: 40 Results/Medications Result Diagram: 08/14/18 0555 08/15/18 0543 Results 24 hrs Laboratory Tests Test 08/14/18 15:54 08/14/18 19:06 08/15/18 05:43 Sodium Level 140 141 Potassium Level 3.6 3.6 Chloride Level 94 L 96 L Carbon Dioxide Level 42 *H 42 *H Anion Gap 4 L 3 L Blood Urea Nitrogen 36 H 40 H Creatinine 0.59 L 0.48 L Glucose Level 205 162 Calcium Level 8.2 L 8.2 L Phosphorus Level 2.3 L Albumin 2.8 L 2.6 L Bedside Glucose 240 H Est Glomerular Filtrat Rate mL/min Magnesium Level 2.0 Total Bilirubin 0.8 Direct Bilirubin 0.00 Indirect Bilirubin 0.8 Aspartate Amino Transf (AST/SGOT) 35 Alanine Aminotransferase (ALT/SGPT) 121 H Alkaline Phosphatase 77 B-Type Natriuretic Peptide 909 H Total Protein 4.7 L Globulin 2.10 Albumin/Globulin Ratio 1.23 Medications Current Medications Acetaminophen (Tylenol Tab) 650 mg Q6H PRN PO MILD PAIN LEVEL 1-3; Start 08/08/18 at 12:00 Atorvastatin Calcium (Lipitor) 10 mg QHS PO Last administered on 08/14/18 21:16; Admin Dose 10 MG; Start 08/08/18 at 21:00 Docusate Sodium (Colace) 100 mg BID PRN PO constipation; Start 08/08/18 at 12:00 Enoxaparin Sodium (Lovenox) 40 mg DAILY SC Last administered on 08/15/18 10:05; Admin Dose 40 MG; Start 08/09/18 at 09:00 Famotidine (Pepcid) 20 mg DAILY PO Last administered on 08/15/18 09:50; Admin Dose 20 MG; Start 08/09/18 at 09:00 Lubiprostone (Amitiza) 24 mcg BID PO Last administered on 08/15/18 09:50; Admin Dose 24 MCG; Start 08/08/18 at 21:00 Magnesium Hydroxide (Milk Of Mag) 30 ml DAILY PRN PO CONSTIPATION; Start 08/08/18 at 12:00 Methylprednisolone Sodium Succinate (Solu-Medrol) 60 mg Q8 IV Last administered on 08/15/18 04:26; Admin Dose 60 MG; Start 08/08/18 at 14:00 Montelukast Sodium (Singulair) 10 mg QHS PO Last administered on 08/14/18 21:16; Admin Dose 10 MG; Start 08/08/18 at 21:00 Multivitamins Therapeutic (Theragran) 1 tab DAILY PO Last administered on 08/15/18 09:50; Admin Dose 1 TAB; Start 08/09/18 at 09:00 Polyethylene Glycol (Miralax) 17 gm TID PRN PO CONSTIPATION; Start 08/08/18 at 12:00 Senna/Docusate Sodium (Senokot-S) 2 tab AM PO Last administered on 08/15/18 09:49; Admin Dose 2 TAB; Start 08/09/18 at 09:00 Simethicone (Mylicon) 80 mg TID PRN PO DISTENSION/GAS/BLOATING; Start 08/08/18 at 12:00 Tamsulosin HCl (Flomax) 0.4 mg HS PO Last administered on 08/14/18 21:16; Admin Dose 0.4 MG; Start 08/08/18 at 21:00 Ondansetron HCl (Zofran Inj) 4 mg Q6H PRN IV NAUSEA AND/OR VOMITING Last administered on 08/15/18 04:26; Admin Dose 4 MG; Start 08/08/18 at 12:00 Piperacillin Sod/ Tazobactam Sod 100 ml @ 200 mls/hr Q8 IVPB Last administered on 08/15/18 04:26; Admin Dose 200 MLS/HR; Start 08/08/18 at 14:00 Olopatadine HCl (Pataday) 1 drop DAILY BOTH EYES Last administered on 08/15/18 09:50; Admin Dose 1 DROP; Start 08/08/18 at 14:30 Diltiazem HCl (Cardizem) 30 mg TID PO Last administered on 08/15/18 09:53; Admin Dose 30 MG; Start 08/08/18 at 16:00 Dronedarone (Multaq) 400 mg BID WITH MEALS PO Last administered on 08/15/18 09:50; Admin Dose 400 MG; Start 08/08/18 at 17:35 Diltiazem HCl (Cardizem Iv) 5 mg Q1H PRN IV afib with HR > 120; Start 08/08/18 at 14:30 Aspirin (Halfprin) 81 mg DAILY PO Last administered on 08/15/18 09:50; Admin Dose 81 MG; Start 08/09/18 at 09:00 Mupirocin (Bactroban) 1 applic BID TOP Last administered on 08/15/18 09:50; Admin Dose 1 APPLIC; Start 08/09/18 at 21:00 Guaifenesin (Mucinex) 600 mg BID PO Last administered on 08/15/18 09:50; Admin Dose 600 MG; Start 08/10/18 at 10:00 Levalbuterol (Xopenex Neb) 1.25 mg Q6H RESP THERAPY HHN Last administered on 08/15/18 08:47; Admin Dose 1.25 MG; Start 08/12/18 at 14:00 Levalbuterol (Xopenex Neb) 1.25 mg Q6H RESP THERAPY PRN HHN shortness of breath Last administered on 08/13/18 12:26; Admin Dose 1.25 MG; Start 08/12/18 at 11:30 Ipratropium [place] (Atrovent 0.02% (Neb)) 0.5 mg Q6HWA RESP THERAPY HHN Last administered on 08/15/18 08:46; Admin Dose 0.5 MG; Start 08/12/18 at 14:00 Ipratropium [place] (Atrovent 0.02% (Neb)) 0.5 mg Q4H RESP THERAPY PRN HHN SHORTNESS OF BREATH Last administered on 08/13/18 01:40; Admin Dose 0.5 MG; Start 08/12/18 at 11:30 Budesonide (Pulmicort (Neb)) 0.5 mg BID RESP THERAPY HHN Last administered on 08/15/18 08:48; Admin Dose 0.5 MG; Start 08/12/18 at 20:00 Furosemide (Lasix) 40 mg BID DIURETICS IV Last administered on 08/14/18 06:00; Admin Dose 40 MG; Start 08/13/18 at 11:30; Status Hold Assessment/Plan Hospital Course (Demo Recall) Assessment 1. Acute on chronic hypoxemic respiratory failure likely secondary to combination of diastolic dysfunction and severe COPD.Right lower lobe infiltrate possible aspiration pneumonia. Degree of dyspnea out of proportion to radiographic and arterial blood gas findings. 2. Likely significant anxiety component. 3. SVT now improved 4. Hypokalemia likely secondary to diuretics Plan 1. PRN nocturnal noninvasive positive pressure ventilation 2. Continue supplemental O2 3. Bronchodilators as needed 4. Cardiac recommendations, DC beta agonist., 5. Replace potassium 6. Palliative care evaluation 7. Anxiolytic. ALEXI ALLISON MD, [facility] Aug 15, 2018 11:42
--- NOTE | 2018-08-15 13:15 | PN ---
Date/Time of Note Date/Time of Note DATE: 08/15/18 TIME: 13:11 Objective Vitals Vital Signs Date Temp Pulse Resp B/P (MAP) Pulse Ox O2 O2 Flow FiO2 Time Delivery Rate 08/15/18 93 95 40 12:56 08/15/18 4.0 12:28 08/15/18 97.4 18 102/52 11:58 (69) 08/13/18 Nasal 19:47 Cannula Intake and Output 08/14/18 08/14/18 08/15/18 1515:00 23:00 07:00 IntakeIntake Total 260 ml 400 ml OutputOutput Total 600 ml 500 ml BalanceBalance -340 ml -100 ml Results Result Diagram: 08/14/18 0555 08/15/18 0543 Medications Medications Current Medications Acetaminophen (Tylenol Tab) 650 mg Q6H PRN PO MILD PAIN LEVEL 1-3; Start 08/08/18 at 12:00 Atorvastatin Calcium (Lipitor) 10 mg QHS PO Last administered on 08/14/18at 21:16; Admin Dose 10 MG; Start 08/08/18 at 21:00 Docusate Sodium (Colace) 100 mg BID PRN PO constipation; Start 08/08/18 at 12:00 Enoxaparin Sodium (Lovenox) 40 mg DAILY SC Last administered on 08/15/18at 10:05; Admin Dose 40 MG; Start 08/09/18 at 09:00 Famotidine (Pepcid) 20 mg DAILY PO Last administered on 08/15/18at 09:50; Admin Dose 20 MG; Start 08/09/18 at 09:00 Lubiprostone (Amitiza) 24 mcg BID PO Last administered on 08/15/18at 09:50; Admin Dose 24 MCG; Start 08/08/18 at 21:00 Magnesium Hydroxide (Milk Of Mag) 30 ml DAILY PRN PO CONSTIPATION; Start 08/08/18 at 12:00 Montelukast Sodium (Singulair) 10 mg QHS PO Last administered on 08/14/18 21:16; Admin Dose 10 MG; Start 08/08/18 at 21:00 Multivitamins Therapeutic (Theragran) 1 tab DAILY PO Last administered on 08/15/18 09:50; Admin Dose 1 TAB; Start 08/09/18 at 09:00 Polyethylene Glycol (Miralax) 17 gm TID PRN PO CONSTIPATION; Start 08/08/18 at 12:00 Senna/Docusate Sodium (Senokot-S) 2 tab AM PO Last administered on 08/15/18 09:49; Admin Dose 2 TAB; Start 08/09/18 at 09:00 Simethicone (Mylicon) 80 mg TID PRN PO DISTENSION/GAS/BLOATING; Start 08/08/18 at 12:00 Tamsulosin HCl (Flomax) 0.4 mg HS PO Last administered on 08/14/18 21:16; Admin Dose 0.4 MG; Start 08/08/18 at 21:00 Ondansetron HCl (Zofran Inj) 4 mg Q6H PRN IV NAUSEA AND/OR VOMITING Last administered on 08/15/18 04:26; Admin Dose 4 MG; Start 08/08/18 at 12:00 Piperacillin Sod/ Tazobactam Sod 100 ml @ 200 mls/hr Q8 IVPB Last administered on 08/15/18 04:26; Admin Dose 200 MLS/HR; Start 08/08/18 at 14:00 Olopatadine HCl (Pataday) 1 drop DAILY BOTH EYES Last administered on 08/15/18 09:50; Admin Dose 1 DROP; Start 08/08/18 at 14:30 Diltiazem HCl (Cardizem) 30 mg TID PO Last administered on 08/15/18 09:53; Admin Dose 30 MG; Start 08/08/18 at 16:00 Dronedarone (Multaq) 400 mg BID WITH MEALS PO Last administered on 08/15/18 09:50; Admin Dose 400 MG; Start 08/08/18 at 17:35 Diltiazem HCl (Cardizem Iv) 5 mg Q1H PRN IV afib with HR > 120; Start 08/08/18 at 14:30 Aspirin (Halfprin) 81 mg DAILY PO Last administered on 08/15/18 09:50; Admin Dose 81 MG; Start 08/09/18 at 09:00 Mupirocin (Bactroban) 1 applic BID TOP Last administered on 08/15/18 09:50; Admin Dose 1 APPLIC; Start 08/09/18 at 21:00 Guaifenesin (Mucinex) 600 mg BID PO Last administered on 08/15/18 09:50; Admin Dose 600 MG; Start 08/10/18 at 10:00 Levalbuterol (Xopenex Neb) 1.25 mg Q6H RESP THERAPY HHN Last administered on 08/15/18 08:47; Admin Dose 1.25 MG; Start 08/12/18 at 14:00 Levalbuterol (Xopenex Neb) 1.25 mg Q6H RESP THERAPY PRN HHN shortness of breath Last administered on 08/13/18 12:26; Admin Dose 1.25 MG; Start 08/12/18 at 11 :30 Ipratropium [place] (Atrovent 0.02% (Neb)) 0.5 mg Q6HWA RESP THERAPY HHN Last administered on 08/15/18 08:46; Admin Dose 0.5 MG; Start 08/12/18 at 14:00 Ipratropium [place] (Atrovent 0.02% (Neb)) 0.5 mg Q4H RESP THERAPY PRN HHN SHORTNESS OF BREATH Last administered on 08/13/18 01:40; Admin Dose 0.5 MG; Start 08/12/18 at 11:30 Budesonide (Pulmicort (Neb)) 0.5 mg BID RESP THERAPY HHN Last administered on 08/15/18 08:48; Admin Dose 0.5 MG; Start 08/12/18 at 20:00 Furosemide (Lasix) 40 mg BID DIURETICS IV Last administered on 08/14/18 06:00; Admin Dose 40 MG; Start 08/13/18 at 11:30; Status Hold Methylprednisolone Sodium Succinate (Solu-Medrol) 40 mg Q12 IV ; Start 08/15/18 at 21:00 Alprazolam (Xanax) 0.5 mg Q8 PO ; Start 08/15/18 at 14:00 VTE Prophylaxis Risk score (from Nsg)>0 risk: 5 SCD applied (from Nsg): Yes Lines/Catheters IV Catheter Type: Alt[place] in Place: No Assessment/Plan Hospital Course Subjective Respirations are objectively worse, patient still on BiPAP Objective Physical exam General: Patient is laying in bed and ans, spoke with son at bedside, all questions answered by nodding his head, on BiPAP Mentation: Patient is alert and oriented Head: Normocephalic atraumatic Eyes: EOMI, pupils reactive to light Neck: Supple, nontender, midline Respiratory: Coarse to auscultation bilaterally Cardiovascular: regular rate, no obvious murmurs Gastrointestinal: non-tender to palpation, bowel sounds heard. Neurological: Moves all extremities spontaneously Skin: No new skin lesions Assessment/Plan 1. Acute hypoxic respiratory failure - Patient still requiring intermittent BIPAP - Pulmonology on board and appreciate recommendations - Continue nebs, steroids and IV antibiotics - monitor for improvement 2. RLL PNA - seen on CXR - ?Aspiration vs HCAP - IV antibiotics on board - nebs and PRN on board 3. COPD exacerbation - nebs, steroids, antibiotics 4. h/o Afib and SVT - Cardiology on board and appreciate recommendations. Continue current medications and adjust as needed -SVTs are stable for now, no episodes in the past 24 hours 5. ?CHF - responded to lasix but EF 65% on last ECHO and does not appear overloaded - will continue monitoring I/O and daily weights 6. hyperglycemia- resolved - most likely secondary to steroids - A1c from 06/2018 was 5 7. Disposition -worsening pulm status per pulmonology, palliative care to see patient, family meeting tomorrow. do not intubate per palliative care physician. WILMER SANTIAGO Aug 15, 2018 13:15
[2018-08-15] MEDS: ALPRAZOLAM 0.5 MG TAB PO SCH ×2 (15:12→20:34)
[2018-08-15] MEDS ORDERED: POTASSIUM CHLORIDE (SR) 20 MEQ TAB PO STA (16:50)
--- NOTE | 2018-08-15 16:52 | CONS ---
Consult Date/Type/Reason Admit Date/Time Aug 08, 2018 at 11:30 Initial Consult Date 08/08/18 Type of Consultation: cv Requesting Provider: ALEXI ALLISON MD, [facility] Date/Time of Note DATE: 08/15/18 TIME: 16:51 Subjective cardiology follow up note S; D/W staff and telemetry was reviewed patient remains sinus rhythm with occasional PAC and PVC Patient continued to be in respiratory distress and intermittently on BiPAP. no chest pain or pressure to He denies any palpitation to me but still is dyspnic Objective: General: Elderly gentleman in respiratory distress on BiPAP. HEENT: NC/AT. pupils are equal. round. NECK: . no stridor. CV: RRR. systolic murmur; no gallop or rubs. PULM: + rhonchi. GI: SOFT, NT, ND, no rebound or guarding Extremity: Trivial B/L LE edema. no clubbing. neuro: awake and alert, OX3. Psych: calm and pleasant rectal: deferred : normal Chest x-ray done 08/08/2018 which was also personally reviewed shows: 1. Mildly increased right basilar opacification, similar in size small right pleural effusion. 2. Right PIC line distal tip projects over the right axilla, unchanged. Review of the old chart showed echocardiogram was in April 2018 personally reviewed and showed Normal left ventricular systolic function. Normal left ventricular cavity size. Normal left ventricular wall thickness. Ejection fraction is visually estimated at 65 %. Normal appearance and function of the mitral valve with trace physiologic regurgitation. No significant aortic stenosis or insufficiency. Aortic valve not well visualized. Aortic cusps appear mildly calcified. Normal appearance of the tricuspid valve. Unable to obtain RVSP due to minimal presence of tricuspid regurgitation. Objective Vitals Vital Signs Date Temp Pulse Resp B/P (MAP) Pulse Ox O2 O2 Flow FiO2 Time Delivery Rate 08/15/18 97.6 70 19 107/52 95 15:43 (70) 08/15/18 40 15:05 08/15/18 4.0 12:28 08/13/18 Nasal 19:47 Cannula Intake and Output 08/14/18 08/14/18 08/15/18 1515:00 23:00 07:00 IntakeIntake Total 260 ml 400 ml OutputOutput Total 600 ml 500 ml BalanceBalance -340 ml -100 ml Results/Medications Result Diagram: 08/14/18 0555 08/15/18 0543 Results 24 hrs Laboratory Tests Test 08/14/18 19:06 08/15/18 05:43 Bedside Glucose 240 H Sodium Level 141 Potassium Level 3.6 Chloride Level 96 L Carbon Dioxide Level 42 *H Anion Gap 3 L Blood Urea Nitrogen 40 H Creatinine 0.48 L Est Glomerular Filtrat Rate mL/min Glucose Level 162 Calcium Level 8.2 L Magnesium Level 2.0 Total Bilirubin 0.8 Direct Bilirubin 0.00 Indirect Bilirubin 0.8 Aspartate Amino Transf (AST/SGOT) 35 Alanine Aminotransferase (ALT/SGPT) 121 H Alkaline Phosphatase 77 B-Type Natriuretic Peptide 909 H Total Protein 4.7 L Albumin 2.6 L Globulin 2.10 Albumin/Globulin Ratio 1.23 Home Meds Active Scripts Dronedarone Hydrochloride* (Multaq*) 400 Mg Tablet, 400 MG PO BID WITH MEALS for 30 Days, #60 TAB Prov:CHASIDY VILLEGAS MD 08/09/18 Diltiazem Hcl* (Cardizem*) 30 Mg Tablet, 30 MG PO TID for 30 Days, #90 TAB Prov:CHASIDY VILLEGAS MD 08/09/18 Methylprednisolone Sodium Succinate PF (Solu-Medrol PF) 125 Mg/2 Ml Vial, 60 MG IV Q8 for 7 Days, VIAL Prov:KAMILLE FRASER MD 07/18/18 Sennosides/Docusate Sodium (Dok Plus Tablet) 1 Each Tablet, 2 TAB PO AM for 10 Days, TAB Prov:KAMILLE FRASER MD 07/18/18 Famotidine* (Famotidine*) 20 Mg Tablet, 20 MG PO DAILY for 10 Days, TAB Prov:KAMILLE FRASER MD 07/18/18 Lactobacillus Rhamnosus GG (Culturelle) 1 Each Capsule, 1 CAP PO BID for 10 Days, CAP Prov:KAMILLE FRASER MD 07/18/18 Enoxaparin Sodium* (Enoxaparin Sodium*) 40 Mg/0.4 Ml Syringe, 40 MG SC DAILY for 10 Days, #10 Prov:KAMILLE FRASER MD 07/18/18 Ipratropium-Albuterol (Ipratropium-Albuterol) 0.5-3 Mg/3 Ml Ampul.neb, 3 ML HHN Q6H RESP THERAPY for 14 Days Prov:KAMILLE FRASER MD 07/18/18 Reported Medications Hydrocodone/Acetaminophen ([place] 5-325 Tablet) 1 Each Tablet, 1 EACH PO Q6 PRN for MODERATE PAIN LEVEL 4-6, TAB 07/13/18 Olopatadine* (Pataday*) 0.2% - 2.5 Ml Drops, 1 DROP BOTH EYES BID, EA 07/13/18 Protein Supplement (Promod) 946 Ml Liquid, 946 ML PO BID 07/13/18 Simethicone* (Mylicon*) 80 Mg Tab, 80 MG PO TID PRN for DISTENSION/GAS/BLOATING, TAB 07/13/18 Tamsulosin Hcl* (Tamsulosin Hcl*) 0.4 Mg Cap.er.24h, 0.4 MG PO HS, CAP 07/13/18 Acetaminophen* (Acetaminophen*) 650 Mg Tablet, 650 MG PO Q6H PRN for MILD PAIN LEVEL 1-3, #30 TAB AND FEVER 07/13/18 Multivitamins* (Theragran*) 1 Tab Tab, 1 TAB PO DAILY, TAB 07/13/18 Montelukast Sodium* (Montelukast Sodium*) 10 Mg Tablet, 10 MG PO QHS, #30 TAB 07/13/18 Polyethylene Glycol* (Miralax*) 17 Gm Powd.pack, 17 GM PO TID PRN for CONSTIPATION, #60 PACKET 07/13/18 Throat Lozenges* (Cepastat*) 9 Josselin Lozenge, 1 LOZENGE MT EVERY 1 HOUR PRN, LOZENGE 07/13/18 Docusate Sodium* (Docusate Sodium*) 100 Mg Capsule, 100 MG PO BID, #60 CAP 07/13/18 Bisacodyl (Dulcolax) 10 Mg Supp.rect, 10 MG RC PRN PRN for CONSTIPATION, SUPP.RECT 07/13/18 Furosemide* (Lasix*) 20 Mg Tablet, 20 MG PO DAILY, TAB 07/13/18 Guaifenesin* (Tussin*) 100 Mg/5 Ml Syrup, 200 MG PO Q4 PRN for COUGH, ML 07/13/18 Ipratropium [place]* (Atrovent HFA*) 12.9 Gm Aer.w.adap, 2 PUFF INHALATION Q6 for SHORTNESS OF BREATH, #1 INHALER FOR THE NEBULIZER 07/13/18 Lubiprostone* (Amitiza*) 24 Mcg Capsule, 24 MCG PO BID, #60 CAP 07/13/18 Magnesium Hydroxide* (Milk Of Magnesia*) 400 Mg/5 Ml Oral.susp, 30 ML PO DAILY PRN for CONSTIPATION, ML 07/13/18 Menthol (BENGAY) 113 Gm Gel..gram., 113 GM TP TID APPLY TO POSTERIOR RIGHT SHOULDER 07/13/18 Atorvastatin Calcium (Atorvastatin Calcium) 10 Mg Tablet, 10 MG PO QHS, #30 TAB 07/13/18 Polyvinyl Alcohol (Tears Again) 15 Ml Drops, 1 DRP BOTH EYES Q2HWA, BOTTLE 07/13/18 Discontinued Reported Medications Diltiazem Hcl* (Cardizem*) 30 Mg Tablet, 30 MG PO Q8 PRN for BLOOD PRESSURE SUPPORT, #90 TAB HOLD FOR SBP <110 OR HR <60 07/13/18 Losartan Potassium* (Losartan Potassium*) 50 Mg Tablet, 50 MG PO DAILY, TAB HOLD FOR SBP <110 OR HR <60 07/13/18 Medications Current Medications Acetaminophen (Tylenol Tab) 650 mg Q6H PRN PO MILD PAIN LEVEL 1-3; Start 08/08/18 at 12:00 Atorvastatin Calcium (Lipitor) 10 mg QHS PO Last administered on 08/14/18at 21:16; Admin Dose 10 MG; Start 08/08/18 at 21:00 Docusate Sodium (Colace) 100 mg BID PRN PO constipation; Start 08/08/18 at 12:00 Enoxaparin Sodium (Lovenox) 40 mg DAILY SC Last administered on 08/15/18at 10:05; Admin Dose 40 MG; Start 08/09/18 at 09:00 Famotidine (Pepcid) 20 mg DAILY PO Last administered on 08/15/18at 09:50; Admin Dose 20 MG; Start 08/09/18 at 09:00 Lubiprostone (Amitiza) 24 mcg BID PO Last administered on 08/15/18at 09:50; Admin Dose 24 MCG; Start 08/08/18 at 21:00 Magnesium Hydroxide (Milk Of Mag) 30 ml DAILY PRN PO CONSTIPATION; Start 08/08/18 at 12:00 Montelukast Sodium (Singulair) 10 mg QHS PO Last administered on 08/14/18 21:16; Admin Dose 10 MG; Start 08/08/18 at 21:00 Multivitamins Therapeutic (Theragran) 1 tab DAILY PO Last administered on 08/15/18 09:50; Admin Dose 1 TAB; Start 08/09/18 at 09:00 Polyethylene Glycol (Miralax) 17 gm TID PRN PO CONSTIPATION; Start 08/08/18 at 12:00 Senna/Docusate Sodium (Senokot-S) 2 tab AM PO Last administered on 08/15/18 09:49; Admin Dose 2 TAB; Start 08/09/18 at 09:00 Simethicone (Mylicon) 80 mg TID PRN PO DISTENSION/GAS/BLOATING; Start 08/08/18 at 12:00 Tamsulosin HCl (Flomax) 0.4 mg HS PO Last administered on 08/14/18 21:16; Admin Dose 0.4 MG; Start 08/08/18 at 21:00 Ondansetron HCl (Zofran Inj) 4 mg Q6H PRN IV NAUSEA AND/OR VOMITING Last administered on 08/15/18 04:26; Admin Dose 4 MG; Start 08/08/18 at 12:00 Piperacillin Sod/ Tazobactam Sod 100 ml @ 200 mls/hr Q8 IVPB Last administered on 08/15/18 15:12; Admin Dose 200 MLS/HR; Start 08/08/18 at 14:00 Olopatadine HCl (Pataday) 1 drop DAILY BOTH EYES Last administered on 08/15/18 09:50; Admin Dose 1 DROP; Start 08/08/18 at 14:30 Diltiazem HCl (Cardizem) 30 mg TID PO Last administered on 08/15/18 09:53; Admin Dose 30 MG; Start 08/08/18 at 16:00 Dronedarone (Multaq) 400 mg BID WITH MEALS PO Last administered on 08/15/18 09:50; Admin Dose 400 MG; Start 08/08/18 at 17:35 Diltiazem HCl (Cardizem Iv) 5 mg Q1H PRN IV afib with HR > 120; Start 08/08/18 at 14:30 Aspirin (Halfprin) 81 mg DAILY PO Last administered on 08/15/18 09:50; Admin Dose 81 MG; Start 08/09/18 at 09:00 Mupirocin (Bactroban) 1 applic BID TOP Last administered on 08/15/18 09:50; Admin Dose 1 APPLIC; Start 08/09/18 at 21:00 Guaifenesin (Mucinex) 600 mg BID PO Last administered on 08/15/18 09:50; Admin Dose 600 MG; Start 08/10/18 at 10:00 Levalbuterol (Xopenex Neb) 1.25 mg Q6H RESP THERAPY HHN Last administered on 08/15/18 13:20; Admin Dose 1.25 MG; Start 08/12/18 at 14:00 Levalbuterol (Xopenex Neb) 1.25 mg Q6H RESP THERAPY PRN HHN shortness of breath Last administered on 08/13/18 12:26; Admin Dose 1.25 MG; Start 08/12/18 at 11:30 Ipratropium [place] (Atrovent 0.02% (Neb)) 0.5 mg Q6HWA RESP THERAPY HHN Last administered on 08/15/18 13:20; Admin Dose 0.5 MG; Start 08/12/18 at 14:00 Ipratropium [place] (Atrovent 0.02% (Neb)) 0.5 mg Q4H RESP THERAPY PRN HHN SHORTNESS OF BREATH Last administered on 08/13/18 01:40; Admin Dose 0.5 MG; Start 08/12/18 at 11:30 Budesonide (Pulmicort (Neb)) 0.5 mg BID RESP THERAPY HHN Last administered on 08/15/18 08:48; Admin Dose 0.5 MG; Start 08/12/18 at 20:00 Furosemide (Lasix) 40 mg BID DIURETICS IV Last administered on 08/14/18 06:00; Admin Dose 40 MG; Start 08/13/18 at 11:30; Status Hold Methylprednisolone Sodium Succinate (Solu-Medrol) 40 mg Q12 IV ; Start 08/15/18 at 21:00 Alprazolam (Xanax) 0.5 mg Q8 PO Last administered on 08/15/18 15:12; Admin Dose 0.5 MG; Start 08/15/18 at 14:00 Assessment/Plan Hospital Course (Demo Recall) 1. Acute hypoxemic hypercapnic respiratory failure 2. COPD exacerbation 3. S/P pneumonia 4. Questionable congestive heart failure: Patient clinically has responded to the IV Lasix but does not appear to be in fluid overloaded and has had normal ejection fraction 5. History of hypertension: Currently under good control 6. History of proximal atrial fibrillation and SVT most likely worsened by his respiratory failure 7. History of dyslipidemia 8.hypo K Recommendations: Continue with aspirin Continue with Cardizem and Multaq to try to maintain sinus rhythm Oxygen supplement BiPAP as needed will be deferred to the pulmonary recommendations Closely monitor for possible need for intubation will resume lasix . replace lytes prn Echocardiogram was done in April DVT prophylaxis and GI prophylaxis as per internal medicine Thank you for his referral. I will continue follow along with you HAYLEE PINZON MD [facility] HAYLEE PINZON MD Aug 15, 2018 16:52
[2018-08-15] MEDS: FUROSEMIDE 20 MG INJ IV SCH (17:56)
[2018-08-15] MEDS: METHYLPREDNISOLONE 40 MG INJ IV SCH (20:34)
[2018-08-15] MEDS: ATORVASTATIN 10 MG TAB PO SCH (20:34)
[2018-08-15] MEDS: TAMSULOSIN (SR) 0.4 MG CAP PO SCH (20:34)
[2018-08-15] MEDS: MONTELUKAST 10 MG TAB PO SCH (20:34)
[2018-08-16] VITALS (23 sets, daily range): BP systolic 90–118; BP diastolic 53–59; PULSE 69–96; RESP 14–18
[2018-08-16] MEDS: LEVALBUTEROL (NEB) 1.25 MG/0.5 ML AMP HHN SCH ×4 (02:29→19:17)
[2018-08-16] MEDS: ALPRAZOLAM 0.5 MG TAB PO SCH (06:16)
[2018-08-16] MEDS: FUROSEMIDE 20 MG INJ IV SCH ×2 (06:16→17:56)
[2018-08-16] MEDS: PIPER-TAZO 3.375 GM IV (PMX) 100 ML IVPB SCH (06:16)
--- NOTE | 2018-08-16 08:48 | CONS ---
Assessment/Plan Assessment/Plan Assessment/Plan (Daily) Reviewed chart and had a conversation with patient's eldest daughter who feels that the father is failing and suffering. Apparently there are 11 other siblings but all are in agreement that he is not significantly improving. I have asked her to consider changing patient's CODE STATUS so he does not end up on a ventilator if he continues in his downhill course. She is in agreement and is the eldest daughter she is taking responsibility for that decision. I will be meeting with family members today at 0900 to discuss comfort measures and GIP consultation. Consultation Date/Type/Reason Admit Date/Time Aug 08, 2018 at 11:30 Date/Time of Note DATE: 08/16/18 TIME: 08:46 Past Medical History Medical History: high cholesterol, hypertension, other (COPD, afib) Home Meds Active Scripts Dronedarone Hydrochloride* (Multaq*) 400 Mg Tablet, 400 MG PO BID WITH MEALS for 30 Days, #60 TAB Prov:CHASIDY VILLEGAS MD 08/09/18 Diltiazem Hcl* (Cardizem*) 30 Mg Tablet, 30 MG PO TID for 30 Days, #90 TAB Prov:CHASIDY VILLEGAS MD 08/09/18 Methylprednisolone Sodium Succinate PF (Solu-Medrol PF) 125 Mg/2 Ml Vial, 60 MG IV Q8 for 7 Days, VIAL Prov:KAMILLE FRASER MD 07/18/18 Sennosides/Docusate Sodium (Dok Plus Tablet) 1 Each Tablet, 2 TAB PO AM for 10 Days, TAB Prov:KAMILLE FRASER MD 07/18/18 Famotidine* (Famotidine*) 20 Mg Tablet, 20 MG PO DAILY for 10 Days, TAB Prov:KAMILLE FRASER MD 07/18/18 Lactobacillus Rhamnosus GG (Culturelle) 1 Each Capsule, 1 CAP PO BID for 10 Days, CAP Prov:KAMILLE FRASER MD 07/18/18 Enoxaparin Sodium* (Enoxaparin Sodium*) 40 Mg/0.4 Ml Syringe, 40 MG SC DAILY for 10 Days, #10 Prov:KAMILLE FRASER MD 07/18/18 Ipratropium-Albuterol (Ipratropium-Albuterol) 0.5-3 Mg/3 Ml Ampul.neb, 3 ML HHN Q6H RESP THERAPY for 14 Days Prov:KAMILLE FRASER MD 07/18/18 Reported Medications Hydrocodone/Acetaminophen ([place] 5-325 Tablet) 1 Each Tablet, 1 EACH PO Q6 PRN for MODERATE PAIN LEVEL 4-6, TAB 07/13/18 Olopatadine* (Pataday*) 0.2% - 2.5 Ml Drops, 1 DROP BOTH EYES BID, EA 07/13/18 Protein Supplement (Promod) 946 Ml Liquid, 946 ML PO BID 07/13/18 Simethicone* (Mylicon*) 80 Mg Tab, 80 MG PO TID PRN for DISTENSION/GAS/BLOATING, TAB 07/13/18 Tamsulosin Hcl* (Tamsulosin Hcl*) 0.4 Mg Cap.er.24h, 0.4 MG PO HS, CAP 07/13/18 Acetaminophen* (Acetaminophen*) 650 Mg Tablet, 650 MG PO Q6H PRN for MILD PAIN LEVEL 1-3, #30 TAB AND FEVER 07/13/18 Multivitamins* (Theragran*) 1 Tab Tab, 1 TAB PO DAILY, TAB 07/13/18 Montelukast Sodium* (Montelukast Sodium*) 10 Mg Tablet, 10 MG PO QHS, #30 TAB 07/13/18 Polyethylene Glycol* (Miralax*) 17 Gm Powd.pack, 17 GM PO TID PRN for CONSTIPATION, #60 PACKET 07/13/18 Throat Lozenges* (Cepastat*) 9 Josselin Lozenge, 1 LOZENGE MT EVERY 1 HOUR PRN, LOZE NGE 07/13/18 Docusate Sodium* (Docusate Sodium*) 100 Mg Capsule, 100 MG PO BID, #60 CAP 07/13/18 Bisacodyl (Dulcolax) 10 Mg Supp.rect, 10 MG RC PRN PRN for CONSTIPATION, SUPP.RECT 07/13/18 Furosemide* (Lasix*) 20 Mg Tablet, 20 MG PO DAILY, TAB 07/13/18 Guaifenesin* (Tussin*) 100 Mg/5 Ml Syrup, 200 MG PO Q4 PRN for COUGH, ML 07/13/18 Ipratropium [place]* (Atrovent HFA*) 12.9 Gm Aer.w.adap, 2 PUFF INHALATION Q6 for SHORTNESS OF BREATH, #1 INHALER FOR THE NEBULIZER 07/13/18 Lubiprostone* (Amitiza*) 24 Mcg Capsule, 24 MCG PO BID, #60 CAP 07/13/18 Magnesium Hydroxide* (Milk Of Magnesia*) 400 Mg/5 Ml Oral.susp, 30 ML PO DAILY PRN for CONSTIPATION, ML 07/13/18 Menthol (BENGAY) 113 Gm Gel..gram., 113 GM TP TID APPLY TO POSTERIOR RIGHT SHOULDER 07/13/18 Atorvastatin Calcium (Atorvastatin Calcium) 10 Mg Tablet, 10 MG PO QHS, #30 TAB 07/13/18 Polyvinyl Alcohol (Tears Again) 15 Ml Drops, 1 DRP BOTH EYES Q2HWA, BOTTLE 07/13/18 Discontinued Reported Medications Diltiazem Hcl* (Cardizem*) 30 Mg Tablet, 30 MG PO Q8 PRN for BLOOD PRESSURE SUPPORT, #90 TAB HOLD FOR SBP <110 OR HR <60 07/13/18 Losartan Potassium* (Losartan Potassium*) 50 Mg Tablet, 50 MG PO DAILY, TAB HOLD FOR SBP <110 OR HR <60 07/13/18 Medications Current Medications Acetaminophen (Tylenol Tab) 650 mg Q6H PRN PO MILD PAIN LEVEL 1-3; Start 08/08/18 at 12:00 Atorvastatin Calcium (Lipitor) 10 mg QHS PO Last administered on 08/15/18at 20:34; Admin Dose 10 MG; Start 08/08/18 at 21:00 Docusate Sodium (Colace) 100 mg BID PRN PO constipation; Start 08/08/18 at 12:00 Enoxaparin Sodium (Lovenox) 40 mg DAILY SC Last administered on 08/15/18at 10:05; Admin Dose 40 MG; Start 08/09/18 at 09:00 Famotidine (Pepcid) 20 mg DAILY PO Last administered on 08/15/18at 09:50; Admin Dose 20 MG; Start 08/09/18 at 09:00 Lubiprostone (Amitiza) 24 mcg BID PO Last administered on 08/15/18at 20:34; Admin Dose 24 MCG; Start 08/08/18 at 21:00 Magnesium Hydroxide (Milk Of Mag) 30 ml DAILY PRN PO CONSTIPATION; Start 08/08/18 at 12:00 Montelukast Sodium (Singulair) 10 mg QHS PO Last administered on 08/15/18 20:34; Admin Dose 10 MG; Start 08/08/18 at 21:00 Multivitamins Therapeutic (Theragran) 1 tab DAILY PO Last administered on 08/15/18 09:50; Admin Dose 1 TAB; Start 08/09/18 at 09:00 Polyethylene Glycol (Miralax) 17 gm TID PRN PO CONSTIPATION; Start 08/08/18 at 12:00 Senna/Docusate Sodium (Senokot-S) 2 tab AM PO Last administered on 08/15/18 09:49; Admin Dose 2 TAB; Start 08/09/18 at 09:00 Simethicone (Mylicon) 80 mg TID PRN PO DISTENSION/GAS/BLOATING; Start 08/08/18 at 12:00 Tamsulosin HCl (Flomax) 0.4 mg HS PO Last administered on 08/15/18 20:34; Admin Dose 0.4 MG; Start 08/08/18 at 21:00 Ondansetron HCl (Zofran Inj) 4 mg Q6H PRN IV NAUSEA AND/OR VOMITING Last administered on 08/15/18 04:26; Admin Dose 4 MG; Start 08/08/18 at 12:00 Piperacillin Sod/ Tazobactam Sod 100 ml @ 200 mls/hr Q8 IVPB Last administered on 08/16/18 06:16; Admin Dose 200 MLS/HR; Start 08/08/18 at 14:00 Olopatadine HCl (Pataday) 1 drop DAILY BOTH EYES Last administered on 08/15/18 09:50; Admin Dose 1 DROP; Start 08/08/18 at 14:30 Diltiazem HCl (Cardizem) 30 mg TID PO Last administered on 08/15/18 20:40; Admin Dose 30 MG; Start 08/08/18 at 16:00 Dronedarone (Multaq) 400 mg BID WITH MEALS PO Last administered on 08/15/18 17:56; Admin Dose 400 MG; Start 08/08/18 at 17:35 Diltiazem HCl (Cardizem Iv) 5 mg Q1H PRN IV afib with HR > 120; Start 08/08/18 at 14:30 Aspirin (Halfprin) 81 mg DAILY PO Last administered on 08/15/18 09:50; Admin Dose 81 MG; Start 08/09/18 at 09:00 Mupirocin (Bactroban) 1 applic BID TOP Last administered on 08/15/18 20:35; Admin Dose 1 APPLIC; Start 08/09/18 at 21:00 Guaifenesin (Mucinex) 600 mg BID PO Last administered on 08/15/18 20:34; Admin Dose 600 MG; Start 08/10/18 at 10:00 Levalbuterol (Xopenex Neb) 1.25 mg Q6H RESP THERAPY HHN Last administered on 08/16/18 02:29; Admin Dose 1.25 MG; Start 08/12/18 at 14:00 Levalbuterol (Xopenex Neb) 1.25 mg Q6H RESP THERAPY PRN HHN shortness of breath Last administered on 08/13/18 12:26; Admin Dose 1.25 MG; Start 08/12/18 at 11:30 Ipratropium [place] (Atrovent 0.02% (Neb)) 0.5 mg Q6HWA RESP THERAPY HHN Last administered on 08/15/18 19:41; Admin Dose 0.5 MG; Start 08/12/18 at 14:00 Ipratropium [place] (Atrovent 0.02% (Neb)) 0.5 mg Q4H RESP THERAPY PRN HHN SHORTNESS OF BREATH Last administered on 08/13/18 01:40; Admin Dose 0.5 MG; S tart 08/12/18 at 11:30 Budesonide (Pulmicort (Neb)) 0.5 mg BID RESP THERAPY HHN Last administered on 08/15/18 19:41; Admin Dose 0.5 MG; Start 08/12/18 at 20:00 Methylprednisolone Sodium Succinate (Solu-Medrol) 40 mg Q12 IV Last administered on 08/15/18 20:34; Admin Dose 40 MG; Start 08/15/18 at 21:00 Alprazolam (Xanax) 0.5 mg Q8 PO Last administered on 08/16/18 06:16; Admin Dose 0.5 MG; Start 08/15/18 at 14:00 Furosemide (Lasix) 20 mg BID DIURETICS IV Last administered on 08/16/18at 06:16 ; Admin Dose 20 MG; Start 08/15/18 at 18:00 Allergies: Coded Allergies: No Known Allergy (Unverified , 07/13/18) Past Surgical History Past Surgical Hx: no surgical history Social History Alcohol Use: none Smoking Status: Former smoker Drug Use: none Exam/Review of Systems Exam Vitals Vital Signs Date Temp Pulse Resp B/P (MAP) Pulse Ox O2 O2 Flow FiO2 Time Delivery Rate 08/16/18 96 92 40 08:42 08/16/18 97.5 15 102/55 08:02 (71) 08/16/18 BIPAP 04:00 08/15/18 4.0 12:28 Intake and Output 08/15/18 08/15/18 08/16/18 1515:00 23:00 07:00 IntakeIntake Total 240 ml 200 ml OutputOutput Total 450 ml 1800 ml BalanceBalance -210 ml -1600 ml Results Result Diagram: 08/16/18 0547 08/16/18 0547 Results 24hrs Laboratory Tests Test 08/16/18 05:47 White Blood Count 7.6 # Red Blood Count 3.32 L Hemoglobin 9.2 L Hematocrit 29.1 L Mean Corpuscular Volume 87.7 Mean Corpuscular Hemoglobin 27.7 L Mean Corpuscular Hemoglobin Concent 31.6 L Red Cell Distribution Width 18.0 H Platelet Count 112 L Mean Platelet Volume 11.6 H Immature Granulocytes % 1.600 H Neutrophils % 94.2 H Lymphocytes % 1.5 L Monocytes % 2.6 Eosinophils % 0.0 Basophils % 0.1 Nucleated Red Blood Cells % 0.0 Immature Granulocytes # 0.120 H Neutrophils # 7.1 Lymphocytes # 0.1 L Monocytes # 0.2 L Eosinophils # 0.0 Basophils # 0.0 Nucleated Red Blood Cells # 0.0 Sodium Level 140 Potassium Level 4.3 Chloride Level 98 Carbon Dioxide Level 38 H Anion Gap 4 L Blood Urea Nitrogen 42 H Creatinine 0.47 L Est Glomerular Filtrat Rate mL/min Glucose Level 124 Calcium Level 8.6 Phosphorus Level 3.6 Magnesium Level 2.1 Medications Medication Current Medications Acetaminophen (Tylenol Tab) 650 mg Q6H PRN PO MILD PAIN LEVEL 1-3; Start 08/08/18 at 12:00 Atorvastatin Calcium (Lipitor) 10 mg QHS PO Last administered on 08/15/18 20:34; Admin Dose 10 MG; Start 08/08/18 at 21:00 Docusate Sodium (Colace) 100 mg BID PRN PO constipation; Start 08/08/18 at 12:00 Enoxaparin Sodium (Lovenox) 40 mg DAILY SC Last administered on 08/15/18 10:05; Admin Dose 40 MG; Start 08/09/18 at 09:00 Famotidine (Pepcid) 20 mg DAILY PO Last administered on 08/15/18 09:50; Admin Dose 20 MG; Start 08/09/18 at 09:00 Lubiprostone (Amitiza) 24 mcg BID PO Last administered on 08/15/18 20:34; Admin Dose 24 MCG; Start 08/08/18 at 21:00 Magnesium Hydroxide (Milk Of Mag) 30 ml DAILY PRN PO CONSTIPATION; Start 08/08/18 at 12:00 Montelukast Sodium (Singulair) 10 mg QHS PO Last administered on 08/15/18 20:34; Admin Dose 10 MG; Start 08/08/18 at 21:00 Multivitamins Therapeutic (Theragran) 1 tab DAILY PO Last administered on 08/15/18 09:50; Admin Dose 1 TAB; Start 08/09/18 at 09:00 Polyethylene Glycol (Miralax) 17 gm TID PRN PO CONSTIPATION; Start 08/08/18 at 12:00 Senna/Docusate Sodium (Senokot-S) 2 tab AM PO Last administered on 08/15/18 0 9:49; Admin Dose 2 TAB; Start 08/09/18 at 09:00 Simethicone (Mylicon) 80 mg TID PRN PO DISTENSION/GAS/BLOATING; Start 08/08/18 at 12:00 Tamsulosin HCl (Flomax) 0.4 mg HS PO Last administered on 08/15/18 20:34; Admin Dose 0.4 MG; Start 08/08/18 at 21:00 Ondansetron HCl (Zofran Inj) 4 mg Q6H PRN IV NAUSEA AND/OR VOMITING Last administered on 08/15/18 04:26; Admin Dose 4 MG; Start 08/08/18 at 12:00 Piperacillin Sod/ Tazobactam Sod 100 ml @ 200 mls/hr Q8 IVPB Last administered on 08/16/18 06:16; Admin Dose 200 MLS/HR; Start 08/08/18 at 14:00 Olopatadine HCl (Pataday) 1 drop DAILY BOTH EYES Last administered on 08/15/18 09:50; Admin Dose 1 DROP; Start 08/08/18 at 14:30 Diltiazem HCl (Cardizem) 30 mg TID PO Last administered on 08/15/18 20:40; Admin Dose 30 MG; Start 08/08/18 at 16:00 Dronedarone (Multaq) 400 mg BID WITH MEALS PO Last administered on 08/15/18 17:56; Admin Dose 400 MG; Start 08/08/18 at 17:35 Diltiazem HCl (Cardizem Iv) 5 mg Q1H PRN IV afib with HR > 120; Start 08/08/18 at 14:30 Aspirin (Halfprin) 81 mg DAILY PO Last administered on 08/15/18 09:50; Admin D ose 81 MG; Start 08/09/18 at 09:00 Mupirocin (Bactroban) 1 applic BID TOP Last administered on 08/15/18 20:35; Admin Dose 1 APPLIC; Start 08/09/18 at 21:00 Guaifenesin (Mucinex) 600 mg BID PO Last administered on 08/15/18 20:34; Admin Dose 600 MG; Start 08/10/18 at 10:00 Levalbuterol (Xopenex Neb) 1.25 mg Q6H RESP THERAPY HHN Last administered on 08/16/18 02:29; Admin Dose 1.25 MG; Start 08/12/18 at 14:00 Levalbuterol (Xopenex Neb) 1.25 mg Q6H RESP THERAPY PRN HHN shortness of breath Last administered on 08/13/18 12:26; Admin Dose 1.25 MG; Start 08/12/18 at 11:30 Ipratropium [place] (Atrovent 0.02% (Neb)) 0.5 mg Q6HWA RESP THERAPY HHN Last administered on 08/15/18 19:41; Admin Dose 0.5 MG; Start 08/12/18 at 14:00 Ipratropium [place] (Atrovent 0.02% (Neb)) 0.5 mg Q4H RESP THERAPY PRN HHN SHORTNESS OF BREATH Last administered on 08/13/18 01:40; Admin Dose 0.5 MG; Start 08/12/18 at 11:30 Budesonide (Pulmicort (Neb)) 0.5 mg BID RESP THERAPY HHN Last administered on 08/15/18 19:41; Admin Dose 0.5 MG; Start 08/12/18 at 20:00 Methylprednisolone Sodium Succinate (Solu-Medrol) 40 mg Q12 IV Last administered on 08/15/18 20:34; Admin Dose 40 MG; Start 08/15/18 at 21:00 Alprazolam (Xanax) 0.5 mg Q8 PO Last administered on 08/16/18 06:16; Admin Dose 0.5 MG; Start 08/15/18 at 14:00 Furosemide (Lasix) 20 mg BID DIURETICS IV Last administered on 08/16/18 06:16; Admin Dose 20 MG; Start 08/15/18 at 18:00 EMILY MCDANIEL Aug 16, 2018 08:48
[2018-08-16] MEDS: IPRATROPIUM (NEB) 0.5 MG/2.5 ML AMP HHN SCH ×3 (09:06→19:17)
[2018-08-16] MEDS: BUDESONIDE (NEB) 0.5MG/2ML AMP HHN SCH ×2 (09:07→19:17)
[2018-08-16] MEDS: MUPIROCIN 2% 22 GM OINT TOP SCH ×2 (09:40→20:49)
[2018-08-16] MEDS: OLOPATADINE 0.2% (ONCE A DAY) OPHTH DROP 2.5 ML BOTH EYES SCH (09:40)
[2018-08-16] MEDS: METHYLPREDNISOLONE 40 MG INJ IV SCH (09:40)
[2018-08-16] MEDS: ENOXAPARIN 40 MG/0.4 ML SYG SC SCH (09:44)
[2018-08-16] MEDS: GUAIFENESIN LA 600 MG TABSR PO SCH ×2 (10:16→20:49)
[2018-08-16] MEDS: DRONEDARONE HYDROCHLORIDE 400 MG TAB PO SCH ×2 (10:17→17:57)
[2018-08-16] MEDS: MULTIVITAMINS THERAPEUTIC TAB PO SCH (10:17)
[2018-08-16] MEDS: FAMOTIDINE 20 MG TAB PO SCH (10:17)
[2018-08-16] MEDS: DILTIAZEM 30 MG TAB PO SCH ×3 (10:22→20:49)
[2018-08-16] MEDS: LUBIPROSTONE 24 MCG CAP PO SCH (10:23)
[2018-08-16] MEDS: ASPIRIN (EC) 81 MG TAB PO SCH (10:23)
[2018-08-16] MEDS: SENNA/DOCUSATE NA (8.6MG/50MG) TAB PO SCH (10:29)
[2018-08-16] MEDS: DEXTROSE 5%-0.45% NACL 1,000 ML IV SCH (10:32)
--- NOTE | 2018-08-16 11:00 | CONS ---
Assessment/Plan Assessment/Plan Assessment/Plan (Daily) Today I discussed ongoing level of care with other family members.. They made it very clear to me that they had discussed level of care with patient prior, he does not want to be on the ventilator he does not want to live suffering chronically short of breath. I discussed options with family they would not want him to have any more testing, to begin him on low-dose comfort medications and allow him to a natural comfortable . Family has to come together with this decision and are completely in agreement. I will not start him off on a morphine drip but just give him low doses of morphine at this time and discontinue any medications that are not contributing to improving his overall condition. Discussed with Dr. Allison August 15, 2018 Consultation Date/Type/Reason Admit Date/Time Aug 08, 2018 at 11:30 Initial Consult Date 08/08/18 Requesting Provider: ALEXI ALLISON MD, [facility] Date/Time of Note DATE: 08/16/18 TIME: 10:57 Exam/Review of Systems Exam Vitals Vital Signs Date Temp Pulse Resp B/P (MAP) Pulse Ox O2 O2 Flow FiO2 Time Delivery Rate 08/16/18 90 09:23 08/16/18 92 40 08:42 08/16/18 97.5 15 102/55 08:02 (71) 08/16/18 BIPAP 04:00 08/15/18 4.0 12:28 Intake and Output 08/15/18 08/15/18 08/16/18 1515:00 23:00 07:00 IntakeIntake Total 240 ml 200 ml OutputOutput Total 450 ml 1800 ml BalanceBalance -210 ml -1600 ml Results Result Diagram: 08/16/18 0547 08/16/18 0547 Results 24hrs Laboratory Tests Test 08/16/18 05:47 White Blood Count 7.6 # Red Blood Count 3.32 L Hemoglobin 9.2 L Hematocrit 29.1 L Mean Corpuscular Volume 87.7 Mean Corpuscular Hemoglobin 27.7 L Mean Corpuscular Hemoglobin Concent 31.6 L Red Cell Distribution Width 18.0 H Platelet Count 112 L Mean Platelet Volume 11.6 H Immature Granulocytes % 1.600 H Neutrophils % 94.2 H Lymphocytes % 1.5 L Monocytes % 2.6 Eosinophils % 0.0 Basophils % 0.1 Nucleated Red Blood Cells % 0.0 Immature Granulocytes # 0.120 H Neutrophils # 7.1 Lymphocytes # 0.1 L Monocytes # 0.2 L Eosinophils # 0.0 Basophils # 0.0 Nucleated Red Blood Cells # 0.0 Sodium Level 140 Potassium Level 4.3 Chloride Level 98 Carbon Dioxide Level 38 H Anion Gap 4 L Blood Urea Nitrogen 42 H Creatinine 0.47 L Est Glomerular Filtrat Rate mL/min Glucose Level 124 Calcium Level 8.6 Phosphorus Level 3.6 Magnesium Level 2.1 Medications Medication Current Medications Acetaminophen (Tylenol Tab) 650 mg Q6H PRN PO MILD PAIN LEVEL 1-3; Start 08/08/18 at 12:00 Atorvastatin Calcium (Lipitor) 10 mg QHS PO Last administered on 08/15/18 20:34; Admin Dose 10 MG; Start 08/08/18 at 21:00 Docusate Sodium (Colace) 100 mg BID PRN PO constipation; Start 08/08/18 at 1 2:00 Enoxaparin Sodium (Lovenox) 40 mg DAILY SC Last administered on 08/16/18 09:44; Admin Dose 40 MG; Start 08/09/18 at 09:00 Famotidine (Pepcid) 20 mg DAILY PO Last administered on 08/16/18 10:17; Admin Dose 20 MG; Start 08/09/18 at 09:00 Lubiprostone (Amitiza) 24 mcg BID PO Last administered on 08/16/18 10:23; Admin Dose 24 MCG; Start 08/08/18 at 21:00 Magnesium Hydroxide (Milk Of Mag) 30 ml DAILY PRN PO CONSTIPATION; Start 08/08/18 at 12:00 Montelukast Sodium (Singulair) 10 mg QHS PO Last administered on 08/15/18 20:34; Admin Dose 10 MG; Start 08/08/18 at 21:00 Multivitamins Therapeutic (Theragran) 1 tab DAILY PO Last administered on 08/16/18 10:17; Admin Dose 1 TAB; Start 08/09/18 at 09:00 Polyethylene Glycol (Miralax) 17 gm TID PRN PO CONSTIPATION; Start 08/08/18 at 12:00 Senna/Docusate Sodium (Senokot-S) 2 tab AM PO Last administered on 08/16/18 10:29; Admin Dose 2 TAB; Start 08/09/18 at 09:00 Simethicone (Mylicon) 80 mg TID PRN PO DISTENSION/GAS/BLOATING; Start 08/08/18 at 12:00 Tamsulosin HCl (Flomax) 0.4 mg HS PO Last administered on 08/15/18 20:34; Admin Dose 0.4 MG; Start 08/08/18 at 21:00 Ondansetron HCl (Zofran Inj) 4 mg Q6H PRN IV NAUSEA AND/OR VOMITING Last administered on 08/15/18 04:26; Admin Dose 4 MG; Start 08/08/18 at 12:00 Piperacillin Sod/ Tazobactam Sod 100 ml @ 200 mls/hr Q8 IVPB Last administered on 08/16/18 06:16; Admin Dose 200 MLS/HR; Start 08/08/18 at 14:00 Olopatadine HCl (Pataday) 1 drop DAILY BOTH EYES Last administered on 08/16/18 09:40; Admin Dose 1 DROP; Start 08/08/18 at 14:30 Diltiazem HCl (Cardizem) 30 mg TID PO Last administered on 08/16/18 10:22; Admin Dose 30 MG; Start 08/08/18 at 16:00 Dronedarone (Multaq) 400 mg BID WITH MEALS PO Last administered on 08/16/18 10:17; Admin Dose 400 MG; Start 08/08/18 at 17:35 Diltiazem HCl (Cardizem Iv) 5 mg Q1H PRN IV afib with HR > 120; Start 08/08/18 at 14:30 Aspirin (Halfprin) 81 mg DAILY PO Last administered on 08/16/18 10:23; Admin Dose 81 MG; Start 08/09/18 at 09:00 Mupirocin (Bactroban) 1 applic BID TOP Last administered on 08/16/18 09:40; Admin Dose 1 APPLIC; Start 08/09/18 at 21:00 Guaifenesin (Mucinex) 600 mg BID PO Last administered on 08/16/18 10:16; Admin Dose 600 MG; Start 08/10/18 at 10:00 Levalbuterol (Xopenex Neb) 1.25 mg Q6H RESP THERAPY HHN Last administered on 08/16/18 09:07; Admin Dose 1.25 MG; Start 08/12/18 at 14:00 Levalbuterol (Xopenex Neb) 1.25 mg Q6H RESP THERAPY PRN HHN shortness of breath Last administered on 08/13/18 12:26; Admin Dose 1.25 MG; Start 08/12/18 at 11:30 Ipratropium [place] (Atrovent 0.02% (Neb)) 0.5 mg Q6HWA RESP THERAPY HHN Last administered on 08/16/18 09:06; Admin Dose 0.5 MG; Start 08/12/18 at 14:00 Ipratropium [place] (Atrovent 0.02% (Neb)) 0.5 mg Q4H RESP THERAPY PRN HHN SHORTNESS OF BREATH Last administered on 08/13/18 01:40; Admin Dose 0.5 MG; Start 08/12/18 at 11:30 Budesonide (Pulmicort (Neb)) 0.5 mg BID RESP THERAPY HHN Last administered on 08/16/18 09:07; Admin Dose 0.5 MG; Start 08/12/18 at 20:00 Methylprednisolone Sodium Succinate (Solu-Medrol) 40 mg Q12 IV Last administered on 08/16/18 09:40; Admin Dose 40 MG; Start 08/15/18 at 21:00 Alprazolam (Xanax) 0.5 mg Q8 PO Last administered on 08/16/18 06:16; Admin Dose 0.5 MG; Start 08/15/18 at 14:00 Furosemide (Lasix) 20 mg BID DIURETICS IV Last administered on 08/16/18 06:16; Admin Dose 20 MG; Start 08/15/18 at 18:00 Dextrose/Sodium Chloride 1,000 ml @ 40 mls/hr Q24H IV Last administered on 08/16/18 10:32; Admin Dose 40 MLS/HR; Start 08/16/18 at 10:00 EMILY MCDANIEL Aug 16, 2018 11:00
[2018-08-16] MEDS ORDERED: LORAZEPAM 2 MG INJ IV PRN (11:30)
[2018-08-16] MEDS ORDERED: morphine 2 MG INJ IV PRN (11:30)
--- NOTE | 2018-08-16 13:10 | PN ---
Date/Time of Note Date/Time of Note DATE: 08/16/18 TIME: 13:09 Objective Vitals Vital Signs Date Temp Pulse Resp B/P (MAP) Pulse Ox O2 O2 Flow FiO2 Time Delivery Rate 08/16/18 92 12:27 08/16/18 97.2 15 90/54 (66) 89 11:46 08/16/18 40 11:00 08/16/18 BIPAP 04:00 08/15/18 4.0 12:28 Intake and Output 08/15/18 08/15/18 08/16/18 1515:00 23:00 07:00 IntakeIntake Total 240 ml 200 ml OutputOutput Total 450 ml 1800 ml BalanceBalance -210 ml -1600 ml Results Result Diagram: 08/16/18 0547 08/16/18 0547 Medications Medications Current Medications Acetaminophen (Tylenol Tab) 650 mg Q6H PRN PO MILD PAIN LEVEL 1-3; Start 08/08/18 at 12:00 Enoxaparin Sodium (Lovenox) 40 mg DAILY SC Last administered on 08/16/18 09:44; Admin Dose 40 MG; Start 08/09/18 at 09:00 Montelukast Sodium (Singulair) 10 mg QHS PO Last administered on 08/15/18 20:34; Admin Dose 10 MG; Start 08/08/18 at 21:00 Ondansetron HCl (Zofran Inj) 4 mg Q6H PRN IV NAUSEA AND/OR VOMITING Last administered on 08/15/18 04:26; Admin Dose 4 MG; Start 08/08/18 at 12:00 Olopatadine HCl (Pataday) 1 drop DAILY BOTH EYES Last administered on 08/16/18 09:40; Admin Dose 1 DROP; Start 08/08/18 at 14:30 Diltiazem HCl (Cardizem) 30 mg TID PO Last administered on 08/16/18 10:22; Admin Dose 30 MG; Start 08/08/18 at 16:00 Dronedarone (Multaq) 400 mg BID WITH MEALS PO Last administered on 08/16/18 10:17; Admin Dose 400 MG; Start 08/08/18 at 17:35 Diltiazem HCl (Cardizem Iv) 5 mg Q1H PRN IV afib with HR > 120; Start 08/08/18 at 14:30 Mupirocin (Bactroban) 1 applic BID TOP Last administered on 08/16/18 09:40; Admin Dose 1 APPLIC; Start 08/09/18 at 21:00 Guaifenesin (Mucinex) 600 mg BID PO Last administered on 08/16/18 10:16; Admin Dose 600 MG; Start 08/10/18 at 10:00 Levalbuterol (Xopenex Neb) 1.25 mg Q6H RESP THERAPY HHN Last administered on 08/16/18 09:07; Admin Dose 1.25 MG; Start 08/12/18 at 14:00 Levalbuterol (Xopenex Neb) 1.25 mg Q6H RESP THERAPY PRN HHN shortness of breath Last administered on 08/13/18 12:26; Admin Dose 1.25 MG; Start 08/12/18 at 11:30 Ipratropium [place] (Atrovent 0.02% (Neb)) 0.5 mg Q6HWA RESP THERAPY HHN Last administered on 08/16/18 09:06; Admin Dose 0.5 MG; Start 08/12/18 at 14:00 Ipratropium [place] (Atrovent 0.02% (Neb)) 0.5 mg Q4H RESP THERAPY PRN HHN SHORTNESS OF BREATH Last administered on 08/13/18 01:40; Admin Dose 0.5 MG; Start 08/12/18 at 11:30 Budesonide (Pulmicort (Neb)) 0.5 mg BID RESP THERAPY HHN Last administered on 08/16/18 09:07; Admin Dose 0.5 MG; Start 08/12/18 at 20:00 Furosemide (Lasix) 20 mg BID DIURETICS IV Last administered on 08/16/18 06:16; Admin Dose 20 MG; Start 08/15/18 at 18:00 Dextrose/Sodium Chloride 1,000 ml @ 40 mls/hr Q24H IV Last administered on 08/16/18 10:32; Admin Dose 40 MLS/HR; Start 08/16/18 at 10:00 Morphine Sulfate (morphine) 2 mg Q3H PRN IV SHORTNESS OF BREATH; Start 08/16/18 at 11:30 Lorazepam (Ativan) 1 mg Q4H PRN IV SHORTNESS OF BREATH; Start 08/16/18 at 11:30 VTE Prophylaxis Risk score (from Ns)>0 risk: 5 SCD applied (from Ns): Yes Lines/Catheters IV Catheter Type: [place] in Place: No Assessment/Plan Hospital Course Subjective Respirations are still objectively worse, patient still on BiPAP, now not safe to eat per ST Objective Physical exam General: Patient is laying in bed, all questions answered by nodding his head, on BiPAP Mentation: Patient is alert and oriented Head: Normocephalic atraumatic Eyes: EOMI, pupils reactive to light Neck: Supple, nontender, midline Respiratory: Coarse to auscultation bilaterally Cardiovascular: regular rate, no obvious murmurs Gastrointestinal: non-tender to palpation, bowel sounds heard. Neurological: Moves all extremities spontaneously Skin: No new skin lesions Assessment/Plan 1. Acute hypoxic respiratory failure - Patient still requiring intermittent BIPAP - Pulmonology on board and appreciate recommendations - Continue nebs, steroids and IV antibiotics - monitor for improvement 2. RLL PNA - seen on CXR - ?Aspiration vs HCAP - IV antibiotics on board - nebs and PRN on board 3. COPD exacerbation - nebs, steroids, antibiotics 4. h/o Afib and SVT - Cardiology on board and appreciate recommendations. Continue current medications and adjust as needed -SVTs are stable for now, no episodes in the past 24 hours 5. ?CHF - responded to lasix but EF 65% on last ECHO and does not appear overloaded - will continue monitoring I/O and daily weights 6. hyperglycemia- resolved - most likely secondary to steroids - A1c from 06/2018 was 5 7. Disposition -worsening pulm status per pulmonology, palliative care to see patient, family meeting today. possible inpatient hospice? do not intubate per palliative care physician. WILMER SANTIAGO Aug 16, 2018 13:10
--- NOTE | 2018-08-16 16:26 | CONS ---
Consult Date/Type/Reason Admit Date/Time Aug 08, 2018 at 11:30 Initial Consult Date 08/08/18 Type of Consultation: cv Requesting Provider: ALEXI ALLISON MD, [facility] Date/Time of Note DATE: 08/16/18 TIME: 16:24 Subjective cardiology follow up note S; D/W staff and telemetry was reviewed patient remains sinus rhythm with occasional PAC and PVC Patient continued to be in respiratory distress and currently on BiPAP. no chest pain or pressure to He denies any palpitation to me Objective: General: Elderly gentleman in respiratory distress on BiPAP. HEENT: NC/AT. pupils are equal. round. NECK: . no stridor. CV: RRR. systolic murmur; no gallop or rubs. PULM: + rhonchi. GI: SOFT, NT, ND, no rebound or guarding Extremity: Trivial B/L LE edema. no clubbing. neuro: awake and alert, OX3. Psych: calm and pleasant rectal: deferred : normal Chest x-ray done 08/08/2018 which was also personally reviewed shows: 1. Mildly increased right basilar opacification, similar in size small right pleural effusion. 2. Right PIC line distal tip projects over the right axilla, unchanged. Review of the old chart showed echocardiogram was in April 2018 personally reviewed and showed Normal left ventricular systolic function. Normal left ventricular cavity size. Normal left ventricular wall thickness. Ejection fraction is visually estimated at 65 %. Normal appearance and function of the mitral valve with trace physiologic reg urgitation. No significant aortic stenosis or insufficiency. Aortic valve not well visualized. Aortic cusps appear mildly calcified. Normal appearance of the tricuspid valve. Unable to obtain RVSP due to minimal presence of tricuspid regurgitation. Objective Vitals Vital Signs Date Temp Pulse Resp B/P (MAP) Pulse Ox O2 O2 Flow FiO2 Time Delivery Rate 08/16/18 97.8 69 15 110/53 93 15:43 (72) 08/16/18 40 14:55 08/16/18 BIPAP 04:00 08/15/18 4.0 12:28 Intake and Output 08/15/18 08/15/18 08/16/18 1515:00 23:00 07:00 IntakeIntake Total 240 ml 200 ml OutputOutput Total 450 ml 1800 ml BalanceBalance -210 ml -1600 ml Results/Medications Result Diagram: 4/27/19 0547 08/16/18 0547 Results 24 hrs Laboratory Tests Test 08/16/18 05:47 White Blood Count 7.6 # Red Blood Count 3.32 L Hemoglobin 9.2 L Hematocrit 29.1 L Mean Corpuscular Volume 87.7 Mean Corpuscular Hemoglobin 27.7 L Mean Corpuscular Hemoglobin Concent 31.6 L Red Cell Distribution Width 18.0 H Platelet Count 112 L Mean Platelet Volume 11.6 H Immature Granulocytes % 1.600 H Neutrophils % 94.2 H Lymphocytes % 1.5 L Monocytes % 2.6 Eosinophils % 0.0 Basophils % 0.1 Nucleated Red Blood Cells % 0.0 Immature Granulocytes # 0.120 H Neutrophils # 7.1 Lymphocytes # 0.1 L Monocytes # 0.2 L Eosinophils # 0.0 Basophils # 0.0 Nucleated Red Blood Cells # 0.0 Sodium Level 140 Potassium Level 4.3 Chloride Level 98 Carbon Dioxide Level 38 H Anion Gap 4 L Blood Urea Nitrogen 42 H Creatinine 0.47 L Est Glomerular Filtrat Rate mL/min Glucose Level 124 Calcium Level 8.6 Phosphorus Level 3.6 Magnesium Level 2.1 Home Meds Active Scripts Dronedarone Hydrochloride* (Multaq*) 400 Mg Tablet, 400 MG PO BID WITH MEALS for 30 Days, #60 TAB Prov:CHASIDY VILLEGAS MD 08/09/18 Diltiazem Hcl* (Cardizem*) 30 Mg Tablet, 30 MG PO TID for 30 Days, #90 TAB Prov:CHASIDY VILLEGAS MD 08/09/18 Methylprednisolone Sodium Succinate PF (Solu-Medrol PF) 125 Mg/2 Ml Vial, 60 MG IV Q8 for 7 Days, VIAL Prov:KAMILLE FRASER MD 07/18/18 Sennosides/Docusate Sodium (Dok Plus Tablet) 1 Each Tablet, 2 TAB PO AM for 10 Days, TAB Prov:KAMILLE FRASER MD 07/18/18 Famotidine* (Famotidine*) 20 Mg Tablet, 20 MG PO DAILY for 10 Days, TAB Prov:KAMILLE FRASER MD 07/18/18 Lactobacillus Rhamnosus GG (Culturelle) 1 Each Capsule, 1 CAP PO BID for 10 Days, CAP Prov:KAMILLE FRASER MD 07/18/18 Enoxaparin Sodium* (Enoxaparin Sodium*) 40 Mg/0.4 Ml Syringe, 40 MG SC DAILY for 10 Days, #10 Prov:KAMILLE FRASER MD 07/18/18 Ipratropium-Albuterol (Ipratropium-Albuterol) 0.5-3 Mg/3 Ml Ampul.neb, 3 ML HHN Q6H RESP THERAPY for 14 Days Prov:KAMILLE FRASER MD 07/18/18 Reported Medications Hydrocodone/Acetaminophen ([place] 5-325 Tablet) 1 Each Tablet, 1 EACH PO Q6 PRN for MODERATE PAIN LEVEL 4-6, TAB 07/13/18 Olopatadine* (Pataday*) 0.2% - 2.5 Ml Drops, 1 DROP BOTH EYES BID, EA 07/13/18 Protein Supplement (Promod) 946 Ml Liquid, 946 ML PO BID 07/13/18 Simethicone* (Mylicon*) 80 Mg Tab, 80 MG PO TID PRN for DISTENSION/GAS/BLOATING, TAB 07/13/18 Tamsulosin Hcl* (Tamsulosin Hcl*) 0.4 Mg Cap.er.24h, 0.4 MG PO HS, CAP 07/13/18 Acetaminophen* (Acetaminophen*) 650 Mg Tablet, 650 MG PO Q6H PRN for MILD PAIN LEVEL 1-3, #30 TAB AND FEVER 07/13/18 Multivitamins* (Theragran*) 1 Tab Tab, 1 TAB PO DAILY, TAB 07/13/18 Montelukast Sodium* (Montelukast Sodium*) 10 Mg Tablet, 10 MG PO QHS, #30 TAB 07/13/18 Polyethylene Glycol* (Miralax*) 17 Gm Powd.pack, 17 GM PO TID PRN for CONSTIPATION, #60 PACKET 07/13/18 Throat Lozenges* (Cepastat*) 9 Josselin Lozenge, 1 LOZENGE MT EVERY 1 HOUR PRN, LOZENGE 07/13/18 Docusate Sodium* (Docusate Sodium*) 100 Mg Capsule, 100 MG PO BID, #60 CAP 07/13/18 Bisacodyl (Dulcolax) 10 Mg Supp.rect, 10 MG RC PRN PRN for CONSTIPATION, SUPP.RECT 07/13/18 Furosemide* (Lasix*) 20 Mg Tablet, 20 MG PO DAILY, TAB 07/13/18 Guaifenesin* (Tussin*) 100 Mg/5 Ml Syrup, 200 MG PO Q4 PRN for COUGH, ML 07/13/18 Ipratropium [place]* (Atrovent HFA*) 12.9 Gm Aer.w.adap, 2 PUFF INHALATION Q6 for SHORTNESS OF BREATH, #1 INHALER FOR THE NEBULIZER 07/13/18 Lubiprostone* (Amitiza*) 24 Mcg Capsule, 24 MCG PO BID, #60 CAP 07/13/18 Magnesium Hydroxide* (Milk Of Magnesia*) 400 Mg/5 Ml Oral.susp, 30 ML PO DAILY PRN for CONSTIPATION, ML 07/13/18 Menthol (BENGAY) 113 Gm Gel..gram., 113 GM TP TID APPLY TO POSTERIOR RIGHT SHOULDER 07/13/18 Atorvastatin Calcium (Atorvastatin Calcium) 10 Mg Tablet, 10 MG PO QHS, #30 TAB 07/13/18 Polyvinyl Alcohol (Tears Again) 15 Ml Drops, 1 DRP BOTH EYES Q2HWA, BOTTLE 07/13/18 Discontinued Reported Medications Diltiazem Hcl* (Cardizem*) 30 Mg Tablet, 30 MG PO Q8 PRN for BLOOD PRESSURE SUPPORT, #90 TAB HOLD FOR SBP <110 OR HR <60 07/13/18 Losartan Potassium* (Losartan Potassium*) 50 Mg Tablet, 50 MG PO DAILY, TAB HOLD FOR SBP <110 OR HR <60 07/13/18 Medications Current Medications Acetaminophen (Tylenol Tab) 650 mg Q6H PRN PO MILD PAIN LEVEL 1-3; Start 08/08/18 at 12:00 Enoxaparin Sodium (Lovenox) 40 mg DAILY SC Last administered on 08/16/18at 09:44; Admin Dose 40 MG; Start 08/09/18 at 09:00 Montelukast Sodium (Singulair) 10 mg QHS PO Last administered on 08/15/18at 20:34; Admin Dose 10 MG; Start 08/08/18 at 21:00 Ondansetron HCl (Zofran Inj) 4 mg Q6H PRN IV NAUSEA AND/OR VOMITING Last administered on 08/15/18at 04:26; Admin Dose 4 MG; Start 08/08/18 at 12:00 Olopatadine HCl (Pataday) 1 drop DAILY BOTH EYES Last administered on 08/16/18 09:40; Admin Dose 1 DROP; Start 08/08/18 at 14:30 Diltiazem HCl (Cardizem) 30 mg TID PO Last administered on 08/16/18 10:22; Admin Dose 30 MG; Start 08/08/18 at 16:00 Dronedarone (Multaq) 400 mg BID WITH MEALS PO Last administered on 08/16/18 10:17; Admin Dose 400 MG; Start 08/08/18 at 17:35 Diltiazem HCl (Cardizem Iv) 5 mg Q1H PRN IV afib with HR > 120; Start 08/08/18 at 14:30 Mupirocin (Bactroban) 1 applic BID TOP Last administered on 08/16/18 09:40; Admin Dose 1 APPLIC; Start 08/09/18 at 21:00 Guaifenesin (Mucinex) 600 mg BID PO Last administered on 08/16/18 10:16; Admin Dose 600 MG; Start 08/10/18 at 10:00 Levalbuterol (Xopenex Neb) 1.25 mg Q6H RESP THERAPY HHN Last administered on 08/16/18 13:17; Admin Dose 1.25 MG; Start 08/12/18 at 14:00 Levalbuterol (Xopenex Neb) 1.25 mg Q6H RESP THERAPY PRN HHN shortness of breath Last administered on 08/13/18 12:26; Admin Dose 1.25 MG; Start 08/12/18 at 11:30 Ipratropium [place] (Atrovent 0.02% (Neb)) 0.5 mg Q6HWA RESP THERAPY HHN Last administered on 08/16/18 13:17; Admin Dose 0.5 MG; Start 08/12/18 at 14:00 Ipratropium [place] (Atrovent 0.02% (Neb)) 0.5 mg Q4H RESP THERAPY PRN HHN SHORTNESS OF BREATH Last administered on 08/13/18 01:40; Admin Dose 0.5 MG; Start 08/12/18 at 11:30 Budesonide (Pulmicort (Neb)) 0.5 mg BID RESP THERAPY HHN Last administered on 08/16/18at 09:07; Admin Dose 0.5 MG; Start 08/12/18 at 20:00 Furosemide (Lasix) 20 mg BID DIURETICS IV Last administered on 08/16/18at 06 :16; Admin Dose 20 MG; Start 08/15/18 at 18:00 Dextrose/Sodium Chloride 1,000 ml @ 40 mls/hr Q24H IV Last administered on 08/16/18at 10:32; Admin Dose 40 MLS/HR; Start 08/16/18 at 10:00 Morphine Sulfate (morphine) 2 mg Q3H PRN IV SHORTNESS OF BREATH; Start 08/16/18 at 11:30 Lorazepam (Ativan) 1 mg Q4H PRN IV SHORTNESS OF BREATH; Start 08/16/18 at 11:30 Assessment/Plan Hospital Course (Demo Recall) 1. Acute hypoxemic hypercapnic respiratory failure 2. COPD exacerbation 3. S/P pneumonia 4. Questionable congestive heart failure: Patient clinically has responded to the IV Lasix but does not appear to be in fluid overloaded and has had normal ejection fraction 5. History of hypertension: Currently under good control 6. History of proximal atrial fibrillation and SVT most likely worsened by his respiratory failure 7. History of dyslipidemia 8.hypo K Recommendations: Continue with aspirin Continue with Cardizem and Multaq to try to maintain sinus rhythm Oxygen supplement BiPAP as needed will be deferred to the pulmonary recommendations Closely monitor for possible need for intubation diuretics as per pulm rec. replace lytes prn Echocardiogram was done in April DVT prophylaxis and GI prophylaxis as per internal medicine Thank you for his referral. I will continue follow along with you HAYLEE PINZON MD [facility] HAYLEE PINZON MD Aug 16, 2018 16:25
--- NOTE | 2018-08-16 16:40 | CONS ---
Consult Date/Type/Reason Admit Date/Time Aug 08, 2018 at 11:30 Initial Consult Date 08/08/18 Type of Consultation: PUlm Requesting Provider: ALEXI ALLISON MD, [facility] Date/Time of Note DATE: 08/16/18 TIME: 16:37 Subjective Remains on BiPAP with moderate work of breathing noted. Appreciate Palliative input. Objective Vitals Vital Signs Date Temp Pulse Resp B/P (MAP) Pulse Ox O2 O2 Flow FiO2 Time Delivery Rate 08/16/18 97.8 69 15 110/53 93 15:43 (72) 08/16/18 40 14:55 08/16/18 BIPAP 04:00 08/15/18 4.0 12:28 Intake and Output 08/15/18 08/15/18 08/16/18 1515:00 23:00 07:00 IntakeIntake Total 240 ml 200 ml OutputOutput Total 450 ml 1800 ml BalanceBalance -210 ml -1600 ml Exam GENERAL: Elderly gentleman comfortable at rest no acute distress VITAL SIGNS: per chart NECK: Supple. No JVD or lymphadenopathy. CARDIAC EXAM: S1, S2. No added sounds or murmurs. CHEST: Diminished air entry bilaterally ABDOMEN: Soft, nontender. No guarding or rebound. EXTREMITIES: No cyanosis, clubbing or edema. NEUROLOGIC: Generalized weakness. No focal deficits. Results/Medications Result Diagram: 08/16/18 0547 08/16/18 0547 Results 24 hrs Laboratory Tests Test 08/16/18 05:47 White Blood Count 7.6 # Red Blood Count 3.32 L Hemoglobin 9.2 L Hematocrit 29.1 L Mean Corpuscular Volume 87.7 Mean Corpuscular Hemoglobin 27.7 L Mean Corpuscular Hemoglobin Concent 31.6 L Red Cell Distribution Width 18.0 H Platelet Count 112 L Mean Platelet Volume 11.6 H Immature Granulocytes % 1.600 H Neutrophils % 94.2 H Lymphocytes % 1.5 L Monocytes % 2.6 Eosinophils % 0.0 Basophils % 0.1 Nucleated Red Blood Cells % 0.0 Immature Granulocytes # 0.120 H Neutrophils # 7.1 Lymphocytes # 0.1 L Monocytes # 0.2 L Eosinophils # 0.0 Basophils # 0.0 Nucleated Red Blood Cells # 0.0 Sodium Level 140 Potassium Level 4.3 Chloride Level 98 Carbon Dioxide Level 38 H Anion Gap 4 L Blood Urea Nitrogen 42 H Creatinine 0.47 L Est Glomerular Filtrat Rate mL/min Glucose Level 124 Calcium Level 8.6 Phosphorus Level 3.6 Magnesium Level 2.1 Home Meds Active Scripts Dronedarone Hydrochloride* (Multaq*) 400 Mg Tablet, 400 MG PO BID WITH MEALS for 30 Days, #60 TAB Prov:CHASIDY VILLEGAS MD 08/09/18 Diltiazem Hcl* (Cardizem*) 30 Mg Tablet, 30 MG PO TID for 30 Days, #90 TAB Prov:CHASIDY VILLEGAS MD 08/09/18 Methylprednisolone Sodium Succinate PF (Solu-Medrol PF) 125 Mg/2 Ml Vial, 60 MG IV Q8 for 7 Days, VIAL Prov:KAMILLE FRASER MD 07/18/18 Sennosides/Docusate Sodium (Dok Plus Tablet) 1 Each Tablet, 2 TAB PO AM for 10 Days, TAB Prov:KAMILLE FRASER MD 07/18/18 Famotidine* (Famotidine*) 20 Mg Tablet, 20 MG PO DAILY for 10 Days, TAB Prov:KAMILLE FRASER MD 07/18/18 Lactobacillus Rhamnosus GG (Culturelle) 1 Each Capsule, 1 CAP PO BID for 10 Days, CAP Prov:KAMILLE FRASER MD 07/18/18 Enoxaparin Sodium* (Enoxaparin Sodium*) 40 Mg/0.4 Ml Syringe, 40 MG SC DAILY for 10 Days, #10 Prov:KAMILLE FRASER MD 07/18/18 Ipratropium-Albuterol (Ipratropium-Albuterol) 0.5-3 Mg/3 Ml Ampul.neb, 3 ML HHN Q6H RESP THERAPY for 14 Days Prov:KAMILLE FRASER MD 07/18/18 Reported Medications Hydrocodone/Acetaminophen ([place] 5-325 Tablet) 1 Each Tablet, 1 EACH PO Q6 PRN for MODERATE PAIN LEVEL 4-6, TAB 07/13/18 Olopatadine* (Pataday*) 0.2% - 2.5 Ml Drops, 1 DROP BOTH EYES BID, EA 07/13/18 Protein Supplement (Promod) 946 Ml Liquid, 946 ML PO BID 07/13/18 Simethicone* (Mylicon*) 80 Mg Tab, 80 MG PO TID PRN for DISTENSION/GAS/BLOATING, TAB 07/13/18 Tamsulosin Hcl* (Tamsulosin Hcl*) 0.4 Mg Cap.er.24h, 0.4 MG PO HS, CAP 07/13/18 Acetaminophen* (Acetaminophen*) 650 Mg Tablet, 650 MG PO Q6H PRN for MILD PAIN LEVEL 1-3, #30 TAB AND FEVER 07/13/18 Multivitamins* (Theragran*) 1 Tab Tab, 1 TAB PO DAILY, TAB 07/13/18 Montelukast Sodium* (Montelukast Sodium*) 10 Mg Tablet, 10 MG PO QHS, #30 TAB 07/13/18 Polyethylene Glycol* (Miralax*) 17 Gm Powd.pack, 17 GM PO TID PRN for CONSTIPATION, #60 PACKET 07/13/18 Throat Lozenges* (Cepastat*) 9 Josselin Lozenge, 1 LOZENGE MT EVERY 1 HOUR PRN, LOZENGE 07/13/18 Docusate Sodium* (Docusate Sodium*) 100 Mg Capsule, 100 MG PO BID, #60 CAP 07/13/18 Bisacodyl (Dulcolax) 10 Mg Supp.rect, 10 MG RC PRN PRN for CONSTIPATION, SUPP.RECT 07/13/18 Furosemide* (Lasix*) 20 Mg Tablet, 20 MG PO DAILY, TAB 07/13/18 Guaifenesin* (Tussin*) 100 Mg/5 Ml Syrup, 200 MG PO Q4 PRN for COUGH, ML 07/13/18 Ipratropium [place]* (Atrovent HFA*) 12.9 Gm Aer.w.adap, 2 PUFF INHALATION Q6 for SHORTNESS OF BREATH, #1 INHALER FOR THE NEBULIZER 07/13/18 Lubiprostone* (Amitiza*) 24 Mcg Capsule, 24 MCG PO BID, #60 CAP 07/13/18 Magnesium Hydroxide* (Milk Of Magnesia*) 400 Mg/5 Ml Oral.susp, 30 ML PO DAILY PRN for CONSTIPATION, ML 07/13/18 Menthol (BENGAY) 113 Gm Gel..gram., 113 GM TP TID APPLY TO POSTERIOR RIGHT SHOULDER 07/13/18 Atorvastatin Calcium (Atorvastatin Calcium) 10 Mg Tablet, 10 MG PO QHS, #30 TAB 07/13/18 Polyvinyl Alcohol (Tears Again) 15 Ml Drops, 1 DRP BOTH EYES Q2HWA, BOTTLE 07/13/18 Discontinued Reported Medications Diltiazem Hcl* (Cardizem*) 30 Mg Tablet, 30 MG PO Q8 PRN for BLOOD PRESSURE SUPPORT, #90 TAB HOLD FOR SBP <110 OR HR <60 07/13/18 Losartan Potassium* (Losartan Potassium*) 50 Mg Tablet, 50 MG PO DAILY, TAB HOLD FOR SBP <110 OR HR <60 07/13/18 Medications Current Medications Acetaminophen (Tylenol Tab) 650 mg Q6H PRN PO MILD PAIN LEVEL 1-3; Start 08/08/18 at 12:00 Enoxaparin Sodium (Lovenox) 40 mg DAILY SC Last administered on 08/16/18 09:44; Admin Dose 40 MG; Start 08/09/18 at 09:00 Montelukast Sodium (Singulair) 10 mg QHS PO Last administered on 08/15/18 20:34; Admin Dose 10 MG; Start 08/08/18 at 21:00 Ondansetron HCl (Zofran Inj) 4 mg Q6H PRN IV NAUSEA AND/OR VOMITING Last administered on 08/15/18 04:26; Admin Dose 4 MG; Start 08/08/18 at 12:00 Olopatadine HCl (Pataday) 1 drop DAILY BOTH EYES Last administered on 08/16/18 09:40; Admin Dose 1 DROP; Start 08/08/18 at 14:30 Diltiazem HCl (Cardizem) 30 mg TID PO Last administered on 08/16/18 10:22; Admin Dose 30 MG; Start 08/08/18 at 16:00 Dronedarone (Multaq) 400 mg BID WITH MEALS PO Last administered on 08/16/18 10:17; Admin Dose 400 MG; Start 08/08/18 at 17:35 Diltiazem HCl (Cardizem Iv) 5 mg Q1H PRN IV afib with HR > 120; Start 08/08/18 at 14:30 Mupirocin (Bactroban) 1 applic BID TOP Last administered on 08/16/18 09:40; Admin Dose 1 APPLIC; Start 08/09/18 at 21:00 Guaifenesin (Mucinex) 600 mg BID PO Last administered on 08/16/18 10:16; Admin Dose 600 MG; Start 08/10/18 at 10:00 Levalbuterol (Xopenex Neb) 1.25 mg Q6H RESP THERAPY HHN Last administered on 08/16/18 13:17; Admin Dose 1.25 MG; Start 08/12/18 at 14:00 Levalbuterol (Xopenex Neb) 1.25 mg Q6H RESP THERAPY PRN HHN shortness of breath Last administered on 08/13/18 12:26; Admin Dose 1.25 MG; Start 08/12/18 at 11:30 Ipratropium [place] (Atrovent 0.02% (Neb)) 0.5 mg Q6HWA RESP THERAPY HHN Last administered on 08/16/18 13:17; Admin Dose 0.5 MG; Start 08/12/18 at 14:00 Ipratropium [place] (Atrovent 0.02% (Neb)) 0.5 mg Q4H RESP THERAPY PRN HHN SHORTNESS OF BREATH Last administered on 08/13/18 01:40; Admin Dose 0.5 MG; Start 08/12/18 at 11:30 Budesonide (Pulmicort (Neb)) 0.5 mg BID RESP THERAPY HHN Last administered on 08/16/18 09:07; Admin Dose 0.5 MG; Start 08/12/18 at 20:00 Furosemide (Lasix) 20 mg BID DIURETICS IV Last administered on 08/16/18 06:16; Admin Dose 20 MG; Start 08/15/18 at 18:00 Dextrose/Sodium Chloride 1,000 ml @ 40 mls/hr Q24H IV Last administered on 08/16/18 10:32; Admin Dose 40 MLS/HR; Start 08/16/18 at 10:00 Morphine Sulfate (morphine) 2 mg Q3H PRN IV SHORTNESS OF BREATH; Start 08/16/18 at 11:30 Lorazepam (Ativan) 1 mg Q4H PRN IV SHORTNESS OF BREATH; Start 08/16/18 at 11:30 Assessment/Plan Assessment/Plan (Daily) IMP: 1. Acute on chronic hypoxemic respiratory failure likely secondary to combination of diastolic dysfunction and severe COPD. Right lower lobe infiltrate possible aspiration pneumonia. Degree of dyspnea out of proportion to radiographic and arterial blood gas findings. 2. Likely significant anxiety component. 3. SVT now improved 4. Hypokalemia likely secondary to diuretics RECS: 1. Continue BiPAP 2. Agree with eventuality of need to transition to comfort measures as work of breathing worsens. Appreciate Palliative Care discussions with family. KYMBERLY VARGAS MD Aug 16, 2018 16:40
[2018-08-16] MEDS: MONTELUKAST 10 MG TAB PO SCH (20:49)
[2018-08-17] VITALS (23 sets, daily range): BP systolic 101–149; BP diastolic 53–70; PULSE 42–112; RESP 14–20
[2018-08-17] MEDS: LEVALBUTEROL (NEB) 1.25 MG/0.5 ML AMP HHN SCH ×4 (01:08→19:58)
[2018-08-17] MEDS: FUROSEMIDE 20 MG INJ IV SCH ×2 (06:53→17:41)
[2018-08-17] MEDS: IPRATROPIUM (NEB) 0.5 MG/2.5 ML AMP HHN SCH ×3 (08:05→19:58)
[2018-08-17] MEDS: BUDESONIDE (NEB) 0.5MG/2ML AMP HHN SCH ×2 (08:06→19:58)
[2018-08-17] MEDS: MUPIROCIN 2% 22 GM OINT TOP SCH ×2 (08:59→21:00)
[2018-08-17] MEDS: OLOPATADINE 0.2% (ONCE A DAY) OPHTH DROP 2.5 ML BOTH EYES SCH (08:59)
[2018-08-17] MEDS: DILTIAZEM 30 MG TAB PO SCH ×3 (09:00→21:00)
[2018-08-17] MEDS: GUAIFENESIN LA 600 MG TABSR PO SCH ×2 (09:00→21:00)
[2018-08-17] MEDS: ENOXAPARIN 40 MG/0.4 ML SYG SC SCH (09:06)
[2018-08-17] MEDS: POTASSIUM CHLORIDE 100 ML IVPB SCH ×3 (09:18→14:33)
[2018-08-17] MEDS: DRONEDARONE HYDROCHLORIDE 400 MG TAB PO SCH ×2 (09:57→17:04)
[2018-08-17] MEDS: DEXTROSE 5%-0.45% NACL 1,000 ML IV SCH (10:00)
--- NOTE | 2018-08-17 11:35 | CONS ---
Consult Date/Type/Reason Admit Date/Time Aug 08, 2018 at 11:30 Initial Consult Date 08/08/18 Type of Consultation: PUlm Requesting Provider: ALEXI ALLISON MD, [facility] Date/Time of Note DATE: 08/17/18 TIME: 11:35 Subjective cardiology follow up note S; D/W staff and telemetry was reviewed patient remains sinus rhythm with occasional PAC and PVC Patient continued to be in respiratory distress and currently on BiPAP. Discussed with family. Discussed with the staff. Patient unable to take p.o. medications with severe respiratory distress on BiPAP use now no chest pain or pressure to He denies any palpitation to me Objective: General: Elderly gentleman in respiratory distress on BiPAP. HEENT: NC/AT. pupils are equal. round. NECK: . no stridor. CV: RRR. systolic murmur; no gallop or rubs. PULM: + rhonchi. GI: SOFT, NT, ND, no rebound or guarding Extremity: Trivial B/L LE edema. no clubbing. neuro: awake and alert, OX3. Psych: calm and pleasant rectal: deferred : normal Chest x-ray done 08/08/2018 which was also personally reviewed shows: 1. Mildly increased right basilar opacification, similar in size small right pleural effusion. 2. Right PIC line distal tip projects over the right axilla, unchanged. Review of the old chart showed echocardiogram was in April 2018 personally reviewed and showed Normal left ventricular systolic function. Normal left ventricular cavity size. Normal left ventricular wall thickness. Ejection fraction is visually estimated at 65 %. Normal appearance and function of the mitral valve with trace physiologic regurgitation. No significant aortic stenosis or insufficiency. Aortic valve not well visualized. Aortic cusps appear mildly calcified. Normal appearance of the tricuspid valve. Unable to obtain RVSP due to minimal presence of tricuspid regurgitation. Objective Vitals Vital Signs Date Temp Pulse Resp B/P (MAP) Pulse Ox O2 O2 Flow FiO2 Time Delivery Rate 08/17/18 105 93 70 09:50 08/17/18 98.8 20 124/70 Nasal 07:23 (88) Cannula 08/15/18 4.0 12:28 Intake and Output 08/16/18 08/16/18 08/17/18 1515:00 23:00 07:00 IntakeIntake Total 120 ml OutputOutput Total 900 ml 1200 ml BalanceBalance -780 ml -1200 ml Results/Medications Result Diagram: 08/17/18 0502 08/17/18 0502 Results 24 hrs Laboratory Tests Test 08/17/18 05:02 White Blood Count 6.0 # Red Blood Count 3.46 L Hemoglobin 9.5 L Hematocrit 30.5 L Mean Corpuscular Volume 88.2 Mean Corpuscular Hemoglobin 27.5 L Mean Corpuscular Hemoglobin Concent 31.1 L Red Cell Distribution Width 17.9 H Platelet Count 92 L Mean Platelet Volume 11.3 H Immature Granulocytes % 1.700 H Neutrophils % 93.6 H Lymphocytes % 2.3 L Monocytes % 2.0 Eosinophils % 0.2 Basophils % 0.2 Nucleated Red Blood Cells % 0.3 H Immature Granulocytes # 0.100 H Neutrophils # 5.6 Lymphocytes # 0.1 L Monocytes # 0.1 L Eosinophils # 0.0 Basophils # 0.0 Nucleated Red Blood Cells # 0.0 Sodium Level 139 Potassium Level 3.3 L Chloride Level 94 L Carbon Dioxide Level 43 *H Anion Gap 2 L Blood Urea Nitrogen 42 H Creatinine 0.47 L Est Glomerular Filtrat Rate mL/min Glucose Level 80 # Calcium Level 8.3 L Phosphorus Level 3.5 Magnesium Level 2.0 Home Meds Active Scripts Dronedarone Hydrochloride* (Multaq*) 400 Mg Tablet, 400 MG PO BID WITH MEALS for 30 Days, #60 TAB Prov:CHASIDY VILLEGAS MD 08/09/18 Diltiazem Hcl* (Cardizem*) 30 Mg Tablet, 30 MG PO TID for 30 Days, #90 TAB Prov:CHASIDY VILLEGAS MD 08/09/18 Methylprednisolone Sodium Succinate PF (Solu-Medrol PF) 125 Mg/2 Ml Vial, 60 MG IV Q8 for 7 Days, VIAL Prov:KAMILLE FRASER MD 07/18/18 Sennosides/Docusate Sodium (Dok Plus Tablet) 1 Each Tablet, 2 TAB PO AM for 10 Days, TAB Prov:KAMILLE FRASER MD 07/18/18 Famotidine* (Famotidine*) 20 Mg Tablet, 20 MG PO DAILY for 10 Days, TAB Prov:KAMILLE FRASER MD 07/18/18 Lactobacillus Rhamnosus GG (Culturelle) 1 Each Capsule, 1 CAP PO BID for 10 Days, CAP Prov:KAMILLE FRASER MD 07/18/18 Enoxaparin Sodium* (Enoxaparin Sodium*) 40 Mg/0.4 Ml Syringe, 40 MG SC DAILY for 10 Days, #10 Prov:KAMILLE FRASER MD 07/18/18 Ipratropium-Albuterol (Ipratropium-Albuterol) 0.5-3 Mg/3 Ml Ampul.neb, 3 ML HHN Q6H RESP THERAPY for 14 Days Prov:KAMILLE FRASER MD 07/18/18 Reported Medications Hydrocodone/Acetaminophen ([place] 5-325 Tablet) 1 Each Tablet, 1 EACH PO Q6 PRN for MODERATE PAIN LEVEL 4-6, TAB 07/13/18 Olopatadine* (Pataday*) 0.2% - 2.5 Ml Drops, 1 DROP BOTH EYES BID, EA 07/13/18 Protein Supplement (Promod) 946 Ml Liquid, 946 ML PO BID 07/13/18 Simethicone* (Mylicon*) 80 Mg Tab, 80 MG PO TID PRN for DISTENSION/GAS/BLOATING, TAB 07/13/18 Tamsulosin Hcl* (Tamsulosin Hcl*) 0.4 Mg Cap.er.24h, 0.4 MG PO HS, CAP 07/13/18 Acetaminophen* (Acetaminophen*) 650 Mg Tablet, 650 MG PO Q6H PRN for MILD PAIN LEVEL 1-3, #30 TAB AND FEVER 07/13/18 Multivitamins* (Theragran*) 1 Tab Tab, 1 TAB PO DAILY, TAB 07/13/18 Montelukast Sodium* (Montelukast Sodium*) 10 Mg Tablet, 10 MG PO QHS, #30 TAB 07/13/18 Polyethylene Glycol* (Miralax*) 17 Gm Powd.pack, 17 GM PO TID PRN for CONSTIPATION, #60 PACKET 07/13/18 Throat Lozenges* (Cepastat*) 9 Josselin Lozenge, 1 LOZENGE MT EVERY 1 HOUR PRN, LOZENGE 07/13/18 Docusate Sodium* (Docusate Sodium*) 100 Mg Capsule, 100 MG PO BID, #60 CAP 07/13/18 Bisacodyl (Dulcolax) 10 Mg Supp.rect, 10 MG RC PRN PRN for CONSTIPATION, SUPP.RECT 07/13/18 Furosemide* (Lasix*) 20 Mg Tablet, 20 MG PO DAILY, TAB 07/13/18 Guaifenesin* (Tussin*) 100 Mg/5 Ml Syrup, 200 MG PO Q4 PRN for COUGH, ML 07/13/18 Ipratropium [place]* (Atrovent HFA*) 12.9 Gm Aer.w.adap, 2 PUFF INHALATION Q6 for SHORTNESS OF BREATH, #1 INHALER FOR THE NEBULIZER 07/13/18 Lubiprostone* (Amitiza*) 24 Mcg Capsule, 24 MCG PO BID, #60 CAP 07/13/18 Magnesium Hydroxide* (Milk Of Magnesia*) 400 Mg/5 Ml Oral.susp, 30 ML PO DAILY PRN for CONSTIPATION, ML 07/13/18 Menthol (BENGAY) 113 Gm Gel..gram., 113 GM TP TID APPLY TO POSTERIOR RIGHT SHOULDER 07/13/18 Atorvastatin Calcium (Atorvastatin Calcium) 10 Mg Tablet, 10 MG PO QHS, #30 TAB 07/13/18 Polyvinyl Alcohol (Tears Again) 15 Ml Drops, 1 DRP BOTH EYES Q2HWA, BOTTLE 07/13/18 Medications Current Medications Acetaminophen (Tylenol Tab) 650 mg Q6H PRN PO MILD PAIN LEVEL 1-3; Start 08/08/18 at 12:00 Enoxaparin Sodium (Lovenox) 40 mg DAILY SC Last administered on 08/17/18at 09:06; Admin Dose 40 MG; Start 08/09/18 at 09:00 Montelukast Sodium (Singulair) 10 mg QHS PO Last administered on 08/15/18at 20:34; Admin Dose 10 MG; Start 08/08/18 at 21:00 Ondansetron HCl (Zofran Inj) 4 mg Q6H PRN IV NAUSEA AND/OR VOMITING Last administered on 08/15/18at 04:26; Admin Dose 4 MG; Start 08/08/18 at 12:00 Olopatadine HCl (Pataday) 1 drop DAILY BOTH EYES Last administered on 08/17/18at 08:59; Admin Dose 1 DROP; Start 08/08/18 at 14:30 Diltiazem HCl (Cardizem) 30 mg TID PO Last administered on 08/16/18 10:22; Admin Dose 30 MG; Start 08/08/18 at 16:00 Dronedarone (Multaq) 400 mg BID WITH MEALS PO Last administered on 08/16/18 10:17; Admin Dose 400 MG; Start 08/08/18 at 17:35 Diltiazem HCl (Cardizem Iv) 5 mg Q1H PRN IV afib with HR > 120; Start 08/08/18 at 14:30 Mupirocin (Bactroban) 1 applic BID TOP Last administered on 08/17/18 08:59; Admin Dose 1 APPLIC; Start 08/09/18 at 21:00 Guaifenesin (Mucinex) 600 mg BID PO Last administered on 08/16/18 10:16; Admin Dose 600 MG; Start 08/10/18 at 10:00 Levalbuterol (Xopenex Neb) 1.25 mg Q6H RESP THERAPY HHN Last administered on 08/17/18 08:05; Admin Dose 1.25 MG; Start 08/12/18 at 14:00 Levalbuterol (Xopenex Neb) 1.25 mg Q6H RESP THERAPY PRN HHN shortness of breath Last administered on 08/13/18 12:26; Admin Dose 1.25 MG; Start 08/12/18 at 11:30 Ipratropium [place] (Atrovent 0.02% (Neb)) 0.5 mg Q6HWA RESP THERAPY HHN Last administered on 08/17/18 08:05; Admin Dose 0.5 MG; Start 08/12/18 at 14:00 Ipratropium [place] (Atrovent 0.02% (Neb)) 0.5 mg Q4H RESP THERAPY PRN HHN SHORTNESS OF BREATH Last administered on 08/13/18 01:40; Admin Dose 0.5 MG; Start 08/12/18 at 11:30 Budesonide (Pulmicort (Neb)) 0.5 mg BID RESP THERAPY HHN Last administered on 08/17/18 08:06; Admin Dose 0.5 MG; Start 08/12/18 at 20:00 Furosemide (Lasix) 20 mg BID DIURETICS IV Last administered on 08/17/18 06:53; Admin Dose 20 MG; Start 08/15/18 at 18:00 Dextrose/Sodium Chloride 1,000 ml @ 40 mls/hr Q24H IV Last administered on 08/16/18at 10:32; Admin Dose 40 MLS/HR; Start 08/16/18 at 10:00 Morphine Sulfate (morphine) 2 mg Q3H PRN IV SHORTNESS OF BREATH; Start 08/16/18 at 11:30 Lorazepam (Ativan) 1 mg Q4H PRN IV SHORTNESS OF BREATH; Start 08/16/18 at 11:30 Potassium Chloride 100 ml @ 50 mls/hr Q2H IVPB Last administered on 08/17/18at 09:18; Admin Dose 50 MLS/HR; Start 08/17/18 at 09:00; Stop 08/17/18 at 14:59 Assessment/Plan Hospital Course (Demo Recall) 1. Acute hypoxemic hypercapnic respiratory failure 2. COPD exacerbation 3. S/P pneumonia 4. Questionable congestive heart failure: Patient clinically has responded to the IV Lasix but does not appear to be in fluid overloaded and has had normal ejection fraction 5. History of hypertension: Currently under good control 6. History of proximal atrial fibrillation and SVT most likely worsened by his respiratory failure 7. History of dyslipidemia 8.hypo K Recommendations: Continue with aspirin Continue with Cardizem and Multaq to try to maintain sinus rhythm Oxygen supplement BiPAP as needed will be deferred to the pulmonary recommendations Closely monitor for possible need for intubation diuretics as per pulm rec. replace lytes prn Echocardiogram will be repeated DVT prophylaxis and GI prophylaxis as per internal medicine Thank you for his referral. I will continue follow along with you HAYLEE PINZON MD [facility] HAYLEE PINZON MD Aug 17, 2018 11:35
--- NOTE | 2018-08-17 12:23 | PN ---
Date/Time of Note Date/Time of Note DATE: 08/17/18 TIME: 12:22 Objective Vitals Vital Signs Date Temp Pulse Resp B/P (MAP) Pulse Ox O2 O2 Flow FiO2 Time Delivery Rate 08/17/18 100.1 108 18 149/66 96 Nasal 11:54 (93) Cannula 08/17/18 70 11:50 08/15/18 4.0 12:28 Intake and Output 08/16/18 08/16/18 08/17/18 1515:00 23:00 07:00 IntakeIntake Total 120 ml OutputOutput Total 900 ml 1200 ml BalanceBalance -780 ml -1200 ml Results Result Diagram: 08/17/18 0502 08/17/18 0502 Medications Medications Current Medications Acetaminophen (Tylenol Tab) 650 mg Q6H PRN PO MILD PAIN LEVEL 1-3; Start 08/08/18 at 12:00 Enoxaparin Sodium (Lovenox) 40 mg DAILY SC Last administered on 08/17/18 09:06; Admin Dose 40 MG; Start 08/09/18 at 09:00 Montelukast Sodium (Singulair) 10 mg QHS PO Last administered on 08/15/18 20:34; Admin Dose 10 MG; Start 08/08/18 at 21:00 Ondansetron HCl (Zofran Inj) 4 mg Q6H PRN IV NAUSEA AND/OR VOMITING Last administered on 08/15/18 04:26; Admin Dose 4 MG; Start 08/08/18 at 12:00 Olopatadine HCl (Pataday) 1 drop DAILY BOTH EYES Last administered on 08/17/18 08:59; Admin Dose 1 DROP; Start 08/08/18 at 14:30 Diltiazem HCl (Cardizem) 30 mg TID PO Last administered on 08/16/18 10:22; Admin Dose 30 MG; Start 08/08/18 at 16:00 Dronedarone (Multaq) 400 mg BID WITH MEALS PO Last administered on 08/16/18 10:17; Admin Dose 400 MG; Start 08/08/18 at 17:35 Diltiazem HCl (Cardizem Iv) 5 mg Q1H PRN IV afib with HR > 120; Start 08/08/18 at 14:30 Mupirocin (Bactroban) 1 applic BID TOP Last administered on 08/17/18 08:59; Admin Dose 1 APPLIC; Start 08/09/18 at 21:00 Guaifenesin (Mucinex) 600 mg BID PO Last administered on 08/16/18 10:16; Admin Dose 600 MG; Start 08/10/18 at 10:00 Levalbuterol (Xopenex Neb) 1.25 mg Q6H RESP THERAPY HHN Last administered on 08/17/18 08:05; Admin Dose 1.25 MG; Start 08/12/18 at 14:00 Levalbuterol (Xopenex Neb) 1.25 mg Q6H RESP THERAPY PRN HHN shortness of breath Last administered on 08/13/18 12:26; Admin Dose 1.25 MG; Start 08/12/18 at 11:30 Ipratropium [place] (Atrovent 0.02% (Neb)) 0.5 mg Q6HWA RESP THERAPY HHN Last administered on 08/17/18 08:05; Admin Dose 0.5 MG; Start 08/12/18 at 14:00 Ipratropium [place] (Atrovent 0.02% (Neb)) 0.5 mg Q4H RESP THERAPY PRN HHN SHORTNESS OF BREATH Last administered on 08/13/18 01:40; Admin Dose 0.5 MG; Start 08/12/18 at 11:30 Budesonide (Pulmicort (Neb)) 0.5 mg BID RESP THERAPY HHN Last administered on 08/17/18 08:06; Admin Dose 0.5 MG; Start 08/12/18 at 20:00 Furosemide (Lasix) 20 mg BID DIURETICS IV Last administered on 08/17/18 06:53; Admin Dose 20 MG; Start 08/15/18 at 18:00 Dextrose/Sodium Chloride 1,000 ml @ 40 mls/hr Q24H IV Last administered on 08/16/18 10:32; Admin Dose 40 MLS/HR; Start 08/16/18 at 10:00 Morphine Sulfate (morphine) 2 mg Q3H PRN IV SHORTNESS OF BREATH; Start 08/16/18 at 11:30 Lorazepam (Ativan) 1 mg Q4H PRN IV SHORTNESS OF BREATH; Start 08/16/18 at 11:30 Potassium Chloride 100 ml @ 50 mls/hr Q2H IVPB Last administered on 08/17/18at 12:20; Admin Dose 50 MLS/HR; Start 08/17/18 at 09:00; Stop 08/17/18 at 14:59 VTE Prophylaxis Risk score (from Ns)>0 risk: 9 SCD applied (from [facility]): Yes Lines/Catheters IV Catheter Type: [place] in Place: No Assessment/Plan Hospital Course Subjective Respirations are still objectively worse, patient still on BiPAP, still not safe to eat per ST Objective Physical exam General: Patient is laying in bed, all questions answered by nodding his head, on BiPAP Mentation: Patient is alert and somewhat oriented Head: Normocephalic atraumatic Eyes: EOMI, pupils reactive to light Neck: Supple, nontender, midline Respiratory: Coarse to auscultation bilaterally Cardiovascular: regular rate, no obvious murmurs Gastrointestinal: non-tender to palpation, bowel sounds heard. Neurological: Moves all extremities spontaneously Skin: No new skin lesions Assessment/Plan 1. Acute hypoxic respiratory failure - Patient still requiring intermittent BIPAP - Pulmonology on board and appreciate recommendations - Continue nebs, steroids and IV antibiotics - monitor for improvement 2. RLL PNA - seen on CXR - ?Aspiration vs HCAP - IV antibiotics on board - nebs and PRN on board 3. COPD exacerbation - nebs, steroids, antibiotics 4. h/o Afib and SVT - Cardiology on board and appreciate recommendations. Continue current medications and adjust as needed -SVTs are stable for now, no episodes in the past 24 hours 5. ?CHF - responded to lasix but EF 65% on last ECHO and does not appear overloaded - will continue monitoring I/O and daily weights 6. hyperglycemia- resolved - most likely secondary to steroids - A1c from 06/2018 was 5 7. Disposition -Patient's family has decided for [facility] hospice, hospice in talks with patient's family, high school social studies tutor arranging. WILMER SANTIAGO Aug 17, 2018 12:23
--- NOTE | 2018-08-17 15:44 | CONS ---
Consult Date/Type/Reason Admit Date/Time Aug 08, 2018 at 11:30 Initial Consult Date 08/08/18 Type of Consultation: Pulm Requesting Provider: ALEXI ALLISON MD, [facility] Date/Time of Note DATE: 08/17/18 TIME: 15:43 Subjective Increased oxygen requirements noted on BiPAP. Decision made to pursue Hospice care. Objective Vitals Vital Signs Date Temp Pulse Resp B/P (MAP) Pulse Ox O2 O2 Flow FiO2 Time Delivery Rate 08/17/18 42 94 70 15:33 08/17/18 20 13:39 08/17/18 100.1 149/66 Nasal 11:54 (93) Cannula 08/15/18 4.0 12:28 Intake and Output 08/16/18 08/16/18 08/17/18 1515:00 23:00 07:00 IntakeIntake Total 120 ml OutputOutput Total 900 ml 1200 ml BalanceBalance -780 ml -1200 ml Exam GENERAL: Elderly gentleman comfortable at rest no acute distress VITAL SIGNS: per chart NECK: Supple. No JVD or lymphadenopathy. CARDIAC EXAM: S1, S2. No added sounds or murmurs. CHEST: Diminished air entry bilaterally ABDOMEN: Soft, nontender. No guarding or rebound. EXTREMITIES: No cyanosis, clubbing or edema. NEUROLOGIC: Generalized weakness. No focal deficits. Results/Medications Result Diagram: 08/17/18 0502 08/17/18 0502 Results 24 hrs Laboratory Tests Test 08/17/18 05:02 White Blood Count 6.0 # Red Blood Count 3.46 L Hemoglobin 9.5 L Hematocrit 30.5 L Mean Corpuscular Volume 88.2 Mean Corpuscular Hemoglobin 27.5 L Mean Corpuscular Hemoglobin Concent 31.1 L Red Cell Distribution Width 17.9 H Platelet Count 92 L Mean Platelet Volume 11.3 H Immature Granulocytes % 1.700 H Neutrophils % 93.6 H Lymphocytes % 2.3 L Monocytes % 2.0 Eosinophils % 0.2 Basophils % 0.2 Nucleated Red Blood Cells % 0.3 H Immature Granulocytes # 0.100 H Neutrophils # 5.6 Lymphocytes # 0.1 L Monocytes # 0.1 L Eosinophils # 0.0 Basophils # 0.0 Nucleated Red Blood Cells # 0.0 Sodium Level 139 Potassium Level 3.3 L Chloride Level 94 L Carbon Dioxide Level 43 *H Anion Gap 2 L Blood Urea Nitrogen 42 H Creatinine 0.47 L Est Glomerular Filtrat Rate mL/min Glucose Level 80 # Calcium Level 8.3 L Phosphorus Level 3.5 Magnesium Level 2.0 Home Meds Active Scripts Dronedarone Hydrochloride* (Multaq*) 400 Mg Tablet, 400 MG PO BID WITH MEALS for 30 Days, #60 TAB Prov:CHASIDY VILLEGAS MD 08/09/18 Diltiazem Hcl* (Cardizem*) 30 Mg Tablet, 30 MG PO TID for 30 Days, #90 TAB Prov:CHASIDY VILLEGAS MD 08/09/18 Methylprednisolone Sodium Succinate PF (Solu-Medrol PF) 125 Mg/2 Ml Vial, 60 MG IV Q8 for 7 Days, VIAL Prov:KAMILLE FRASER MD 07/18/18 Sennosides/Docusate Sodium (Dok Plus Tablet) 1 Each Tablet, 2 TAB PO AM for 10 Days, TAB Prov:KAMILLE FRASER MD 07/18/18 Famotidine* (Famotidine*) 20 Mg Tablet, 20 MG PO DAILY for 10 Days, TAB Prov:KAMILLE FRASER MD 07/18/18 Lactobacillus Rhamnosus GG (Culturelle) 1 Each Capsule, 1 CAP PO BID for 10 Days, CAP Prov:KAMILLE FRASER MD 07/18/18 Enoxaparin Sodium* (Enoxaparin Sodium*) 40 Mg/0.4 Ml Syringe, 40 MG SC DAILY for 10 Days, #10 Prov:KAMILLE FRASER MD 07/18/18 Ipratropium-Albuterol (Ipratropium-Albuterol) 0.5-3 Mg/3 Ml Ampul.neb, 3 ML HHN Q6H RESP THERAPY for 14 Days Prov:KAMILLE FRASER MD 07/18/18 Reported Medications Hydrocodone/Acetaminophen (Kelliher 5-325 Tablet) 1 Each Tablet, 1 EACH PO Q6 PRN for MODERATE PAIN LEVEL 4-6, TAB 07/13/18 Olopatadine* (Pataday*) 0.2% - 2.5 Ml Drops, 1 DROP BOTH EYES BID, EA 07/13/18 Protein Supplement (Promod) 946 Ml Liquid, 946 ML PO BID 07/13/18 Simethicone* (Mylicon*) 80 Mg Tab, 80 MG PO TID PRN for DISTENSION/GAS/BLOATING, TAB 07/13/18 Tamsulosin Hcl* (Tamsulosin Hcl*) 0.4 Mg Cap.er.24h, 0.4 MG PO HS, CAP 07/13/18 Acetaminophen* (Acetaminophen*) 650 Mg Tablet, 650 MG PO Q6H PRN for MILD PAIN LEVEL 1-3, #30 TAB AND FEVER 07/13/18 Multivitamins* (Theragran*) 1 Tab Tab, 1 TAB PO DAILY, TAB 07/13/18 Montelukast Sodium* (Montelukast Sodium*) 10 Mg Tablet, 10 MG PO QHS, #30 TAB 07/13/18 Polyethylene Glycol* (Miralax*) 17 Gm Powd.pack, 17 GM PO TID PRN for CONSTI PATION, #60 PACKET 07/13/18 Throat Lozenges* (Cepastat*) 9 Josselin Lozenge, 1 LOZENGE MT EVERY 1 HOUR PRN, LOZENGE 07/13/18 Docusate Sodium* (Docusate Sodium*) 100 Mg Capsule, 100 MG PO BID, #60 CAP 07/13/18 Bisacodyl (Dulcolax) 10 Mg Supp.rect, 10 MG RC PRN PRN for CONSTIPATION, SUPP.RECT 07/13/18 Furosemide* (Lasix*) 20 Mg Tablet, 20 MG PO DAILY, TAB 07/13/18 Guaifenesin* (Tussin*) 100 Mg/5 Ml Syrup, 200 MG PO Q4 PRN for COUGH, ML 07/13/18 Ipratropium [place]* (Atrovent HFA*) 12.9 Gm Aer.w.adap, 2 PUFF INHALATION Q6 for SHORTNESS OF BREATH, #1 INHALER FOR THE NEBULIZER 07/13/18 Lubiprostone* (Amitiza*) 24 Mcg Capsule, 24 MCG PO BID, #60 CAP 07/13/18 Magnesium Hydroxide* (Milk Of Magnesia*) 400 Mg/5 Ml Oral.susp, 30 ML PO DAILY PRN for CONSTIPATION, ML 07/13/18 Menthol (BENGAY) 113 Gm Gel..gram., 113 GM TP TID APPLY TO POSTERIOR RIGHT SHOULDER 07/13/18 Atorvastatin Calcium (Atorvastatin Calcium) 10 Mg Tablet, 10 MG PO QHS, #30 TAB 07/13/18 Polyvinyl Alcohol (Tears Again) 15 Ml Drops, 1 DRP BOTH EYES Q2HWA, BOTTLE 07/13/18 Medications Current Medications Acetaminophen (Tylenol Tab) 650 mg Q6H PRN PO MILD PAIN LEVEL 1-3; Start 08/08/18 at 12:00 Enoxaparin Sodium (Lovenox) 40 mg DAILY SC Last administered on 08/17/18 09:06; Admin Dose 40 MG; Start 08/09/18 at 09:00 Montelukast Sodium (Singulair) 10 mg QHS PO Last administered on 08/15/18 20:34; Admin Dose 10 MG; Start 08/08/18 at 21:00 Ondansetron HCl (Zofran Inj) 4 mg Q6H PRN IV NAUSEA AND/OR VOMITING Last administered on 08/15/18 04:26; Admin Dose 4 MG; Start 08/08/18 at 12:00 Olopatadine HCl (Pataday) 1 drop DAILY BOTH EYES Last administered on 08/17/18 08:59; Admin Dose 1 DROP; Start 08/08/18 at 14:30 Diltiazem HCl (Cardizem) 30 mg TID PO Last administered on 08/16/18 10:22; Admin Dose 30 MG; Start 08/08/18 at 16:00 Dronedarone (Multaq) 400 mg BID WITH MEALS PO Last administered on 08/16/18 10:17; Admin Dose 400 MG; Start 08/08/18 at 17:35 Diltiazem HCl (Cardizem Iv) 5 mg Q1H PRN IV afib with HR > 120; Start 08/08/18 at 14:30 Mupirocin (Bactroban) 1 applic BID TOP Last administered on 08/17/18 08:59; Admin Dose 1 APPLIC; Start 08/09/18 at 21:00 Guaifenesin (Mucinex) 600 mg BID PO Last administered on 08/16/18 10:16; Admin Dose 600 MG; Start 08/10/18 at 10:00 Levalbuterol (Xopenex Neb) 1.25 mg Q6H RESP THERAPY HHN Last administered on 08/17/18 13:39; Admin Dose 1.25 MG; Start 08/12/18 at 14:00 Levalbuterol (Xopenex Neb) 1.25 mg Q6H RESP THERAPY PRN HHN shortness of breath Last administered on 08/13/18 12:26; Admin Dose 1.25 MG; Start 08/12/18 at 11:30 Ipratropium [place] (Atrovent 0.02% (Neb)) 0.5 mg Q6HWA RESP THERAPY HHN Last administered on 08/17/18 13:39; Admin Dose 0.5 MG; Start 08/12/18 at 14:00 Ipratropium [place] (Atrovent 0.02% (Neb)) 0.5 mg Q4H RESP THERAPY PRN HHN SHORTNESS OF BREATH Last administered on 08/13/18 01:40; Admin Dose 0.5 MG; Start 08/12/18 at 11:30 Budesonide (Pulmicort (Neb)) 0.5 mg BID RESP THERAPY HHN Last administered on 08/17/18 08:06; Admin Dose 0.5 MG; Start 08/12/18 at 20:00 Furosemide (Lasix) 20 mg BID DIURETICS IV Last administered on 08/17/18 06:53; Admin Dose 20 MG; Start 08/15/18 at 18:00 Dextrose/Sodium Chloride 1,000 ml @ 40 mls/hr Q24H IV Last administered on 08/16/18 10:32; Admin Dose 40 MLS/HR; Start 08/16/18 at 10:00 Morphine Sulfate (morphine) 2 mg Q3H PRN IV SHORTNESS OF BREATH; Start 08/16/18 at 11:30 Lorazepam (Ativan) 1 mg Q4H PRN IV SHORTNESS OF BREATH; Start 08/16/18 at 11:30 Assessment/Plan Assessment/Plan (Daily) IMP: 1. Acute on chronic hypoxemic respiratory failure likely secondary to combination of diastolic dysfunction and severe COPD. Right lower lobe infiltrate possible aspiration pneumonia. Degree of dyspnea out of proportion to radiographic and arterial blood gas findings. 2. Likely significant anxiety component. 3. SVT now improved 4. Hypokalemia likely secondary to diuretics RECS: 1. Continue BiPAP with increased FiO2 until transition to hospice tomorrow KYMBERLY VARGAS MD Aug 17, 2018 15:44
[2018-08-17] MEDS ORDERED: BISACODYL 10 MG SUPP PR PRN (18:00)
[2018-08-17] MEDS: MONTELUKAST 10 MG TAB PO SCH (21:00)
[2018-08-18] VITALS (22 sets, daily range): BP systolic 92–128; BP diastolic 31–61; PULSE 59–108; RESP 14–19
[2018-08-18] MEDS: LEVALBUTEROL (NEB) 1.25 MG/0.5 ML AMP HHN SCH ×4 (01:07→19:42)
[2018-08-18] MEDS: FUROSEMIDE 20 MG INJ IV SCH ×2 (05:19→18:01)
[2018-08-18] MEDS: DEXTROSE 5%-0.45% NACL 1,000 ML IV SCH (07:58)
[2018-08-18] MEDS: DRONEDARONE HYDROCHLORIDE 400 MG TAB PO SCH ×2 (08:00→17:10)
[2018-08-18] MEDS: IPRATROPIUM (NEB) 0.5 MG/2.5 ML AMP HHN SCH ×3 (08:13→19:41)
[2018-08-18] MEDS: BUDESONIDE (NEB) 0.5MG/2ML AMP HHN SCH ×2 (08:25→19:42)
[2018-08-18] MEDS: DILTIAZEM 30 MG TAB PO SCH ×3 (08:51→21:00)
[2018-08-18] MEDS: GUAIFENESIN LA 600 MG TABSR PO SCH ×2 (08:51→21:00)
[2018-08-18] MEDS: OLOPATADINE 0.2% (ONCE A DAY) OPHTH DROP 2.5 ML BOTH EYES SCH (08:52)
[2018-08-18] MEDS: MUPIROCIN 2% 22 GM OINT TOP SCH ×2 (08:52→23:05)
--- NOTE | 2018-08-18 10:58 | PN ---
Date/Time of Note Date/Time of Note DATE: 08/18/18 TIME: 10:58 Assessment/Plan VTE Prophylaxis Risk score (from Nsg)>0 risk: 8 SCD applied (from Nsg): Yes Pharmacological prophylaxis: LMWH Lines/Catheters IV Catheter Type (from Nrsg): Mid Line Urinary Cath still in place: Yes Reason Cath still needed: terminal illness/intractable pain Assessment/Plan Assessment/Plan 1. Acute hypoxic respiratory failure - Patient appears to be BIPAP dependent. Discussed with family pulmonary condition is terminal and plans to talk with Sudhakar this afternoon - Pulmonology on board and appreciate recommendations - Continue nebs, steroids and IV antibiotics - monitor for improvement 2. RLL PNA - seen on CXR - ?Aspiration vs HCAP - IV antibiotics on board - nebs and PRN on board 3. COPD exacerbation - nebs, steroids, antibiotics 4. h/o Afib and SVT - Cardiology on board and appreciate recommendations. Continue current medications and adjust as needed 5. Disposition - Family to meet with Sudhakar to discussed GIP Result Diagram: 08/18/18 0537 08/18/18 0537 Results 24hrs Laboratory Tests Test 08/18/18 05:37 White Blood Count 6.2 Red Blood Count 3.53 L Hemoglobin 9.8 L Hematocrit 31.6 L Mean Corpuscular Volume 89.5 Mean Corpuscular Hemoglobin 27.8 L Mean Corpuscular Hemoglobin Concent 31.0 L Red Cell Distribution Width 18.3 H Platelet Count 75 L Mean Platelet Volume 11.3 H Immature Granulocytes % 1.300 H Neutrophils % 94.4 H Lymphocytes % 1.9 L Monocytes % 1.9 Eosinophils % 0.3 Basophils % 0.2 Nucleated Red Blood Cells % 0.0 Immature Granulocytes # 0.080 H Neutrophils # 5.9 Lymphocytes # 0.1 L Monocytes # 0.1 L Eosinophils # 0.0 Basophils # 0.0 Nucleated Red Blood Cells # 0.0 Sodium Level 141 Potassium Level 3.4 L Chloride Level 95 L Carbon Dioxide Level 42 *H Anion Gap 4 L Blood Urea Nitrogen 39 H Creatinine 0.52 L Est Glomerular Filtrat Rate mL/min Glucose Level 116 Calcium Level 8.3 L Phosphorus Level 3.4 Magnesium Level 2.1 Subjective 24 Hr Interval Summary Free Text/Dictation Patient shaking head no when asked if okay. Discussed with son at bedside he is BIPAP dependent and best to still transition to hospice. States has an appointment with Sudhakar to discuss around 3-4pm. Exam/Review of Systems Exam Vitals Vital Signs Date Temp Pulse Resp B/P (MAP) Pulse Ox O2 O2 Flow FiO2 Time Delivery Rate 08/18/18 101 98 55 09:49 08/18/18 97.5 16 119/56 07:53 (77) 08/18/18 BIPAP 04:00 08/15/18 4.0 12:28 Intake and Output 08/17/18 08/17/18 08/18/18 1515:00 23:00 07:00 IntakeIntake Total 200 ml 500 ml 480 ml OutputOutput Total 600 ml 400 ml BalanceBalance 200 ml -100 ml 80 ml Exam General: Patient is laying in bed, shakes/nods head to questions, on BiPAP, fatigued Eyes: EOMI, pupils reactive to light Neck: Supple, nontender, midline Respiratory: Coarse to auscultation bilaterally. no wheezing appreciated Cardiovascular: regular rate and rhythm, no obvious murmurs Gastrointestinal: soft, non-tender to palpation, bowel sounds heard. Neurological: Moves all extremities spontaneously Skin: No new skin lesions Results Results 24hrs Laboratory Tests Test 08/18/18 05:37 White Blood Count 6.2 Red Blood Count 3.53 L Hemoglobin 9.8 L Hematocrit 31.6 L Mean Corpuscular Volume 89.5 Mean Corpuscular Hemoglobin 27.8 L Mean Corpuscular Hemoglobin Concent 31.0 L Red Cell Distribution Width 18.3 H Platelet Count 75 L Mean Platelet Volume 11.3 H Immature Granulocytes % 1.300 H Neutrophils % 94.4 H Lymphocytes % 1.9 L Monocytes % 1.9 Eosinophils % 0.3 Basophils % 0.2 Nucleated Red Blood Cells % 0.0 Immature Granulocytes # 0.080 H Neutrophils # 5.9 Lymphocytes # 0.1 L Monocytes # 0.1 L Eosinophils # 0.0 Basophils # 0.0 Nucleated Red Blood Cells # 0.0 Sodium Level 141 Potassium Level 3.4 L Chloride Level 95 L Carbon Dioxide Level 42 *H Anion Gap 4 L Blood Urea Nitrogen 39 H Creatinine 0.52 L Est Glomerular Filtrat Rate mL/min Glucose Level 116 Calcium Level 8.3 L Phosphorus Level 3.4 Magnesium Level 2.1 Medications Medication Current Medications Acetaminophen (Tylenol Tab) 650 mg Q6H PRN PO MILD PAIN LEVEL 1-3; Start 08/08/18 at 12:00 Enoxaparin Sodium (Lovenox) 40 mg DAILY SC Last administered on 08/17/18 09:06 ; Admin Dose 40 MG; Start 08/09/18 at 09:00; Status Hold Montelukast Sodium (Singulair) 10 mg QHS PO Last administered on 08/15/18 20:34; Admin Dose 10 MG; Start 08/08/18 at 21:00 Ondansetron HCl (Zofran Inj) 4 mg Q6H PRN IV NAUSEA AND/OR VOMITING Last administered on 08/15/18 04:26; Admin Dose 4 MG; Start 08/08/18 at 12:00 Olopatadine HCl (Pataday) 1 drop DAILY BOTH EYES Last administered on 08/18/18 08:52; Admin Dose 1 DROP; Start 08/08/18 at 14:30 Diltiazem HCl (Cardizem) 30 mg TID PO Last administered on 08/16/18 10:22; Admin Dose 30 MG; Start 08/08/18 at 16:00 Dronedarone (Multaq) 400 mg BID WITH MEALS PO Last administered on 08/16/18 10:17; Admin Dose 400 MG; Start 08/08/18 at 17:35 Diltiazem HCl (Cardizem Iv) 5 mg Q1H PRN IV afib with HR > 120; Start 08/08/18 at 14:30 Mupirocin (Bactroban) 1 applic BID TOP Last administered on 08/18/18 08:52; Admin Dose 1 APPLIC; Start 08/09/18 at 21:00 Guaifenesin (Mucinex) 600 mg BID PO Last administered on 08/16/18 10:16; Admin Dose 600 MG; Start 08/10/18 at 10:00 Levalbuterol (Xopenex Neb) 1.25 mg Q6H RESP THERAPY HHN Last administered on 08/18/18 08:13; Admin Dose 1.25 MG; Start 08/12/18 at 14:00 Levalbuterol (Xopenex Neb) 1.25 mg Q6H RESP THERAPY PRN HHN shortness of breath Last administered on 08/13/18 12:26; Admin Dose 1.25 MG; Start 08/12/18 at 11:30 Ipratropium [place] (Atrovent 0.02% (Neb)) 0.5 mg Q6HWA RESP THERAPY HHN Last administered on 08/18/18 08:13; Admin Dose 0.5 MG; Start 08/12/18 at 14:00 Ipratropium [place] (Atrovent 0.02% (Neb)) 0.5 mg Q4H RESP THERAPY PRN HHN SHORTNESS OF BREATH Last administered on 08/13/18 01:40; Admin Dose 0.5 MG; Start 08/12/18 at 11:30 Budesonide (Pulmicort (Neb)) 0.5 mg BID RESP THERAPY HHN Last administered on 08/18/18 08:25; Admin Dose 0.5 MG; Start 08/12/18 at 20:00 Furosemide (Lasix) 20 mg BID DIURETICS IV Last administered on 08/18/18 05:19; Admin Dose 20 MG; Start 08/15/18 at 18:00 Dextrose/Sodium Chloride 1,000 ml @ 40 mls/hr Q24H IV Last administered on 08/18/18 07:58; Admin Dose 40 MLS/HR; Start 08/16/18 at 10:00 Morphine Sulfate (morphine) 2 mg Q3H PRN IV SHORTNESS OF BREATH; Start 08/16/18 at 11:30 Lorazepam (Ativan) 1 mg Q4H PRN IV SHORTNESS OF BREATH; Start 08/16/18 at 11:30 Bisacodyl (Dulcolax Supp) 10 mg DAILY PRN [place] CONSTIPATION Last administered on 08/17/18 18:08; Admin Dose 10 MG; Start 08/17/18 at 18:00 Potassium Chloride 100 ml @ 50 mls/hr Q2H IVPB ; Start 08/18/18 at 09:00; Stop 08/18/18 at 12:59 CHASIDY VILLEGAS MD Aug 18, 2018 10:58
[2018-08-18] MEDS: POTASSIUM CHLORIDE 100 ML IVPB SCH ×2 (11:00→12:47)
--- NOTE | 2018-08-18 11:57 | CONS ---
Consult Date/Type/Reason Admit Date/Time Aug 08, 2018 at 11:30 Initial Consult Date 08/08/18 Type of Consult Pulmonary Requesting Provider: ALEXI ALLISON MD, [facility] Date/Time of Note DATE: 08/18/18 TIME: 11:56 Subjective Continues to remain mostly BiPAP dependent. Objective Vital Signs Date Temp Pulse Resp B/P (MAP) Pulse Ox O2 O2 Flow FiO2 Time Delivery Rate 08/18/18 98.5 76 14 92/43 (59) 97 11:19 08/18/18 55 09:49 08/18/18 BIPAP 04:00 08/15/18 4.0 12:28 Intake and Output 08/17/18 08/17/18 08/18/18 1515:00 23:00 07:00 IntakeIntake Total 200 ml 500 ml 480 ml OutputOutput Total 600 ml 400 ml BalanceBalance 200 ml -100 ml 80 ml Exam GENERAL: Elderly gentleman comfortable at rest no acute distress VITAL SIGNS: per chart NECK: Supple. No JVD or lymphadenopathy. CARDIAC EXAM: S1, S2. No added sounds or murmurs. CHEST: Diminished air entry bilaterally ABDOMEN: Soft, nontender. No guarding or rebound. EXTREMITIES: No cyanosis, clubbing or edema. NEUROLOGIC: Generalized weakness. No focal deficits. Vent Setting Fraction of Inspired Oxygen pe: 70 Results/Medications Result Diagram: 08/18/1837 08/18/18 0537 Results 24 hrs Laboratory Tests Test 08/18/18 05:37 White Blood Count 6.2 Red Blood Count 3.53 L Hemoglobin 9.8 L Hematocrit 31.6 L Mean Corpuscular Volume 89.5 Mean Corpuscular Hemoglobin 27.8 L Mean Corpuscular Hemoglobin Concent 31.0 L Red Cell Distribution Width 18.3 H Platelet Count 75 L Mean Platelet Volume 11.3 H Immature Granulocytes % 1.300 H Neutrophils % 94.4 H Lymphocytes % 1.9 L Monocytes % 1.9 Eosinophils % 0.3 Basophils % 0.2 Nucleated Red Blood Cells % 0.0 Immature Granulocytes # 0.080 H Neutrophils # 5.9 Lymphocytes # 0.1 L Monocytes # 0.1 L Eosinophils # 0.0 Basophils # 0.0 Nucleated Red Blood Cells # 0.0 Sodium Level 141 Potassium Level 3.4 L Chloride Level 95 L Carbon Dioxide Level 42 *H Anion Gap 4 L Blood Urea Nitrogen 39 H Creatinine 0.52 L Est Glomerular Filtrat Rate mL/min Glucose Level 116 Calcium Level 8.3 L Phosphorus Level 3.4 Magnesium Level 2.1 Medications Current Medications Acetaminophen (Tylenol Tab) 650 mg Q6H PRN PO MILD PAIN LEVEL 1-3; Start 08/08/18 at 12:00 Enoxaparin Sodium (Lovenox) 40 mg DAILY SC Last administered on 08/17/18 09:06; Admin Dose 40 MG; Start 08/09/18 at 09:00; Status Hold Montelukast Sodium (Singulair) 10 mg QHS PO Last administered on 08/15/18 20:34; Admin Dose 10 MG; Start 08/08/18 at 21:00 Ondansetron HCl (Zofran Inj) 4 mg Q6H PRN IV NAUSEA AND/OR VOMITING Last administered on 08/15/18 04:26; Admin Dose 4 MG; Start 08/08/18 at 12:00 Olopatadine HCl (Pataday) 1 drop DAILY BOTH EYES Last administered on 08/18/18 08:52; Admin Dose 1 DROP; Start 08/08/18 at 14:30 Diltiazem HCl (Cardizem) 30 mg TID PO Last administered on 08/16/18 10:22; Admin Dose 30 MG; Start 08/08/18 at 16:00 Dronedarone (Multaq) 400 mg BID WITH MEALS PO Last administered on 08/16/18 10:17; Admin Dose 400 MG; Start 08/08/18 at 17:35 Diltiazem HCl (Cardizem Iv) 5 mg Q1H PRN IV afib with HR > 120; Start 08/08/18 at 14:30 Mupirocin (Bactroban) 1 applic BID TOP Last administered on 08/18/18 08:52; Admin Dose 1 APPLIC; Start 08/09/18 at 21:00 Guaifenesin (Mucinex) 600 mg BID PO Last administered on 08/16/18 10:16; Admin Dose 600 MG; Start 08/10/18 at 10:00 Levalbuterol (Xopenex Neb) 1.25 mg Q6H RESP THERAPY HHN Last administered on 08/18/18 08:13; Admin Dose 1.25 MG; Start 08/12/18 at 14:00 Levalbuterol (Xopenex Neb) 1.25 mg Q6H RESP THERAPY PRN HHN shortness of breath Last administered on 08/13/18 12:26; Admin Dose 1.25 MG; Start 08/12/18 at 11:30 Ipratropium [place] (Atrovent 0.02% (Neb)) 0.5 mg Q6HWA RESP THERAPY HHN Last administered on 08/18/18 08:13; Admin Dose 0.5 MG; Start 08/12/18 at 14:00 Ipratropium [place] (Atrovent 0.02% (Neb)) 0.5 mg Q4H RESP THERAPY PRN HHN SHORTNESS OF BREATH Last administered on 08/13/18 01:40; Admin Dose 0.5 MG; Start 08/12/18 at 11:30 Budesonide (Pulmicort (Neb)) 0.5 mg BID RESP THERAPY HHN Last administered on 08/18/18 08:25; Admin Dose 0.5 MG; Start 08/12/18 at 20:00 Furosemide (Lasix) 20 mg BID DIURETICS IV Last administered on 08/18/18 05:19; Admin Dose 20 MG; Start 08/15/18 at 18:00 Dextrose/Sodium Chloride 1,000 ml @ 40 mls/hr Q24H IV Last administered on 08/18/18 07:58; Admin Dose 40 MLS/HR; Start 08/16/18 at 10:00 Morphine Sulfate (morphine) 2 mg Q3H PRN IV SHORTNESS OF BREATH; Start 08/16/18 at 11:30 Lorazepam (Ativan) 1 mg Q4H PRN IV SHORTNESS OF BREATH; Start 08/16/18 at 11:30 Bisacodyl (Dulcolax Supp) 10 mg DAILY PRN [place] CONSTIPATION Last administered on 08/17/18 18:08; Admin Dose 10 MG; Start 08/17/18 at 18:00 Potassium Chloride 100 ml @ 50 mls/hr Q2H IVPB Last administered on 08/18/18 11:00; Admin Dose 50 MLS/HR; Start 08/18/18 at 09:00; Stop 08/18/18 at 12:59 Assessment/Plan Hospital Course (Demo Recall) IMP: 1. Acute on chronic hypoxemic respiratory failure likely secondary to combination of diastolic dysfunction and severe COPD. Right lower lobe infiltrate possible aspiration pneumonia. Degree of dyspnea out of proportion to radiographic and arterial blood gas findings. 2. Likely significant anxiety component. 3. SVT now improved 4. Hypokalemia likely secondary to diuretics RECS: 1. Continue BiPAP with increased FiO2 until transition to hospice A[facility]I ALLISON MD, [facility] Aug 18, 2018 11:57
--- NOTE | 2018-08-18 18:30 | CONS ---
Consult Date/Type/Reason Admit Date/Time Aug 08, 2018 at 11:30 Initial Consult Date 08/08/18 Type of Consultation: cv Requesting Provider: ALEXI ALLISON MD, [facility] Date/Time of Note DATE: 08/18/18 TIME: 18:29 Subjective cardiology follow up note S; D/W staff and telemetry was reviewed patient remains sinus rhythm with occasional PAC and PVC Patient continued to be in respiratory distress and currently on BiPAP. Discussed with family. pt is more lethargic now Objective: General: Elderly gentleman in respiratory distress on BiPAP. HEENT: NC/AT. pupils are equal. round. NECK: . no stridor. CV: RRR. systolic murmur; no gallop or rubs. PULM: + rhonchi. GI: SOFT, NT, ND, no rebound or guarding Extremity: Trivial B/L LE edema. no clubbing. neuro:drowsy Psych: calm and pleasant rectal: deferred : normal Chest x-ray done 08/08/2018 which was also personally reviewed shows: 1. Mildly increased right basilar opacification, similar in size small right pleural effusion. 2. Right PIC line distal tip projects over the right axilla, unchanged. Review of the old chart showed echocardiogram was in April 2018 personally reviewed and showed Normal left ventricular systolic function. Normal left ventricular cavity size. Normal left ventricular wall thickness. Ejection fraction is visually estimated at 65 %. Normal appearance and function of the mitral valve with trace physiologic regurgitation. No significant aortic stenosis or insufficiency. Aortic valve not well visualized. Aortic cusps appear mildly calcified. Normal appearance of the tricuspid valve. Unable to obtain RVSP due to minimal presence of tricuspid regurgitation. Objective Vitals Vital Signs Date Temp Pulse Resp B/P (MAP) Pulse Ox O2 O2 Flow FiO2 Time Delivery Rate 08/18/18 99 99 55 17:54 08/18/18 98.6 14 99/54 (69) 15:26 08/18/18 BIPAP 04:00 08/15/18 4.0 12:28 Intake and Output 08/17/18 08/17/18 08/18/18 1515:00 23:00 07:00 IntakeIntake Total 200 ml 500 ml 480 ml OutputOutput Total 600 ml 400 ml BalanceBalance 200 ml -100 ml 80 ml Results/Medications Result Diagram: 08/18/1837 08/18/1837 Results 24 hrs Laboratory Tests Test 08/18/18 05:37 White Blood Count 6.2 Red Blood Count 3.53 L Hemoglobin 9.8 L Hematocrit 31.6 L Mean Corpuscular Volume 89.5 Mean Corpuscular Hemoglobin 27.8 L Mean Corpuscular Hemoglobin Concent 31.0 L Red Cell Distribution Width 18.3 H Platelet Count 75 L Mean Platelet Volume 11.3 H Immature Granulocytes % 1.300 H Neutrophils % 94.4 H Lymphocytes % 1.9 L Monocytes % 1.9 Eosinophils % 0.3 Basophils % 0.2 Nucleated Red Blood Cells % 0.0 Immature Granulocytes # 0.080 H Neutrophils # 5.9 Lymphocytes # 0.1 L Monocytes # 0.1 L Eosinophils # 0.0 Basophils # 0.0 Nucleated Red Blood Cells # 0.0 Sodium Level 141 Potassium Level 3.4 L Chloride Level 95 L Carbon Dioxide Level 42 *H Anion Gap 4 L Blood Urea Nitrogen 39 H Creatinine 0.52 L Est Glomerular Filtrat Rate mL/min Glucose Level 116 Calcium Level 8.3 L Phosphorus Level 3.4 Magnesium Level 2.1 Home Meds Active Scripts Dronedarone Hydrochloride* (Multaq*) 400 Mg Tablet, 400 MG PO BID WITH MEALS for 30 Days, #60 TAB Prov:CHASIDY VILLEGAS MD 08/09/18 Diltiazem Hcl* (Cardizem*) 30 Mg Tablet, 30 MG PO TID for 30 Days, #90 TAB Prov:CHASIDY VILLEGAS MD 08/09/18 Methylprednisolone Sodium Succinate PF (Solu-Medrol PF) 125 Mg/2 Ml Vial, 60 MG IV Q8 for 7 Days, VIAL Prov:KAMILLE FRASER MD 07/18/18 Sennosides/Docusate Sodium (Dok Plus Tablet) 1 Each Tablet, 2 TAB PO AM for 10 Days, TAB Prov:KAMILLE FRASER MD 07/18/18 Famotidine* (Famotidine*) 20 Mg Tablet, 20 MG PO DAILY for 10 Days, TAB Prov:KAMILLE FRASER MD 07/18/18 Lactobacillus Rhamnosus GG (Culturelle) 1 Each Capsule, 1 CAP PO BID for 10 Days , CAP Prov:KAMILLE FRASER MD 07/18/18 Enoxaparin Sodium* (Enoxaparin Sodium*) 40 Mg/0.4 Ml Syringe, 40 MG SC DAILY for 10 Days, #10 Prov:KAMILLE FRASER MD 07/18/18 Ipratropium-Albuterol (Ipratropium-Albuterol) 0.5-3 Mg/3 Ml Ampul.neb, 3 ML HHN Q6H RESP THERAPY for 14 Days Prov:KAMILLE FRASER MD 07/18/18 Reported Medications Hydrocodone/Acetaminophen (Berwick 5-325 Tablet) 1 Each Tablet, 1 EACH PO Q6 PRN for MODERATE PAIN LEVEL 4-6, TAB 07/13/18 Olopatadine* (Pataday*) 0.2% - 2.5 Ml Drops, 1 DROP BOTH EYES BID, EA 07/13/18 Protein Supplement (Promod) 946 Ml Liquid, 946 ML PO BID 07/13/18 Simethicone* (Mylicon*) 80 Mg Tab, 80 MG PO TID PRN for DISTENSION/GAS/BLOATING, TAB 07/13/18 Tamsulosin Hcl* (Tamsulosin Hcl*) 0.4 Mg Cap.er.24h, 0.4 MG PO HS, CAP 07/13/18 Acetaminophen* (Acetaminophen*) 650 Mg Tablet, 650 MG PO Q6H PRN for MILD PAIN LEVEL 1-3, #30 TAB AND FEVER 07/13/18 Multivitamins* (Theragran*) 1 Tab Tab, 1 TAB PO DAILY, TAB 07/13/18 Montelukast Sodium* (Montelukast Sodium*) 10 Mg Tablet, 10 MG PO QHS, #30 TAB 07/13/18 Polyethylene Glycol* (Miralax*) 17 Gm Powd.pack, 17 GM PO TID PRN for CONSTIPATION, #60 PACKET 07/13/18 Throat Lozenges* (Cepastat*) 9 Josselin Lozenge, 1 LOZENGE MT EVERY 1 HOUR PRN, LOZENGE 07/13/18 Docusate Sodium* (Docusate Sodium*) 100 Mg Capsule, 100 MG PO BID, #60 CAP 07/13/18 Bisacodyl (Dulcolax) 10 Mg Supp.rect, 10 MG RC PRN PRN for CONSTIPATION, SUPP.RECT 07/13/18 Furosemide* (Lasix*) 20 Mg Tablet, 20 MG PO DAILY, TAB 07/13/18 Guaifenesin* (Tussin*) 100 Mg/5 Ml Syrup, 200 MG PO Q4 PRN for COUGH, ML 07/13/18 Ipratropium [place]* (Atrovent HFA*) 12.9 Gm Aer.w.adap, 2 PUFF INHALATION Q6 for SHORTNESS OF BREATH, #1 INHALER FOR THE NEBULIZER 07/13/18 Lubiprostone* (Amitiza*) 24 Mcg Capsule, 24 MCG PO BID, #60 CAP 07/13/18 Magnesium Hydroxide* (Milk Of Magnesia*) 400 Mg/5 Ml Oral.susp, 30 ML PO DAILY PRN for CONSTIPATION, ML 07/13/18 Menthol (BENGAY) 113 Gm Gel..gram., 113 GM TP TID APPLY TO POSTERIOR RIGHT SHOULDER 07/13/18 Atorvastatin Calcium (Atorvastatin Calcium) 10 Mg Tablet, 10 MG PO QHS, #30 TAB 07/13/18 Polyvinyl Alcohol (Tears Again) 15 Ml Drops, 1 DRP BOTH EYES Q2HWA, BOTTLE 07/13/18 Medications Current Medications Acetaminophen (Tylenol Tab) 650 mg Q6H PRN PO MILD PAIN LEVEL 1-3; Start 08/08/18 at 12:00 Enoxaparin Sodium (Lovenox) 40 mg DAILY SC Last administered on 08/17/18at 09:06; Admin Dose 40 MG; Start 08/09/18 at 09:00; Status Hold Montelukast Sodium (Singulair) 10 mg QHS PO Last administered on 08/15/18at 20:34; Admin Dose 10 MG; Start 08/08/18 at 21:00 Ondansetron HCl (Zofran Inj) 4 mg Q6H PRN IV NAUSEA AND/OR VOMITING Last administered on 08/15/18at 04:26; Admin Dose 4 MG; Start 08/08/18 at 12:00 Olopatadine HCl (Pataday) 1 drop DAILY BOTH EYES Last administered on 08/18/18 08:52; Admin Dose 1 DROP; Start 08/08/18 at 14:30 Diltiazem HCl (Cardizem) 30 mg TID PO Last administered on 08/16/18at 10:22; Admin Dose 30 MG; Start 08/08/18 at 16:00 Dronedarone (Multaq) 400 mg BID WITH MEALS PO Last administered on 08/16/18 10:17; Admin Dose 400 MG; Start 08/08/18 at 17:35 Diltiazem HCl (Cardizem Iv) 5 mg Q1H PRN IV afib with HR > 120; Start 08/08/18 at 14:30 Mupirocin (Bactroban) 1 applic BID TOP Last administered on 08/18/18 08:52; Admin Dose 1 APPLIC; Start 08/09/18 at 21:00 Guaifenesin (Mucinex) 600 mg BID PO Last administered on 08/16/18 10:16; Admin Dose 600 MG; Start 08/10/18 at 10:00 Levalbuterol (Xopenex Neb) 1.25 mg Q6H RESP THERAPY HHN Last administered on 08/18/18 13:25; Admin Dose 1.25 MG; Start 08/12/18 at 14:00 Levalbuterol (Xopenex Neb) 1.25 mg Q6H RESP THERAPY PRN HHN shortness of breath Last administered on 08/13/18 12:26; Admin Dose 1.25 MG; Start 08/12/18 at 11:30 Ipratropium [place] (Atrovent 0.02% (Neb)) 0.5 mg Q6HWA RESP THERAPY HHN Last administered on 08/18/18 13:25; Admin Dose 0.5 MG; Start 08/12/18 at 14:00 Ipratropium [place] (Atrovent 0.02% (Neb)) 0.5 mg Q4H RESP THERAPY PRN HHN SHORTNESS OF BREATH Last administered on 08/13/18 01:40; Admin Dose 0.5 MG; Start 08/12/18 at 11:30 Budesonide (Pulmicort (Neb)) 0.5 mg BID RESP THERAPY HHN Last administered on 08/18/18 08:25; Admin Dose 0.5 MG; Start 08/12/18 at 20:00 Furosemide (Lasix) 20 mg BID DIURETICS IV Last administered on 08/18/18 18:01; Admin Dose 20 MG; Start 08/15/18 at 18:00 Dextrose/Sodium Chloride 1,000 ml @ 40 mls/hr Q24H IV Last administered on at 07:58; Admin Dose 40 MLS/HR; Start 08/16/18 at 10:00 Morphine Sulfate (morphine) 2 mg Q3H PRN IV SHORTNESS OF BREATH Last administered on 08/18/18at 12:48; Admin Dose 2 MG; Start 08/16/18 at 11:30 Lorazepam (Ativan) 1 mg Q4H PRN IV SHORTNESS OF BREATH; Start 08/16/18 at 11:30 Bisacodyl (Dulcolax Supp) 10 mg DAILY PRN [place] CONSTIPATION Last administered on 08/17/18at 18:08; Admin Dose 10 MG; Start 08/17/18 at 18:00 Assessment/Plan Hospital Course (Demo Recall) 1. Acute hypoxemic hypercapnic respiratory failure 2. COPD exacerbation 3. S/P pneumonia 4. Questionable congestive heart failure: Patient clinically has responded to the IV Lasix but does not appear to be in fluid overloaded and has had normal ejection fraction 5. History of hypertension: Currently under good control 6. History of proximal atrial fibrillation and SVT most likely worsened by his respiratory failure 7. History of dyslipidemia 8.hypo K Recommendations: Continue with aspirin unable to Continue with Cardizem and Multaq since patient has been too lethargic to take p.o. medication Oxygen supplement BiPAP as needed will be deferred to the pulmonary recommendations Closely monitor for possible need for intubation diuretics as per pulm rec. replace lytes prn Echocardiogram reviewed shows normal LV systolic function DVT prophylaxis and GI prophylaxis as per internal medicine Thank you for his referral. I will continue follow along with you HAYLEE PINZON MD [facility] HAYLEE PINZON MD Aug 18, 2018 18:30
[2018-08-18] MEDS: MONTELUKAST 10 MG TAB PO SCH (21:00)
[2018-08-19] VITALS (21 sets, daily range): BP systolic 89–103; BP diastolic 51–64; PULSE 58–152; RESP 14–18
[2018-08-19] MEDS: LEVALBUTEROL (NEB) 1.25 MG/0.5 ML AMP HHN SCH ×2 (02:27→08:00)
[2018-08-19] MEDS: IPRATROPIUM (NEB) 0.5 MG/2.5 ML AMP HHN PRN (02:27)
[2018-08-19] MEDS: FUROSEMIDE 20 MG INJ IV SCH (06:40)
[2018-08-19] MEDS: DRONEDARONE HYDROCHLORIDE 400 MG TAB PO SCH (08:00)
[2018-08-19] MEDS: IPRATROPIUM (NEB) 0.5 MG/2.5 ML AMP HHN SCH (08:00)
--- NOTE | 2018-08-19 08:36 | RADRPT ---
Echocardiogram Report Patient Name: VU CHAUDHRYPatient ID: [id number] : 1935 (83y 6m)Study Date: 08/17/2018 1:53:00 PM Gender: MAccession #: [id number] Tech: YAO Location: Ref.Physician: HAYLEE STORY Height(Cm): 155 BSA: 1.61Weight(Kg): 60.3 Quality: Technically Difficult StudyAccount #: Procedures: Echocardiographic Report: Transthoracic echocardiogram examination, patient unable to cooperate, on BiPap, very difficult exam. Indications: R/O function. Measurements: 2D/M Mode Doppler Measurement Value Normal Range Measurement Value Normal Range IVSd 2D 1.1 [ 0.6 - 1.0 ] cm TR Peak Darrell 2.5 [ 100.0 - 280.0 ] cm/sec TR Peak PG 26.0 mmHg RVSP 36.0 [ 10.0 - 36.0 ] mmHg RA Pressure 10.0 mmHg Findings: Left Ventricle: Normal left ventricular cavity size. Probably normal left ventricular systolic function, to the extent imaged, not all finn imaged well. Tissue Doppler/Mitral Doppler indices are indeterminate in this study due to subcostals only, patient. Normal left ventricular wall thickness. The left ventricle is not well visualized. The left ventricular ejection fraction is visually estimated at 55 %. Right Ventricle: Normal right ventricular size. Left Atrium: The left atrium is normal in size and appearance. Right Atrium: The right atrium is normal in size and appearance. Atrial Septum: Normal atrial septum. Mitral Valve: Normal appearance and function of the mitral valve with trace physiologic regurgitation. Aortic Valve: Normal appearance and function of the aortic valve to the extent imaged. Tricuspid Valve: Normal appearance of the tricuspid valve. The estimated Peak PA Systolic Pressure is 36 mmHg. There is mild tricuspid regurgitation. Pulmonic Valve: The pulmonic valve is not well visualized. Pericardium: Normal pericardium with no significant pericardial effusion. Aorta: The aorta is not well visualized. IVC: Inferior vena cava without respiratory collapse, however, patient on BiPap. Pulmonary Artery: Pulmonary artery is not well visualized. Conclusions: Normal left ventricular cavity size. Probably normal left ventricular systolic function, to the extent imaged, not all finn imaged well. Tissue Doppler/Mitral Doppler indices are indeterminate in this study due to subcostals only, patient. Normal left ventricular wall thickness. s. Normal appearance and function of the mitral valve with trace physiologic regurgitation. Normal appearance and function of the aortic valve to the extent imaged. d. Normal appearance of the tricuspid valve. The estimated Peak PA Systolic Pressure is 36 mmHg. There is mild tricuspid regurgitation. Technically difficult study. Electronically Signed By: Haylee Story 2018-08-18 17:00:04 PDT
[2018-08-19] MEDS: OLOPATADINE 0.2% (ONCE A DAY) OPHTH DROP 2.5 ML BOTH EYES SCH (08:56)
[2018-08-19] MEDS: MUPIROCIN 2% 22 GM OINT TOP SCH (08:57)
[2018-08-19] MEDS: GUAIFENESIN LA 600 MG TABSR PO SCH (09:00)
[2018-08-19] MEDS: DILTIAZEM 30 MG TAB PO SCH (09:00)
[2018-08-19] MEDS ORDERED: IPRATROPIUM (NEB) 0.5 MG/2.5 ML AMP HHN PRN (09:00)
[2018-08-19] MEDS: DEXTROSE 5%-0.45% NACL 1,000 ML IV SCH (09:29)
[2018-08-19] MEDS: BUDESONIDE (NEB) 0.5MG/2ML AMP HHN SCH (10:23)
--- NOTE | 2018-08-19 10:55 | PN ---
Date/Time of Note Date/Time of Note DATE: 08/19/18 TIME: 10:55 Assessment/Plan VTE Prophylaxis Risk score (from Ns)>0 risk: 6 SCD applied (from Ns): Yes Pharmacological prophylaxis: LMWH Lines/Catheters IV Catheter Type (from Nrsg): Mid Line Urinary Cath still in place: No Assessment/Plan Assessment/Plan 1. Acute hypoxic respiratory failure - Patient continues to decline daily and O2 requirement increasing - Pulmonology on board and appreciate recommendations 2. RLL PNA- resolved - completed course of treatment but still has high risk for aspiration - nebs PRN on board 3. COPD exacerbation - continue nebs 4. h/o Afib and SVT - Cardiology on board and appreciate recommendations. Continue current medications and adjust as needed 5. Disposition - Family still deciding on transitioning to hospice care Result Diagram: 08/18/18 0537 08/18/18 0537 Subjective 24 Hr Interval Summary Free Text/Dictation Patient remains lethargic and BIPAP dependent. Family deciding on proceeding to hospice. Exam/Review of Systems Exam Vitals Vital Signs Date Temp Pulse Resp B/P (MAP) Pulse Ox O2 O2 Flow FiO2 Time Delivery Rate 08/19/18 98 16 95 10:30 08/19/18 92 07:40 08/19/18 98.3 103/51 07:35 (68) 08/18/18 BIPAP 04:00 08/15/18 4.0 12:28 Intake and Output 08/18/18 08/18/18 08/19/18 1515:00 23:00 07:00 OutputOutput Total 700 ml 800 ml BalanceBalance -700 ml -800 ml Exam General: Patient is laying in bed, fatigued, on BIPAP Eyes: EOMI, pupils reactive to light Neck: Supple, nontender, midline Respiratory: Coarse to auscultation bilaterally. no wheezing appreciated Cardiovascular: regular rate and rhythm, no obvious murmurs Gastrointestinal: soft, non-tender to palpation, bowel sounds heard. Neurological: Moves all extremities spontaneously Skin: No new skin lesions Medications Medication Current Medications Acetaminophen (Tylenol Tab) 650 mg Q6H PRN PO MILD PAIN LEVEL 1-3; Start 08/08/18 at 12:00 Enoxaparin Sodium (Lovenox) 40 mg DAILY SC Last administered on 08/17/18at 09:06; Admin Dose 40 MG; Start 08/09/18 at 09:00; Status Hold Montelukast Sodium (Singulair) 10 mg QHS PO Last administered on 08/15/18 20:34; Admin Dose 10 MG; Start 08/08/18 at 21:00 Ondansetron HCl (Zofran Inj) 4 mg Q6H PRN IV NAUSEA AND/OR VOMITING Last administered on 08/15/18 04:26; Admin Dose 4 MG; Start 08/08/18 at 12:00 Olopatadine HCl (Pataday) 1 drop DAILY BOTH EYES Last administered on 08/19/18 08:56; Admin Dose 1 DROP; Start 08/08/18 at 14:30 Diltiazem HCl (Cardizem) 30 mg TID PO Last administered on 08/16/18 10:22; Admin Dose 30 MG; Start 08/08/18 at 16:00 Dronedarone (Multaq) 400 mg BID WITH MEALS PO Last administered on 08/16/18 10:17; Admin Dose 400 MG; Start 08/08/18 at 17:35 Diltiazem HCl (Cardizem Iv) 5 mg Q1H PRN IV afib with HR > 120; Start 08/08/18 at 14:30 Mupirocin (Bactroban) 1 applic BID TOP Last administered on 08/19/18 08:57; Admin Dose 1 APPLIC; Start 08/09/18 at 21:00 Guaifenesin (Mucinex) 600 mg BID PO Last administered on 08/16/18 10:16; Admin Dose 600 MG; Start 08/10/18 at 10:00 Levalbuterol (Xopenex Neb) 1.25 mg Q6H RESP THERAPY HHN Last administered on 08/19/18 02:27; Admin Dose 1.25 MG; Start 08/12/18 at 14:00 Levalbuterol (Xopenex Neb) 1.25 mg Q6H RESP THERAPY PRN HHN shortness of breath Last administered on 08/13/18 12:26; Admin Dose 1.25 MG; Start 08/12/18 at 11:30 Ipratropium [place] (Atrovent 0.02% (Neb)) 0.5 mg Q6HWA RESP THERAPY HHN Last administered on 08/18/18 19:41; Admin Dose 0.5 MG; Start 08/12/18 at 14:00 Budesonide (Pulmicort (Neb)) 0.5 mg BID RESP THERAPY HHN Last administered on 08/19/18 10:23; Admin Dose 0.5 MG; Start 08/12/18 at 20:00 Furosemide (Lasix) 20 mg BID DIURETICS IV Last administered on 08/19/18 06:40; Admin Dose 20 MG; Start 08/15/18 at 18:00 Dextrose/Sodium Chloride 1,000 ml @ 40 mls/hr Q24H IV Last administered on 08/19/18 09:29; Admin Dose 40 MLS/HR; Start 08/16/18 at 10:00 Morphine Sulfate (morphine) 2 mg Q3H PRN IV SHORTNESS OF BREATH Last administered on 08/18/18at 12:48; Admin Dose 2 MG; Start 08/16/18 at 11:30 Lorazepam (Ativan) 1 mg Q4H PRN IV SHORTNESS OF BREATH; Start 08/16/18 at 11:30 Bisacodyl (Dulcolax Supp) 10 mg DAILY PRN [place] CONSTIPATION Last administered on 08/17/18 18:08; Admin Dose 10 MG; Start 08/17/18 at 18:00 Ipratropium [place] (Atrovent 0.02% (Neb)) 0.5 mg Q4H RESP THERAPY PRN HHN SHORTNESS OF BREATH; Start 08/19/18 at 09:00 CHASIDY VILLEGAS MD Aug 19, 2018 10:55
--- NOTE | 2018-08-19 13:52 | CONS ---
Consult Date/Type/Reason Admit Date/Time Aug 08, 2018 at 11:30 Initial Consult Date 08/08/18 Type of Consult Pulmonary Requesting Provider: ALEXI ALLISON MD, [facility] Date/Time of Note DATE: 08/19/18 TIME: 13:51 Subjective Remains mostly BiPAP dependent. Objective Vital Signs Date Temp Pulse Resp B/P (MAP) Pulse Ox O2 O2 Flow FiO2 Time Delivery Rate 08/19/18 99.8 91 14 89/53 (65) 98 12:02 08/19/18 85 11:50 08/18/18 BIPAP 04:00 08/15/18 4.0 12:28 Intake and Output 08/18/18 08/18/18 08/19/18 1515:00 23:00 07:00 OutputOutput Total 700 ml 800 ml BalanceBalance -700 ml -800 ml Exam GENERAL: Elderly gentleman comfortable at rest no acute distress VITAL SIGNS: per chart NECK: Supple. No JVD or lymphadenopathy. CARDIAC EXAM: S1, S2. No added sounds or murmurs. CHEST: Diminished air entry bilaterally ABDOMEN: Soft, nontender. No guarding or rebound. EXTREMITIES: No cyanosis, clubbing or edema. NEUROLOGIC: Generalized weakness. No focal deficits. Vent Setting Fraction of Inspired Oxygen pe: 95 Results/Medications Result Diagram: 08/18/18 0537 08/18/18 0537 Medications Current Medications Ondansetron HCl (Zofran Inj) 4 mg Q6H PRN IV NAUSEA AND/OR VOMITING Last administered on 08/15/18at 04:26; Admin Dose 4 MG; Start 08/08/18 at 12:00 Lorazepam (Ativan) 1 mg Q4H PRN IV SHORTNESS OF BREATH; Start 08/16/18 at 11:30 Bisacodyl (Dulcolax Supp) 10 mg DAILY PRN [place] CONSTIPATION Last administered on 08/17/18at 18:08; Admin Dose 10 MG; Start 08/17/18 at 18:00 Assessment/Plan Hospital Course (Demo Recall) IMP: 1. Acute on chronic hypoxemic respiratory failure likely secondary to comb ination of diastolic dysfunction and severe COPD. Right lower lobe infiltrate possible aspiration pneumonia. Degree of dyspnea out of proportion to radiographic and arterial blood gas findings. 2. Likely significant anxiety component. 3. SVT now improved 4. Hypokalemia likely secondary to diuretics RECS: 1. Continue BiPAP with increased FiO2 until transition to hospice [facility] Aug 19, 2018 13:52
[2018-08-19] MEDS ORDERED: IPRATROPIUM (NEB) 0.5 MG/2.5 ML AMP ONE (14:02)
[2018-08-19] MEDS ORDERED: LEVALBUTEROL (NEB) 1.25 MG/0.5 ML AMP ONE (14:02)
--- NOTE | 2018-08-19 14:36 | PDOCDIS ---
Discharge Instructions DIAGNOSIS Discharge Diagnosis 1. Acute hypoxic respiratory failure secondary to RLL PNA- resolving 2. RLL PNA 3. COPD exacerbation 4. h/o Afib and SVT 5. ?CHF 6. DNR but okay for intubation CONDITION [id number] Patient Condition: [id number] Serious HOME CARE INSTRUCTIONS: [id number] Diet Instructions: [id number] Low Fat /Cholesterol FOLLOW UP/APPOINTMENTS Follow-up Plan 1. Transition to hospice care CHASIDY VILLEGAS MD Aug 19, 2018 14:36
--- NOTE | 2018-08-19 15:44 | DS ---
Date/Time of Note Date/Time of Note DATE: 08/19/18 TIME: 15:36 Discharge Summary Admission/Discharge Info Admit Date/Time Aug 08, 2018 at 11:30 Discharge Date/Time 08/19/18 Discharge Diagnosis 1. Acute hypoxic respiratory failure secondary to RLL PNA- resolving 2. RLL PNA 3. COPD exacerbation 4. h/o Afib and SVT 5. ?CHF 6. DNR but okay for intubation Patient Condition: Stable Consults Pulmonology- Dr. Nolan Cardiology- Dr. Story Palliative- Dr. Mendoza Hx of Present Illness 83 yo M with PMH severe COPD, atrial fibrillation, HTN and HLD was transferred from [place] this am with worsening shortness of breath and impending intubation. Patient was recently admitted to [facility] with respiratory failure secondary to Influenza A and transitioned to [place] since was unable to be weaned off high flow during hospital stay. Patient was transferred to ICU and was placed on BIPAP mask. He was complaining of shortness of breath and cough, but also requesting for BIPAP to be removed due to discomfort. Patient denies any chest pain, palpitations, wheezing, dizziness, or urinary issues. Does admit to some abdominal discomfort. Patient currently is stable with saturations in 90% on 35% FIO2. Discussion was held with family at bedside who said patient has mentioned in the past not wanting to be intubated but would like to readdress with him. When discussed code status with family members, they requested intubation if needed emergently if unable to clarify with patient prior. Hospital Course Patient was admitted to ICU for close monitoring of respiratory status. Patient was started on IV antibiotics, steroids, and bronchodilators. Patient was unable to tolerate extended periods on nasal cannula due to tachycardia and tachypnea. Patient became BIPAP dependent despite optimized medical treatment. Cardiology was consulted given patients history of atrial fibrillation and episodes of SVT that was determined to be from respiratory issues. Patients condition continued to decline with O2 requirement increasing. Family discussion was held and code status was changed to DNR/DNI. Patient met with hospice to discuss GIP and agreed to transitioning to inpatient hospice given irreversibility of pulmonary condition. Patient was discharge to [facility] Home Meds Active Scripts Dronedarone Hydrochloride* (Multaq*) 400 Mg Tablet, 400 MG PO BID WITH MEALS for 30 Days, #60 TAB Prov:CHASIDY VILLEGAS MD 08/09/18 Diltiazem Hcl* (Cardizem*) 30 Mg Tablet, 30 MG PO TID for 30 Days, #90 TAB Prov:CHASIDY VILLEGAS MD 08/09/18 Discontinued Reported Medications Hydrocodone/Acetaminophen ([place] 5-325 Tablet) 1 Each Tablet, 1 EACH PO Q6 PRN for MODERATE PAIN LEVEL 4-6, TAB 07/13/18 Olopatadine* (Pataday*) 0.2% - 2.5 Ml Drops, 1 DROP BOTH EYES BID, EA 07/13/18 Protein Supplement (Promod) 946 Ml Liquid, 946 ML PO BID 07/13/18 Simethicone* (Mylicon*) 80 Mg Tab, 80 MG PO TID PRN for DISTENSION/GAS/BLOATING, TAB 07/13/18 Tamsulosin Hcl* (Tamsulosin Hcl*) 0.4 Mg Cap.er.24h, 0.4 MG PO HS, CAP 07/13/18 Acetaminophen* (Acetaminophen*) 650 Mg Tablet, 650 MG PO Q6H PRN for MILD PAIN LEVEL 1-3, #30 TAB AND FEVER 07/13/18 Multivitamins* (Theragran*) 1 Tab Tab, 1 TAB PO DAILY, TAB 07/13/18 Montelukast Sodium* (Montelukast Sodium*) 10 Mg Tablet, 10 MG PO QHS, #30 TAB 07/13/18 Polyethylene Glycol* (Miralax*) 17 Gm Powd.pack, 17 GM PO TID PRN for CONSTIPATION, #60 PACKET 07/13/18 Throat Lozenges* (Cepastat*) 9 Josselin Lozenge, 1 LOZENGE MT EVERY 1 HOUR PRN, LOZENGE 07/13/18 Docusate Sodium* (Docusate Sodium*) 100 Mg Capsule, 100 MG PO BID, #60 CAP 07/13/18 Bisacodyl (Dulcolax) 10 Mg Supp.rect, 10 MG RC PRN PRN for CONSTIPATION, SUPP.RECT 07/13/18 Furosemide* (Lasix*) 20 Mg Tablet, 20 MG PO DAILY, TAB 07/13/18 Guaifenesin* (Tussin*) 100 Mg/5 Ml Syrup, 200 MG PO Q4 PRN for COUGH, ML 07/13/18 Ipratropium [place]* (Atrovent HFA*) 12.9 Gm Aer.w.adap, 2 PUFF INHALATION Q6 for SHORTNESS OF BREATH, #1 INHALER FOR THE NEBULIZER 07/13/18 Lubiprostone* (Amitiza*) 24 Mcg Capsule, 24 MCG PO BID, #60 CAP 07/13/18 Magnesium Hydroxide* (Milk Of Magnesia*) 400 Mg/5 Ml Oral.susp, 30 ML PO DAILY PRN for CONSTIPATION, ML 07/13/18 Menthol (BENGAY) 113 Gm Gel..gram., 113 GM TP TID APPLY TO POSTERIOR RIGHT SHOULDER 07/13/18 Atorvastatin Calcium (Atorvastatin Calcium) 10 Mg Tablet, 10 MG PO QHS, #30 TAB 07/13/18 Polyvinyl Alcohol (Tears Again) 15 Ml Drops, 1 DRP BOTH EYES Q2HWA, BOTTLE 07/13/18 Discontinued Scripts Methylprednisolone Sodium Succinate PF (Solu-Medrol PF) 125 Mg/2 Ml Vial, 60 MG IV Q8 for 7 Days, VIAL Prov:KAMILLE FRASER MD 07/18/18 Sennosides/Docusate Sodium (Dok Plus Tablet) 1 Each Tablet, 2 TAB PO AM for 10 Days, TAB Prov:KAMILLE FRASER MD 07/18/18 Famotidine* (Famotidine*) 20 Mg Tablet, 20 MG PO DAILY for 10 Days, TAB Prov:KAMILLE FRASER MD 07/18/18 Lactobacillus Rhamnosus GG (Culturelle) 1 Each Capsule, 1 CAP PO BID for 10 Days, CAP Prov:KAMILLE FRASER MD 07/18/18 Enoxaparin Sodium* (Enoxaparin Sodium*) 40 Mg/0.4 Ml Syringe, 40 MG SC DAILY for 10 Days, #10 Prov:KAMILLE FRSAER MD 07/18/18 Ipratropium-Albuterol (Ipratropium-Albuterol) 0.5-3 Mg/3 Ml Ampul.neb, 3 ML HHN Q6H RESP THERAPY for 14 Days Prov:KAMILLE FRASER MD 07/18/18 Follow-up Plan 1. Transition to hospice care Primary Care Provider Kesha Jolly MD Time spent on discharge: > 30 minutes CHASIDY VILLEGAS MD Aug 19, 2018 15:44
[2018-08-19] MEDS ORDERED: morphine (DRIP) 100 MG/100 ML 100 ML IV SCH (17:00)
--- NOTE | 2018-08-19 21:01 | CONS ---
Consult Date/Type/Reason Admit Date/Time Aug 08, 2018 at 11:30 Initial Consult Date 08/08/18 Type of Consultation: cv Requesting Provider: ALEXI ALLISON MD, [facility] Date/Time of Note DATE: 08/19/18 TIME: 20:59 Subjective cardiology follow up note S; D/W staff and telemetry was reviewed patient remains sinus rhythm with attending SVT and atrial fibrillation rapid ventricular response. Patient continued to be in respiratory distress and currently on BiPAP. Discussed with family. pt is more lethargic now Objective: General: Elderly gentleman in respiratory distress on BiPAP. HEENT: NC/AT. pupils are equal. round. NECK: . no stridor. CV: RRR. systolic murmur; no gallop or rubs. PULM: + rhonchi. GI: SOFT, NT, ND, no rebound or guarding Extremity: Trivial B/L LE edema. no clubbing. neuro:drowsy Psych: calm and pleasant rectal: deferred : normal Chest x-ray done 08/08/2018 which was also personally reviewed shows: 1. Mildly increased right basilar opacification, similar in size small right pleural effusion. 2. Right PIC line distal tip projects over the right axilla, unchanged. Review of the old chart showed echocardiogram was in April 2018 personally reviewed and showed Normal left ventricular systolic function. Normal left ventricular cavity size. Normal left ventricular wall thickness. Ejection fraction is visually estimated at 65 %. Normal appearance and function of the mitral valve with trace physiologic regurgitation. No significant aortic stenosis or insufficiency. Aortic valve not well v isualized. Aortic cusps appear mildly calcified. Normal appearance of the tricuspid valve. Unable to obtain RVSP due to minimal presence of tricuspid regurgitation. Objective Vitals Vital Signs Date Temp Pulse Resp B/P (MAP) Pulse Ox O2 O2 Flow FiO2 Time Delivery Rate 08/19/18 105 98 75 20:22 08/19/18 97.3 18 102/59 20:00 (73) 08/18/18 BIPAP 04:00 08/15/18 4.0 12:28 Intake and Output 08/18/18 08/18/18 08/19/18 1515:00 23:00 07:00 OutputOutput Total 700 ml 800 ml BalanceBalance -700 ml -800 ml Results/Medications Result Diagram: 08/18/18 0537 08/18/18 0537 Home Meds Active Scripts Dronedarone Hydrochloride* (Multaq*) 400 Mg Tablet, 400 MG PO BID WITH MEALS for 30 Days, #60 TAB Prov:CHASIDY VILLEGAS MD 08/09/18 Diltiazem Hcl* (Cardizem*) 30 Mg Tablet, 30 MG PO TID for 30 Days, #90 TAB Prov:CHASIDY VILLEGAS MD 08/09/18 Discontinued Reported Medications Hydrocodone/Acetaminophen ([place] 5-325 Tablet) 1 Each Tablet, 1 EACH PO Q6 PRN for MODERATE PAIN LEVEL 4-6, TAB 07/13/18 Olopatadine* (Pataday*) 0.2% - 2.5 Ml Drops, 1 DROP BOTH EYES BID, EA 07/13/18 Protein Supplement (Promod) 946 Ml Liquid, 946 ML PO BID 07/13/18 Simethicone* (Mylicon*) 80 Mg Tab, 80 MG PO TID PRN for DISTENSION/GAS/BLOATING, TAB 07/13/18 Tamsulosin Hcl* (Tamsulosin Hcl*) 0.4 Mg Cap.er.24h, 0.4 MG PO HS, CAP 07/13/18 Acetaminophen* (Acetaminophen*) 650 Mg Tablet, 650 MG PO Q6H PRN for MILD PAIN LEVEL 1-3, #30 TAB AND FEVER 07/13/18 Multivitamins* (Theragran*) 1 Tab Tab, 1 TAB PO DAILY, TAB 07/13/18 Montelukast Sodium* (Montelukast Sodium*) 10 Mg Tablet, 10 MG PO QHS, #30 TAB 07/13/18 Polyethylene Glycol* (Miralax*) 17 Gm Powd.pack, 17 GM PO TID PRN for CONSTIPATION, #60 PACKET 07/13/18 Throat Lozenges* (Cepastat*) 9 Josselin Lozenge, 1 LOZENGE MT EVERY 1 HOUR PRN, LOZENGE 07/13/18 Docusate Sodium* (Docusate Sodium*) 100 Mg Capsule, 100 MG PO BID, #60 CAP 07/13/18 Bisacodyl (Dulcolax) 10 Mg Supp.rect, 10 MG RC PRN PRN for CONSTIPATION, SUPP.RECT 07/13/18 Furosemide* (Lasix*) 20 Mg Tablet, 20 MG PO DAILY, TAB 07/13/18 Guaifenesin* (Tussin*) 100 Mg/5 Ml Syrup, 200 MG PO Q4 PRN for COUGH, ML 07/13/18 Ipratropium [place]* (Atrovent HFA*) 12.9 Gm Aer.w.adap, 2 PUFF INHALATION Q6 for SHORTNESS OF BREATH, #1 INHALER FOR THE NEBULIZER 07/13/18 Lubiprostone* (Amitiza*) 24 Mcg Capsule, 24 MCG PO BID, #60 CAP 07/13/18 Magnesium Hydroxide* (Milk Of Magnesia*) 400 Mg/5 Ml Oral.susp, 30 ML PO DAILY PRN for CONSTIPATION, ML 07/13/18 Menthol (BENGAY) 113 Gm Gel..gram., 113 GM TP TID APPLY TO POSTERIOR RIGHT SHOULDER 07/13/18 Atorvastatin Calcium (Atorvastatin Calcium) 10 Mg Tablet, 10 MG PO QHS, #30 TAB 07/13/18 Polyvinyl Alcohol (Tears Again) 15 Ml Drops, 1 DRP BOTH EYES Q2HWA, BOTTLE 07/13/18 Discontinued Scripts Methylprednisolone Sodium Succinate PF (Solu-Medrol PF) 125 Mg/2 Ml Vial, 60 MG IV Q8 for 7 Days, VIAL Prov:KAMILLE FRASER MD 07/18/18 Sennosides/Docusate Sodium (Dok Plus Tablet) 1 Each Tablet, 2 TAB PO AM for 10 Days, TAB Prov:KAMILLE FRASER MD 07/18/18 Famotidine* (Famotidine*) 20 Mg Tablet, 20 MG PO DAILY for 10 Days, TAB Prov:KAMILLE FRASER MD 07/18/18 Lactobacillus Rhamnosus GG (Culturelle) 1 Each Capsule, 1 CAP PO BID for 10 Days, CAP Prov:KAMILLE FRASER MD 07/18/18 Enoxaparin Sodium* (Enoxaparin Sodium*) 40 Mg/0.4 Ml Syringe, 40 MG SC DAILY for 10 Days, #10 Prov:KAMILLE FRASER MD 07/18/18 Ipratropium-Albuterol (Ipratropium-Albuterol) 0.5-3 Mg/3 Ml Ampul.neb, 3 ML HHN Q6H RESP THERAPY for 14 Days Prov:KAMILLE FRASER MD 07/18/18 Medications Current Medications Ondansetron HCl (Zofran Inj) 4 mg Q6H PRN IV NAUSEA AND/OR VOMITING Last administered on 08/15/18 04:26; Admin Dose 4 MG; Start 08/08/18 at 12:00 Lorazepam (Ativan) 1 mg Q4H PRN IV SHORTNESS OF BREATH; Start 08/16/18 at 11:30 Bisacodyl (Dulcolax Supp) 10 mg DAILY PRN MA CONSTIPATION Last administered on 08/17/18at 18:08; Admin Dose 10 MG; Start 08/17/18 at 18:00 Morphine Sulfate/ Sodium Chloride 100 ml @ 1 mls/hr TITRATE IV Last administered on 08/19/18at 18:55; Admin Dose 1 MLS/HR; Start 08/19/18 at 17:00 Assessment/Plan Hospital Course (Demo Recall) 1. Acute hypoxemic hypercapnic respiratory failure 2. COPD exacerbation 3. S/P pneumonia 4. Questionable congestive heart failure: Patient clinically has responded to the IV Lasix but does not appear to be in fluid overloaded and has had normal ejection fraction 5. History of hypertension: Currently under good control 6. History of proximal atrial fibrillation and SVT most likely worsened by his respiratory failure 7. History of dyslipidemia 8.hypo K Recommendations: Prognosis is poor family is considering hospice care Continue oxygen supplement Thank you for his referral. HAYLEE PINZON MD [facility] HAYLEE PINZON MD Aug 19, 2018 21:01
[2018-08-19] MEDS ORDERED: ATROPINE 1% 5 ML OPH SL PRN (22:00)
[2018-08-19] MEDS ORDERED: ALBUTEROL/IPRATROPIUM (NEB) 3 ML AMP HHN PRN (22:00)
--- NOTE | 2018-08-19 23:56 | HP ---
DATE OF ADMISSION: 08/08/2018 DATE OF ADMISSION UNDER HOSPICE: 08/19/2018 PRIMARY HOSPITAL DIAGNOSES: Acute on chronic respiratory failure secondary to chronic obstructive pu lmonary disease, comorbid recent pneumonia, history of atrial fibrillation, and supraventricular tach ycardia. CHIEF COMPLAINT AND HISTORY OF PRESENT ILLNESS: History is obtained from medical record and discussi on with patient's family. HISTORY OF PRESENT ILLNESS: The patient is 83-year-old gentleman with a past medical history of teodoro re COPD based on his symptoms, history, and CT scan of the chest done in 2018. The patient also has history of paroxysmal atrial fibrillation, hypertension, dyslipidemia. The patient recently was admi tted at [facility] due to acute respiratory failure secondary to influenza A and wa s transitioned to [facility] since he was unable to be weaned off high flow during hospital stay . The patient, however, did not do well at [place] and had to be transferred back to [facility] due to acute respiratory failure. The patient denies any chest pain, palpitation, dizzi ness. The patient had to be placed on the BiPAP machine and could not be weaned off. The patient's family initially requested intubation if needed; however, subsequently, due to the patient's recurren t admission in the hospital for last several months, they decided to put him in hospice care. The roxy palencia, according to family, has been declining for last several months and has spent significant amou nt of time in the hospital due to recurrent respiratory failure. The patient, at baseline, is on raine e O2. At the time of examination, patient was on BiPAP and no useful communication was possible. Th e patient did appear to respond to simple commands. The patient was moving all extremities. PAST MEDICAL HISTORY: As stated above. ALLERGIES: NONE. PAST SURGICAL HISTORY: None. FAMILY HISTORY: Noncontributory. SOCIAL HISTORY: Ex-heavy smoker. PHYSICAL EXAMINATION: GENERAL: The patient is awake and responsive, currently on BiPAP. VITAL SIGNS: Temperature 99.8, pulse 91, respirations 14, blood pressure 89/53, O2 saturation 98% on BiPAP. HEENT: Atraumatic, normocephalic. Conjunctivae and lids are normal. Oropharynx examination was def erred due to BiPAP. NECK: No mass. CHEST: Diminished air entry bilaterally. CARDIOVASCULAR: S1, S2 normal. ABDOMEN: Soft and nontender. EXTREMITIES: Trace edema. NEUROLOGIC: The patient is awake and responsive but has generalized weakness. RECENT LABORATORY DATA: WBC 6.2, hemoglobin 9.8, platelets 75. Sodium 141, potassium 3.4, BUN 13, c reatinine 0.5. DIAGNOSTIC DATA: Recent x-ray revealed bibasilar infiltrate. IMPRESSION: Acute on chronic respiratory failure. PLAN: The patient will be taken off BiPAP as per family request. We will start him on morphine drip at 1 mg an hour for shortness of breath. We will also start him on Ativan 1 mg q.4 hours p.r.n. for terminal anxiety. We will add IV Zofran 4 mg q.6 hours p.r.n. for nausea and vomiting, DuoNeb q.4 p .r.n. for chest congestion, atropine drops 2 drops q.2 hours p.r.n. for secretions. The patient is l ikely to decline after BiPAP is removed. We will continue to optimize comfort care. Plan of care di scussed with patient's family in detail. I also spoke with Beata Batista, and staff nurse at [facility]. Meanwhile, we will discontinue all other medications except comfort care . The patient remains terminally ill and appropriate for GIP level of care. Dictated By: HORACIO WILSON/WINNIE Conf#: [id number] DID#: [id number] CC: JAMES THOMAS MD;*EndCC*
[2018-08-20] VITALS (12 sets, daily range): BP systolic 85–92; BP diastolic 56; PULSE 99–139; RESP 21
[2018-08-20] MEDS ORDERED: ACETAMINOPHEN 650 MG SUPP PR PRN (11:30)
--- NOTE | 2018-08-21 01:34 | PN ---
DATE: 08/20/2018 SUBJECTIVE AND INTERVAL HISTORY: Follow up on acute respiratory failure due to end-stage COPD, parox ysmal atrial fibrillation and anemia of chronic disease. The patient remains on BiPAP and is more le thargic. The patient had to be started on IV morphine drip due to shortness of breath, which has bee n increased to 2 mg an hour. The patient did not have any p.o. intake. No reported fever or chills, no reported wheezing. The patient did not have any seizure. No reported abdominal distention. The patient has trace edema. PHYSICAL EXAMINATION: GENERAL: The patient is lethargic. VITAL SIGNS: Temperature 100.1, pulse ____, respirations 21, blood pressure 92/56, O2 saturation ___ _. HEENT: Atraumatic, normocephalic. The patient has a BiPAP mask; therefore oropharynx and eye examin ation could not be performed. NECK: No mass. CHEST: Diminished air entry bilaterally. CARDIOVASCULAR: S1, S2 normal, no murmur. ABDOMEN: Soft, nondistended and nontender. EXTREMITIES: Trace edema. NEUROLOGIC: The patient is lethargic and no useful examination was possible. IMPRESSION: 1. Acute on chronic respiratory failure due to end-stage chronic obstructive pulmonary disease. 2. Paroxysmal atrial fibrillation. 3. Anemia of chronic disease. 4. Recent pneumonia. PLAN: The patient's morphine dose will be continued at 2 mg an hour, which will be titrated up for c omfort care. We will continue atropine drops for secretion, DuoNeb for chest congestion and IV Ativa n for terminal agitation and anxiety. I met with several of the patient's family members and updated them regarding patient's condition. I advised them to discontinue BiPAP as the patient is suffering and is not going to benefit in his comfort care. The patient's son told me that he will discuss wit h other family members and will get back to us. We will continue to optimize comfort care. I told t he family to let the nurses know once they decided to take him off BiPAP. Plan of care also discusse d with the [facility] nurseDemarcus. Dictated By: HORACIO WILSON/WINNIE Conf#: [id number] DID#: [id number] CC: JAMES THOMAS MD;*EndCC*
--- NOTE | 2018-08-22 00:28 | DES ---
DATE OF ADMISSION: 08/08/2018 DATE OF : 08/21/2018 CAUSE OF : Acute respiratory failure due to end-stage COPD, comorbid conditions, paroxysmal atr ial fibrillation, hypertension, dyslipidemia. REASON FOR ADMISSION: The patient was an 83-year-old gentleman with past medical history of severe C OPD and paroxysmal atrial fibrillation, hypertension, dyslipidemia. The patient has had several admi ssions in acute care hospital for last 6 to 7 months and was declining. Patient was admitted at [facility] on 08/08/2018 because of increasing shortness of breath. The patient recent ly was [facility] spending a few days and [facility] for r espiratory failure due to influenza A. The patient then subsequently transferred back to [facility] because of increasing shortness of breath and respiratory failure. Patient had to be put on BiPAP but could not be weaned off due to shortness of breath. Therefore, patient was refer red to hospice. The patient was admitted by hospice on 08/19/2018 as GIP patient due to respiratory distress. The patient was short of breath and uncomfortable despite being on BiPAP and was started o n morphine drip at 1 mg an hour. The patient's family initially did not want to remove BiPAP; dee vanegas, on 08/20/2018 the patient's family decided to discontinue BiPAP and to optimize comfort care. Pat ient morphine was then increased to 2 mg an hour. The patient was continued on DuoNeb for chest joanne estion, IV Zofran for vomiting and IV Ativan 1 mg q.4h for terminal anxiety. [facility] during his hospital stay under GIP level of care. The patient's recent labs re vealed WBC , hemoglobin 9.8, platelets 75. Sodium was 141, potassium 3.4, BUN 13, creatinine 0. 5. The patient at 0042 on 08/21/2018 was noted to be not breathing and nursing warehouse and receiving supervisor was called , and the patient was pronounced at 0105 on 08/21/2018. Eric from [facility] came and spoke with the family. Dictated By: HORACOI WILSON/NTS Conf#: [id number] DID#: [id number] CC: JAMES THOMAS MD;*[facility]*
== END 2018-08-21 03:30 | disposition expired | DRG 193 ==
LOC: ICU 11:30 → 6WM 08-10 22:31 → MS1 08-20 01:24
PROVIDERS: ADMIT Internal Medicine; ATTEND Internal Medicine
DX: J18.1 Lobar pneumonia, unspecified organism (principal); J96.21 Acute and chronic respiratory failure with hypoxia; J44.1 Chronic obstructive pulmonary disease with (acute) exacerbation; I47.1 Supraventricular tachycardia; I50.30 Unspecified diastolic (congestive) heart failure; J44.0 Chronic obstructive pulmonary disease with (acute) lower respiratory infection; Z66 Do not resuscitate; J69.0 Pneumonitis due to inhalation of food and vomit; I11.0 Hypertensive heart disease with heart failure; E78.5 Hyperlipidemia, unspecified; E78.00 Pure hypercholesterolemia, unspecified; F41.9 Anxiety disorder, unspecified; R73.9 Hyperglycemia, unspecified; E87.6 Hypokalemia; D63.8 Anemia in other chronic diseases classified elsewhere; I48.0 Paroxysmal atrial fibrillation; Z87.891 Personal history of nicotine dependence; Z51.5 Encounter for palliative care
CPT/HCPCS: 36600; 71045; 80048; 80053; 80069; 81001; 82803; 82962; 83735; 83880; 84100; 85025; 87081; 92610; 93308; 94640; 94660; 94664; 97110; 97162; 97166; 97530; J1650; J1940; J2270; J2405; J2543; J2920; J2930; J3480; J7042; P9047